=== PATIENT | male | born 1950 | race Caucasian/White ===

== ENCOUNTER 2019-11-27 06:33 | Outpatient (CLI) | payer MEDICARE, BC, SELFPAY ==
--- NOTE | ~2019-11-27 | CT_ITS ---
EXAMINATION: CT chest wo con DATE: 11/27/2019 06:56 INDICATION: Solitary pulmonary nodule TECHNIQUE: Computed tomography (CT) of the chest was performed without intravenous contrast. The dose -length product (DLP) was 230.86 mGy-cm. Automated exposure control and iterative reconstruction tech [employer] were employed. COMPARISON: 11/15/2018, 11/10/2017, 08/22/2015 FINDINGS: There is a stable 1.3 x 1.0 cm right upper lobe nodule with eccentric calcification. Also s een are multiple stable small groundglass nodules in the lungs. The lungs are free of acute opacities . There is no pleural effusion or pneumothorax. No pathologically enlarged thoracic lymph nodes are i dentified. The heart size is normal. The gallbladder is surgically absent. IMPRESSION: 1. Stable solid and groundglass nodules of the lungs, considered benign. Reviewed, dictated and finalized at location A.
== END 2019-11-27 06:34 | disposition home or self-care (01) ==
PROVIDERS: PCP Family Medicine; Visit Provider Internal Medicine Critical Care Medicine
DX: R91.1 Solitary pulmonary nodule (principal)
CPT/HCPCS: 71250

== ENCOUNTER 2020-12-05 11:23 | Outpatient (CLI) | payer MEDICARE, BC, SELFPAY ==
--- NOTE | ~2020-12-05 | CT_ITS ---
EXAMINATION: CT lung screening DATE: 12/05/2020 11:42 INDICATION: Personal history of nicotine dependence, prior smoker with 40 pack year history TECHNIQUE: Computed tomography (CT) of the chest was performed without intravenous contrast. The dose -length product (DLP) was 183.91 mGy-cm. Automated exposure control and iterative reconstruction tech [place] were employed. COMPARISON: 11/27/2019, 11/15/2018 FINDINGS: There is mild emphysema. There are multiple stable solid nodules of the lungs, the largest of which is a 12 mm right upper lobe nodule with eccentric calcification. There are also multiple sta ble groundglass nodules of the lungs without solid nodular component, the largest of which measures 2 .3 cm in the right upper lobe. There is atelectasis in the lingula. No pleural effusion or pneumothor ax is identified. The lungs are free of focal airspace opacities. No pathologically enlarged thoracic lymph nodes are identified. The heart size is normal. The gallbladder is surgically absent. IMPRESSION: 1. Lung-RADS category 2: Benign appearance or behavior. Continue annual screening with noncontrast lo w-dose chest CT in 12 months. Reviewed, dictated and finalized at location B. IMPRESSION: 1. Lung-RADS category 2: Benign appearance or behavior. Continue annual screeni ng with noncontrast low-dose chest CT in 12 months.
== END 2020-12-05 11:24 | disposition home or self-care (01) ==
PROVIDERS: PCP Family Medicine; Visit Provider Nurse Practitioner Family
DX: Z12.2 Encounter for screening for malignant neoplasm of respiratory organs (principal); Z87.891 Personal history of nicotine dependence
CPT/HCPCS: 71271

== ENCOUNTER 2021-12-25 09:31 | Outpatient (CLI) | payer MEDICARE, BC, SELFPAY ==
--- NOTE | ~2021-12-25 | CT_ITS ---
EXAMINATION:CT lung screening DATE: 12/25/2021 09:55 INDICATION: Personal history of tobacco dependence. Current smoker with 50 pack year history. TECHNIQUE: Computed tomography (CT) of the chest was performed without intravenous contrast. Automate d exposure control and iterative reconstruction technique were employed. The dose-length product (DLP ) was 165.56 mGy-cm. COMPARISON: Chest CT 12/05/2020 FINDINGS: There is moderate emphysema. There are a few scattered groundglass opacities in the upper l obes and right lower lobe. There is a 13 mm nodule in right upper lobe with peripheral calcification without change. There is a 7 mm nodule in right upper lobe that previously measured 5 mm. No pleural effusion. The heart size is normal. There are coronary artery calcifications. No pericardial effusion . There is mild thoracic spondylosis. IMPRESSION: 1. Lung-RADS category 4A: Suspicious. Noncontrast low-dose chest CT is recommended in 3 months. Reviewed, dictated and finalized at location A. IMPRESSION: 1. Lung-RADS category 4A: Suspicious. Noncontrast low-dose chest CT is recommen ded in 3 months.
== END 2021-12-25 09:32 | disposition home or self-care (01) ==
PROVIDERS: PCP Family Medicine; Visit Provider Nurse Practitioner Family
DX: Z12.2 Encounter for screening for malignant neoplasm of respiratory organs (principal); Z87.891 Personal history of nicotine dependence
CPT/HCPCS: 71271

== ENCOUNTER 2022-03-04 13:29 | Outpatient (CLI) | payer MEDICARE, BC, SELFPAY ==
--- NOTE | ~2022-03-04 | CT_ITS ---
EXAMINATION: CT diagnostic chest wo con DATE: 03/04/2022 14:01 INDICATION: Lung nodule TECHNIQUE: Computed tomography (CT) of the chest was performed without intravenous contrast. The dose -length product (DLP) was 226.10 mGy-cm. Automated exposure control and iterative reconstruction tech [employer] were employed. COMPARISON: 12/25/2021 FINDINGS: A 10 mm nodule in the right upper lobe previously measured 7 mm. There is a stable 13 mm no dule with calcification in the right upper lobe. There is moderate emphysema. There are stable ground glass nodules of the upper lobes and right lower lobe. There is mild atelectasis of the lingula. No p leural effusion or pneumothorax. No pathologically enlarged thoracic lymph nodes are identified. The heart size is normal. Calcified coronary artery atherosclerosis is noted. The gallbladder is surgical ly absent. There is mild thoracic spondylosis. IMPRESSION: 1. Right upper lobe nodule with interval enlargement. CT-guided biopsy is recommended. Reviewed, dictated and finalized at location B. TER MACHINE IMPRESSION: 1. Right upper lobe nodule with interval enlargement. CT-guided biopsy is recom mended.
== END 2022-03-04 13:30 | disposition home or self-care (01) ==
PROVIDERS: PCP Family Medicine; Visit Provider Nurse Practitioner Family
DX: R91.8 Other nonspecific abnormal finding of lung field (principal)
CPT/HCPCS: 71250

== ENCOUNTER 2022-03-17 01:39 | Outpatient (CLI) | payer MEDICARE, BC, SELFPAY ==
[2022-03-13 11:46] VITALS: BMI 30.9
--- NOTE | 2022-03-13 11:47 | PC.NURSE ---
Pre Radiology instructions Report to the Outpatient Waiting Room, entrance under the green pavilion located off [facility], at time _0900_ on date _03/17/22_. Procedure Time: _1100_. YOU MAY BE MONITORED AT HOSPITAL FOR UP TO 4 HOURS AFTER YOUR PROCEDURE. One visitor will be allowed to accompany the patient into the hospital. The visitor will be instructed to remain with patient at all times or leave the building due to restrictions. We will allow the visitor to come back to the postoperative area when patient is ready. NO children visitors allowed at this time. You and your visitor will be asked to self-screen and do not enter if you have any COVID symptoms. A mask is required within the hospital. Patients are to have no food or drink 6 hours prior to procedure time (0500 AM) Driving will be restricted after the procedure, you must have a person to drive you home. Labs will be drawn in preop area and once reviewed, you will be taken to radiology area for procedure. When the procedure is completed, you will be taken to outpatient where you will be monitored for several hours. You may have one visitor in this area. Other than holding anti-coagulants, patient may take other medication(s) as scheduled. Prior to your appointment date patients are instructed to hold anti-coagulants after discussing with ordering provider to stop. If unable to discontinue anti-coagulants please notify radiologist. No aspirin or warfarin (Coumadin) for 7 days prior to the procedure. No clopidogrel (Plavix), ticagrelor (Brilinta), prasugrel (Effient) or dabigatran (Pradaxa) for 5 days prior to the procedure. No rivaroxaban (Xarelto), apixaban (Eliquis), dipyridamole (Aggrenox or Persantine) or cilostazol (Pletal) for 2 days prior to the procedure. Medications to discontinue per physician: N/A Date to take last dose: Please leave all valuables, including medications, at home the day of procedure. The hospital will not accept responsibility for valuables. Wear comfortable, loose fitting clothing. Follow any additional instructions given to you from ordering provider. Telephone instructions given to ____PT and asked if any additional questions and then verbalized understanding. Patient advised to call scheduling provider office or registration scheduling [phone] if any additional questions.
--- NOTE | ~2022-03-17 | XR_ITS ---
EXAMINATION: XR chest 1V DATE: 03/17/2022 12:37 INDICATION: Right lung nodule status post percutaneous biopsy. TECHNIQUE: A single frontal view of the chest was obtained on 2 radiograph 6. COMPARISON: Chest 2 views 08/19/2015, chest CT 03/17/2022 FINDINGS: There are airspace opacities in right upper lobe. There is a moderate-sized right pneumotho rax. No pleural effusion. The heart size is normal. IMPRESSION: 1. Airspace opacities in right lung upper lobe, consistent with postbiopsy hemorrhage. 2. Moderate-sized right pneumothorax. The patient was unable to lay flat for a chest tube with CT [place] dance. The patient was transferred to the emergency department. Reviewed, dictated and finalized at location A. BAG MACHINE TENDER IMPRESSION: 1. Airspace opacities in right lung upper lobe, consistent with postbiopsy hemo rrhage. 2. Moderate-sized right pneumothorax. The patient was unable to lay flat for a chest tube with CT guidance. The patient was transferred to the emergency depar tment.
--- NOTE | ~2022-03-17 | CT_ITS ---
EXAMINATION: CT biopsy lung w/imaging DATE: 03/17/2022 12:58 INDICATION: Right lung upper lobe nodule. TECHNIQUE: The procedure including the risks, benefits, and alternatives and possibility of chest tub e placement were discussed with the patient. Risks discussed included infection, hemorrhage, approxim ately 1/3 risk of pneumothorax, approximately 1/10 risk of pneumothorax severe enough to warrant ches t tube placement, and rarely . The patient understood the risks and agreed to proceed. The patie nt was placed prone. The skin overlying the right lung was prepped and draped in sterile fashion. A nesthetic was administered with 1% lidocaine subcutaneously. A 19 gauge outer needle was advanced un irina CT guidance to the lesion of interest. A 20 gauge core biopsy needle was then used to obtain one core biopsy specimen. Hemorrhage obscured the area of the biopsy, and the procedure was terminated. T he needle was removed and the entry site was cleaned and dressed. The mA was adjusted according to pa tient size. Iterative reconstruction technique was employed. The dose-length product was 435.61 mGy-c m. FINDINGS: CT images demonstrate the outer needle tip adjacent to a 10 mm nodule in right lung upper l obe. IMPRESSION: 1. CT-guided core needle biopsy of a 10 mm nodule in right lung upper lobe. 2. Postbiopsy hemorrhage in right lung upper lobe. The patient was placed in the right lateral decubi tus position. Reviewed, dictated and finalized at location A. L MAKER SCALE IMPRESSION: 1. CT-guided core needle biopsy of a 10 mm nodule in right lung upper lobe. 2. Postbiopsy hemorrhage in right lung upper lobe. The patient was placed in th e right lateral decubitus position.
[2022-03-17 08:56] VITALS: BP 135/91; PULSE 116; RESP 22; TEMP 36.1; O2SAT 98
[2022-03-17] MEDS: SODIUM CHLORIDE 0.9% IV 1,000 ML 30 ML IV CONT (09:20)
[2022-03-17 09:52] LABS: Mean Platelet Volume 11.6 fl (7.4-10.4); Platelet Count Result 193 k/mm3 (150-375)
[2022-03-17 09:56] LABS: INR 0.9; Prothrombin Time 12.2 Seconds (11.1-14.7)
--- NOTE | 2022-03-17 12:54 | ECG_ITS ---
Measurements Intervals [place] Rate: 141 P: IA: 0 QRS: 86 QRSD: 89 T: 53 QT: 298 QTc: 457 Interpretive Statements ATRIAL FLUTTER/TACHYCARDIA WITH RAPID VENTRICULAR RESPONSE BORDERLINE ST-T WAVE ABNORMALITY- DIFFUSE LEADS BASELINE WANDER- V1-V3 ABNORMAL ECG NO PREVIOUS ECG AVAILABLE FOR COMPARISON Electronically Signed On 03-20-2022 15:55:28 TECHNICAL HEALTHCARE CONSULTANT by Vaughn Westfall D.O.
[2022-03-17 13:00] VITALS: BP 135/91; PULSE 116; RESP 22; O2SAT 98
== END 2022-03-17 01:40 | disposition home or self-care (01) ==
PROVIDERS: Radiology Diagnostic Radiology; PCP Family Medicine; Referring Provider Internal Medicine Critical Care Medicine; Visit Provider Radiology Diagnostic Radiology
DX: C34.91 Malignant neoplasm of unspecified part of right bronchus or lung (principal); J93.9 Pneumothorax, unspecified; R06.02 Shortness of breath; I48.92 Unspecified atrial flutter
CPT/HCPCS: 32408; 36415; 71045; 85049; 85610; 88305; 88342; 93005; J7030

== ENCOUNTER 2022-03-17 12:53 | Inpatient (IN) | payer MEDICARE, BC, SELFPAY ==
[2022-03-17] VITALS (13 sets, daily range): BP systolic 130–167; BP diastolic 70–121; PULSE 63–137; RESP 15–30; TEMP 35.9–36.8; O2SAT 94–100; BMI 31.6
--- NOTE | ~2022-03-17 | XR_ITS ---
XR chest 1V portable DATE: 03/19/2022 14:08 INDICATION: Pneumothorax; follow-up after chest tube removal TECHNIQUE: Portable AP views on 03/15/2022 at 1414 101 hours COMPARISON: 03/15/2022 PA and lateral chest on 03/15/2022 at 2125 hours FINDINGS: Interval removal of right thoracostomy tube. No pneumothorax is noted. Mild residual subcutaneous emphysema of the right lower lateral chest wall and to a lesser extent rig ht supraclavicular and cervical area. Right upper lobe lung nodule again noted. Normal heart size. No pulmonary consolidation is noted. IMPRESSION: Removal of right chest tube; no evidence of recurrent pneumothorax Reviewed, dictated and finalized at location A. O GAME TECHNICIAN
--- NOTE | ~2022-03-17 | XR_ITS ---
XR chest-chest tube insert/pos 03/17/2022 13:49 Indication: Chest tube placement for pneumothorax Procedure: AP portable chest Comparison: 03/17/2022 Findings: Heart size normal. Interval placement of right apical chest tube. There is subcutaneous gas in the right lateral chest wall. No residual pneumothorax identified. There is upper lobe consolidat ion which may represent atelectasis and/or post biopsy hemorrhage. Impression: 1: Interval resolution of right pneumothorax post chest tube placement. 2: Airspace consolidation right upper lung may represent atelectasis and/or hemorrhage. Reviewed, dictated and finalized at location B. TITATIVE ANALYST Impression: 1: Interval resolution of right pneumothorax post chest tube placement. 2: Airspace consolidation right upper lung may represent atelectasis and/or hem orrhage.
--- NOTE | ~2022-03-17 | XR_ITS ---
XR chest 2V DATE: 03/19/2022 09:29 INDICATION: Right pneumothorax TECHNIQUE: PA and lateral upright views COMPARISON: 03/18/2022 portable AP chest FINDINGS: Right thoracostomy tube is again noted, with mild subcutaneous emphysema of the right chest wall, supraclavicular and cervical region. No pneumothorax is evident. Minimal right upper lobe infiltrate may be present; otherwise no pulmonar y consolidation or pleural effusion is evident. Normal heart size. No hilar or mediastinal enlargement. Osteopenia. IMPRESSION: Right thoracostomy tube; no right pneumothorax Minimal subcutaneous emphysema of the right chest wall, right supraclavicular and cervical area Reviewed, dictated and finalized at location A. Y PUSHER IMPRESSION: Right thoracostomy tube; no right pneumothorax Minimal subcutaneous emphysema of the right chest wall, right supraclavicular a nd cervical area
--- NOTE | ~2022-03-17 | XR_ITS ---
EXAMINATION: XR chest 1V portable DATE: 03/18/2022 06:15 INDICATION: Pneumothorax. TECHNIQUE: A single frontal view of the chest was obtained. COMPARISON: Chest single view 03/17/2022 FINDINGS: There are airspace opacities in right upper lobe. No pleural effusion or pneumothorax. The heart size is normal. A right-sided chest tube is noted. Again seen is soft tissue gas in right later al chest wall. IMPRESSION: 1. Improved airspace opacities in right upper lobe, consistent with hemorrhage. 2. No pneumothorax. Right-sided chest tube noted. Reviewed, dictated and finalized at location A. H BRUSHING AND SUEDING SUPERVISOR
--- NOTE | ~2022-03-17 | XR_ITS ---
EXAMINATION: XR chest 1V portable DATE: 03/18/2022 13:05 INDICATION: Right pneumothorax. TECHNIQUE: A single frontal view of the chest was obtained. COMPARISON: Chest single view at 5:50 AM FINDINGS: There are airspace opacities in right upper lobe with interval improvement. No pleural effu kenyatta. There is a tiny right apical pneumothorax. The heart size is normal. A right-sided chest tube i s noted. There is gas in right lateral chest wall. IMPRESSION: 1. Tiny right apical pneumothorax. Right-sided chest tube noted. 2. Improved airspace opacities in right upper lobe, consistent with hemorrhage. Reviewed, dictated and finalized at location A. R SWEEPER
[2022-03-17] MEDS: fentaNYL CITRATE INJ (*CRX) 100 MCG/2 ML VIAL 50 MCG IV PUSH ×4 (13:30→14:30)
--- NOTE | 2022-03-17 13:40 | ED.GENADULT ---
HPI - General Adult General Chief complaint: Shortness of Breath/Dyspnea Stated complaint: Unspecified Time Seen by Provider: 03/17/22 12:53 History of Present Illness HPI narrative: 72-year-old male presents to our department with tachycardia and shortness of breath after sustaining a right-sided pneumothorax while having a lung biopsy in the radiology suite just prior to arrival. Patient is stable with 4 L of nasal cannula and only mildly tachypneic on arrival. We have obtained signed consent and have viewed chest x-ray from the radiology suite which demonstrates a moderate to large right-sided pneumothorax. Related Data Home Medications Medication Instructions Recorded Confirmed atorvastatin 40 mg tablet 40 mg PO DAILY 11/29/19 03/13/22 glimepiride 1 mg tablet 1 mg PO QAM 11/29/19 03/13/22 lisinopril 20 mg tablet 20 mg PO DAILY 11/29/19 03/13/22 metformin 850 mg tablet 850 mg PO BID 11/29/19 03/13/22 tamsulosin 0.4 mg capsule 0.4 mg PO DAILY 11/29/19 03/13/22 Allergies Allergy/AdvReac Type Severity Reaction Status Date / Time No Known Allergies Allergy Unverified 03/13/22 11:45 Review of Systems Review of Systems: CONSTITUTIONAL: Denies fever, chills, or sweats. EYES: Denies visual changes, redness, or discharge. ENT: Denies rhinorrhea, congestion, sore throat, or otalgia. CARDIOVASCULAR: Denies chest pain, palpitations, or edema. RESPIRATORY: Denies cough or dyspnea. GASTROINTESTINAL: Denies abdominal pain, nausea, vomiting, or diarrhea. GENITOURINARY: Denies dysuria or hematuria. SKIN: Denies rash or itching. MUSCULOSKELETAL: Denies back pain, joint pain, or myalgia. NEUROLOGIC: Denies headache, numbness, or weakness. PSYCHIATRIC: Denies anxiety or depression. [facility] Past Medical History Medical History (Updated 03/17/22 @ 14:36 by Kalpana Basurto PA-C) Benign prostatic hyperplasia Diverticulosis Hyperlipidemia Hypertension Kidney stones Type 2 diabetes mellitus Surgical History Surgical History (Updated 03/17/22 @ 14:36 by Kalpana Basurto PA-C) History of bilateral knee replacement (2008) History of cholecystectomy History of colonoscopy with polypectomy History of hemorrhoidectomy (1996) History of inguinal hernia repair History of tonsillectomy (1953) History of vasectomy Family History Family History (Updated 03/17/22 @ 14:37 by Kalpana Basurto PA-C) Father Acute myocardial infarction Sibling Lung cancer Social History Social History (Updated 03/17/22 @ 14:38 by Kalpana Basurto PA-C) Social History: Surrogate medical decision maker: Code status: Full code. Smoking packs per day: 1 Smoking cigarettes per day: 20.0 Years smoked: 40 Smoking pack-years: 40.00 Smoking status: Current every day smoker Tobacco type: cigarettes Exam Narrative: GENERAL: Well-appearing, well-nourished, and in no acute distress. HEAD: Normocephalic, atraumatic. EYES: PERRLA and EOMI. ENT: Nares clear, no rhinorrhea or epistaxis. Mucous membranes moist. NECK: Supple. CHEST: Absent breath sounds on the right side HEART: Regular rate and rhythm. No murmur heard. Normal peripheral pulses. ABDOMEN: Soft, nontender, nondistended, normal active bowel sounds. EXTREMITIES: Normal range of motion. No edema. SKIN: Warm, dry, no rash. NEURO: No focal deficits. Alert and oriented x3. PSYCH: Normal mood and affect. Course Vital Signs Vital signs: Vital Signs Temperature 98.2 F 03/17/22 12:49 Pulse Rate 137 H 03/17/22 12:49 Respiratory Rate 30 H 03/17/22 12:49 Blood Pressure 157/121 H 03/17/22 12:49 Pulse Oximetry 95 03/17/22 12:49 Oxygen Delivery Nasal Cannula 03/17/22 12:49 Oxygen Flow Rate 6 03/17/22 12:49 Temperature 98.2 F 03/17/22 12:49 Pulse Rate 90 03/17/22 15:21 Respiratory Rate 15 03/17/22 15:21 Blood Pressure 139/87 03/17/22 14:30 Pulse Oximetry 96 03/17/22 15:21 Oxygen Delivery Room Air 03/17/22 14:00 Oxygen Flow Rate
--- NOTE | 2022-03-17 14:15 | PM.IMHP ---
H&P: HPI History of Present Illness Date/Time: 03/17/22 14:15 Chief Complaint: Shortness of breath. Narrative: This is a very pleasant 72-year-old male smoker with hypertension, hyperlipidemia, and type 2 diabetes mellitus who presented to the ED from radiology for evaluation of shortness of breath following CT guided lung biopsy. One core needle biopsy of a 10 millimeter nodule in the right upper lobe was obtained and post biopsy he started to feel extremely apprehensive, anxious, and short of breath. Post biopsy x-ray revealed a moderate size right pneumothorax and he was sent to the emergency department where he underwent chest tube placement; he is being admitted in this setting. At the time my evaluation he is complaining of a constant sharp and stabbing pain in the right chest at the side of the biopsy and chest tube insertion. Fentanyl has not provided much relief and he is feeling a bit better after receiving 0.5 milligrams of dilaudid. He has not feeling short of breath at this time and he also denies lightheadedness, dizziness, nausea, and vomiting. Review of Systems Review of Systems: Twelve systems were reviewed and are negative except for as per HPI. [facility] Past Medical History Medical History (Updated 03/17/22 @ 20:52 by Kalpana Basurto PA-C) Benign prostatic hyperplasia Chronic kidney disease, stage 3 Diverticulosis Hyperlipidemia Hypertension Kidney stones Type 2 diabetes mellitus Surgical History Surgical History History of bilateral knee replacement (2008) History of cholecystectomy History of colonoscopy with polypectomy History of hemorrhoidectomy (1996) History of inguinal hernia repair History of tonsillectomy (1953) History of vasectomy Family History Family History (Updated 03/17/22 @ 14:37 by Kalpana Basurto PA-C) Father Acute myocardial infarction Sibling Lung cancer Social History Social History (Updated 03/17/22 @ 20:47 by Kalpana Basurto PA-C) Social History: Surrogate medical decision maker: Trupti Acosta, yenny. Code status: Full code. Smoking packs per day: 1 Smoking cigarettes per day: 20.0 Years smoked: 40 Smoking pack-years: 40.00 Smoking status: Current every day smoker Tobacco type: cigarettes Alcohol intake: former Substance use: never Lack of Transportation: No Lack of Food: Never True Current Housing: I Have Housing Concerned About Future Housing: No Difficulty Paying Gas/Electric Bills: No Difficulty Paying for Meds: No Currently Unemployed: No Education: Trade/Vocational Certificate Difficulty w/ Childcare or Family Care: No Spiritual care concerns: No Meds Home Medications and Allergies Home Medications Medication Instructions Recorded Confirmed Type atorvastatin 40 mg tablet 40 mg PO DAILY 11/29/19 03/17/22 History glimepiride 1 mg tablet 1 mg PO QAM 11/29/19 03/17/22 History lisinopril 20 mg tablet 20 mg PO DAILY 11/29/19 03/17/22 History metformin 850 mg tablet 850 mg PO DAILY 11/29/19 03/13/22 History tamsulosin 0.4 mg capsule 0.4 mg PO DAILY 11/29/19 03/17/22 History Allergies Allergy/AdvReac Type Severity Reaction Status Date / Time No Known Allergies Allergy Unverified 03/13/22 11:45 Vital Signs Vital Signs - 24 hr 03/17/22 12:49 03/17/22 13:36 Temperature 98.2 F Pulse Rate 137 H 120 H Respiratory Rate 30 H 17 Blood Pressure 157/121 H 156/98 H Pulse Oximetry 95 96 Oxygen Delivery Nasal Cannula Room Air Oxygen Flow Rate 6 Exam Const: Other: Well-developed, nontoxic-appearing male in the semi-Portillo position in bed. Weight: 90.5 kilograms. BMI: 31.6. HENMT: Other: Normocephalic, atraumatic. Nares patent bilaterally. Oral mucosa moist. Eyes: Other: Pupils are reactive. Extraocular motions intact. Sclerae and after. Neck: Other: Supple. No JVD. Chest: Other: Small bore chest to noted on the r
[2022-03-17 14:45] LABS: Basophils Percent Auto 0.3 % (0.2-1.2); Eosinophils Absolute Auto 0.3 K/mm3 (0-0.3); Hematocrit 44.4 % (42.0-52.0); Hemoglobin 15.1 g/dL (14.0-18.0); Immature Granulocyte Absolute 0.03 K/mm3 (0.00-0.031); Immature Granulocyte Percent A 0.3 % (0-0.5); Lymphocytes Absolute Auto 3.58 K/mm3 (0.9-3.2); Mean Corpuscular Hemoglobin 32.6 pg (26-34); Mean Corpuscular Volume 95.9 fl (80-100); Mean Platelet Volume 11.5 fl (7.4-10.4); Monocytes Absolute Auto 0.6 K/mm3 (0.1-0.6); Monocytes Percent Auto 6.6 % (2.6-8.5); Neutrophils Absolute Auto 4.9 K/mm3 (1.3-6.7); Neutrophils Percent Auto 51.8 % (45.5-73.1); Platelet Count Result 214 k/mm3 (150-375); Red Blood Count 4.63 M/mm3 (4.6-6.20); Red Cell Distribution Width 13.2 % (11.5-14.5); White Blood Count 9.4 K/mm3 (4.5-10.0)
[2022-03-17 14:54] LABS: Alanine Aminotransferase 27 U/L (6-50); Albumin Level 4.3 g/dL (3.5-5.1); Alkaline Phosphatase 114 U/L (38-126); Anion Gap 7 mmol/L (8-16); Aspartate Amino Transferase 26 U/L (17-59); Bilirubin,Total 0.8 mg/dL (0.2-1.3); Blood Urea Nitrogen 29 mg/dL (9-20); Calcium 8.6 mg/dL (8.4-10.2); Carbon Dioxide 26 mmol/L (22-30); Chloride 104 mmol/L (98-107); Estimated CRCL calculation 38 ml/min; Estimated Glomerular Filt Rate 37; Glucose 229 mg/dL (65-110); Potassium 3.6 mmol/L (3.4-5.0); Sodium 137 mmol/L (137-145)
[2022-03-17] MEDS: HYDROmorphone HCL INJ (*CRX) 1 MG/ML SYR 0.5 MG IV PUSH ×2 (15:03→17:40)
--- NOTE | 2022-03-17 15:46 | PC.NURSE ---
This patient, Dennis Acosta, was admitted to Medical Room 244-. Patient/family oriented to hospital policies and general routines including ID bracelet, bed and alarms, visiting hours, pain management, procedures, bathroom and other care routines, personal items, smoking policy, room service/diet, and visiting hours. Information on how to activate the Rapid Response Team has been discussed. Patient/Family are encouraged to report perceived risks to care and to ask questions if they do not understand what they are told or what they should do.
[2022-03-17 17:41] LABS: Glucose Point of Care 205 mg/dl (65-105)
--- NOTE | 2022-03-17 18:49 | PC.NURSE ---
Pt. arrived to unit around 1545. During verbal report from the ER, the RN stated that the Right chest tube is to be to water seal. No orders were placed when patient arrived to floor for chest tube maintenance orders. salt plant operator, called admitting provider to place an order for a surgical consult as one was not placed in the ED. Dr. Lorenzana was consulted and responded at [address] chest tube to -20cm suction instead of water seal. Chest tube was placed to -20cm suction. Chest tube site WNL and without crepitus.
[2022-03-17] MEDS: HYDROcodone/acetaminophen (*CRX) 5-325 MG TABLET 1 TAB PO (20:22)
[2022-03-17 20:57] LABS: Glucose Point of Care 200 mg/dl (65-105)
[2022-03-18] VITALS (9 sets, daily range): BP systolic 161–167; BP diastolic 77–84; PULSE 61–101; RESP 18–20; TEMP 36.4–36.6; O2SAT 93–95
[2022-03-18 06:07] LABS: Anion Gap 8 mmol/L (8-16); Blood Urea Nitrogen 28 mg/dL (9-20); Calcium 8.9 mg/dL (8.4-10.2); Carbon Dioxide 28 mmol/L (22-30); Chloride 107 mmol/L (98-107); Estimated CRCL calculation 41 ml/min; Estimated Glomerular Filt Rate 40; Glucose 158 mg/dL (65-110); Magnesium 2.2 mg/dL (1.6-2.3); Potassium 4.4 mmol/L (3.4-5.0); Sodium 143 mmol/L (137-145)
[2022-03-18] MEDS: HYDROmorphone HCL INJ (*CRX) 1 MG/ML SYR 0.5 MG IV PUSH (06:12)
[2022-03-18 08:02] LABS: Glucose Point of Care 168 mg/dl (65-105)
[2022-03-18] MEDS: ONDANSETRON INJ 4 MG/2 ML VIAL IV PUSH (09:16)
--- NOTE | 2022-03-18 09:33 | PM.CNGS ---
Assessment and Plan Assessment and plan (1) Pneumothorax, post biopsy, right: Code(s): J95.811 - Postprocedural pneumothorax Status: Acute Assessment and Plan: Right pneumothorax s/p CT-guided right upper lobe lung biopsy on 03/17/22. Right chest tube placed in the ER with resolution of the pneumothorax. Chest x-ray this morning showed no pneumothorax with right chest tube in place. No air leak on exam. (2) Lung nodule, solitary: Code(s): R91.1 - Solitary pulmonary nodule Status: Acute Assessment and Plan: S/p CT-guided lung biopsy yesterday. Follows with Pulmonology. (3) Tobacco abuse: Code(s): Z72.0 - Tobacco use Status: Acute Assessment and Plan: Encouraged cessation. (4) Type 2 diabetes mellitus: Code(s): E11.9 - Type 2 diabetes mellitus without complications Status: Acute (5) Benign prostatic hyperplasia: Code(s): N40.0 - Benign prostatic hyperplasia without lower urinary tract symptoms Status: Acute (6) Chronic kidney disease, stage 3: Code(s): N18.30 - Chronic kidney disease, stage 3 unspecified Status: Acute Plan I have discussed the patient's case and plan of care with Dr. Lorenzana. Thank you for allowing us to see the patient in consultation and we will continue to follow along with you. History of Present Illness Consult details Consult date: 03/18/22 Reason for consult: chest tube (Post lung biopsy pneumothorax) Requesting physician: Kalpana Basurto PA-C Narrative: This is a 72-year-old man with type 2 diabetes mellitus, BPH, chronic kidney disease, hypertension, hyperlipidemia, and tobacco abuse. He has been following with pulmonology as an outpatient and was found to have an enlarging right upper lobe lung nodule. He underwent a CT-guided lung biopsy yesterday as an outpatient. He was found to have a moderate-sized right pneumothorax following the biopsy. He was unable to tolerate lying flat to have a CT-guided chest tube placed. He was then transferred to the ER. A right-sided chest tube was placed in the ER with repeat chest x-ray showing interval resolution of the right pneumothorax and chest tube in place. He was admitted to the hospitalist service. Our service was consulted for management of the chest tube. He is seen this morning. He reports pain at the site of the chest tube, but this has been controlled with pain medication. He is no longer on oxygen. He denies any shortness of breath. He does report having some nausea overnight last night that he thought was related to his IV Dilaudid. he reports feeling nauseous during our conversation and ended up vomiting after having a few bites of breakfast. Denies any abdominal pain or other complaints. Review of Systems Review of Systems: All systems reviewed & are unremarkable except as noted in HPI and below [facility] Past Medical History Medical History (Updated 03/18/22 @ 09:41 by QING Larsen) Benign prostatic hyperplasia Chronic kidney disease, stage 3 Diverticulosis Hyperlipidemia Hypertension Kidney stones Type 2 diabetes mellitus Surgical History Surgical History History of bilateral knee replacement (2008) History of cholecystectomy History of colonoscopy with polypectomy History of hemorrhoidectomy (1996) History of inguinal hernia repair History of tonsillectomy (1953) History of vasectomy Family History Family History Father Acute myocardial infarction Sibling Lung cancer Social History Social History Social History: Surrogate medical decision maker: Trupti Dengon, yenny. Code status: Full code. Smoking packs per day: 1 Smoking cigarettes per day: 20.0 Years smoked: 40 Smoking pack-years: 40.00 Smoking status: Current every day smoker Tob
[2022-03-18 09:56] LABS: Hemoglobin A1C 7.7 % (<5.7)
[2022-03-18 11:50] LABS: Glucose Point of Care 191 mg/dl (65-105)
--- NOTE | 2022-03-18 14:25 | PM.IMPN ---
Progress Note: A&P Assessment and Plan (1) Pneumothorax, post biopsy, right: Code(s): J95.811 - Postprocedural pneumothorax Status: Acute Assessment and Plan: Patient has chest tube placement. Surgery has been consulted. Plan is to place a chest tube on water seal and remove later today. (2) Hypoxia: Code(s): R09.02 - Hypoxemia Status: Acute Assessment and Plan: From pneumothorax. Continue oxygen per protocol (3) Chronic kidney disease, stage 3: Code(s): N18.30 - Chronic kidney disease, stage 3 unspecified Status: Acute Assessment and Plan: Monitor (4) Type 2 diabetes mellitus: Code(s): E11.9 - Type 2 diabetes mellitus without complications Status: Acute Assessment and Plan: Continue insulin with Accu-Cheks AC and HS Subjective Date/time seen: 03/18/22 14:25 Patient reports chest pain upon movement at the site of chest tube placement Review of Systems Review of Systems: All systems reviewed & are unremarkable except as noted in HPI and below Exam Const: General: comfortable, no acute distress and awake Nutritional Appearance: overweight Orientation/consciousness: patient oriented x3 HENMT: Head: normocephalic and atraumatic Ears: hearing grossly normal bilaterally Mouth: Yes moist mucous membranes Eyes: General: appearance normal, both eyes and all related structures Pupils: Equal, round and reactive pupils present EOM: EOMs intact bilaterally Neck: Neck: normal visual inspection and full ROM Chest: Chest palpation & inspection: no crepitus Other: Right lateral chest tube with dressing dry and intact, no air leak Resp: Effort & Inspection: no respiratory distress Auscultation: clear to auscultation bilaterally Cardio: Rate: regular rate Rhythm: regular rhythm Heart sounds: S1 normal heart sound present and S2 normal heart sound present Peripheral pulses: Peripheral pulses 2+ throughout GI: Inspection: non-distended and no visible herniation GI Palp: Yes Soft to palpation, No Tenderness to palpation present (GI), No Guarding due to palpation present (GI), Yes No hepatosplenomegaly present and No Rebound tenderness present Percussion: Yes normal to percussion Auscultation: normal bowel sounds Rectal Exam: deferred Skin: General skin exam: normal color Rashes: no rashes Neuro: General: moves all extremities and no focal motor deficits Cranial nerves: Yes CN's II-XII intact bilaterally Speech: normal speech Motor exam (neuro): 5/5 motor strength present throughout Extrem: General: normal to inspection and no edema Psych: Mental Status: mental status grossly normal Affect: normal affect Attitude: cooperative Insight: Good insight present (Psych) Judgement: Good judgement present (Psych) Objective Data Vital Signs Vital Signs: Vital Signs - 24 hr 03/17/22 14:30 03/17/22 15:21 03/17/22 16:00 Temperature 96.6 F L Pulse Rate 104 H 90 63 Respiratory Rate 19 15 16 Blood Pressure 139/87 130/70 Pulse Oximetry 95 96 100 Oxygen Delivery 03/17/22 16:15 03/17/22 19:47 03/17/22 20:00 Temperature 97.1 F L Pulse Rate 88 82 82 Respiratory Rate 18 18 Blood Pressure 133/88 Pulse Oximetry 98 98 Oxygen Delivery Room Air 03/17/22 20:00 03/18/22 00:00 03/18/22 04:27 Temperature 97.8 F Pulse Rate 74 61 81 Respiratory Rate 20 Blood Pressure 162/77 H Pulse Oximetry 95 Oxygen Delivery 03/18/22 04:00 03/18/22 08:00 03/18/22 08:00 Temperature Pulse Rate 77 77 Respiratory Rate Blood Pressure Pulse Oximetry Oxygen Delivery Room Air Intake/Output Intake/Output: Intake & Output 03/15/22 03/16/22 03/17/22 03/18/22 23:59 23:59 23:59 23:59 Intake Total 700 / 700 320 / 320 Output Total 200 / 200 725 / 725 Balance 500 / 500 -405 / -405 Meds/Results Medications: Active Medications Generic Name Dose Route Start Last Admin Trade Name Freq PRN Reason S
[2022-03-18] MEDS: HYDROcodone/acetaminophen (*CRX) 10-325 MG TABLET 1 TAB PO (15:01)
[2022-03-18 17:00] LABS: Glucose Point of Care 223 mg/dl (65-105)
[2022-03-18 20:38] LABS: Glucose Point of Care 227 mg/dl (65-105)
[2022-03-19] VITALS: PULSE 76
[2022-03-19 04:00] VITALS: PULSE 80
[2022-03-19 05:33] VITALS: BP 188/81; PULSE 79; RESP 20; TEMP 36.7; O2SAT 91
[2022-03-19 08:00] VITALS: PULSE 86
[2022-03-19 09:04] VITALS: BP 168/62; PULSE 96; RESP 17; O2SAT 95
[2022-03-19 09:08] LABS: Glucose Point of Care 179 mg/dl (65-105)
[2022-03-19] MEDS: lisinopriL 20 MG TABLET PO (09:08)
[2022-03-19] MEDS: ACETAMINOPHEN 325 MG TABLET 650 MG PO (09:09)
--- NOTE | 2022-03-19 09:35 | PM.IMPN ---
Progress Note: A&P Assessment and Plan (1) Pneumothorax, post biopsy, right: Code(s): J95.811 - Postprocedural pneumothorax Status: Acute Assessment and Plan: Patient has chest tube placement. Surgery has been consulted. Chest x-ray yesterday afternoon showed minimal pneumothorax. Repeat chest x-ray this morning. Further plans per surgery (2) Hypoxia: Code(s): R09.02 - Hypoxemia Status: Acute Assessment and Plan: From pneumothorax. Continue oxygen per protocol (3) Chronic kidney disease, stage 3: Code(s): N18.30 - Chronic kidney disease, stage 3 unspecified Status: Acute Assessment and Plan: Monitor (4) Type 2 diabetes mellitus: Code(s): E11.9 - Type 2 diabetes mellitus without complications Status: Acute Assessment and Plan: Continue insulin with Accu-Cheks AC and HS Subjective Date/time seen: 03/19/22 09:35 No shortness of breaths. Chest pain at the site of chest tube insertion Review of Systems Review of Systems: All systems reviewed & are unremarkable except as noted in HPI and below Exam Const: General: comfortable, no acute distress and awake Nutritional Appearance: overweight Orientation/consciousness: patient oriented x3 HENMT: Head: normocephalic and atraumatic Ears: hearing grossly normal bilaterally Mouth: Yes moist mucous membranes Eyes: General: appearance normal, both eyes and all related structures Pupils: Equal, round and reactive pupils present EOM: EOMs intact bilaterally Neck: Neck: normal visual inspection and full ROM Chest: Chest palpation & inspection: no crepitus Other: Right lateral chest tube with dressing dry and intact, no air leak Resp: Effort & Inspection: no respiratory distress Auscultation: clear to auscultation bilaterally Cardio: Rate: regular rate Rhythm: regular rhythm Heart sounds: S1 normal heart sound present and S2 normal heart sound present Peripheral pulses: Peripheral pulses 2+ throughout GI: Inspection: non-distended and no visible herniation GI Palp: Yes Soft to palpation, No Tenderness to palpation present (GI), No Guarding due to palpation present (GI), Yes No hepatosplenomegaly present and No Rebound tenderness present Percussion: Yes normal to percussion Auscultation: normal bowel sounds Rectal Exam: deferred Skin: General skin exam: normal color Rashes: no rashes Neuro: General: moves all extremities and no focal motor deficits Cranial nerves: Yes CN's II-XII intact bilaterally Speech: normal speech Motor exam (neuro): 5/5 motor strength present throughout Extrem: General: normal to inspection and no edema Psych: Mental Status: mental status grossly normal Affect: normal affect Attitude: cooperative Insight: Good insight present (Psych) Judgement: Good judgement present (Psych) Objective Data Vital Signs Vital Signs: Vital Signs - 24 hr 03/18/22 14:00 03/18/22 12:00 03/18/22 16:00 Temperature 97.5 F L Pulse Rate 80 85 101 H Respiratory Rate 18 Blood Pressure 161/84 H Pulse Oximetry 94 Oxygen Delivery 03/18/22 17:24 03/18/22 20:00 03/18/22 20:00 Temperature 97.8 F Pulse Rate 83 83 Respiratory Rate 20 20 Blood Pressure 167/80 H Pulse Oximetry 94 93 93 Oxygen Delivery Room Air Room Air 03/18/22 20:00 03/19/22 00:00 03/19/22 05:33 Temperature 98.1 F Pulse Rate 79 76 79 Respiratory Rate 20 Blood Pressure 188/81 H Pulse Oximetry 91 Oxygen Delivery 03/19/22 04:00 03/19/22 08:00 03/19/22 09:04 Temperature Pulse Rate 80 86 96 Respiratory Rate 17 Blood Pressure 168/62 H Pulse Oximetry 95 Oxygen Delivery 03/19/22 09:15 Temperature Pulse Rate Respiratory Rate Blood Pressure Pulse Oximetry Oxygen Delivery Room Air Intake/Output Intake/Output: Intake & Output 03/16/22 03/17/22 03/18/22 03/19/22 23:59 23:59 23:59 23:59 Intake Total 700 / 700 1280 / 1280 300 / 300 Output To
--- NOTE | 2022-03-19 11:40 | PM.PNGS ---
Progress Note: A&P Assessment and Plan (1) Pneumothorax, post biopsy, right: Code(s): J95.811 - Postprocedural pneumothorax Status: Acute Assessment and Plan: CT removed at bedside, encourage IS/deep breathing, recheck CXR in a few hours and if no issues ok to dc from surgical standpoint Subjective Subjective Date/Time Seen: 03/19/22 11:40 feels ok, denies SOB, CP Review of Systems Review of Systems: All systems reviewed & are unremarkable except as noted in HPI and below Exam Const: General: cooperative, comfortable and no acute distress Chest: Other: R CT - C/D/I, no air leak, on seal Resp: Auscultation: clear to auscultation bilaterally Cardio: Rate: regular rate Rhythm: regular rhythm GI: Inspection: normal to inspection Objective Data Vital Signs Vital Signs: Vital Signs - 24 hr 03/18/22 14:00 03/18/22 12:00 03/18/22 16:00 Temperature 36.4 C L Pulse Rate 80 85 101 H Respiratory Rate 18 Blood Pressure 161/84 H Pulse Oximetry 94 Oxygen Delivery 03/18/22 17:24 03/18/22 20:00 03/18/22 20:00 Temperature 36.6 C Pulse Rate 83 83 Respiratory Rate 20 20 Blood Pressure 167/80 H Pulse Oximetry 94 93 93 Oxygen Delivery Room Air Room Air 03/18/22 20:00 03/19/22 00:00 03/19/22 05:33 Temperature 36.7 C Pulse Rate 79 76 79 Respiratory Rate 20 Blood Pressure 188/81 H Pulse Oximetry 91 Oxygen Delivery 03/19/22 04:00 03/19/22 08:00 03/19/22 09:04 Temperature Pulse Rate 80 86 96 Respiratory Rate 17 Blood Pressure 168/62 H Pulse Oximetry 95 Oxygen Delivery 03/19/22 09:15 Temperature Pulse Rate Respiratory Rate Blood Pressure Pulse Oximetry Oxygen Delivery Room Air Intake/Output Intake/Output: Intake & Output 03/16/22 03/17/22 03/18/22 03/19/22 23:59 23:59 23:59 23:59 Intake Total 700 1280 654 Output Total 200 925 875 Balance 500 355 -221 Meds/Results Medications: Active Medications Generic Name Dose Route Start Last Admin Trade Name Freq PRN Reason Stop Dose Admin Acetaminophen 650 mg 03/17/22 16:28 03/19/22 09:09 Acetaminophen 325 Mg Tablet PO 650 mg Q6H PRN Administration Mild Pain (1-3) or Fever Hydrocodone Bitart/Acetaminophen 1 tab 03/17/22 16:28 03/17/22 20:22 Hydrocodone/Acetaminophen (*Crx) 5-325 Mg Tablet PO 1 tab Q6H PRN Administration Pain Rated 4-6 Hydrocodone Bitart/Acetaminophen 1 tab 03/18/22 09:50 03/18/22 15:01 Hydrocodone/Acetaminophen (*Crx) 10-325 Mg Tablet PO 1 tab Q6H PRN Administration Pain Rated 7-10 Dextrose 12.5 gm 03/17/22 16:30 Dextrose 50% 25 Gm/50 Ml Syringe IV PUSH PRN PRN Hypoglycemia Protocol Glucagon 1 mg 03/17/22 16:30 Glucagon For Inj 1 Mg Vial IM PRN PRN Hypoglycemia Protocol Glucose 15 gm 03/17/22 16:30 Glucose Oral Gel 15 Gm Of Glucse In 37.5 Gm Tube PO PRN PRN Hypoglycemia Protocol Hydromorphone HCl 0.5 mg 03/17/22 16:28 03/18/22 06:12 Hydromorphone Hcl Inj (*Crx) 1 Mg/Ml Syr IV PUSH 0.5 mg Q3H PRN Administration Pain Rated 7-10 Dextrose 1,000 mls @ 100 mls/hr 03/17/22 16:30 Dextrose 5% 1,000 Ml IVPB PRN PRN Hypoglycemia Protocol Insulin Aspart 2 - 5 units 03/17/22 17:00 03/19/22 09:02 Insulin Aspart (*Bkc) 100 Units/Ml SUB-Q Not Given [facility] Protocol Lisinopril 20 mg 03/19/22 09:00 03/19/22 09:08 Lisinopril 20 Mg Tablet PO 20 mg QAM PRAVIN Administration Ondansetron HCl 4 mg 03/18/22 09:09 03/18/22 09:16 Ondansetron Inj 4 Mg/2 Ml Vial IV PUSH 4 mg Q4H PRN Administration Nausea And Vomiting Labs Labs: Laboratory Results - last 24 hr 03/18/22 03/18/22 03/18/22 11:44 16:50 20:22 POC Capillary Glucose 191 H 223 H 227 H 03/19/22 08:48 POC Capillary Glucose 179 H Imaging My impression: CXR - no PTX
[2022-03-19 12:00] VITALS: PULSE 101
[2022-03-19 12:32] LABS: Glucose Point of Care 277 mg/dl (65-105)
[2022-03-19] MEDS: HYDROcodone/acetaminophen (*CRX) 10-325 MG TABLET 1 TAB PO (12:44)
[2022-03-19] MEDS: INSULIN ASPART (*BKC) 100 UNITS/ML SUB-Q (12:45)
--- NOTE | 2022-03-19 15:22 | PM.DS ---
DS: Admitting Diagnosis Discharge Date 03/19/22 Admitting Diagnosis pneumothorax DS: Summary Hospital Course Hospital Course: ?This is a 72-year-old man who presented to the emergency department yesterday after undergoing a CT-guided lung biopsy in Interventional Radiology.? Postprocedure chest x-ray showed evidence of a moderate pneumothorax.? Patient was unable to lie flat for a CT-guided chest tube placement, therefore he was sent directly over to the emergency department.? Chest tube was placed by the emergency department physician and follow-up chest x-ray showed resolution of the pneumothorax.? Surgery was consulted. His symptoms resolved after chest tube placement and he only has pain and discomfort from the chest tube now.? His breath sounds are equal bilaterally and there is no sign of air leak on the chest tube.? We will plan to place patient water seal and a repeat chest x-ray in a few hours.? pneumothorax remains resolved. chest tube removed today. post removal of chest tube CXR shows no pneumothorax. patient is being dscharged home. Time Spent with Patient Time attestation: Total time spent providing and/or coordinating discharge services: Exam Const: General: cooperative, comfortable and no acute distress Chest: Other: R CT - C/D/I, no air leak, on seal Resp: Auscultation: clear to auscultation bilaterally Cardio: Rate: regular rate Rhythm: regular rhythm GI: Inspection: normal to inspection DS: Data Data Completed and Pending Labs on day of discharge: Labs from last 24 hours 03/19/22 03/19/22 03/18/22 12:19 08:48 20:22 POC Capillary Glucose 277 H 179 H 227 H 03/18/22 16:50 POC Capillary Glucose 223 H Discharge Plan Discharge Consulting providers: Munir Lorenzana Discharging Clinician: Bart Cadena Anticipated Discharge Date/Time: 03/19/22 15:21 Patient Disposition: Home, Self-Care Activity: may shower Diet: heart healthy Patient Instructions: Antibiotic Form Stand Alone Forms: General Discharge Information Follow-up/Referrals: Leonardo Gomez MD [Primary Care Provider] - Discharge Medications: Continued atorvastatin 40 mg tablet 40 mg PO DAILY glimepiride 1 mg tablet 1 mg PO QAM Rx Instructions: administer with breakfast lisinopril 20 mg tablet 20 mg PO DAILY metformin 850 mg tablet 850 mg PO DAILY tamsulosin 0.4 mg capsule 0.4 mg PO DAILY Date of admission: 03/17/22 15:28 Primary Care Provider: Leonardo Gomez Admitting Provider: Sam Mast Attending physician on admission: Bart Cadena Condition: Stable
== END 2022-03-19 16:25 | disposition home or self-care (01) | DRG 201 ==
LOC: ANHED 13:51 → ANH2MED 15:47
PROVIDERS: Physician Assistant; Admitting Provider Internal Medicine; Emergency Provider Emergency Medicine; PCP Family Medicine; Visit Provider Hospitalist
DX: J95.811 Postprocedural pneumothorax (principal); R91.1 Solitary pulmonary nodule; R09.02 Hypoxemia; N40.0 Benign prostatic hyperplasia without lower urinary tract symptoms; N18.30 Chronic kidney disease, stage 3 unspecified; F17.210 Nicotine dependence, cigarettes, uncomplicated; E11.22 Type 2 diabetes mellitus with diabetic chronic kidney disease; I12.9 Hypertensive chronic kidney disease with stage 1 through stage 4 chronic kidney disease, or unspecified chronic kidney disease; E78.5 Hyperlipidemia, unspecified; Z79.84 Long term (current) use of oral hypoglycemic drugs; Z79.899 Other long term (current) drug therapy; Z87.442 Personal history of urinary calculi
CPT/HCPCS: 32408; 36415; 71045; 71046; 80048; 80053; 82948; 83036; 83735; 85025; 85049; 85610; 88305; 88342; 93005; 96374; 96375; 96376; 99285; A9270; C1729; G0378; J1170; J1815; J2270; J2405; J3010; J7030

== ENCOUNTER 2022-04-08 09:50 | Outpatient (CLI) | payer MEDICARE, BC, SELFPAY ==
--- NOTE | 2022-04-08 12:17 | P.PCNPFT_ITS ---
PFT Procedure Performed PFT Procedure Performed Spirometry with Pre/Post Bronchodilator Plethysmography (Lung Vol) Diffusing Cap (DLCO) Flow Vol Loop PFT Interpretation This is a pulmonary function test with pre and post-bronchodilator spirometry, plethysmography and diffusing capacity. The test was performed and results interpreted in accordance with the 2019 and 2005 ATS/ERS Task Force guidelines respectively using the Global Lung Function Initiative-2012 reference equations. Patient demonstrated good effort and cooperation. Reproducibility criteria were met. The quality of the pre bronchodilator spirometry maneuver was Grade A and post bronchodilator spirometry maneuver was Grade A. Findings: Spirometry: There is decreased maximal expiratory airflow at all lung volumes with concave expiratory flow tracing. The contour the inspiratory flow tracing is normal. The pre bronchodilator FVC is 3.11 L, 79% predicted. The pre bronchodilator FEV1 is 1.89 L, 64% predicted. The pre bronchodilator FEV1: FVC ratio 61%. The post bronchodilator FVC is 3.86 L, representing a 24% increase. The post bronchodilator FEV1 is 2.02 L, representing a 7% increase. The post bronchodilator FEV1: FVC ratio is 52%. Plethysmography: The total lung capacity is 7.39 L, 108% predicted. The functional residual capacity is 4.79 L, 132% predicted. The residual volume is 4.28 L, 173% predicted. Diffusing capacity: The diffusing capacity unadjusted for hemoglobin and carboxyhemoglobin is 14.9, 60% predicted. The diffusing capacity adjusted for alveolar volume is 3.26, 84% predicted. In comparison to previous pulmonary function testing on 10/04/2015 the post bronchodilator FVC has decreased from 4.57 L to 3.86 L. The post bronchodilator FEV1 has decreased from 2.52 L to 2.02 L. The total lung capacity is unchanged from 7.23 L to 7.39 L. The functional residual capacity has increased from 4.02 L to 4.79 L. The residual volume is increased from 3.04 L to 4.28 L. The diffusing capacity unadjusted for hemoglobin and carboxyhemoglobin has decreased from 19.2 to 14.9. The diffusing capacity adjusted for alveolar volume is unchanged from 3.22 to 3.26. Impression: There is a moderate obstructive abnormality with significant improvement after inhaling a single dose of albuterol. The increase in residual volume is consistent with air trapping from an obstructive abnormality. The diffusing capacity unadjusted for hemoglobin and carboxyhemoglobin is moderately decreased and normalizes when adjusted for alveolar volume. When compared to prior pulmonary function testing on 10/04/2015 there has been a greater than anticipated time dependent decrease in FVC, FEV1 and diffusi ng capacity unadjusted for hemoglobin and carboxyhemoglobin. There has been a greater than anticipated time dependent increase in the functional residual capacity and residual volume with no change in the diffusing capacity adjusted for alveolar volume. Clinical correlation recommended.
== END 2022-04-08 09:51 | disposition home or self-care (01) ==
LOC: ANHPFT 09:52
PROVIDERS: PCP Family Medicine; Visit Provider Internal Medicine Critical Care Medicine
DX: R06.02 Shortness of breath (principal); R94.2 Abnormal results of pulmonary function studies
CPT/HCPCS: 94060; 94726; 94729

== ENCOUNTER 2022-04-09 08:29 | Outpatient (CLI) | payer MEDICARE, BC, SELFPAY ==
--- NOTE | ~2022-04-09 | PE_ITS ---
EXAMINATION: PET skull to mid thigh DATE: 04/09/2022 10:15 INDICATION: Adenocarcinoma of the right upper lobe TECHNIQUE: Blood glucose level was 182 mg/dL. 7.055 mCi of 18-fluorodeoxyglucose (18-FDG) was adminis tered i.v. Low dose computed tomography (CT) images were acquired from the base of the brain to the p roximal thighs for attenuation correction and anatomic localization. Positron emission tomography (PE T) images were acquired in the same distribution beginning 50 minutes after injection. The dose-lengt h product (DLP) was 795.81 mGy-cm. COMPARISON: CT, 03/04/2022 FINDINGS: Head/neck: No abnormal FDG uptake is identified. There is physiologic uptake in the oral cavity and e xtraocular muscles. Chest: There is a stable 10 mm nodule of the right upper lobe with minimal FDG uptake with SUV max of 1.6, biopsy-proven adenocarcinoma. No additional abnormal FDG uptake is identified in the thorax. Th ere are stable groundglass nodules without solid component in the upper lobes and right lower lobe me asuring up to 2.4 cm. A stable 13 mm nodule with calcification in the right upper lobe does not demon strate associated FDG uptake. There is moderate emphysema. There is mild atelectasis of the lingula. No pleural effusion or pneumothorax. No pathologically enlarged thoracic lymph nodes are identified. The heart size is normal. Calcified coronary artery atherosclerosis is noted. Abdomen/pelvis/proximal thighs: No abnormal FDG uptake is identified. Physiologic FDG activity is pre sent in the bowel and urinary tract. The gallbladder is surgically absent. The liver, spleen, pancrea s, and adrenal glands are normal. No pathologically enlarged abdominal or pelvic lymph nodes are iden tified. There is no free intraperitoneal gas or evidence of bowel obstruction. There is a 3.7 cm fusi form infrarenal abdominal aortic aneurysm. Colonic diverticulosis is present without evidence of dive rticulitis. There is questionable eccentric wall thickening of the urinary bladder on the right. Ther e appear to be changes of right inguinal hernia repair. Musculoskeletal: No abnormal FDG uptake is identified. There is moderate lumbar spondylosis. IMPRESSION: 1. 10 mm nodule of the right upper lobe with minimal FDG uptake, consistent with biopsy-proven adenoc arcinoma. No evidence of metastatic disease. 2. Groundglass nodules of the upper lobes and right lower lobe. Annual CT follow-up is recommended. 3. Questionable eccentric thickening of the bladder wall. Recommend correlation with urinalysis and f urther imaging evaluation such as ultrasound or CT urogram. 4. 3.7 cm fusiform infrarenal abdominal aortic aneurysm. Reviewed, dictated and finalized at location A. [facility] IMPRESSION: 1. 10 mm nodule of the right upper lobe with minimal FDG uptake, consistent wit h biopsy-proven adenocarcinoma. No evidence of metastatic disease. 2. Groundglass nodules of the upper lobes and right lower lobe. Annual CT follo w-up is recommended. 3. Questionable eccentric thickening of the bladder wall. Recommend correlation with urinalysis and further imaging evaluation such as ultrasound or CT urogra m. 4. 3.7 cm fusiform infrarenal abdominal aortic aneurysm.
[2022-04-09 08:54] LABS: Glucose Point of Care 182 mg/dl (65-105)
== END 2022-04-09 08:30 | disposition home or self-care (01) ==
PROVIDERS: PCP Family Medicine; Visit Provider Internal Medicine Hematology & Oncology
DX: C34.11 Malignant neoplasm of upper lobe, right bronchus or lung (principal); R91.8 Other nonspecific abnormal finding of lung field; I71.43 Infrarenal abdominal aortic aneurysm, without rupture
CPT/HCPCS: 78815; A9552

== ENCOUNTER 2022-06-14 20:46 | Emergency (ER) | payer MEDICARE, BC, SELFPAY ==
--- NOTE | ~2022-06-14 | CT_ITS ---
Non-contrast Head CT History: Dizziness COMPARISON: 12/31/2009 Technique: Axial non-contrast imaging of the brain was performed. Dose reduction technique was used on this scan by utilizing automated exposure control and iterative reconstruction technique. The dose -length product (DLP) was 605.33 mGy-cm. Findings: There is no evidence of intracranial hemorrhage, mass lesion, or acute infarct. Brain par enchyma appears normal. The ventricles and subarachnoid spaces are mildly dilated. The calvarium ap pears normal. The visualized paranasal sinuses and mastoid air cells are clear. Impression: No acute abnormality seen. Mild generalized atrophy. Reviewed, dictated and finalized at location . LAYER Impression: No acute abnormality seen. Mild generalized atrophy.
--- NOTE | ~2022-06-14 | CT_ITS ---
Clinical Indication: Shortness of breath CT Scan of the Chest with Contrast: Technique: Contiguous sections were acquired throughout the chest after intravenous administration of 100 cc of Omnipaque 350. Dose reduction technique was used on this scan by utilizing automated expos ure control and iterative reconstruction technique. The dose-length product (DLP) was 758.81 mGy-cm. COMPARISON: 03/04/2022 Findings: There is no evidence of any significant mediastinal, hilar or axillary lymphadenopathy. There is no f illing defect in the pulmonary arterial tree to suggest pulmonary embolus. There is no evidence of ao rtic dissection or aneurysm. There is extensive atherosclerotic change of the aortic arch and descend ing thoracic aorta. No pericardial effusion. Minimal right pleural effusion present. No left pleural effusion. Patient is status post right upper lobectomy. There is minimal scarring in the right lung. There is p robable subsegmental atelectatic change in the lingula. There is minimal groundglass opacity in the l eft upper lobe. Images through the upper abdomen reveal cholecystectomy clips. Impression: No evidence of pulmonary embolus, aortic dissection, or aortic aneurysm. Minimal groundglass opacity or groundglass pulmonary nodule in the left upper lobe. Other groundglass opacities seen on prior exam are resolved. Consider follow-up exam in 1 year to reassess. Chronic atelectasis in the lingula, unchanged. Status post right upper lobectomy. Minimal right pleural effusion. Reviewed, dictated and finalized at [facility]. [employer] Impression: No evidence of pulmonary embolus, aortic dissection, or aortic aneurysm. Minimal groundglass opacity or groundglass pulmonary nodule in the left upper l obe. Other groundglass opacities seen on prior exam are resolved. Consider foll ow-up exam in 1 year to reassess. Chronic atelectasis in the lingula, unchanged. Status post right upper lobectomy. Minimal right pleural effusion.
--- NOTE | ~2022-06-14 | XR_ITS ---
Clinical Indication: Shortness of breath AP and lateral views of the chest: Comparison: 03/19/2022 Findings: The lungs are clear, without evidence of focal consolidation or pleural effusion. Probable COPD pattern. Cardiomediastinal silhouette is within normal limits. Bones and soft tissues are unrema rkable. Impression: COPD. Clear lungs. Reviewed, dictated and finalized at location . [employer] Impression: COPD. Clear lungs.
[2022-06-14 20:46] VITALS: BP 116/71; PULSE 88; RESP 24; TEMP 36.6; O2SAT 100
--- NOTE | 2022-06-14 20:58 | ECG_ITS ---
Measurements Intervals Minter Rate: 86 P: 29 MI: 164 QRS: 38 QRSD: 91 T: 36 QT: 377 QTc: 452 Interpretive Statements SINUS RHYTHM WITHIN NORMAL LIMITS COMPARED TO ECG 03/17/2022 12:54:04 SINUS RHYTHM REPLACES ATRIAL FIBRILLATION Electronically Signed On 06-15-2022 12:38:57 PICKER TENDER by Orestes Olea M.D.
[2022-06-14 21:00] VITALS: O2SAT 100
[2022-06-14 22:03] LABS: Basophils Percent Auto 0.5 % (0.2-1.2); Eosinophils Absolute Auto 0.2 K/mm3 (0-0.3); Eosinophils Percent Auto 1.9 % (0-4.4); Hematocrit 44.6 % (42.0-52.0); Hemoglobin 14.9 g/dL (14.0-18.0); Immature Granulocyte Absolute 0.07 K/mm3 (0.00-0.031); Immature Granulocyte Percent A 0.8 % (0-0.5); Lymphocytes Absolute Auto 1.58 K/mm3 (0.9-3.2); Mean Corpuscular HGB Conc 33.4 g/dl (32-36); Mean Corpuscular Hemoglobin 32.5 pg (26-34); Mean Corpuscular Volume 97.4 fl (80-100); Mean Platelet Volume 12.2 fl (7.4-10.4); Monocytes Absolute Auto 0.9 K/mm3 (0.1-0.6); Monocytes Percent Auto 11.3 % (2.6-8.5); Neutrophils Absolute Auto 5.5 K/mm3 (1.3-6.7); Neutrophils Percent Auto 66.5 % (45.5-73.1); Platelet Count Result 189 k/mm3 (150-375); Red Blood Count 4.58 M/mm3 (4.6-6.20); Red Cell Distribution Width 12.7 % (11.5-14.5); White Blood Count 8.3 K/mm3 (4.5-10.0)
[2022-06-14 22:14] LABS: Alanine Aminotransferase 31 U/L (6-50); Albumin Level 3.8 g/dL (3.5-5.1); Alkaline Phosphatase 151 U/L (38-126); Anion Gap 6 mmol/L (8-16); Aspartate Amino Transferase 22 U/L (17-59); Bilirubin,Total 0.7 mg/dL (0.2-1.3); Blood Urea Nitrogen 38 mg/dL (9-20); Calcium 8.6 mg/dL (8.4-10.2); Carbon Dioxide 24 mmol/L (22-30); Chloride 106 mmol/L (98-107); Estimated CRCL calculation 35 ml/min; Estimated Glomerular Filt Rate 33; Glucose 271 mg/dL (65-110); Potassium 4.3 mmol/L (3.4-5.0); Sodium 136 mmol/L (137-145)
[2022-06-14 22:18] VITALS: BP 111/72; PULSE 77; RESP 17; O2SAT 99
[2022-06-14 23:10] VITALS: BP 109/68; PULSE 87; RESP 18; O2SAT 100
[2022-06-14 23:25] LABS: INR 1.1; Prothrombin Time 13.4 Seconds (11.1-14.7)
[2022-06-14 23:26] LABS: Partial Thromboplastin Time 32.5 SECONDS (22.3-36.8)
[2022-06-14 23:56] LABS: NT Pro B Type Natriuretic Pept 772 pg/mL (19.9-100); Troponin I 0.024 ng/mL (0.000-0.034)
[2022-06-15 00:01] LABS: Procalcitonin 0.1 ng/mL
[2022-06-15 00:10] VITALS: BP 122/79; PULSE 74; RESP 22; O2SAT 98
--- NOTE | 2022-06-15 01:11 | ED.GENADULT ---
HPI - General Adult General Chief complaint: Shortness of Breath/Dyspnea Stated complaint: sob Time Seen by Provider: 06/14/22 22:07 History of Present Illness HPI narrative: Patient 72-year-old gentleman who presents the emergency department with chief complaint of shortness of breath. Patient reports that he had a lobectomy on his right lung performed at [facility] for a lung tumor the patient states that he has been doing rehab at a local nursing facility reports that has been having chronic dizziness which he describes as a lightheaded sensation and reports that he has had episodes of shortness of breath. Patient reports that the shortness of breath is doing much better right now and is concerned that it may be anxiety. Patient reports no fever reports no productive cough patient reports no trauma reports that his incisions are healing. Related Data Home Medications Medication Instructions Recorded Confirmed atorvastatin 40 mg tablet 40 mg PO DAILY 11/29/19 03/17/22 glimepiride 1 mg tablet 1 mg PO QAM 11/29/19 03/17/22 lisinopril 20 mg tablet 20 mg PO DAILY 11/29/19 03/17/22 metformin 850 mg tablet 850 mg PO DAILY 11/29/19 03/13/22 tamsulosin 0.4 mg capsule 0.4 mg PO DAILY 11/29/19 03/17/22 Allergies Allergy/AdvReac Type Severity Reaction Status Date / Time No Known Allergies Allergy Unverified 03/13/22 11:45 Review of Systems Review of Systems: A 10 system review of systems was completed on the patient and is negative except for what is stated in the HPI. Nursing and ancillary documentation was reviewed. [facility] Past Medical History Medical History Benign prostatic hyperplasia Chronic kidney disease, stage 3 Diverticulosis Hyperlipidemia Hypertension Kidney stones Type 2 diabetes mellitus Surgical History Surgical History History of bilateral knee replacement (2008) History of cholecystectomy History of colonoscopy with polypectomy History of hemorrhoidectomy (1996) History of inguinal hernia repair History of tonsillectomy (1953) History of vasectomy Family History Family History Father Acute myocardial infarction Sibling Lung cancer Social History Social History Social History: Surrogate medical decision maker: Trupti Acosta, sibling. Code status: Full code. Smoking packs per day: 1 Smoking cigarettes per day: 20.0 Years smoked: 40 Smoking pack-years: 40.00 Smoking status: Current every day smoker Tobacco type: cigarettes Alcohol intake: former Substance use: never Lack of Transportation: No Lack of Food: Never True Current Housing: I Have Housing Concerned About Future Housing: No Difficulty Paying Gas/Electric Bills: No Difficulty Paying for Meds: No Currently Unemployed: No Education: Trade/Vocational Certificate Difficulty w/ Childcare or Family Care: No Spiritual care concerns: No Exam Narrative: GENERAL: Well-appearing, well-nourished, and in no acute distress. HEAD: Normocephalic, atraumatic. EYES: PERRLA and EOMI. ENT: Nares clear, no rhinorrhea or epistaxis. Mucous membranes moist. NECK: Supple. CHEST: Clear to auscultation. No respiratory distress. Incision sites are well approximated no purulent drainage HEART: Regular rate and rhythm. No murmur heard. Normal peripheral pulses. ABDOMEN: Soft, nontender, nondistended, normal active bowel sounds. EXTREMITIES: Normal range of motion. No edema. SKIN: Warm, dry, no rash. NEURO: No focal deficits. Alert and oriented x3. PSYCH: Normal mood and affect. Course Vital Signs Vital signs: Vital Signs Temperature 36.6 C 06/14/22 20:46 Pulse Rate 88 06/14/22 20:46 Respiratory Rate 24 H 06/14/22 20:46 Blood Pressure 116/71 06/14/22 20:46
[2022-06-15 02:17] VITALS: BP 117/59; PULSE 78; RESP 24; O2SAT 100
[2022-06-15 03:07] LABS: Troponin I 0.027 ng/mL (0.000-0.034)
[2022-06-15 03:27] VITALS: BP 119/53; PULSE 79; RESP 18; O2SAT 100
[2022-06-15 04:59] VITALS: BP 148/76; PULSE 71; RESP 17; O2SAT 100
== END 2022-06-15 05:40 ==
PROVIDERS: Emergency Provider Emergency Medicine; PCP Family Medicine
DX: R06.00 Dyspnea, unspecified (principal); I12.9 Hypertensive chronic kidney disease with stage 1 through stage 4 chronic kidney disease, or unspecified chronic kidney disease; E11.22 Type 2 diabetes mellitus with diabetic chronic kidney disease; N18.30 Chronic kidney disease, stage 3 unspecified; E78.5 Hyperlipidemia, unspecified; N40.0 Benign prostatic hyperplasia without lower urinary tract symptoms; Z90.2 Acquired absence of lung [part of]; Z96.653 Presence of artificial knee joint, bilateral; F17.210 Nicotine dependence, cigarettes, uncomplicated; R91.1 Solitary pulmonary nodule; J44.9 Chronic obstructive pulmonary disease, unspecified; Z79.84 Long term (current) use of oral hypoglycemic drugs
CPT/HCPCS: 36415; 70450; 71046; 71275; 80053; 83880; 84145; 84484; 85025; 85610; 85730; 93005; 99284; Q9967

== ENCOUNTER 2022-12-15 15:22 | Outpatient (CLI) | payer MEDICARE, BC, SELFPAY ==
[2022-12-15 15:46] LABS: Basophils Percent Auto 0.4 % (0.2-1.2); Eosinophils Absolute Auto 0.3 K/mm3 (0-0.3); Eosinophils Percent Auto 4.8 % (0-4.4); Hematocrit 44.3 % (42.0-52.0); Immature Granulocyte Absolute 0.05 K/mm3 (0.00-0.031); Immature Granulocyte Percent A 0.7 % (0-0.5); Lymphocytes Absolute Auto 1.78 K/mm3 (0.9-3.2); Mean Corpuscular HGB Conc 33.9 g/dl (32-36); Mean Corpuscular Hemoglobin 32.1 pg (26-34); Mean Corpuscular Volume 94.9 fl (80-100); Mean Platelet Volume 11.4 fl (7.4-10.4); Monocytes Absolute Auto 0.6 K/mm3 (0.1-0.6); Monocytes Percent Auto 8.7 % (2.6-8.5); Neutrophils Absolute Auto 4.3 K/mm3 (1.3-6.7); Neutrophils Percent Auto 60.4 % (45.5-73.1); Platelet Count Result 229 k/mm3 (150-375); Red Blood Count 4.67 M/mm3 (4.6-6.20); Red Cell Distribution Width 12.5 % (11.5-14.5); White Blood Count 7.1 K/mm3 (4.5-10.0)
[2022-12-15 16:45] LABS: Alanine Aminotransferase 27 U/L (6-50); Alkaline Phosphatase 130 U/L (38-126); Anion Gap 4 mmol/L (8-16); Aspartate Amino Transferase 21 U/L (17-59); Bilirubin,Total 0.7 mg/dL (0.2-1.3); Blood Urea Nitrogen 29 mg/dL (9-20); Calcium 9.1 mg/dL (8.4-10.2); Carbon Dioxide 31 mmol/L (22-30); Chloride 102 mmol/L (98-107); Estimated Glomerular Filt Rate 31; Glucose 291 mg/dL (65-110); Potassium 3.7 mmol/L (3.4-5.0); Sodium 137 mmol/L (137-145)
== END 2022-12-15 15:23 | disposition home or self-care (01) ==
LOC: ANHLAB 15:24
PROVIDERS: PCP Family Medicine; Visit Provider Internal Medicine Hematology & Oncology
DX: C34.11 Malignant neoplasm of upper lobe, right bronchus or lung (principal)
CPT/HCPCS: 36415; 80053; 85025

== ENCOUNTER 2022-12-29 15:17 | Outpatient (CLI) | payer MEDICARE, BC, SELFPAY ==
--- NOTE | ~2022-12-29 | CT_ITS ---
EXAMINATION:CT diagnostic chest w con DATE: 12/29/2022 16:12 INDICATION: Malignant neoplasm of upper lobe of right lung. TECHNIQUE: Computed tomography (CT) of the chest was performed with 75 mL Omnipaque 350 intravenous c ontrast. Automated exposure control and iterative reconstruction technique were employed. The dose-le ngth product (DLP) was 373.41 mGy-cm. COMPARISON: Chest CT 06/14/2022 FINDINGS: There is a loculated moderate-sized right pleural effusion. There are airspace opacities in right lower lobe adjacent to the pleura, consistent with rounded atelectasis. There are changes of r ight upper lobectomy. There is a stable 5 mm nodule in right middle lobe. There is mild emphysema. Th ere are patchy groundglass opacities in left upper lobe. There is a chronic 3 mm nodule in left lower lobe, likely benign. The heart size is normal. There are coronary artery calcifications. No pericard ial effusion. There is no pulmonary embolus. Aortic atherosclerosis is noted. There are changes of ch olecystectomy. There is severe cervical spondylosis and mild thoracic spondylosis. IMPRESSION: 1. Moderate-sized loculated right pleural effusion. 2. Right upper lobectomy. 3. Mild emphysema. 4. Mild groundglass opacities in left lung upper lobe, consistent with infection/inflammation versus mild pulmonary edema. Reviewed, dictated and finalized at location A. IMPRESSION: 1. Moderate-sized loculated right pleural effusion. 2. Right upper lobectomy. 3. Mild emphysema. 4. Mild groundglass opacities in left lung upper lobe, consistent with infectio n/inflammation versus mild pulmonary edema.
== END 2022-12-29 15:18 | disposition home or self-care (01) ==
PROVIDERS: PCP Family Medicine; Visit Provider Internal Medicine Hematology & Oncology
DX: C34.11 Malignant neoplasm of upper lobe, right bronchus or lung (principal); J43.9 Emphysema, unspecified; J90 Pleural effusion, not elsewhere classified; R91.8 Other nonspecific abnormal finding of lung field
CPT/HCPCS: 71260; Q9967

== ENCOUNTER 2023-01-29 05:24 | Outpatient (CLI) | payer MEDICARE, BC, SELFPAY ==
--- NOTE | 2023-01-20 16:01 | PC.NURSE ---
Pre Radiology instructions Report to the outpatient philip reyes on date _01/29/23____ at time __11:00AM for procedure Time: __1:00PM__ YOU MAY BE MONITORED AT HOSPITAL FOR UP TO 4 HOURS AFTER YOUR PROCEDURE. A visitor will be allowed to accompany the patient into the hospital. You and your visitor will be asked to self-screen and do not enter if you have any COVID symptoms. A mask is OPTIONAL within the hospital. Patients are to have no food or drink 6 hours prior to procedure time Driving will be restricted after the procedure, you must have a person to drive you home. Labs will be drawn in preop area and once reviewed, you will be taken to radiology area for procedure. When the procedure is completed, you will be taken to outpatient where you will be monitored for several hours. You may have one visitor in this area. Other than holding anti-coagulants, patient may take other medication(s) as scheduled. Prior to your appointment date patients are instructed to hold anti-coagulants after discussing with ordering provider to stop. If unable to discontinue anti-coagulants please notify radiologist. ? No aspirin or warfarin (Coumadin) for 7 days prior to the procedure. ? No clopidogrel (Plavix), ticagrelor (Brilinta), prasugrel (Effient) or dabigatran (Pradaxa) for 5 days prior to the procedure. ? No rivaroxaban (Xarelto), apixaban (Eliquis), dipyridamole (Aggrenox or Persantine) or cilostazol (Pletal) for 2 days prior to the procedure. Medications to discontinue per physician: ___NONE Date to take last dose: Please leave all valuables, including medications, at home the day of procedure. The hospital will not accept responsibility for valuables. Wear comfortable, loose fitting clothing.? Follow any additional instructions given to you from ordering provider. Telephone instructions given to __PATIENT and asked if any additional questions and then verbalized understanding. Patient advised to call scheduling provider office or registration scheduling [phone] if any additional questions.
[2023-01-20 16:03] VITALS: BMI 28.8
[2023-01-29] VITALS (9 sets, daily range): BP systolic 138–168; BP diastolic 78–96; PULSE 62–90; RESP 14–18; TEMP 36.8; O2SAT 97–98
--- NOTE | ~2023-01-29 | US_ITS ---
EXAMINATION: US thoracentesis DATE: 01/29/2023 14:25 INDICATION: Right pleural effusion TECHNIQUE: The procedure and its risks and benefits were discussed with the patient. Potential risks discussed included bleeding, infection, and pneumothorax. The patient understood the risks and agreed to proceed. The skin was prepped and draped in sterile fashion. 1% lidocaine was used for local anes thesia. Under ultrasound guidance, a 5 Fr catheter with trochar was advanced into the right pleural e ffusion. Fluid was aspirated. The catheter was removed, and a dressing was applied. There were no imm ediate complications. FINDINGS: Ultrasound images demonstrate a small right pleural effusion and the catheter within the fluid. IMPRESSION: 1. Successful ultrasound-guided thoracentesis yielding 900 mL of dark jack-colored fluid. Reviewed, dictated and finalized at location A. IMPRESSION: 1. Successful ultrasound-guided thoracentesis yielding 900 mL of dark jack-co lored fluid.
--- NOTE | ~2023-01-29 | XR_ITS ---
EXAMINATION: [id number] DATE: 01/29/2023 14:05 INDICATION: Right pleural effusion postthoracentesis TECHNIQUE: frontal view of the chest was obtained. COMPARISON: CT dated 12/29/2022 FINDINGS: Peripheral opacities with smooth pleural margins at the right apex and right lower lung zone consiste nt with residual small right pleural effusion and associated atelectasis. There is volume loss in the right hemithorax and architectural distortion with elevation of the right hilum consistent with prio r right upper lobectomy. Left lung is clear. No pneumothorax or left-sided pleural effusion. Heart si ze is normal. IMPRESSION: 1. Residual small right pleural effusion and associated atelectasis with no pneumothorax post right t horacentesis. 2. Volume loss and architectural distortion in the right lung consistent with prior right upper lobec shante. Reviewed, dictated and finalized at location A. IMPRESSION: 1. Residual small right pleural effusion and associated atelectasis with no pne umothorax post right thoracentesis. 2. Volume loss and architectural distortion in the right lung consistent with p rior right upper lobectomy.
[2023-01-29 12:16] LABS: Mean Platelet Volume 11.4 fl (7.4-10.4); Platelet Count Result 243 k/mm3 (150-375)
[2023-01-29 12:23] LABS: INR 0.9
--- NOTE | 2023-01-29 14:37 | SUR.PHASEII ---
1437 - MD Olivas contacted regarding chest xray, recovery, and discharge orders. Pt. can D/C home after two hours if no pneumo shown on chest xray. Pt. must be NPO for two hours. Radiology called regarding chest xray. En route to bedside.
--- NOTE | 2023-01-29 14:40 | SUR.PHASEII ---
Addendum entered by Nimisha Peterson RN 01/29/23 15:24: 1524 - see chest xray report per MD Olivas. Chest xray has been read. Original Note: RN Received call from radiology that pt. has already had chest xray done. MD Olivas aware.
[2023-01-29 15:18] LABS: Glucose Point of Care 230 mg/dl (65-105)
== END 2023-01-29 16:09 | disposition home or self-care (01) ==
PROVIDERS: PCP Family Medicine; Referring Provider Internal Medicine Hematology & Oncology; Visit Provider Radiology Diagnostic Radiology
DX: J90 Pleural effusion, not elsewhere classified (principal); E11.22 Type 2 diabetes mellitus with diabetic chronic kidney disease; N18.32 Chronic kidney disease, stage 3b; I12.9 Hypertensive chronic kidney disease with stage 1 through stage 4 chronic kidney disease, or unspecified chronic kidney disease
CPT/HCPCS: 32555; 36415; 82948; 85049; 85610; 88108; 88305

== ENCOUNTER 2023-05-05 09:20 | Outpatient (CLI) | payer MEDICARE, BC, SELFPAY ==
--- NOTE | ~2023-05-05 | CT_ITS ---
Clinical Indication: Lung cancer CT Scan of the Chest with Contrast: Technique: Contiguous sections were acquired throughout the chest after intravenous administration of 75 cc of Omnipaque 350. Dose reduction technique was used on this scan by utilizing automated exposu re control and iterative reconstruction technique. The dose-length product (DLP) was 374.70 mGy-cm. COMPARISON: 12/29/2022 Findings: There is no evidence of any significant mediastinal, hilar or axillary lymphadenopathy. There is no f illing defect in the pulmonary arterial tree to suggest pulmonary embolus. There is no evidence of ao rtic dissection or aneurysm. No pericardial effusion. Patient is status post right upper lobectomy. There is small to moderate right pleural effusion, kayla lar to mildly decreased from prior exam. Chronic presumed rounded atelectasis in the right lower lobe is unchanged. Stable subcentimeter groundglass nodule in the left upper lobe. Images through the upper abdomen reveal no abnormalities. Impression: No significant change from prior exam. Small to moderate right pleural effusion with chronic rounded atelectasis in the right lower lobe. Status post right upper lobectomy. Stable subcentimeter groundglass nodule/opacities in the left upper lobe. Reviewed, dictated and finalized at location M. 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 Small to moderate right pleural effusion with chronic rounded atelectasis in th e right lower lobe. Status post right upper lobectomy. Stable subcentimeter groundglass nodule/opacities in the left upper lobe.
[2023-05-05 09:54] LABS: Estimated Glomerular Filt Rate 31
== END 2023-05-05 09:21 | disposition home or self-care (01) ==
PROVIDERS: PCP Family Medicine; Visit Provider Internal Medicine Hematology & Oncology
DX: C34.11 Malignant neoplasm of upper lobe, right bronchus or lung (principal); J90 Pleural effusion, not elsewhere classified; Z90.2 Acquired absence of lung [part of]
CPT/HCPCS: 71260; Q9967

== ENCOUNTER 2023-05-12 14:22 | Outpatient (CLI) | payer MEDICARE, BC, SELFPAY ==
[2023-05-12 14:44] LABS: Basophils Percent Auto 0.4 % (0.2-1.2); Eosinophils Absolute Auto 0.3 K/mm3 (0-0.3); Eosinophils Percent Auto 4.8 % (0-4.4); Hematocrit 44.6 % (42.0-52.0); Hemoglobin 14.7 g/dL (14.0-18.0); Immature Granulocyte Absolute 0.02 K/mm3 (0.00-0.031); Immature Granulocyte Percent A 0.3 % (0-0.5); Lymphocytes Absolute Auto 2.04 K/mm3 (0.9-3.2); Lymphocytes Percent Auto 30.5 % (18.3-44.2); Mean Corpuscular Hemoglobin 31.6 pg (26-34); Mean Corpuscular Volume 95.9 fl (80-100); Mean Platelet Volume 10.9 fl (7.4-10.4); Monocytes Absolute Auto 0.6 K/mm3 (0.1-0.6); Monocytes Percent Auto 9.6 % (2.6-8.5); Neutrophils Absolute Auto 3.6 K/mm3 (1.3-6.7); Neutrophils Percent Auto 54.4 % (45.5-73.1); Platelet Count Result 253 k/mm3 (150-375); Red Blood Count 4.65 M/mm3 (4.6-6.20); Red Cell Distribution Width 13.3 % (11.5-14.5); White Blood Count 6.7 K/mm3 (4.5-10.0)
[2023-05-12 14:50] LABS: Blood Urea Nitrogen 30 mg/dL (8-26); Carbon Dioxide 32 mmol/L (22-30); Chloride 101 mmol/L (98-109); Estimated Glomerular Filt Rate 31; Glucose 199 mg/dL (70-105); Ionized Calcium (POC) 1.18 mmol/L (1.11-1.31); Sodium 142 mmol/L (138-146)
[2023-05-12 16:48] LABS: Alanine Aminotransferase 35 U/L (6-50); Albumin Level 3.9 g/dL (3.5-5.1); Alkaline Phosphatase 114 U/L (38-126); Anion Gap 6 mmol/L (8-16); Aspartate Amino Transferase 32 U/L (17-59); Bilirubin,Total 0.6 mg/dL (0.2-1.3); Blood Urea Nitrogen 32 mg/dL (9-20); Calcium 9.4 mg/dL (8.4-10.2); Carbon Dioxide 31 mmol/L (22-30); Chloride 104 mmol/L (98-107); Estimated Glomerular Filt Rate 35; Glucose 199 mg/dL (65-110); Sodium 141 mmol/L (137-145)
== END 2023-05-12 14:23 | disposition home or self-care (01) ==
LOC: ANHLAB 14:25
PROVIDERS: PCP Family Medicine; Visit Provider Internal Medicine Hematology & Oncology
DX: C34.11 Malignant neoplasm of upper lobe, right bronchus or lung (principal)
CPT/HCPCS: 36415; 80047; 80053; 85025

== ENCOUNTER 2023-09-01 10:07 | Outpatient (CLI) | payer MEDICARE, BC, SELFPAY ==
--- NOTE | ~2023-09-01 | CT_ITS ---
CT Scan of the Chest without Contrast: Clinical Indication: Lung cancer Technique: Contiguous sections were acquired throughout the chest without intravenous contrast. Dose reduction technique was used on this scan by utilizing automated exposure control and iterative recon struction technique. The dose-length product (DLP) was 276.03 mGy-cm. COMPARISON: 05/05/2023 Findings: There is no evidence of any significant mediastinal, hilar or axillary lymphadenopathy. The mediastin al soft tissues appear normal. No pericardial effusion. Stable small to small moderate right pleural effusion with rounded right basilar atelectasis. Status post right upper lobectomy. There are stable minimal patchy ground glass opacities in the left upper lobe. Images through the upper abdomen reveal no abnormalities. Impression: No significant interval change. Status post right upper lobectomy. Small to small moderate right pleural effusion with chronic rounded right basilar atelectasis. Stable mild patchy groundglass opacities in the left upper lobe. Reviewed, dictated and finalized at [facility]. Impression: No significant interval change. Status post right upper lobectomy. Small to small moderate right pleural effusion with chronic rounded right basil ar atelectasis. Stable mild patchy groundglass opacities in the left upper lobe.
== END 2023-09-01 10:08 | disposition home or self-care (01) ==
PROVIDERS: PCP Family Medicine; Visit Provider Internal Medicine Hematology & Oncology
DX: C34.11 Malignant neoplasm of upper lobe, right bronchus or lung (principal); Z90.2 Acquired absence of lung [part of]; J90 Pleural effusion, not elsewhere classified; R91.8 Other nonspecific abnormal finding of lung field
CPT/HCPCS: 71250

== ENCOUNTER 2023-09-08 15:20 | Outpatient (CLI) | payer MEDICARE, BC, SELFPAY ==
[2023-09-08 15:41] LABS: Basophils Percent Auto 0.4 % (0.2-1.2); Eosinophils Absolute Auto 0.2 K/mm3 (0-0.3); Eosinophils Percent Auto 3.3 % (0-4.4); Hematocrit 48.1 % (42.0-52.0); Hemoglobin 15.9 g/dL (14.0-18.0); Immature Granulocyte Absolute 0.03 K/mm3 (0.00-0.031); Immature Granulocyte Percent A 0.4 % (0-0.5); Lymphocytes Absolute Auto 1.54 K/mm3 (0.9-3.2); Mean Corpuscular HGB Conc 33.1 g/dl (32-36); Mean Corpuscular Hemoglobin 31.7 pg (26-34); Mean Corpuscular Volume 95.8 fl (80-100); Mean Platelet Volume 11.3 fl (7.4-10.4); Monocytes Absolute Auto 0.7 K/mm3 (0.1-0.6); Monocytes Percent Auto 9.3 % (2.6-8.5); Neutrophils Absolute Auto 4.5 K/mm3 (1.3-6.7); Neutrophils Percent Auto 64.6 % (45.5-73.1); Platelet Count Result 210 k/mm3 (150-375); Red Blood Count 5.02 M/mm3 (4.6-6.20); Red Cell Distribution Width 13.4 % (11.5-14.5)
[2023-09-08 15:46] LABS: Blood Urea Nitrogen 37 mg/dL (8-26); Carbon Dioxide 26 mmol/L (22-30); Chloride 102 mmol/L (98-109); Estimated Glomerular Filt Rate 31; Glucose 214 mg/dL (70-105); Ionized Calcium (POC) 1.22 mmol/L (1.11-1.31); Potassium 3.7 mmol/L (3.5-4.9); Sodium 140 mmol/L (138-146)
[2023-09-08 18:32] LABS: Alanine Aminotransferase 26 U/L (6-50); Alkaline Phosphatase 111 U/L (38-126); Anion Gap 7 mmol/L (4-12); Aspartate Amino Transferase 22 U/L (17-59); Bilirubin,Total 0.5 mg/dL (0.2-1.3); Blood Urea Nitrogen 39 mg/dL (9-20); Carbon Dioxide 28 mmol/L (22-30); Chloride 104 mmol/L (98-107); Estimated Glomerular Filt Rate 35; Glucose 219 mg/dL (65-110); Potassium 3.8 mmol/L (3.4-5.0); Sodium 139 mmol/L (137-145)
== END 2023-09-08 15:21 | disposition home or self-care (01) ==
LOC: ANHLAB 15:23
PROVIDERS: PCP Family Medicine; Visit Provider Internal Medicine Hematology & Oncology
DX: C34.11 Malignant neoplasm of upper lobe, right bronchus or lung (principal)
CPT/HCPCS: 36415; 80047; 80053; 85025

== ENCOUNTER 2023-12-28 09:27 | Outpatient (CLI) | payer MEDICARE, BC, SELFPAY ==
--- NOTE | ~2023-12-28 | CT_ITS ---
CT Scan of the Chest without Contrast: Clinical Indication: Lung cancer Technique: Contiguous sections were acquired throughout the chest without intravenous contrast. Dose reduction technique was used on this scan by utilizing automated exposure control and iterative recon struction technique. The dose-length product (DLP) was 402.50 mGy-cm. COMPARISON: 09/01/2023 Findings: There is no evidence of any significant mediastinal, hilar or axillary lymphadenopathy. There are ext ensive vascular calcifications of the aorta. No pericardial effusion. Status post right upper lobectomy. Small right pleural effusion present with probable chronic rounded atelectasis the right lung base, unchanged. Stable small patchy ground glass opacities in the left u pper lobe. No left pleural effusion. Images through the upper abdomen reveal no abnormalities. Impression: No change from prior exam. Status post right upper lobectomy. Small right pleural effusion with probable rounded atelectasis at the right lower lobe. Stable small patchy ground glass opacities in the left upper lobe, nonspecific. Reviewed, dictated and finalized at location . Impression: No change from prior exam. Status post right upper lobectomy. Small right pleural effusion with probable rounded atelectasis at the right low er lobe. Stable small patchy ground glass opacities in the left upper lobe, nonspecific.
== END 2023-12-28 09:28 | disposition home or self-care (01) ==
PROVIDERS: PCP Family Medicine; Visit Provider Internal Medicine Hematology & Oncology
DX: C34.11 Malignant neoplasm of upper lobe, right bronchus or lung (principal); J90 Pleural effusion, not elsewhere classified; Z90.2 Acquired absence of lung [part of]
CPT/HCPCS: 71250

== ENCOUNTER 2024-01-11 14:29 | Outpatient (CLI) | payer MEDICARE, BC, SELFPAY ==
[2024-01-11 14:47] LABS: Basophils Percent Auto 0.4 % (0.2-1.2); Eosinophils Absolute Auto 0.3 K/mm3 (0-0.3); Eosinophils Percent Auto 4.4 % (0-4.4); Hematocrit 51.6 % (42.0-52.0); Hemoglobin 16.7 g/dL (14.0-18.0); Immature Granulocyte Absolute 0.04 K/mm3 (0.00-0.031); Immature Granulocyte Percent A 0.5 % (0-0.5); Lymphocytes Absolute Auto 2.03 K/mm3 (0.9-3.2); Lymphocytes Percent Auto 26.9 % (18.3-44.2); Mean Corpuscular HGB Conc 32.4 g/dl (32-36); Mean Corpuscular Hemoglobin 31.9 pg (26-34); Mean Corpuscular Volume 98.5 fl (80-100); Monocytes Absolute Auto 0.5 K/mm3 (0.1-0.6); Monocytes Percent Auto 6.4 % (2.6-8.5); Neutrophils Absolute Auto 4.6 K/mm3 (1.3-6.7); Neutrophils Percent Auto 61.4 % (45.5-73.1); Platelet Count Result 237 k/mm3 (150-375); Red Blood Count 5.24 M/mm3 (4.6-6.20); Red Cell Distribution Width 13.4 % (11.5-14.5); White Blood Count 7.5 K/mm3 (4.5-10.0)
[2024-01-11 14:51] LABS: Blood Urea Nitrogen 29 mg/dL (8-26); Carbon Dioxide 26 mmol/L (22-30); Chloride 104 mmol/L (98-109); Estimated Glomerular Filt Rate 33; Glucose 158 mg/dL (70-105); Ionized Calcium (POC) 1.13 mmol/L (1.11-1.31); Potassium 4.4 mmol/L (3.5-4.9); Sodium 140 mmol/L (138-146)
[2024-01-11 16:34] LABS: Alanine Aminotransferase 39 U/L (6-50); Albumin Level 4.4 g/dL (3.5-5.1); Alkaline Phosphatase 160 U/L (38-126); Anion Gap 12 mmol/L (4-12); Aspartate Amino Transferase 31 U/L (17-59); Bilirubin,Total 0.6 mg/dL (0.2-1.3); Blood Urea Nitrogen 29 mg/dL (9-20); Calcium 9.5 mg/dL (8.4-10.2); Carbon Dioxide 26 mmol/L (22-30); Chloride 101 mmol/L (98-107); Estimated Glomerular Filt Rate 33; Glucose 163 mg/dL (65-110); Potassium 4.4 mmol/L (3.4-5.0); Sodium 139 mmol/L (137-145)
== END 2024-01-11 14:30 | disposition home or self-care (01) ==
LOC: ANHLAB 14:32
PROVIDERS: PCP Family Medicine; Visit Provider Internal Medicine Hematology & Oncology
DX: C34.11 Malignant neoplasm of upper lobe, right bronchus or lung (principal)
CPT/HCPCS: 36415; 80047; 80053; 85025

== ENCOUNTER 2024-02-07 14:40 | Emergency (ER) | payer MEDICARE, BC, SELFPAY ==
[2024-02-07 14:59] VITALS: BP 132/57; PULSE 79; RESP 15; TEMP 36.4; O2SAT 100
--- NOTE | 2024-02-07 15:27 | ED.GENADULT ---
HPI - General Adult General Chief complaint: Skin/Abscess/Foreign Body Stated complaint: bump /bleeding,hurts near penis Time Seen by Provider: 02/07/24 15:27 Source: patient, RN notes reviewed and old records reviewed Mode of arrival: ambulatory Limitations: no limitations History of Present Illness HPI narrative: 73-year-old male presents to the [facility] with a with started out as a small bump or pimple to the suprapubic area 3 weeks ago. Patient states that he has been picking at it, wears a depends. Over the last several days it has gotten bigger, purulent and bloody drainage is noted. Patient denies fevers. Denies abdominal pain Onset (ago): week(s) (3) Treatments prior to arrival: none Related Data Allergies Allergy/AdvReac Type Severity Reaction Status Date / Time No Known Allergies Allergy Verified 01/06/24 10:41 Review of Systems Review of Systems: All systems reviewed & are unremarkable except as noted in HPI and below Constitutional: Constitutional: Reports no additional constitutional complaints Eyes: Eyes: Reports no additional eye complaints ENT: Reports system reviewed and no additional complaints, except as documented Cardiovascular: Cardiovascular: Reports no additional cardiovascular complaints, Denies chest pain and Denies dyspnea Respiratory: Respiratory: Reports no additional respiratory complaints, Denies chest congestion, Denies cough and Denies dyspnea Gastrointestinal: Gastrointestinal: Reports no additional gastrointestinal complaints, Denies abdominal pain, Denies nausea and Denies vomiting Musculoskeletal: Musculoskeletal: Reports no additional musculoskeletal complaints Integumentary/Breasts: Skin/Breast: Reports as per HPI Neurologic: Reports system reviewed and no additional complaints, except as documented Psychiatric: Psychiatric: Reports no additional psychiatric complaints Allergic/Immunologic: Allergic/Immunologic: Reports no additional allergic/immunologic complaints [facility] Past Medical History Medical History Benign prostatic hyperplasia Cigarette nicotine dependence in remission Cigarette nicotine dependence with nicotine-induced disorder Diverticulosis Hyperlipidemia Hypertensive chronic kidney disease Kidney stones Major depressive disorder Microalbuminuria Personal history of malignant neoplasm of lung Simple chronic bronchitis Stage 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 Code status: Full code. Smoking packs per day: 1 Smoking cigarettes per day: 20.0 Years smoked: 40 Smoking pack-years: 40.00 Smoking status: Current every day smoker Tobacco type: cigarettes Second hand tobacco smoke exposure: No Additional smoking assessment comments: Had quit at the time of his lung cancer diagnosis, but now back to smoking Alcohol intake: former Substance use: never Substance use type: does not use Do You Feel Safe in your Home?: Yes Lack of Transportation: No Lack of Food: Never True Current Housing: I Have Housing Concerned About Future Housing: No Difficulty Paying Gas/Electric Bills: No Difficulty Paying for Meds: No Currently Unemployed: No Education: Trade/Vocation
== END 2024-02-07 15:40 | disposition short-term general hospital (02) ==
PROVIDERS: Emergency Provider Nurse Practitioner; PCP Family Medicine
DX: L02.211 Cutaneous abscess of abdominal wall (principal); F17.210 Nicotine dependence, cigarettes, uncomplicated; N40.0 Benign prostatic hyperplasia without lower urinary tract symptoms; E78.5 Hyperlipidemia, unspecified; I12.9 Hypertensive chronic kidney disease with stage 1 through stage 4 chronic kidney disease, or unspecified chronic kidney disease; E11.22 Type 2 diabetes mellitus with diabetic chronic kidney disease; N18.32 Chronic kidney disease, stage 3b; Z85.118 Personal history of other malignant neoplasm of bronchus and lung; Z90.2 Acquired absence of lung [part of]; Z98.52 Vasectomy status; Z96.653 Presence of artificial knee joint, bilateral
CPT/HCPCS: 99212; G0463

== ENCOUNTER 2024-02-07 16:05 | Emergency (ER) | payer MEDICARE, BC, SELFPAY ==
[2024-02-07 16:26] VITALS: BP 133/78; PULSE 92; RESP 18; TEMP 36.6; O2SAT 100
--- NOTE | 2024-02-07 16:42 | ED.GENADULT ---
HPI - General Adult General Chief complaint: Skin/Abscess/Foreign Body Stated complaint: supra pubic abscess Time Seen by Provider: 02/07/24 16:32 History of Present Illness HPI narrative: 73-year-old male presents emergency department for evaluation for concern for abscess to his penis. Patient states last week he did have a suspected pimple the shaft of the penis that he squeezed and states that it has worsened since that time. Patient is still having drainage from the abscess. Patient denies any fevers or change. Related Data Allergies Allergy/AdvReac Type Severity Reaction Status Date / Time No Known Allergies Allergy Verified 01/06/24 10:41 Review of Systems Review of Systems: All systems reviewed & are unremarkable except as noted in HPI and below PMFSH Past Medical History Medical History Benign prostatic hyperplasia Cigarette nicotine dependence in remission Cigarette nicotine dependence with nicotine-induced disorder Diverticulosis Hyperlipidemia Hypertensive chronic kidney disease Kidney stones Major depressive disorder Microalbuminuria Personal history of malignant neoplasm of lung Simple chronic bronchitis Stage 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 Code status: Full code. Smoking packs per day: 1 Smoking cigarettes per day: 20.0 Years smoked: 40 Smoking pack-years: 40.00 Smoking status: Current every day smoker Tobacco type: cigarettes Second hand tobacco smoke exposure: No Additional smoking assessment comments: Had quit at the time of his lung cancer diagnosis, but now back to smoking Alcohol intake: former Substance use: never Substance use type: does not use Do You Feel Safe in your Home?: Yes Lack of Transportation: No Lack of Food: Never True Current Housing: I Have Housing Concerned About Future Housing: No Difficulty Paying Gas/Electric Bills: No Difficulty Paying for Meds: No Currently Unemployed: No Education: Trade/Vocational Certificate Difficulty w/ Childcare or Family Care: No Living arrangements: alone Occupation/Education: retired Gender identity (if verbalized by the patient): Male Sexual Orientation (if Verbalized by the Patient): Straight or Heterosexual Spiritual care concerns: No Exam Narrative: APPEARANCE: Well appearing, no pain, no distress, well-nourished. HEAD: normocephalic, atraumatic. EYES: PERRLA/EOMI, conjunctivae clear. NOSE: Normal no drainage EARS:TMS clear with good light reflex. THROAT: Pharynx clear, no exudate. NECK: Supple. No adenopathy, no masses. RESPIRATORY: Airway patent, respirations nonlabored. Clear to auscultation bilaterally, no rales, rhonchi, wheezing. CARDIOVASCULAR: Regular rate and rhythm without murmurs rubs or gallops. ABDOMINAL: Soft, nontender, nondistended, normal bowel sounds MUSCULOSKELETAL: Moves all extremities. Strength/ROM intact, No edema, No calf tenderness. NEURO: Alert. Cranial nerves II through XII intact. Good gait. Good coordination SKIN: Warm, dry. Normal Color. Small draining abscess to base of the shaft of the penis. No fluctuance palpated. No abscess amenable to drainage Course Course Emergen
[2024-02-07] MEDS: SULFAMETHOXAZOLE/TRIMETHOPRIM 800/160 MG DS TABLET 1 TAB PO (16:54)
== END 2024-02-07 17:03 | disposition home or self-care (01) ==
PROVIDERS: Emergency Provider Emergency Medicine; PCP Family Medicine
DX: N48.21 Abscess of corpus cavernosum and penis (principal); I12.9 Hypertensive chronic kidney disease with stage 1 through stage 4 chronic kidney disease, or unspecified chronic kidney disease; E11.22 Type 2 diabetes mellitus with diabetic chronic kidney disease; N18.32 Chronic kidney disease, stage 3b; J41.0 Simple chronic bronchitis; E78.5 Hyperlipidemia, unspecified; N40.0 Benign prostatic hyperplasia without lower urinary tract symptoms; F17.210 Nicotine dependence, cigarettes, uncomplicated; Z87.442 Personal history of urinary calculi; Z85.118 Personal history of other malignant neoplasm of bronchus and lung; Z96.653 Presence of artificial knee joint, bilateral; Z90.49 Acquired absence of other specified parts of digestive tract; Z90.2 Acquired absence of lung [part of]
CPT/HCPCS: 87070; 87075; 87181; 87205; 99283; A9270

== ENCOUNTER 2024-05-09 08:29 | Outpatient (CLI) | payer MEDICARE, BC, SELFPAY ==
--- NOTE | ~2024-05-09 | CT_ITS ---
EXAMINATION: CT diagnostic chest w con DATE: 05/09/2024 09:09 INDICATION: MALIGNANT NEOPLASM OF UPPER LOBE OF RT LUNG TECHNIQUE: Computed tomography (CT) of the chest was performed with 100 mL Omnipaque-350 intravenous contrast. Additional 3D reconstructions utilizing coronal maximum intensity projection (MIP) were per formed. Automated exposure control and iterative reconstruction technique were employed. The dose-jayden gth product was 303.55 mGy-cm. COMPARISON: 12/28/2023 FINDINGS: Mild emphysema. Again seen is volume loss in right hemithorax with change of prior right upper lobect melissa. No significant change in a small loculated right pleural effusion with peripheral diffuse mild p leural thickening. No interval change in a peripheral masslike airspace opacity in the posterior righ t lower lobe abutting the pleura and with surrounding architectural distortion demonstrate associated volume loss consistent with round atelectasis. There is additional band of peripheral round atelecta sis extending along the lateral right middle lobe. There is a small calcified pleural plaque at the p eriphery of the left upper lobe. No interval change in a few scattered patchy groundglass opacities i n the left upper lobe and lingula a single small focus in the right middle lobe. Heart size is normal . Atherosclerotic coronary artery calcification. No pericardial effusion. There is prominent scattere d atherosclerotic plaque without hemodynamically significant stenosis along the normal caliber thorac ic aorta. Cholecystectomy clips at the gallbladder fossa. Mild thoracic spondylosis. IMPRESSION: 1. Mild emphysema and change of prior right upper lobectomy. 2. Unchanged small loculated right pleural effusion and regions of round atelectasis at the periphery of the right upper and middle lobes. 3. No interval change in a nonspecific scattered small patchy groundglass opacities in both lungs pre dominantly in the left upper lobe and lingula. Reviewed, dictated and finalized at location B. [facility] [employer] IMPRESSION: 1. Mild emphysema and change of prior right upper lobectomy. 2. Unchanged small loculated right pleural effusion and regions of round atelec tasis at the periphery of the right upper and middle lobes. 3. No interval change in a nonspecific scattered small patchy groundglass opaci ties in both lungs predominantly in the left upper lobe and lingula.
[2024-05-09 09:03] LABS: Estimated Glomerular Filt Rate 33
== END 2024-05-09 08:30 | disposition home or self-care (01) ==
LOC: ANHIMG 08:37
PROVIDERS: PCP Family Medicine; Visit Provider Internal Medicine Hematology & Oncology
DX: C34.11 Malignant neoplasm of upper lobe, right bronchus or lung (principal); J43.9 Emphysema, unspecified; J90 Pleural effusion, not elsewhere classified
CPT/HCPCS: 71260; Q9967

== ENCOUNTER 2024-05-16 14:43 | Outpatient (CLI) | payer MEDICARE, BC, SELFPAY ==
[2024-05-16 14:58] LABS: Basophils Percent Auto 0.3 % (0.2-1.2); Eosinophils Absolute Auto 0.4 K/mm3 (0-0.3); Eosinophils Percent Auto 4.9 % (0-4.4); Hematocrit 47.3 % (42.0-52.0); Hemoglobin 15.5 g/dL (14.0-18.0); Immature Granulocyte Absolute 0.04 K/mm3 (0.00-0.031); Immature Granulocyte Percent A 0.6 % (0-0.5); Lymphocytes Absolute Auto 1.79 K/mm3 (0.9-3.2); Lymphocytes Percent Auto 24.9 % (18.3-44.2); Mean Corpuscular HGB Conc 32.8 g/dl (32-36); Mean Corpuscular Volume 97.7 fl (80-100); Mean Platelet Volume 11.5 fl (7.4-10.4); Monocytes Absolute Auto 0.7 K/mm3 (0.1-0.6); Monocytes Percent Auto 9.1 % (2.6-8.5); Neutrophils Absolute Auto 4.3 K/mm3 (1.3-6.7); Neutrophils Percent Auto 60.2 % (45.5-73.1); Platelet Count Result 202 k/mm3 (150-375); Red Blood Count 4.84 M/mm3 (4.6-6.20); Red Cell Distribution Width 13.2 % (11.5-14.5); White Blood Count 7.2 K/mm3 (4.5-10.0)
[2024-05-16 15:02] LABS: Blood Urea Nitrogen 37 mg/dL (8-26); Carbon Dioxide 28 mmol/L (22-30); Chloride 99 mmol/L (98-109); Estimated Glomerular Filt Rate 28; Glucose 305 mg/dL (70-105); Ionized Calcium (POC) 1.17 mmol/L (1.11-1.31); Sodium 141 mmol/L (138-146)
[2024-05-16 17:06] LABS: Alanine Aminotransferase 25 U/L (6-50); Albumin Level 3.7 g/dL (3.5-5.1); Alkaline Phosphatase 133 U/L (38-126); Anion Gap 9 mmol/L (4-12); Aspartate Amino Transferase 20 U/L (17-59); Bilirubin,Total 0.7 mg/dL (0.2-1.3); Blood Urea Nitrogen 39 mg/dL (9-20); Calcium 8.9 mg/dL (8.4-10.2); Carbon Dioxide 27 mmol/L (22-30); Chloride 102 mmol/L (98-107); Estimated Glomerular Filt Rate 31; Glucose 311 mg/dL (65-110); Potassium 4.2 mmol/L (3.4-5.0); Sodium 138 mmol/L (137-145)
--- OUTSIDE RECORDS SUMMARY | 2024-05-18 19:15 | XMS_ITS | Clinical Summary ---
Author Organization 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 Gender Identity Not on file Sexual Orientation Not on file Plan of Treatment Health Maintenance Due Date Last Done Comments Depression Screening 1950 Fall Risk Assessment 1950 Hepatitis C Screening 1950 DTaP/Tdap/Td Vaccine (1 - Tdap) 02/17/1959 Hepatitis B Screening 02/17/1966 Zoster Vaccine (1 of 2) 02/17/1998 Well Visit 65+ 02/17/2013 Pneumococcal vaccine 65+ (2 of 2 - PPSV23 or PCV20) 08/15/2016 08/16/2015 Covid-19 Vaccine (2023-2 5 season) 2023 01/19/2022, 08/09/2021, 01/31/2021, Additional history exists Influenza Vaccine (#1) 2023 01/19/2022 Insurance MEDICARE [facility] Care Teams Analog Ic Design Engineer Relationship Specialty Start Date End Date Leonardo Gomez MD [address] [place] [id number] PCP - General Family Medicine 04/17/22 Avery Monetjo MD [address] [facility] [address] [place] [address] Surgeon Cardiothoracic Surgery 04/29/22
--- OUTSIDE RECORDS SUMMARY | 2024-05-18 19:15 | XMS_ITS | Continuity of Care Document ---
Author Organization [facility] Address [address] [place] [address] [address] [place] [address] Phone Care Team Providers Care Motor Operator Name Role Phone Rosario Ramos Unavailable Unavailable Procedures Procedure Date Special Reports Or Forms Advance Directives Directive Yes / No Effective Date File Name No Information Encounters Encounter Description Practice Location Reason(s) For Visit Diagnoses Date Provider Providers Copied on Encounter [facility], [address], [place], [place], [id number], [place] tel:[phone] [facility] No Information 0 Rachel Ponce. [address] , [address], [place], [address], [place]. tel:[phone] Family History Family Member Type Diagnosis Age At Onset No Information Payers Payer name Insurance type Covered democrat ID Authoriza tion(s) No Information Social History Type Description Quantity Date Captured Comments Sex Male Smoking Status No Information Chief Complaint And Reason For Visit No Information Reason For Referral Reason For Referral No Information History Of Present Illness Encounter Date Complaint History Of Prese nt Illness No Information Functional Status Date Functional Assessmen t No Information Instructions Date Instruction Additional Infor mation No Information Assessments Type Assessment Date No Information Patient Care Teams Name Effective Dates (start - stop) Status Members No Information
--- OUTSIDE RECORDS SUMMARY | 2024-05-18 19:15 | XMS_ITS | Encounter Summary ---
Author Organization [facility] Address [address] [place] [address] Care Team Providers Care Equipment Service Lead Name Role Phone Leonardo Gomez MD Primary Care Provider [phone] Reason for Referral * CT Scan (Routine) - Pending Review Specialty Diagnoses / Procedures Referred By Ziggy gamez Referred To Contact Diagnoses Malignant neoplasm of upper lobe of right lung (CMS/HCC) Procedures CT CHEST WO CONTRAST Anibal Ha MD [address] [place] [address] Phone: tel: fax: [place] [address] Referral ID Status Reason Start Date Expiration Date Visits Requested Visits Authorized [id number] Pending Review [facility] CTS 05/16/2024 06/16/2025 1 1 UFLAGE SPECIALIST Reason for Visit * Reason Comments Cancer Follow Up Encounter Details Date Type Department Care Team (Late st Contact Info) Description 05/16/2024 2:45 PM CAMOUFLAGE SPECIALIST Office Visit [facility] Oncology and Hematology [address] [address] Anibal Ha MD [address] [place] [address] Malignant neoplasm of upper lobe of right lung (CMS/HCC) (Primary Dx) Social History Tobacco Use Types Packs/Day Years Used Date Smoking Tobacco: Every Day Cigarettes 1 65.9 Started: 05/28/1957; Last attempted to quit: 05/28/2022 Smokeless Tobacco: Never Tobacco Cessation:Ready to Q uit: Not Asked; Counseling Given: Not Answered Alcohol Use Standard Drinks/Week Comments Not Currently 0 (1 standard drink = 0.6 oz pur e alcohol) Sex and Gender Information Value Date Recorded Sex Assigned at Not on file Legal Sex Male 1:55 PM CAMOUFLAGE SPECIALIST Gender Identity Not on file Sexual Orientation Not on file documented as of this encounter Last Filed Vital Signs Vital Sign Reading Time Taken Comments Blood Pressure 117/64 05/16/2024 3:08 PM CAMOUFLAGE SPECIALIST Pulse 63 05/16/2024 3:08 PM CAMOUFLAGE SPECIALIST Temperature 35.8 ??C (96.4 ??F) 05/16/2024 3:08 PM CS T Respiratory Rate 22 05/16/2024 3:08 PM CAMOUFLAGE SPECIALIST Oxygen Saturation 94% 05/16/2024 3:08 PM CAMOUFLAGE SPECIALIST Inhaled Oxygen Concentration - - Weight 89.8 kg (198 lb) 05/16/2024 3:08 PM CAMOUFLAGE SPECIALIST Height - - Body Mass Index 29.24 05/28/2022 9:47 AM CAMOUFLAGE SPECIALIST documented in this encounter Progress Notes * Anibal Ha MD - 05/16/2024 4:30 PM CST HEMATOLOGY / ONCOLOGY PROGRESS NOTE Patient Identification: Name: Dennis Acosta Age: 74 y.o. Sex: male : 1950 DIAGNOSIS T1 a N0 M0 stage IA non-small cell lung cancer with adenocarcinoma histology status post right upper lobe lobectomy done on May 28, 2022. Pathology showed 1.4 cm tumor moderately differentiated, all margins negative and all 8 lymph node negative for malignancy. CURRENT TREATMENT Surveillance TREATMENT HISTORY Diagnostic and therapeutic thoracentesis done in January 29, 2023 that showed no evidence of malignancy. SUBJECTIVE Patient came to the office for follow-up visit. He denies any chest pain and shortness of breath. No bleeding and bruising weight and appetite stable. No other new complaints. Review of system Constitutional: Patient did not mention fevers, sweats, denies any tiredness and fatigue, weight and appetite stable HEENT: Patient did not mention sinus congestion, hearing or vision problems Respiratory: Complain of cough with some clear sputum Cardiovascular: Patient did not mention chest pain, exertional chest pressure/discomfort, nausea, syncope, shortness of breath GI: Patient did not mention constipation, diarrhea, dsyphagia, reflux symptoms, vomiting, melena : Patient did not mention dysuria, frequency, incontinence, urgency Integumentary system: no lymphadenopathy, sweats, flushing Musculoskeletal: Patient not mention: myalgia, arthralgia Neurological: Patient did not mention blurry or disturbed vision, numbness/weakness, dizziness Skin: No lumps, bumps or rashes. 12 point review of system was reviewed Objective: Vital signs in last 24 hours: As per nursing note Exam: General appearance: alert, cooperative, no distress, appears stated age Head: normocephalic, without obvious abnormality, atraumatic Eyes: conjunctivae/corneas clear, EOM's intact Ears: normal external ear canals AU Nose: Nares normal. Septum midline. Mucosa normal. No drainage or sinus tenderness Throat: Lips, mucosa, and tongue normal. Teeth and gums normal Neck: supple, symmetrical, trachea midline. Lungs: clear to auscultation bilaterally Heart: regular rate and rhythm, S1, S2 normal, no murmur, click, rub or gallop Abdomen: soft, non-tender. Bowel sounds normal. No masses, No organomegaly Extremities: extremities normal, atraumatic, no cyanosis or edema Skin: Skin color, texture, turgor normal. No rashes or lesions Lymph nodes: No lymphadenopathy Neuro: No obvious focal deficit Exam as above PATH LABS Labs from May 12 showed creatinine 2.1 GFR 31 WBC 6.7 hemoglobin 14.7 platelet 253,000 Labs from September 07 showed WBC 7.0 hemoglobin 15.9 platelet 210,000 creatinine 2.1 GFR 31 Labs from January 10 showed WBC 7.5 hemoglobin 16.7 platelet 237,000 creatinine 2.0 GFR 33 Labs from May 16 showed WBC 7.2 hemoglobin 15.5 platelet 202,000 creatinine 2.3 GFR 28 Assessment: Plan: Patient Active Problem List Diagnosis Date Noted Malignant neoplasm of upper lobe, right bronchus or lung 04/06/2022 Cough with hemoptysis 04/06/2022 T1 a N0 M0 stage IA non-small cell lung cancer with adenocarcinoma histology status post right upper lobe lobectomy done on May 28, 2022. Pathology showed 1.4 cm tumor moderately differentiated, all margins negative and all 8 lymph node negative for malignancy. CT scan chest done on May 09, 2024 showed no evidence of relapse of disease. He is asymptomatic. I will repeat CT scan chest in 4 months without contrast. Chronic kidney stage III disease. He will follow-up with the primary care physician. 05/16/2024 Anibal Ha MD UFLAGE SPECIALIST documented in this encounter Plan of Treatment Upcoming Encounters Date Type Department Care Team (Late st Contact Info) Description 09/20/2024 2:30 PM CDT Office Visit [facility] Oncology and Hematology - [place] [address] [facility] [address] [place] [id number] Anibal Ha MD [address] [facility] [address] [place] [address] Scheduled Orders Name Type Priority Associated Diagnoses Orde r Schedule CBC WITH DIFFERENTIAL Lab Stat Malignant neoplasm of upper lobe of right lung (CMS/HCC) Expected: 09/05/2024, Expires: 05/16/2025 COMPREHENSIVE METABOLIC PANEL Lab Stat Malignant neoplasm of upper lobe of right lung (CMS/HCC) Expected: 09/05/2024, Expires: 05/16/2025 CT CHEST WO CONTRAST Imaging Routine Malignant neoplasm of upper lobe of right lung (CMS/HCC) Expected: 09/13/2024, Expires: 05/16/2025 documented as of this encounter Visit Diagnoses Diagnosis Malignant neoplasm of upper lobe of right lung (CMS/HCC)- Primary Malignant neoplasm of upper lobe, bronchus or lung documented in this encounter Care Teams Equipment Service Lead Relationship Specialty Start Date End Date Leonardo Gomez MD [address] [place] [phone] PCP - General Family Practice 04/15/22 documented as of this encounter
--- OUTSIDE RECORDS SUMMARY | 2024-05-18 19:15 | XMS_ITS | Clinical Summary ---
Author Organization [facility] Address [address] [place] [address] Phone Care Team Providers Care Crane Hooker Name Role Phone Unavailable Primary Care Provider Unavailabl e Allergies No known active allergies Medications Medication Sig Dispensed Refills Start Date End Date Status montelukast (SINGULAIR) 10 MG tablet 1 daily 0 11/01/2016 Active tadalafil (CIALIS) 20 MG tablet 1 as needed 0 11/17/2017 Active losartan (COZAAR) 100 MG tablet 1 daily 0 11/01/2016 Active amLODIPine (NORVASC) 5 MG tablet 1 daily 12 07/14/2017 Active albuterol HFA (PROAIR HFA) 108 (90 Base) MCG/ACT inhaler 2 puffs q4-6 as needed 0 11/01/2016 Active atorvastatin (LIPITOR) 40 MG tablet 1 daily 0 11/01/2016 Active tamsulosin (FLOMAX) 0.4 MG 24 hr capsule 1 nightly 0 11/01/2016 Acti ve glimepiride (AMARYL) 1 MG tablet 1 daily 0 11/01/2016 Active Active Problems Problem Noted Date Diagnosed Date Type 2 diabetes mellitus without complication Chronic kidney disease, stage 3 (moderate) 01/11 Essential (primary) hypertension 01/11/2017 Hyperlipidemia 01/11/2017 Family History Medical History Relation Comments Kidney disease Neg Hx Social History Tobacco Use Types Packs/Day Years Used Date Smoking Tobacco: Heavy Smoker Cigarettes Smokeless Tobacco: Never Alcohol Use Standard Drinks/Week Comments No 0 (1 standard drink = 0.6 oz pur e alcohol) AUDIT-C Answer Date Recorded Frequency of Alcohol Consumption Never 06/25/2019 Average Number of Drinks Not on file 020 Frequency of Binge Drinking Not on file 04/2019 Sex and Gender Information Value Date Recorded Sex Assigned at Not on file Gender Identity Not on file Sexual Orientation Not on file Last Filed Vital Signs Vital Sign Reading Time Taken Comments Blood Pressure 134/70 05/18/2018 12:01 AM HORTICULTURAL THERAPIST Pulse 72 05/18/2018 12:01 AM HORTICULTURAL THERAPIST Temperature 35.7 ??C (96.3 ??F) 05/18/2018 12:[address] Respiratory Rate - - Oxygen Saturation - - Inhaled Oxygen Concentration - - Weight 96.6 kg (213 lb) 05/18/2018 12:01 AM HORTICULTURAL THERAPIST Height 177.8 cm (5' 10 ) 05/18/2018 12:01 AM HORTICULTURAL THERAPIST Body Mass Index 30.56 05/18/2018 12:01 AM HORTICULTURAL THERAPIST Plan of Treatment Health Maintenance Due Date Last Done Comments Pneumococcal PPSV23/PCV13 65 + Years / Low and Medium Risk (1 of 4 - PCV) 02/17/2013 Influenza Vaccine (#1) 2023
--- OUTSIDE RECORDS SUMMARY | 2024-05-18 19:15 | XMS_ITS | Referral Summary ---
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
--- OUTSIDE RECORDS SUMMARY | 2024-05-18 19:15 | XMS_ITS | Clinical Summary ---
Author Organization [facility] Yamilet corrales Joseppk Address [address] [address] Care Team Providers Care Ent Nurse Name Role Phone Leonardo Gomez MD Primary Care Provider [phone]- [phone] Allergies No known active allergies Medications losartan (COZAAR) 100 mg tablet Take 100 mg by mouth daily. 2 Active atorvastatin (LIPITOR) 40 mg tablet Take 40 mg by mouth daily. 2 Active glimepiride (AMARYL) 1 mg tablet TAKE 1 TABLET BY MOUTH WITH BREAKFAST OR THE FIRST MAIN MEAL OF THE DAY 2 Active pioglitazone (ACTOS) 30 mg tablet Take 30 mg by mouth daily. 2 Active tamsulosin (FLOMAX) 0.4 mg capsule TAKE 1 CAPSULE 30 MINUTES AFTER THE SAME MEAL EACH DAY 2 Active acetaminophen (TYLENOL) 325 mg tablet Take 2 Tablets (650 mg) by mouth every 4 hours as needed for Pain, Mild. 3 Active amLODIPine (NORVASC) 10 mg tablet Take 1 Tablet (10 mg) by mouth daily. 3 Active benzonatate (TESSALON) 100 mg capsule Take 1 Capsule (100 mg) by mouth 3 times daily as needed for Cough. 3 Active docusate sodium (COLACE) 100 mg capsule Take 1 Capsule (100 mg) by mouth 2 times daily as needed for Constipation. 3 Active HYDROcodone-maria dolores taminophen (NORCO) 5-325 mg tabletIndicatio ns:Post-op pain Take 1 Tablet by mouth every 4 hours as needed for Pain. Max Daily Amount: 6 Tablets 30 Tablet 3 Active metoprolol tartrate (LOPRESSOR) 50 mg tablet Take 1 Tablet (50 mg) by mouth 2 times daily. 3 Active Farxiga 5 mg Tablet Take 1 Tablet by mouth daily. 3 Active Active Problems Problem Noted Date Diagnosed Date Malignant neoplasm of upper lobe, right bronchus or lung 04/06/2022 Cough with hemoptysis 04/06/2022 Encounters Date Type Department Care Team Description 05/18/2024 Orders Only [facility] Oncology and Hematology - [place] [address] [place] [address] Anibal Ha MD 05/17/2024 External Device Data STL ABSTRACTION Provider, Abstract 05/17/2024 Orders Only [facility] Oncology [facility] H[facility]ology [facility] [address] [place] [address] Anibal Ha MD 05/16/2024 2:45 PM CUT OFF SAWYER Office Visit [facility] [address] [place] [address] Anibal Ha MD Malignant neoplasm of upper lobe of right lung (CMS/HCC) (Primary Dx) 05/10/2024 External Device Data STL ABSTRACTION Provider, Abstract 05/09/2024 Orders Only [facility] On[facility] [address] [place] [address] Anibal Ha MD from Last 3 Months Family History Medical History Relation Name Comments Lung Cancer Brother No Known Problems Daughter 1 No Known Problems Daughter 2 No Known Problems Father Heart Disease Mother No Known Problems Son Relation Name Status Comments Brother Daughter 1 Alive Daughter 2 Alive Father Mother Sister Alive Son Alive Social History Tobacco Use Types Packs/Day Years [...] on file Legal Sex Male 1:55 PM CUT OFF SAWYER Gender Identity Not on file Sexual Orientation Not on file Last Filed Vital Signs Vital Sign Reading Time Taken Comments Blood Pressure 117/64 05/16/2024 3:08 PM CUT OFF SAWYER Pulse 63 05/16/2024 3:08 PM CUT OFF SAWYER Temperature 35.8 ??C (96.4 ??F) 05/16/2024 3:08 PM CS T Respiratory Rate 22 05/16/2024 3:08 PM CUT OFF SAWYER Oxygen Saturation 94% 05/16/2024 3:08 PM CUT OFF SAWYER Inhaled Oxygen Concentration - - Weight 89.8 kg (198 lb) 05/16/2024 3:08 PM CUT OFF SAWYER Height 175.3 cm (5' 9 ) 05/28/2022 9:47 AM CUT OFF SAWYER Body Mass Index 29.24 05/28/2022 9:47 AM CUT OFF SAWYER Plan of Treatment Upcoming Encounters Date Type Department Care Team (Late st Contact Info) Description 09/20/2024 2:30 PM CDT Office Visit [facility] Oncology and H[facility]ology - [place] [address] [facility] [address] [place] [address] Anibal Ha MD [address] [facility] [address] [place] [address] Health Maintenance Due Date Last Done Comments DIABETES ANNUAL FOOT EXAM 02/17/1966 DIABETES ANNUAL RETINAL EXAM 02/17/1966 DIABETES MICROALBUMIN ANNUAL SCREEN 02/17/1966 LDL CHOLESTEROL ANNUAL 02/17/1966 DTAP/TDAP/TD VACCINES (1 - Tdap) 02/17/1967 PNEUMOCOCCAL VACCINE 65+ YEA RS (1 of 2 - PCV) 02/17/1967 Traditional Medicare (ACO) A nnual Wellness Visit 02/17/1967 ZOSTER VACCINE (1 of 2) 02/17/1998 RSV VACCINE (60+ or ) (1 - 1-dose 75+ series) 02/17/2023 INFLUENZA VACCINE (#1) 2023 DIABETES HBA1C Q 6 MONTHS 02/08/20242023, 03/25/2023, 07/31/2022, Additional history exists Medical Devices Implanted Type Area Picked Edge Sewing Machine Operator Device Identifier Shelf Expiration Date Model / Serial / Lot Sealant Progel Pleural 4ml [id number] - [id number] Implanted:Qty: 1 on 05/28/2022 by Avery Montejo MD at [facility] Tissue Right: Lung BARD CHAMORRO [id number] 07/20/2023 [id number] / / [id number] Procedures Procedure Name Priority Date/Time Associated Diagnosis Comments BASIC METABOLIC PANEL Routine 05/16/2024 3:47 PM CUT OFF SAWYER CBC WITH DIFFERENTIAL Routine 05/16/2024 3:42 PM CUT OFF SAWYER COMPREHENSIVE METABOLIC PANEL Routine 05/16/2024 11:16 AM CUT OFF SAWYER CREATININE Routine 05/09/2024 2:[address] CHEST W CONTRAST Routine 05/09/2024 1 2:22 PM CUT OFF SAWYER HEMOGLOBIN A1C Routine 04/15/2022 1:45 PM CUT OFF SAWYER Malignant neoplasm of upper lobe, right bronchus or lung (CMS/HCC) from Last 3 Months or Most Recently Relevant to Health Maintenance Results * BASIC METABOLIC PANEL (05/16/2024 3:47 PM CUT OFF SAWYER) Blood Anibal Ha MD CHEMISTRY ORDERABLES Final Resu lt * CBC WITH DIFFERENTIAL (05/16/2024 3:42 PM CUT OFF SAWYER) Blood Anibal Ha MD HEMATOLOGY ORDERABLES Final Res ult * COMPREHENSIVE METABOLIC PANEL (05/16/2024 11:16 AM CUT OFF SAWYER) Blood Anibal Ha MD CHEMISTRY ORDERABLES Final Resu lt * CREATININE (05/09/2024 2:43 PM CUT OFF SAWYER) Blood Anibal Ha MD CHEMISTRY ORDERABLES Final Resu lt * CT CHEST W CONTRAST (05/09/2024 12:22 PM CUT OFF SAWYER) Anatomical Region Laterality Modality Chest Other Anibal Ha MD CT ORDERABLES Final Result * (ABNORMAL) HEMOGLOBIN A1C (04/15/2022 1:45 PM CUT OFF SAWYER) HEMOGLOBIN A1C 7.9(H) <5.7 % 04/15/2022 2:59 PM CUT OFF SAWYER [facility] EST. AVG GLUCOSE, A1C 180 mg/dL 04/15/2022 2:59 PM CUT OFF SAWYER [facility] [employer] [facility] Blood Venipuncture / Unknown 04/15/2022 1:45 PM CUT OFF SAWYER 04/15/2022 2:24 PM CUT OFF SAWYER Narrative [facility] - 04/15/2022 2:59 PM CUT OFF SAWYER HGB A1C INTERPRETATION NORMAL: ? <5.7% PRE-DIABETES: 5.7 - 6.4% DIABETES: ? 6.5% OR GREATER Liang NAYLOR CHEMISTRY ORDERABLES Final Resul t [facility] [id number] [address] [place], [place] [id number] from Last 3 Months or Most Recently Relevant to Health Maintenance Insurance MEDICARE PART A AND B [facility] [employer] CHOICE [facility] BLUE ACCESS CHOICE MEDICARE PART A AND B Advance Directives For more information, please contact: [phone] Documents on File Type Date Recorded Patient Revenue Liaison Expl anation Advance Directive POA 05/28/2022 9:45 PM Ad hui Directive POA * Full Code (Latest Code Status on File) Date Activated Date Inactivated Comments 05/28/2022 10:21 PM 06/06/2022 6:26 PM * Full Code Date Activated Date Inactivated Comments 05/28/2022 10:14 AM 05/28/2022 10:21 PM Care Teams Ent Nurse Relationship Specialty Start Date End Date Leonardo Gomez MD [address] [place] [phone] PCP - General Family Practice 04/15/22
--- OUTSIDE RECORDS SUMMARY | 2024-05-18 19:15 | XMS_ITS | Encounter Summary ---
Author Organization [facility] Address [address] [place] [address] Care Team Providers Care Hydraulic Plumber Name Role Phone Leonardo Gomez MD Primary Care Provider [phone]- [phone] Encounter Details Date Type Department Care Team (Late st Contact Info) Description 05/28/2022 Lab Requisition [facility] General Laboratory Services [address] [facility] [address] [place] [address] [place] [address] [place] [address] [facility] [address] [place] [address] Social History Tobacco Use Types Packs/Day Years Used Date Smoking Tobacco: Every Day Cigarettes Smokeless Tobacco: Never Alcohol Use Standard Drinks/Week Comments Not Currently 0 (1 standard drink = 0.6 oz pur e alcohol) Sex and Gender Information Value Date Recorded Sex Assigned at Not on file Legal Sex Male 1:55 PM GERIATRICIAN Gender Identity Not on file Sexual Orientation Not on file COVID-19 Exposure Response Date Recorded In the last 10 days, have yo u been in contact with someone who was confirmed or suspected to have Coronavirus/COVID-19? No / Unsure 05/28/2022 10:36 AM GERIATRICIAN documented as of this encounter Plan of Treatment Upcoming Encounters Date Type Department Care Team (Late st Contact Info) Description 09/20/2024 2:30 PM CDT Office Visit [facility] - [place] [address] [place] [address] Anibal Ha MD [address] [facility] [address] [place] [address] documented as of this encounter Procedures Procedure Name Priority Date/Time Associated Diagnosis Comments SOURCE NEEDLESTICK PANEL Stat 05/28/2022 7:40 PM GERIATRICIAN EXPOSURE PANEL COMPLETION Stat 05/28/2022 7:40 PM GERIATRICIAN HIV DETECTION W/REFLX CONFIRMATION Stat 05/28/2022 7:40 PM GERIATRICIAN HEPATITIS C RNA PCR, QUANTITATIVE Stat 05/28/2022 7:40 PM GERIATRICIAN HEPATITIS B SURFACE ANTIGEN Stat 05/28/2022 7:40 PM GERIATRICIAN documented in this encounter Results * EXPOSURE PANEL COMPLETION (05/28/2022 7:40 PM GERIATRICIAN) Pathologist [facility] EXPOSURE PANEL RECEIVED Yes 05/28/2022 10:00 PM GERIATRICIAN [facility] Blood Collection / Unknown 05/28/2022 7:40 PM GERIATRICIAN 05/28/2022 8:07 PM GERIATRICIAN Ricardo Grier MD CHEMISTRY ORDERABLES Final R esult [facility] [employer] [facility] [employer] [employer] CLIA# [id number] [address] [facility] [place] [address] * HEPATITIS B SURFACE ANTIGEN (05/28/2022 7:40 PM GERIATRICIAN) Pathologist [facility] HEPATITIS B SURFACE AG NON-REACT SHAHBAZ Non-react shahbaz 05/29/2022 12:35 AM GERIATRICIAN [facility] [employer] [facility] [employer] Comment:A non-reactive test result does not exclude the possibility of exposure to or infection with hepatitis B. Blood Collection / Unknown 05/28/2022 7:40 PM GERIATRICIAN 05/28/2022 8:07 PM GERIATRICIAN Ricardo Grier MD CHEMISTRY ORDERABLES Final R esult [facility] [employer] [facility] [employer]# [id number] [address] [place] [address] * HEPATITIS C RNA PCR, QUANTITATIVE (05/28/2022 7:40 PM GERIATRICIAN) HCV RNA, QUANT REAL TIME PCR <15 NOT DETECTED NOT DETECTED IU/mL 06/01/2022 9:16 PM GERIATRICIAN [facility] HCV RNA QUANT PCR COPIES IU/ML <1.18 NOT DETECTED NOT DETECTED Log IU/mL 06/01/2022 9:16 PM GERIATRICIAN [facility] Comment: This test was performed using Real-Time Polymerase Chain Reaction. Reportable Range: 15 IU/mL to 100,000,000 IU/mL (1.18 Log IU/mL to 8.00 Log IU/mL). ?? The analytical performance characteristics of this assay have been determined by [employer]. The modifications have not been cleared or approved by the FDA. This assay has been validated pursuant to the CLIA regulations and is used for clinical purposes. ?? For more information on this test, go to: http://education.Berst/faq/FCN70p0 (This link is being provided for informational/ educational purposes only.) Blood Collection / Unknown 05/28/2022 7:40 PM GERIATRICIAN 05/28/2022 8:07 PM GERIATRICIAN Narrative [facility] - 06/01/2022 9:16 PM GERIATRICIAN Performing Organization Information: ?Site ID: [id number] ?Name: [facility] ?Address: [address] [address] [place] [address] ?Director: Daphnie Westbrook MD Ricardo Grier MD CHEMISTRY ORDERABLES Final R esult [facility] [phone] * HIV DETECTION W/REFLX CONFIRMATION (05/28/2022 7:40 PM GERIATRICIAN) Pathologist [facility] HIV-1 AND 2 ABS AND HIV-1 AG Non-reacti ve Non-reacti ve 05/28/2022 9:08 PM GERIATRICIAN [facility] Blood Collection / Unknown 05/28/2022 7:40 PM GERIATRICIAN 05/28/2022 8:07 PM GERIATRICIAN Narrative [facility] - 05/28/2022 9:08 PM GERIATRICIAN Initial HIV testing was performed by [employer] on the Wayne Guy e602 module. Values obtained with different assay methods cannot be used interchangeably. Non- Reactive results does not rule out HIV infection. If acute HIV-1 infection is suspected, submit plasma specimen for HIV-1 RNA quantification test (HIVQU). Ricardo Grier MD CHEMISTRY ORDERABLES Final R esult [id number] [address] [place] [address] documented in this encounter Visit Diagnoses Not on filedocumented in this encounter Care Teams Hydraulic Plumber Relationship Specialty Start Date End Date Leonardo Gomez MD [address] [place] [address] PCP - General Family Practice 04/15/22 documented as of this encounter
== END 2024-05-16 14:44 | disposition home or self-care (01) ==
LOC: ANHLAB 14:48
PROVIDERS: PCP Family Medicine; Visit Provider Internal Medicine Hematology & Oncology
DX: C34.11 Malignant neoplasm of upper lobe, right bronchus or lung (principal)
CPT/HCPCS: 36415; 80047; 80053; 85025

== ENCOUNTER 2024-08-31 17:22 | Inpatient (IN) | payer MEDICARE, BC, SELFPAY ==
[2024-08-31] VITALS (19 sets, daily range): BP systolic 110–169; BP diastolic 60–121; PULSE 95–136; RESP 16–29; TEMP 36.9; O2SAT 93–97
--- NOTE | ~2024-08-31 | US_ITS ---
EXAMINATION: US renal BI DATE: 09/02/2024 10:19 INDICATION: Acute renal insufficiency. Diabetes. TECHNIQUE: Multiple ultrasound grayscale images of the kidneys were obtained. COMPARISON: Ultrasound dated 01/13/[address] dated 09/02/2024 FINDINGS: The right kidney measures 10.8 x 5.6 x 6.0 cm. The left kidney measures 10.6 x 5.0 x 4.3 cm. There is bilateral likely age-related mild renal cortical atrophy with normal echogenicity. There are bilater al anechoic renal cysts measuring up to 1.1 cm on the right and 2.0 cm on the left. There is no hydro nephrosis in either kidney. No stones identified. Indeterminate intraluminal hypoechoic region along the base of the bladder IMPRESSION 1. Mild likely age-related bilateral renal atrophy with bilateral renal cysts. No hydronephrosis. 2. Intraluminal hypoechoic region along the floor of the bladder, unclear whether related to focal wa ll thickening such as in the setting of neoplasm or due to clot or debris. Correlate with urinalysis and could consider cystoscopy for further evaluation as clinically indicated. Reviewed, dictated and finalized at location A. IMPRESSION 1. Mild likely age-related bilateral renal atrophy with bilateral renal cysts. No hydronephrosis. 2. Intraluminal hypoechoic region along the floor of the bladder, unclear wheth er related to focal wall thickening such as in the setting of neoplasm or due t o clot or debris. Correlate with urinalysis and could consider cystoscopy for f urther evaluation as clinically indicated.
--- NOTE | ~2024-08-31 | XR_ITS ---
EXAMINATION: XR retrograde pyelogram BI DATE: 09/04/2024 12:00 CDT INDICATION: Clot evacuation. TECHNIQUE: 2 fluoroscopic images and 4 cine clips of the abdomen and pelvis were obtained during bila teral retrograde pyelography , performed by Dr. Farmer. I was not present during the procedure. Fluor oscopy exposure time was 31.2 seconds. Air Kerma 13.45 mGy. DAP [id number] mGym2. COMPARISON: CT abdomen and pelvis and renal ultrasound 09/02/2024 FINDINGS/IMPRESSION: Fluoroscopic documentation of bilateral retrograde pyelography. Please refer to the operative note fo r complete procedural details . Reviewed, dictated and finalized at location K.
--- NOTE | ~2024-08-31 | CT_ITS ---
EXAMINATION: CTA chest PE protocol DATE: 08/31/2024 22:24 CDT INDICATION: Shortness of breath and tachycardia TECHNIQUE: Computed tomographic angiography (CTA) of the chest was performed with 100 mL Omnipaque-35 0 intravenous contrast. The dose-length product was 710.83 mGy-cm. Maximum intensity projection 3D-re constructions of the aorta and other arteries were constructed by the technologist on a separate work station. COMPARISON: Reference is made to a CT examination of the chest dated 05/08/2024 FINDINGS/OBSERVATIONS: PULMONARY ARTERIES: No filling defect is identified within the main or proximal pulmonary artery. The main pulmonary artery is not enlarged. THORACIC AORTA: No aneurysmal dilatation or dissection is present. The great vessels are intact LUNGS: Redemonstration of volume loss within the right hemithorax, consistent with patient's history. Round atelectasis within the right lung base. Increased right-sided pleural effusion, when compared with previous study. Cylindrical bronchiectasis is also now noted. The left hemithorax is clear. MEDIASTINUM: No morphologically suspicious or pathologically enlarged lymph nodes are identified with in the mediastinum or bilateral axilla. BONES OF THE CHEST: No acute fracture. No significant degenerative disease. No lytic or blastic lesions. HEART: The heart is enlarged, without pericardial effusion. IMPRESSION: No pulmonary embolus. No thoracic aortic dissection. Findings consistent with patient's known history of lung cancer within the right hemithorax post part ial lobectomy with persistent round atelectasis. Interval increase in the right-sided pleural effusion, when compared with May 09, 2024 examinatio n. Reviewed, dictated and finalized at location A. IMPRESSION: No pulmonary embolus. No thoracic aortic dissection. Findings consistent with patient's known history of lung cancer within the righ t hemithorax post partial lobectomy with persistent round atelectasis. Interval increase in the right-sided pleural effusion, when compared with 2024 examination.
--- NOTE | ~2024-08-31 | US_ITS ---
ABDOMINAL AORTIC ULTRASOUND (Grayscale and Doppler ultrasound interrogation techniques used as needed for this exam.) Ordering provider: Michael Mills MD History: . suspect AAA . Comparison: None. Findings: ABDOMINAL AORTA: Proximal aorta measures 2.4 x 2.5 cm. Mid aorta measures 3 x 2.9 cm. Distal aorta: Measures 4.1x 3.9 cm in caliber. Proximal iliac arteries: Normal in caliber. The right Measures 0.8 cm. The left measures 1.1 cm. Normal triphasic and color Doppler flow is seen within the abdominal aorta and iliac arteries. IMPRESSION: 1. ULTRASOUND OF THE distal ABDOMINAL AORTA measuring 4.1 x 3.9 cm... Reviewed, dictated and finalized at location A.
--- NOTE | ~2024-08-31 | XR_ITS ---
CHEST RADIOGRAPH CLINICAL HISTORY: cough AND SOB X 1 MONTH . COMPARISON: Reference is made with a CT examination of the chest dated 05/09/2024 TECHNIQUE: Single portable view of the chest. FINDINGS Volume loss within the right hemithorax consistent with patient's history. Small right-sided pleural effusion persists, as one would expect post partial lobectomy. The left hemithorax is clear. IMPRESSION: As above. Reviewed, dictated and finalized at location A. IMPRESSION: As above.
--- NOTE | ~2024-08-31 | CT_ITS ---
CT abdomen pelvis wo con Ordering provider: Michael Mills MD History: 74 years Male with . decrease in hemoglobin, hematuria . Comparison: August 28, 2015 Technique: CT abdomen and pelvis without IV and without oral contrast. Automated exposure control and iterative reconstruction technique were employed. The dose-length product was 851.73 mGy-cm. Findings: VISUALIZED LOWER CHEST: Shift of the heart to the right side with highly suggestive fibrotic changes. A right lower lobe pneumonia versus rounded atelectasis is seen. Underlying mass cannot be excluded. Follow-up advised to resolution. Right pleural effusion is also seen which may be loculated effusion. UPPER ABDOMINAL ORGANS: Liver: Normal. Gallbladder: Status post cholecystectomy. Spleen: Normal. Stomach/duodenum: Normal. Pancreas: Normal. Adrenals: Normal. Kidneys: 1.6 cm left renal cyst is noted in the mid pole. Slightly hyperdense areas seen in the left kidney lower pole which measures 1.9 x 1.9x 2.1 cm which may be a mass. Hyperdense lesion seen in the right kidney midpole measuring 1.1 x 1.2 cm which may be a mass or hemorrhagic cyst. Tiny cyst in th e right kidney lower pole.. Thickened right hemidiaphragm is noted compared to the left. PELVIC ORGANS: Contrast is seen in the bladder. Soft tissue density is seen in the urinary bladder wh ich measures 2.7 x 3.4 cm which may be a clot or mass. Grossly enlarged prostate is seen BOWEL AND MESENTERY: Colon: No evidence of diverticulitis. Appendix is not demonstrated. Small Bowel: Normal. No obstruction. Peritoneum/mesentery: No free air or free fluid. No mesenteric lymphadenopathy. RETROPERITONEUM: Aneurysmal dilatation of the distal aorta is seen measuring 4.2 x 4.2 cm. Mild ather omatous disease of the abdominal aorta. No retroperitoneal lymphadenopathy. MUSCULOSKELETAL: Superficial soft tissues: The superficial soft tissues are normal. Bones: Age appropriate degenerative changes of the spine. Dextroscoliosis. IMPRESSION: 1. Abdominal aortic aneurysm measuring 4.2 x 4.3 cm. 2. Right basilar atelectasis versus pneumonia. Follow-up to resolution advised. Rounded atelectasis is not excluded. 3. Right pleural effusion which may be loculated. 4. Highly suggestive lower pole left kidney mass. Hyperdense lesion in the right kidney midpole most likely hemorrhagic cyst or a mass. 5. Mass or hematoma in the urinary bladder seen to the right and posteriorly. Enlarged prostate sherrell uring 5.5 x 5.3 cm. The result of the patient was notified to Dr. Michael Mills at 5:50 PM on September 02, 2024. Reviewed, dictated and finalized at location A. IMPRESSION: 1. Abdominal aortic aneurysm measuring 4.2 x 4.3 cm. 2. Right basilar atelectasis versus pneumonia. Follow-up to resolution advised . Rounded atelectasis is not excluded. 3. Right pleural effusion which may be loculated. 4. Highly suggestive lower pole left kidney mass. Hyperdense lesion in the rig ht kidney midpole most likely hemorrhagic cyst or a mass. 5. Mass or hematoma in the urinary bladder seen to the right and posteriorly. Enlarged prostate measuring 5.5 x 5.3 cm. The result of the patient was notified to Dr. Michael Mills at 5:50 PM on September 02, 2024.
[2024-08-31 17:56] LABS: Basophils Percent Auto 0.3 % (0.2-1.2); Eosinophils Absolute Auto 0.1 K/mm3 (0-0.3); Eosinophils Percent Auto 1.8 % (0-4.4); Hematocrit 47.3 % (42.0-52.0); Hemoglobin 15.6 g/dL (14.0-18.0); Immature Granulocyte Absolute 0.02 K/mm3 (0.00-0.031); Immature Granulocyte Percent A 0.3 % (0-0.5); Lymphocytes Absolute Auto 2.46 K/mm3 (0.9-3.2); Lymphocytes Percent Auto 31.7 % (18.3-44.2); Mean Corpuscular Hemoglobin 31.6 pg (26-34); Mean Corpuscular Volume 95.9 fl (80-100); Mean Platelet Volume 11.4 fl (7.4-10.4); Monocytes Percent Auto 12.5 % (2.6-8.5); Neutrophils Absolute Auto 4.2 K/mm3 (1.3-6.7); Neutrophils Percent Auto 53.4 % (45.5-73.1); Platelet Count Result 178 k/mm3 (150-375); Red Blood Count 4.93 M/mm3 (4.6-6.20); Red Cell Distribution Width 13.3 % (11.5-14.5); White Blood Count 7.8 K/mm3 (4.5-10.0)
--- OUTSIDE RECORDS SUMMARY | 2024-08-31 17:59 | XMS_ITS | Clinical Summary ---
Author Organization [facility] Debra fuentes Address [address] [place] [address] Phone Care Team Providers Care Desktop Support Manager Name Role Phone Unavailable Primary Care Provider Unavailabl e Allergies No known active allergies Medications montelukast (SINGULAIR) 10 MG tablet 1 daily [...] 24 hr capsule 1 nightly 0 11/01/2016 Activ e glimepiride (AMARYL) 1 MG tablet 1 daily [...] at Not on file Legal Sex Male 9:15 AM MST Gender Identity Not on file Sexual Orientation Not on file Last Filed Vital Signs Vital Sign Reading Time Taken Comments Blood Pressure 134/70 05/18/2018 12:01 AM JUNIOR ACCOUNTANT Pulse 72 05/18/2018 12:01 AM JUNIOR ACCOUNTANT Temperature 35.7 C (96.3 F) 05/18/2018 12:01 AM JUNIOR ACCOUNTANT Respiratory Rate - - Oxygen Saturation - - Inhaled Oxygen Concentration - - Weight 96.6 kg (213 lb) 05/18/2018 12:01 AM JUNIOR ACCOUNTANT Height 177.8 cm (5' 10 ) 05/18/2018 12:01 AM JUNIOR ACCOUNTANT Body Mass Index 30.56 05/18/2018 12:01 AM JUNIOR ACCOUNTANT Plan of Treatment Health Maintenance Due Date Last Done Comments Diabetic Foot Exam 02/17/1958 Ophthalmology Exam 02/17/1958 Pneumococcal PPSV23/PCV13 65 + Years / High and Highest Risk (1 of 5 - PCV) 02/17/1967 Influenza Vaccine (Season Ended) 2024
--- OUTSIDE RECORDS SUMMARY | 2024-08-31 17:59 | XMS_ITS | Clinical Summary ---
Author Organization [facility] Yamilet corrales Joseppk Address [address] [place] [address] Care Team Providers Care College Sports Assistant Name Role Phone Leonardo Gomez MD Primary Care Provider +1- [phone] Allergies No known active allergies Medications losartan [...] Encounters Date Type Department Care Team Description 07/12/2024 External Device Data STL ABSTRACTION Provider, Abstract 07/03/2024 External Device Data STL ABSTRACTION Provider, Abstract 07/01/2024 External Device Data STL ABSTRACTION Provider, Abstract 06/30/2024 External Device Data STL ABSTRACTION Provider, Abstract 06/13/2024 External Device Data STL ABSTRACTION Provider, Abstract from Last 3 Months Family History Medical [...] Date Smoking Tobacco: Every Day Cigarettes 1 66.2 Started: 05/28/1959; Last attempted to quit: 05/28/2022 Smokeless Tobacco: Never Tobacco Cessation:Ready to Q uit: Not Asked; Counseling Given: Not Answered Alcohol Use Standard Drinks/Week Comments Not Currently 0 (1 standard drink = 0.6 oz pur e alcohol) Sex and Gender Information Value Date Recorded Sex Assigned at Not on file Legal Sex Male 1:55 PM PRODUCTION ENGINE REPAIRER Gender Identity Not on file Sexual Orientation Not on file Last Filed Vital Signs Vital Sign Reading Time Taken Comments Blood Pressure 117/64 05/16/2024 3:08 PM PRODUCTION ENGINE REPAIRER Pulse 63 05/16/2024 3:08 PM PRODUCTION ENGINE REPAIRER Temperature 35.8 C (96.4 F) 05/16/2024 3:08 PM PRODUCTION ENGINE REPAIRER Respiratory Rate 22 05/16/2024 3:08 PM PRODUCTION ENGINE REPAIRER Oxygen Saturation 94% 05/16/2024 3:08 PM PRODUCTION ENGINE REPAIRER Inhaled Oxygen Concentration - - Weight 89.8 kg (198 lb) 05/16/2024 3:08 PM PRODUCTION ENGINE REPAIRER Height 175.3 cm (5' 9 ) 05/28/2022 9:47 AM PRODUCTION ENGINE REPAIRER Body Mass Index 29.24 05/28/2022 9:47 AM PRODUCTION ENGINE REPAIRER Plan of Treatment Upcoming Encounters Date Type Department Care Team (Late st Contact Info) Description 09/20/2024 2:30 PM CDT Office Visit [facility] Oncology and Hematology - [place] [address] [place] [address] Anibal Ha MD [address] [facility] [address] [place] [address] Health Maintenance Due Date Last Done Comments DIABETES ANNUAL FOOT EXAM 02/17/1966 DIABETES ANNUAL RETINAL EXAM 02/17/1966 DIABETES MICROALBUMIN ANNUAL SCREEN 02/17/1966 LDL CHOLESTEROL ANNUAL 02/17/1966 DTAP/TDAP/TD VACCINES (1 - Tdap) 02/17/1967 PNEUMOCOCCAL VACCINE 50+ YEA RS (1 of 2 - PCV) 02/17/1967 ZOSTER VACCINE (1 of 2) 02/17/1998 RSV VACCINE (60+ or ) (1 - 1-dose 75+ series) 02/17/2023 INFLUENZA VACCINE (#1) 2023 DIABETES HBA1C Q 6 MONTHS 02/08/20242023, 03/25/2023, 07/31/2022, Additional history exists Medical Devices Implanted Type Area Supervisor Assembly Room Device Identifier Shelf Expiration Date Model / Serial / Lot Sealant Progel Pleural 4ml [id number] - [id number] Implanted:Qty: 1 on 05/28/2022 by Avery Montejo MD at [facility] Tissue Right: Lung BARD DAVOL [id number] 07/20/2023 [id number] / / [id number] Procedures Procedure Name Priority Date/Time Associated Diagnosis Comments HEMOGLOBIN A1C Routine 04/15/2022 1:45 PM PRODUCTION ENGINE REPAIRER Malignant neoplasm of upper lobe, right bronchus or lung (CMS/HCC) from Last 3 Months or Most Recently Relevant to Health Maintenance Results * (ABNORMAL) HEMOGLOBIN A1C (04/15/2022 1:45 PM PRODUCTION ENGINE REPAIRER) HEMOGLOBIN A1C 7.9(H) <5.7 % 04/15/2022 2:59 PM PRODUCTION ENGINE REPAIRER [facility] EST. AVG GLUCOSE, A1C 180 mg/dL 04/15/2022 2:59 PM PRODUCTION ENGINE REPAIRER [facility] Blood Venipuncture / Unknown 04/15/2022 1:45 PM PRODUCTION ENGINE REPAIRER 04/15/2022 2:24 PM PRODUCTION ENGINE REPAIRER Narrative [facility] - 04/15/2022 2:59 PM PRODUCTION ENGINE REPAIRER HGB A1C INTERPRETATION NORMAL: <5.7% PRE-DIABETES: 5.7 - 6.4% DIABETES: 6.5% OR GREATER Liang NAYLOR CHEMISTRY ORDERABLES Final Resul t [facility] [employer]D Display for Smart[employer] [facility] [id number] [address] [place] [address] from Last 3 Months or Most Recently Relevant to Health Maintenance Insurance [facility] [employer] CHOICE [facility] [employer] CHOICE MEDICARE PART A AND B Advance Directives For more information, please contact: [phone] Documents on File Type Date Recorded Patient Sheet Sorter Expl anation Advance Directive POA 05/28/2022 9:45 PM Ad hui Directive POA * Full Code (Latest Code Status on File) Date Activated Date Inactivated Comments 05/28/2022 10:21 PM 06/06/2022 6:26 PM * Full Code Date Activated Date Inactivated Comments 05/28/2022 10:14 AM 05/28/2022 10:21 PM Care Teams College Sports Assistant Relationship Specialty Start Date End Date Leonardo Gomez MD [address] [place] [phone] PCP - General Family Practice 04/15/22
--- OUTSIDE RECORDS SUMMARY | 2024-08-31 17:59 | XMS_ITS ---
Author Name Auto Generated, Auto Generated Organization [facility] Address [address] [place] [address] Phone [phone] Care Team Providers Care Agent Producer Name Role Phone Oscar Birmingham Unavailable Shay Peres Unavailable [phone] Orestes Solomon Unavailable [phone] Functional Status No Results Mental Status No Results Allergies and Intolerances Name Onset Date Reaction Severity No Known Allergies (Allergy) WedJun 06 15:47:00 2022 Medications Medication Directions Start Date End Date HYDROcodone 5 mg-acetaminophen 325 mg tablet 1 tablet TABLET Oral 1 Time Daily Indication: Pain WedJun 23 04:00:00 2022Jun 27 01:00:00 EST 2022 escitalopram 10 mg tablet 1 TAB TABLET O ral 1 Time Daily Indication: MAJOR DEPRESSIVE DISORDER WedJun 22 16:53:00 2022Jun 27 01:00:00 EST 2022 HYDROcodone 5 mg-acetaminophen 325 mg tablet 1 TAB TABLET Oral 1 Time Daily Indication: PAIN WedJun 22 17:00:00 2022Jun 23 04:23:00 2022 HYDROcodone 5 mg-acetaminophen 325 mg tablet 1 TAB TABLET Oral PRN Every 8 Hours Indication: PAIN FOR MODERATE TO SEVERE PAIN WedJun 22 17:00:00 EST 2022Jun 27 01:00:00 EST 2022 amLODIPine 5 mg tablet 1 tab TABLET Oral 1 Time Daily Indication: HTN HTN WedJun 13 07:00:00 2022 Sat Jun 27 01:00:00 EST 2022 pioglitazone 45 mg tablet 1 TABLET Oral 1 Time Daily Indication: NIDDM WedJun 11 13:30:00 EST 2022Jun 27 01:00:00 EST 2022 ergocalciferol (vitamin D2) 1,250 mcg (50,000 unit) capsule 1 cap CAPSULE Oral 2 Times Weekly Indication: Vit D deficiency Wed 15 17:08:00 EST 2022Jun 27 01:00:00 EST 2022 albuterol sulfate 2.5 mg/3 mL (0.083 %) solution for nebulization 1 VIAL, NEBULIZER (ML) Inhalation PRN Every 6 Hours Indication: SOB WedJun 08 09:00:00 EST 2022Jun 27 01:00:00 EST 2022 fluticasone propionate 50 mcg/actuation nasal spray,suspension 1 application SPRAY, SUSPENSION (ML) Intranasal 2 Times Daily Indication: Nasal Decongestion [place] to BIlateral Nostrils Twice Daily WedJun 08 14:00:00 EST 2022Jun 27 01:00:00 EST 2022 TUBErsoL 5 tub. unit/0.1 mL intradermal injection solution Read Results VIAL (ML) Other 1 Time Weekly for 2 Weeks Indication: TB Read results between 48-72 hours after 1st and 2nd (1 week apart). If positive do chest x-ray. WedJun 09 07:00:00 2022Jun 23 06:59:00 EST 2022 acetaminophen 325 mg tablet 2 TABLETS TABLET Oral PRN Every 4 Hours Indication: MILD PAIN (2 TABLETS= 650MG)*DO NOT EXCEED 3GM APAP/DAY FROM ALL SOURCES* WedJun 06 16:00:00 EST 2022Jun 27 01:00:00 EST 2022 amLODIPine 10 mg tablet 1 TABLET TABLET Oral 1 Time Daily Indication: HYPERTENSION Wed 11 16:00:00 2022 Fri May 17 15:50:00 EST 2022 benzonatate 100 mg capsule 1 CAPSULE CAP KALI Oral PRN 3 Times Daily Indication: COUGH WedJun 06 16:00:00 2022Jun 27 01:00:00 EST 2022 docusate sodium 100 mg capsule 1 CAPSULE CAPSULE Oral PRN 2 Times Daily Indication: CONSTIPATION WedJun 06 16:00:00 EST 2022Jun 27 01:00:00 EST 2022 HYDROcodone 5 mg-acetaminophen 325 mg tablet 1 TABLET TABLET Oral PRN Every 4 Hours Indication: PAIN *DO NOT EXCEED 3GM APAP/DAY FROM ALL SOURCES* Wed 11 16:00:00 EST 2022 Mon Jun 22 16:54:00 EST 2022 metoprolol tartrate 50 mg tablet 1 TABLET TABLET Oral 2 Times Daily Indication: HYPERTENSION Wedb 11 16:00:00 EST 2022 Fri Feb 17 15:49:00 EST 2022 atorvastatin 40 mg tablet 1 TABLET TABLE T Oral 1 Time Daily Indication: HYPERLIPIDEMIA Sat Feb 11 16:00:00 EST 2022 Sat Jun 27 01:00:00 EST 2022 glimepiride 1 mg tablet 1 TABLET TABLET Oral 1 Time Daily Indication: DIABETES WITH BREAKFAST Sat Feb 16:00:00 EST 2022 Sat Mar 01:00:00 EST 2022 losartan 100 mg tablet 1 TABLET TABLET O ral 1 Time Daily Indication: HYPERTENSION Sat Feb 11 16:00:00 EST 2022 Sat Mar 01:00:00 EST 2022 pioglitazone 30 mg tablet 1 TABLET TABLE T Oral 1 Time Daily Indication: DIABETES Sat b 11 16:00:00 EST 2022 Stephanie Feb 16 13:28:00 EST 2022 tamsulosin 0.4 mg capsule 1 CAPSULE CAPS ULE Oral 1 Time Daily Indication: BPH 30 MINUTES AFTER THE SAME MEAL EACH DAY Sat Feb 16:00:00 EST 2022 Sat Jun 27 01:00:00 EST 2022 TUBErsoL 5 tub. unit/0.1 mL intradermal injection solution 0.1 ml VIAL (ML) Intradermal 1 Time Weekly for 2 Weeks Indication: TB 1st injection on admission, then one week after. Read between 48 and 72 hours Sat b 16:00:00 EST 2022 Sat Feb 15:59:00 EST 2022 acetaminophen 325 mg tablet 325 mg TABLET Oral PRN Every 6 Hours Indication: pain As needed for pain/elevated temperature. Sat b 16:00:00 EST 2022 Sat Feb 22:30:00 EST 2022 TUBErsoL 5 tub. unit/0.1 mL intradermal injection solution Read Results VIAL (ML) Other 1 Time Weekly for 2 Weeks Indication: TB Read results between 48-72 hours after 1st and 2nd (1 week apart). If positive do chest x-ray. Sun Jun 07 07:00:00 EST 2022 Sun Jun 07 13:23:00 EST 2022 Problems Active Concerns * Malignant neoplasm of upper lobe, right bronchus or lung* Code: * Start Date: WedJun 06 00:00:00 EST 2022 * End Date: * Text: * Aftercare following surgery for neoplasm* Code: * Start Date: WedJun 06 00:00:00 EST 2023 * End Date: * Text: * Acquired absence of lung [part of]* Code: * Start Date: WedJun 06 00:00:00 2022 * End Date: * Text: * Postprocedural pneumothorax* Code: * Start Date: WedJun 06 00:00:00 2022 * End Date: * Text: * Hypertensive chronic kidney disease with stage 1 through stage 4 chronic kidney disease, or unspecified chronic kidney disease* Code: * Start Date: WedJun 06 00:00:00 2022 * End Date: * Text: * Chronic kidney disease, stage 3 unspecified* Code: * Start Date: WedJun 06 00:00:00 2022 * End Date: * Text: * Type 2 diabetes mellitus with diabetic chronic kidney disease* Code: * Start Date: WedJun 06 00:00:00 2022 * End Date: * Text: * Mixed hyperlipidemia* Code: * Start Date: WedJun 06 00:00:00 2022 * End Date: * Text: * Benign prostatic hyperplasia without lower urinary tract symptoms* Code: * Start Date: WedJun 06 00:00:00 2022 * End Date: * Text: * Slow transit constipation* Code: * Start Date: WedJun 06 00:00:00 2022 * End Date: * Text: * Allergic rhinitis, unspecified* Code: * Start Date: WedJun 06 00:00:00 2022 * End Date: * Text: * snf (current) use of oral hypoglycemic drugs* Code: * Start Date: WedJun 06 00:00:00 2022 * End Date: * Text: * Dizziness and giddiness* Code: * Start Date: WedJun 23 00:00:00 2022 * End Date: * Text: * Muscle weakness (generalized)* Code: * Start Date: WedJun 23 00:00:00 2022 * End Date: * Text: * Other abnormalities of gait and mobility* Code: * Start Date: WedJun 06 00:00:00 2022 * End Date: * Text: * Major depressive disorder, single episode, unspecified* Code: * Start Date: WedJun 06 00:00:00 2022 * End Date: * Text: * Vitamin D deficiency, unspecified* Code: * Start Date: WedJun 09 00:00:00 2022 * End Date: * Text: * Solitary pulmonary nodule* Code: * Start Date: WedJun 06 00:00:00 2022 * End Date: * Text: Reason for Referral Past Medical History
--- OUTSIDE RECORDS SUMMARY | 2024-08-31 17:59 | XMS_ITS | Clinical Summary ---
Author Organization [facility] [address] Address [address] [place] [address] Care Team Providers Care Medical Reception Name Role Phone Leonardo Gomez MD Primary Care Provider [phone] Avery Montejo MD Unavailable [phone] Allergies No known active allergies Social History Tobacco Use Types Packs/Day Years Used Date Smoking Tobacco: Never Assessed Personal Safety Answer Date Recorded Getting School Help Needed Not on file 05/02 Sex and Gender Information Value Date Recorded Sex Assigned at Not on file Legal Sex Male 2:54 PM CAR SANDER Gender Identity Not on file Sexual Orientation Not on file Plan of Treatment Health Maintenance Due Date Last Done Comments Depression Screening 1950 Fall Risk Assessment 1950 Hepatitis C Screening 1950 DTaP/Tdap/Td Vaccine (1 - Tdap) 02/17/1959 Hepatitis B Screening 02/17/1966 Zoster Vaccine (1 of 2) 02/17/1998 Well Visit 65+ 02/17/2013 Pneumococcal vaccine 65+ (2 of 2 - PPSV23) 08/15/2016 08/16/2015 Covid-19 Vaccine (2023-2 5 season) 2023 01/19/2022, 08/09/2021, 01/31/2021, Additional history exists Influenza Vaccine (Season Ended) 2024 01/20/20 Insurance MEDICARE [employer] Care Teams Medical Reception Relationship Specialty Start Date End Date Leonardo Gomez MD [address] [place] [id number] PCP - General Family Medicine 04/17/22 Avery Montejo MD [address] [facility] [address] [place] [address] Surgeon Cardiothoracic Surgery 04/29/22
--- OUTSIDE RECORDS SUMMARY | 2024-08-31 17:59 | XMS_ITS | Continuity of Care Document ---
Author Organization [facility] Address [address] [place] [address] [address] [place] [address] Phone Care Team Providers Care Case Fitter Name Role Phone Rosario Ramos Unavailable Unavailable Procedures Procedure Date Special Reports Or Forms Advance Directives Directive Yes / No Effective Date File Name No Information Encounters Encounter Description Practice Location Reason(s) For Visit Diagnoses Date Provider Providers Copied on Encounter [facility], [address], [place], [place], [id number], [place] tel:[phone] [facility] No Information 0 Rachel Ponce. [address] , [address], [place], [address], [place]. tel:[phone] Family History Family Member Type Diagnosis Age At Onset No Information Payers Payer name Insurance type Covered republican ID Authoriza tion(s) No Information Social History [...]
--- OUTSIDE RECORDS SUMMARY | 2024-08-31 17:59 | XMS_ITS | Encounter Summary ---
Author Organization [facility] Address [address] [place] [address] Care Team Providers Care Jet Mechanic Name Role Phone Leonardo Gomez MD Primary Care Provider [phone] Encounter Details Date Type Department Care Team (Late st Contact Info) Description 05/28/2022 Lab Requisition [facility] General Laboratory Services [address] [facility] [address] [place] [id number] [place] [address] [facility] [address] [place] [address] Social History Tobacco Use Types Packs/Day Years Used Date Smoking Tobacco: Every Day Cigarettes Smokeless Tobacco: Never Alcohol Use Standard Drinks/Week Comments Not Currently 0 (1 standard drink = 0.6 oz pur e alcohol) Sex and Gender Information Value Date Recorded Sex Assigned at Not on file Legal Sex Male 1:55 PM CHILD CARE CENTER ASSISTANT DIRECTOR Gender Identity Not on file Sexual Orientation Not on file COVID-19 Exposure Response Date Recorded In the last 10 days, have yo u been in contact with someone who was confirmed or suspected to have Coronavirus/COVID-19? No / Unsure 05/28/2022 10:36 AM CHILD CARE CENTER ASSISTANT DIRECTOR documented as of this encounter Plan of Treatment Upcoming Encounters Date Type Department Care Team (Late st Contact Info) Description 09/20/2024 2:30 PM CDT Office Visit [facility] Oncology and Hematology - [place] [address] [place] [address] Anibal Ha MD [address] [facility] [address] [place] [address] documented as of this encounter Procedures Procedure Name Priority Date/Time Associated Diagnosis Comments SOURCE NEEDLESTICK PANEL Stat 05/28/2022 7:40 PM CHILD CARE CENTER ASSISTANT DIRECTOR EXPOSURE PANEL COMPLETION Stat 05/28/2022 7:40 PM CHILD CARE CENTER ASSISTANT DIRECTOR HIV DETECTION W/REFLX CONFIRMATION Stat 05/28/2022 7:40 PM CHILD CARE CENTER ASSISTANT DIRECTOR HEPATITIS C RNA PCR, QUANTITATIVE Stat 05/28/2022 7:40 PM CHILD CARE CENTER ASSISTANT DIRECTOR HEPATITIS B SURFACE ANTIGEN Stat 05/28/2022 7:40 PM CHILD CARE CENTER ASSISTANT DIRECTOR documented in this encounter Results * EXPOSURE PANEL COMPLETION (05/28/2022 7:40 PM CHILD CARE CENTER ASSISTANT DIRECTOR) Pathologist [facility] EXPOSURE PANEL RECEIVED Yes 05/28/2022 10:00 PM CHILD CARE CENTER ASSISTANT DIRECTOR [facility] Blood Collection / Unknown 05/28/2022 7:40 PM CHILD CARE CENTER ASSISTANT DIRECTOR 05/28/2022 8:07 PM CHILD CARE CENTER ASSISTANT DIRECTOR Ricardo Grier MD CHEMISTRY ORDERABLES Final R esult [facility] [employer] CLIA# [id number] [address] [facility] [place] [place] [address] * HEPATITIS B SURFACE ANTIGEN (05/28/2022 7:40 PM CHILD CARE CENTER ASSISTANT DIRECTOR) Pathologist [facility] HEPATITIS B SURFACE AG NON-REACT SHAHBAZ Non-react shahbaz 05/29/2022 12:35 AM CHILD CARE CENTER ASSISTANT DIRECTOR [facility] [employer] Comment:A non-reactive test result does not exclude the possibility of exposure to or infection with hepatitis B. Blood Collection / Unknown 05/28/2022 7:40 PM CHILD CARE CENTER ASSISTANT DIRECTOR 05/28/2022 8:07 PM CHILD CARE CENTER ASSISTANT DIRECTOR Ricardo Grier MD CHEMISTRY ORDERABLES Final R esult [facility] [employer]# [id number] [address] [place] [address] * HEPATITIS C RNA PCR, QUANTITATIVE (05/28/2022 7:40 PM CHILD CARE CENTER ASSISTANT DIRECTOR) Pathologist [facility] HCV RNA, QUANT REAL TIME PCR <15 NOT DETECTED NOT DETECTED IU/mL 06/01/2022 9:16 PM CHILD CARE CENTER ASSISTANT DIRECTOR [facility] HCV RNA QUANT PCR COPIES IU/ML <1.18 NOT DETECTED NOT DETECTED Log IU/mL 06/01/2022 9:16 PM CHILD CARE CENTER ASSISTANT DIRECTOR [facility] Comment: This test was performed using Real-Time Polymerase Chain Reaction. Reportable Range: 15 IU/mL to 100,000,000 IU/mL (1.18 Log IU/mL to 8.00 Log IU/mL). The analytical performance characteristics of this assay have been determined by [employer]. The modifications have not been cleared or approved by the FDA. This assay has been validated pursuant to the CLIA regulations and is used for clinical purposes. For more information on this test, go to: http://education.51edj/faq/QSF62f4 (This link is being provided for informational/ educational purposes only.) Blood Collection / Unknown 05/28/2022 7:40 PM CHILD CARE CENTER ASSISTANT DIRECTOR 05/28/2022 8:07 PM CHILD CARE CENTER ASSISTANT DIRECTOR Narrative [facility] - 06/01/2022 9:16 PM CHILD CARE CENTER ASSISTANT DIRECTOR Performing Organization Information: Site ID: [id number] Name: [facility] Address: [address] [facility] [place] [address] Director: Daphnie Westbrook MD Ricardo Grier MD CHEMISTRY ORDERABLES Final R esult [facility] [phone] * HIV DETECTION W/REFLX CONFIRMATION (05/28/2022 7:40 PM CHILD CARE CENTER ASSISTANT DIRECTOR) Pathologist [facility] HIV-1 AND 2 ABS AND HIV-1 AG Non-reacti ve Non-reacti ve 05/28/2022 9:08 PM CHILD CARE CENTER ASSISTANT DIRECTOR [facility] Blood Collection / Unknown 05/28/2022 7:40 PM CHILD CARE CENTER ASSISTANT DIRECTOR 05/28/2022 8:07 PM CHILD CARE CENTER ASSISTANT DIRECTOR Narrative [facility] - 05/28/2022 9:08 PM CHILD CARE CENTER ASSISTANT DIRECTOR Initial HIV testing was performed by [employer] on the Wayne Guy e602 module. Values obtained with different assay methods cannot be used interchangeably. Non- Reactive results does not rule out HIV infection. If acute HIV-1 infection is suspected, submit plasma specimen for HIV-1 RNA quantification test (HIVQU). Ricardo Grier MD CHEMISTRY ORDERABLES Final R esult [facility] CLIA# [id number] [address] [place] [address] documented in this encounter Visit Diagnoses Not on filedocumented in this encounter Care Teams Jet Mechanic Relationship Specialty Start Date End Date Leonardo Gomez MD [address] [place] [phone] PCP - General Family Practice 04/15/22 documented as of this encounter
--- OUTSIDE RECORDS SUMMARY | 2024-08-31 17:59 | XMS_ITS | Referral Summary ---
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
--- OUTSIDE RECORDS SUMMARY | 2024-08-31 17:59 | XMS_ITS ---
Author Name Auto Generated, Auto Generated Organization [facility] Address [address] [place] [address] Phone [phone] Care Team Providers Care Wood Machinist Apprentice Name Role Phone Oscar Birmingham Unavailable Shay Peres Unavailable Orestes Solomon Unavailable Functional Status No Results Mental Status No [...] 2 Times Daily Indication: Nasal Decongestion One [place] to BIlateral Nostrils Twice Daily WedJun 08 [...] 2022 * End Date: * Text: * skilled nursing (current) use of oral hypoglycemic drugs* Code: [...]
[2024-08-31 18:09] LABS: Alanine Aminotransferase 23 U/L (6-50); Albumin Level 4.1 g/dL (3.5-5.1); Alkaline Phosphatase 141 U/L (38-126); Anion Gap 6 mmol/L (4-12); Aspartate Amino Transferase 22 U/L (17-59); Bilirubin,Total 0.8 mg/dL (0.2-1.3); Blood Urea Nitrogen 30 mg/dL (9-20); Carbon Dioxide 32 mmol/L (22-30); Chloride 102 mmol/L (98-107); Estimated CRCL calculation 31 ml/min; Estimated Glomerular Filt Rate 36; Glucose 227 mg/dL (65-110); Potassium 3.6 mmol/L (3.4-5.0); Sodium 140 mmol/L (137-145)
--- NOTE | 2024-08-31 18:14 | ECG_ITS ---
Test Date: 2024-08-31 19:25:25 Measurements Intervals [place] Rate: 126 P: 0 CA: 0 QRS: 55 QRSD: 83 T: 61 QT: 367 QTc: 533 Interpretive Statements ATRIAL FIBRILLATION WITH RAPID VENTRICULAR RESPONSE NONSPECIFIC ST & T-WAVE ABNORMALITY ABNORMAL RHYTHM ECG No previous ECG available for comparison Electronically Signed On 09-01-2024 12:08:36 CDT by Sunny Novoa M.D.
--- NOTE | 2024-08-31 18:15 | ED_ITS ---
HPI - SOB/Dyspnea General Chief Complaint: Shortness of Breath/Dyspnea <Hellen Winslow APRN - Last Filed: 09/01/24 00:54> Stated Complaint: SOB <Hellen Winslow APRN - Last Filed: 09/01/24 00:54> Time Seen by Provider: 08/31/24 17:23 <Hellen Winslow APRN - Last Filed: 09/01/24 00:54> History of Present Illness HPI Narrative: Patient is a 74-year-old male who presents to the ER with cough and shortness of breath. He reports his symptoms have gradually been getting worse lately. Patient has a history of lung cancer that was diagnosed in 2022. He reports he currently sees Oncology and has a primary care provider. Patient endorses a history of high blood pressure, diabetes, and continues to smoke cigarettes. He denies any recent fevers, chest pain, abdominal pain, or back pain. <Hellen Winslow APRN - Last Filed: 09/01/24 00:54> Related Data Home Medications: Home Medications Medication Instructions Recorded Confirmed Last Taken Type tamsulosin 0.4 mg capsule 0.4 mg PO DAILY 08/31/24 08/31/24 Unknown History <Hellen Winslow APRN - Last Filed: 09/01/24 00:54> Allergies/Adverse Reactions: Allergies Allergy/AdvReac Type Severity Reaction Status Date / Time No Known Allergies Allergy Verified 08/31/24 17:35 <Hellen Winslow APRN - Last Filed: 09/01/24 00:54> Review of Systems 2 Review of Systems: All systems reviewed & are unremarkable except as noted in HPI and below <Hellen Winslow APRN - Last Filed: 09/01/24 00:54> PMFSH Past Medical History Medical History: Medical History Stage 3b chronic kidney disease Stage 4 chronic kidney disease Simple chronic bronchitis Cigarette nicotine dependence with nicotine-induced disorder Major depressive disorder Cigarette nicotine dependence in remission Microalbuminuria Personal history of malignant neoplasm of lung Type 2 diabetes mellitus with diabetic chronic kidney disease Hypertensive chronic kidney disease Diverticulosis Kidney stones Hyperlipidemia Benign prostatic hyperplasia <Hellen Winslow APRN - Last Filed: 09/01/24 00:54> Surgical History Surgical History: Surgical History History of lobectomy of lung 05/2022 History of bilateral knee replacement (2008) History of cholecystectomy History of inguinal hernia repair History of vasectomy History of hemorrhoidectomy (1996) History of colonoscopy with polypectomy History of tonsillectomy (1953) <Hellen Winslow APRN - Last Filed: 09/01/24 00:54> Family History Family History: Family History Father Acute myocardial infarction Sibling Lung cancer <Hellen Winslow APRN - Last Filed: 09/01/24 00:54> Social History Social History: Social History Social History: Surrogate medical decision maker: Trupti Acosta, sibling. Code status: Full code. Smoking packs per day: 1 Smoking cigarettes per day: 20.0 Years smoked: 40 Smoking pack-years: 40.00 Smoking status: Current every day smoker Tobacco type: cigarettes Second hand tobacco smoke exposure: No Additional smoking assessment comments: Had quit at the time of his lung cancer diagnosis, but now back to smoking Alcohol intake: former Substance use: never Substance use type: does not use Do You Feel Safe in your Home?: Yes Lack of Transportation: No Lack of Food: Never True Current Housing: I Have Housing Concerned About Future Housing: No Difficulty Paying Gas/Electric Bills: No Difficulty Paying for Meds: No Currently Unemployed: No Education: Trade/Vocational Certificate Difficulty w/ Childcare or Family Care: No Living arrangements: alone Occupation/Education: retired Gender identity (if verbalized by the patient): Male Sexual Orientation (if Verbalized by the Patient): Straight or Heterosexual Spiritual care concerns: No <Hellen Winslow APRN - Last Filed: 09/01/24 00:54> Exam 2 Narrative: GENERAL: Well appearing, well-nourished, non-toxic, in mild respiratory distress. HEAD: Normocephalic, atraumatic. NECK: Supple. No adenopathy, no masses. RESPIRATORY: Airway patent, respirations labored. Wheezing to auscultation bilaterally, + rales and rhonchi, + productive cough CARDIOVASCULAR: Regular rate and rhythm without murmurs, rubs, or gallops. Peripheral pulses 2+ and equal bilaterally. ABDOMINAL: Soft, nontender, nondistended, no hepatosplenomegaly. Normoactive BS. MUSCULOSKELETAL: Moves all extremities. Strength/ROM intact without gross deformities. SKIN: Warm, dry, normal color. No rashes. NEURO: A&O X3. Speech clear. Cranial nerves II-XII intact. No ataxic movements. PSYCHIATRIC: Appropriate mood and affect. Normal interaction. <Hellen Winslow APRN - Last Filed: 09/01/24 00:54> Course SALES DEVELOPMENT COORDINATOR/PA Physician Supervision I agree with midlevel documentation; I performed the medical decision making component of this evaluation. I had independent [id number] time with the patient and performed my own independent evaluation and assessment. Patient is found to be in atrial fibrillation with rapid ventricular response, no history of AFib irregular heartbeat. He has been rate control with diltiazem and diltiazem infusion. Given Lasix for fluid overload, Lovenox for his high chads Vasc score. CT angiography was independently reviewed and shows no pulmonary embolism or dissection. He has plaque disease in his abdominal aorta and we spoke to the radiologist about this without any acute concern based on our conversation. Patient is currently rate controlled with good blood pressure, on reassessments breathing comfortably on room air without any other concerns at this time. Patient will be admitted to the hospital for further evaluation treatment on inpatient basis. <Reinier Tao MD - Last Filed: 08/31/24 23:55> Vital Signs Vital signs: Vital Signs Temperature 36.9 C 08/31/24 17:26 Pulse Rate 95 08/31/24 17:26 Respiratory Rate 16 08/31/24 17:26 Blood Pressure 119/90 08/31/24 17:26 Pulse Oximetry 97 08/31/24 17:26 Oxygen Delivery Room Air 08/31/24 17:26 Temperature 36.9 C 08/31/24 17:26 Pulse Rate 102 H 08/31/24 23:46 Respiratory Rate 17 08/31/24 23:46 Blood Pressure 110/78 08/31/24 23:46 Pulse Oximetry 96 08/31/24 23:46 Oxygen Delivery Room Air 08/31/24 20:43 <Hellen Winslow APRN - Last Filed: 09/01/24 00:54> Vital Signs Temperature 36.9 C 08/31/24 17:26 Pulse Rate 95 08/31/24 17:26 Respiratory Rate 16 08/31/24 17:26 Blood Pressure 119/90 08/31/24 17:26 Pulse Oximetry 97 08/31/24 17:26 Oxygen Delivery Room Air 08/31/24 17:26 Temperature 36.9 C 08/31/24 17:26 Pulse Rate 102 H 08/31/24 23:46 Respiratory Rate 17 08/31/24 23:46 Blood Pressure 110/78 08/31/24 23:46 Pulse Oximetry 96 08/31/24 23:46 Oxygen Delivery Room Air 08/31/24 20:43 <Reinier Tao MD - Last Filed: 08/31/24 23:55> MDM - SOB/Dyspnea MDM Narrative Medical decision making narrative: Patient is a 74-year-old male who presents to the ER with cough and shortness of breath. He reports his symptoms have gradually been getting worse lately. Patient has a history of lung cancer that was diagnosed in 2022. He reports he currently sees Oncology and has a primary care provider. Patient endorses a history of high blood pressure, diabetes, and continues to smoke cigarettes. He denies any recent fevers, chest pain, abdominal pain, or back pain. Pt denies a history of atrial fibrillation Labs Ordered: CBC, CMP, lactic acid, troponin, PTT, INR, proBNP, ABG, magnesium, UA Imaging Ordered: Chest x-ray, CTA PE Medications Ordered: DuoNeb, Solu-Medrol, 1 L normal saline IV bolus, Diltiazem bolus and drip Results: Patient's chest x-ray indicates Volume loss within the right hemithorax consistent with patient's history. Small right-sided pleural effusion persists, as one would expect post partial lobectomy. The left hemithorax is clear. Pt's CT scan indicates No pulmonary embolus. No thoracic aortic dissection. Findings consistent with patient's known history of lung cancer within the right hemithorax post partial lobectomy with persistent round atelectasis. Interval increase in the right-sided pleural effusion, when compared with May 09, 2024 examination. Diagnosis: a. fib with RVR, CHF, pleural effusion Consults: 2329- Spoke with Dr. Nuñez for further clarification of CT scan findings. Oncology ([facility]) Patient Education/Shared MDM: Results of lab work and imaging shared with patient. Called pt's daughter, Catina, and explained findings to her. He was advised patient be admitted to the hospital to treat his atrial fibrillation and CHF. Patient verbalized understanding and is in agreement with plan for admission. 2444-spoke with hospitalist, Dr. Ruby, who agreed to admit patient to the hospital. He will be admitted to the IMU and receive scheduled Lasix. <Hellen Winslow APRN - Last Filed: 09/01/24 00:54> Differential Diagnosis Differential diagnosis: Likely acute exacerbation of chronic obstructive airways disease, congestive heart failure, community acquired pneumonia, asthma with exacerbation and pulmonary embolism <Hellen Winslow APRN - Last Filed: 09/01/24 00:54> Lab Data Result diagrams: 08/31/24 17:50 08/31/24 17:50 <Hellen Winslow APRN - Last Filed: 09/01/24 00:54> Labs: Lab Results 08/31/24 08/31/24 08/31/24 Range/Units 17:50 18:50 20:16 WBC 7.8 (4.5-10.0) K/mm3 RBC 4.93 (4.6-6.20) M/mm3 Hgb 15.6 (14.0-18.0) g/dL Hct 47.3 (42.0-52.0) % MCV 95.9 (80-100) fl MCH 31.6 (26-34) pg MCHC 33.0 (32-36) g/dl RDW 13.3 (11.5-14.5) % Plt Count 178 (150-375) k/mm3 MPV 11.4 H (7.4-10.4) fl Immature Gran % (Auto) 0.3 (0-0.5) % Neut % (Auto) 53.4 (45.5-73.1) % Lymph % (Auto) 31.7 (18.3-44.2) % [place] % (Auto) 12.5 H (2.6-8.5) % Eos % (Auto) 1.8 (0-4.4) % Baso % (Auto) 0.3 (0.2-1.2) % Lymph # (Auto) 2.46 (0.9-3.2) K/mm3 [place] # (Auto) 1.0 H (0.1-0.6) K/mm3 Eos # (Auto) 0.1 (0-0.3) K/mm3 Baso # (Auto) 0.0 (0.0-0.1) K/mm3 Abs Immat Gran (auto) 0.02 (0.00-0.031) K/mm3 Absolute Neuts (auto) 4.2 (1.3-6.7) K/mm3 Absolute Nucleated RBC 0.000 (0.0-0.012) K/mm3 Nucleated RBC % 0.0 (0.0-0.2) % PT 12.8 (11.1-14.7) Seconds INR 0.9 APTT 33.4 (22.3-36.8) Seconds Sodium 140 (137-145) mmol/L Potassium 3.6 (3.4-5.0) mmol/L Chloride 102 (98-107) mmol/L Carbon Dioxide 32 H (22-30) mmol/L Anion Gap 6 (4-12) mmol/L BUN 30 H (9-20) mg/dL Creatinine 1.82 H (0.7-1.3) mg/dL Estim Creat Clear Calc 31 ml/min Estimated GFR 36 L (59 - ) Glucose 227 H (65-110) mg/dL Lactic Acid 1.8 (0.7-2.0) mmol/L Calcium 9.0 (8.4-10.2) mg/dL Magnesium 2.3 (1.6-2.3) mg/dL Total Bilirubin 0.8 (0.2-1.3) mg/dL AST 22 (17-59) U/L ALT 23 (6-50) U/L Alkaline Phosphatase 141 H (38-126) U/L Troponin I 0.033 (0.000-0.034) ng/mL NT-Pro-B Natriuret Pep 4250 H (19.9-100) pg/mL Total Protein 8.0 (6.3-8.2) g/dL Albumin 4.1 (3.5-5.1) g/dL Urine Color Yellow (Yellow) Urine Appearance Clear (Clear) Urine pH 5.5 (5.0-9.0) Ur Specific [place] 1.021 (1.001-1.035) Urine Protein 2+ H (Negative) mg/dL Urine Glucose (UA) 3+ H (Negative) mg/dL Urine Ketones Trace H (Negative) mg/dL Ur Blood (Man) 3+ H (Negative) Urine Nitrate Negative (Negative) Urine Bilirubin Negative (Negative) Urine Urobilinogen 0.2 (<2.0) mg/dL Add Ur Microanalysis Reviewed Leukocyte Esterase Rfl Negative (Negative) RUFINO/UL Urine RBC >100 H (0-2) /hpf Urine WBC 11-20 H (0-3) /hpf Ur Squamous Epith Cells Few (Few) /hpf Urine Bacteria None seen /hpf Urine Casts 6-10 Hyaline Casts Present (None) /lpf Urine Yeast (Budding) Present H (None) /hpf <Hellen Winslow, BIOCHEMICAL DEVELOPMENT ENGINEER - Last Filed: 09/01/24 00:54> Lab Results 08/31/24 08/31/24 08/31/24 Range/Units 17:50 18:50 20:16 WBC 7.8 (4.5-10.0) K/mm3 RBC 4.93 (4.6-6.20) M/mm3 Hgb 15.6 (14.0-18.0) g/dL Hct 47.3 (42.0-52.0) % MCV 95.9 (80-100) fl MCH 31.6 (26-34) pg MCHC 33.0 (32-36) g/dl RDW 13.3 (11.5-14.5) % Plt Count 178 (150-375) k/mm3 MPV 11.4 H (7.4-10.4) fl Immature Gran % (Auto) 0.3 (0-0.5) % Neut % (Auto) 53.4 (45.5-73.1) % Lymph % (Auto) 31.7 (18.3-44.2) % [place] % (Auto) 12.5 H (2.6-8.5) % Eos % (Auto) 1.8 (0-4.4) % Baso % (Auto) 0.3 (0.2-1.2) % Lymph # (Auto) 2.46 (0.9-3.2) K/mm3 [place] # (Auto) 1.0 H (0.1-0.6) K/mm3 Eos # (Auto) 0.1 (0-0.3) K/mm3 Baso # (Auto) 0.0 (0.0-0.1) K/mm3 Abs Immat Gran (auto) 0.02 (0.00-0.031) K/mm3 Absolute Neuts (auto) 4.2 (1.3-6.7) K/mm3 Absolute Nucleated RBC 0.000 (0.0-0.012) K/mm3 Nucleated RBC % 0.0 (0.0-0.2) % PT 12.8 (11.1-14.7) Seconds INR 0.9 APTT 33.4 (22.3-36.8) Seconds Sodium 140 (137-145) mmol/L Potassium 3.6 (3.4-5.0) mmol/L Chloride 102 (98-107) mmol/L Carbon Dioxide 32 H (22-30) mmol/L Anion Gap 6 (4-12) mmol/L BUN 30 H (9-20) mg/dL Creatinine 1.82 H (0.7-1.3) mg/dL Estim Creat Clear Calc 31 ml/min Estimated GFR 36 L (59 - ) Glucose 227 H (65-110) mg/dL Lactic Acid 1.8 (0.7-2.0) mmol/L Calcium 9.0 (8.4-10.2) mg/dL Magnesium 2.3 (1.6-2.3) mg/dL Total Bilirubin 0.8 (0.2-1.3) mg/dL AST 22 (17-59) U/L ALT 23 (6-50) U/L Alkaline Phosphatase 141 H (38-126) U/L Troponin I 0.033 (0.000-0.034) ng/mL NT-Pro-B Natriuret Pep 4250 H (19.9-100) pg/mL Total Protein 8.0 (6.3-8.2) g/dL Albumin 4.1 (3.5-5.1) g/dL Urine Color Yellow (Yellow) Urine Appearance Clear (Clear) Urine pH 5.5 (5.0-9.0) Ur Specific [place] 1.021 (1.001-1.035) Urine Protein 2+ H (Negative) mg/dL Urine Glucose (UA) 3+ H (Negative) mg/dL Urine Ketones Trace H (Negative) mg/dL Ur Blood (Man) 3+ H (Negative) Urine Nitrate Negative (Negative) Urine Bilirubin Negative (Negative) Urine Urobilinogen 0.2 (<2.0) mg/dL Add Ur Microanalysis Reviewed Leukocyte Esterase Rfl Negative (Negative) RUFINO/UL Urine RBC >100 H (0-2) /hpf Urine WBC 11-20 H (0-3) /hpf Ur Squamous Epith Cells Few (Few) /hpf Urine Bacteria None seen /hpf Urine Casts 6-10 Hyaline Casts Present (None) /lpf Urine Yeast (Budding) Present H (None) /hpf <Reinier Tao MD - Last Filed: 08/31/24 23:55> ABG Data ABG results: 08/31/24 18:38 Puncture Site Right radial ABG pH 7.421 ABG pCO2 41.9 ABG pO2 64.2 L ABG PO2/FiO2 Ratio 3.06 ABG HCO3 26.6 H ABG O2 Saturation 92.9 L ABG O2 Content 19.3 ABG Base Excess 1.9 A-a Gradient 35.4 Oxyhemoglobin 91.7 Total Hemoglobin 15.0 O2 Delivery Device Room air O2 Liters/Min Not Reportable FiO2 21 <Hellen Winslow, KUNAL - Last Filed: 09/01/24 00:54> 08/31/24 18:38 Puncture Site Right radial ABG pH 7.421 ABG pCO2 41.9 ABG pO2 64.2 L ABG PO2/FiO2 Ratio 3.06 ABG HCO3 26.6 H ABG O2 Saturation 92.9 L ABG O2 Content 19.3 ABG Base Excess 1.9 A-a Gradient 35.4 Oxyhemoglobin 91.7 Total Hemoglobin 15.0 O2 Delivery Device Room air O2 Liters/Min Not Reportable FiO2 21 <Reinier Tao MD - Last Filed: 08/31/24 23:55> Critical Care Time Critical Care Time Critical Care Time: Yes <Reinier Tao MD - Last Filed: 08/31/24 23:55> Total Critical Care Time: 60 <Reinier Tao MD - Last Filed: 08/31/24 23:55> Discharge Plan Discharge Clinical Impression: Atrial fibrillation with rapid ventricular response, History of lung cancer <Hellen Winslow APRN - Last Filed: 09/01/24 00:54> Patient Disposition: Still a Patient <Hellen Winslow APRN - Last Filed: 09/01/24 00:54> Condition: Stable <Hellen Winslow APRN - Last Filed: 09/01/24 00:54> Patient Language: Armenian <Hellen Winslow APRN - Last Filed: 09/01/24 00:54> Prescriptions: No Action tamsulosin 0.4 mg capsule 0.4 mg PO DAILY fluticasone propion-salmeterol [Advair HFA] 230-21 mcg/actuation HFA aerosol inhaler 2 puff inhalation BID Qty: 12 0RF atorvastatin 40 mg tablet See Rx Instructions .ROUTE .COMPLEX Qty: 90 1RF Dose Instruction: TAKE 1 TABLET BY MOUTH DAILY Rx Instructions: TAKE 1 TABLET BY MOUTH DAILY dapagliflozin propanediol [Farxiga] 10 mg tablet 10 mg PO DAILY Qty: 90 1RF albuterol sulfate 90 mcg/actuation HFA aerosol inhaler 1 inh inhalation Q4H PRN (Reason: shortness of breath or wheezing) Qty: 8.5 0RF pioglitazone 30 mg tablet See Rx Instructions .ROUTE .COMPLEX Qty: 90 1RF Dose Instruction: TAKE 1 TABLET BY MOUTH EVERY DAY Rx Instructions: TAKE 1 TABLET BY MOUTH EVERY DAY escitalopram oxalate 10 mg tablet See Rx Instructions .ROUTE .COMPLEX Qty: 90 1RF Dose Instruction: TAKE 1 TABLET BY MOUTH DAILY Rx Instructions: TAKE 1 TABLET BY MOUTH DAILY glimepiride 1 mg tablet See Rx Instructions .ROUTE .COMPLEX Qty: 90 1RF Dose Instruction: TAKE 1 TABLET BY MOUTH EVERY MORNING ADMINISTER WITH BREAKFAST Rx Instructions: TAKE 1 TABLET BY MOUTH EVERY MORNING ADMINISTER WITH BREAKFAST losartan 25 mg tablet 25 mg PO DAILY Qty: 90 1RF <Hellen Winslow APRN - Last Filed: 09/01/24 00:54> Follow-up/Referrals: Leonardo Gomez MD [Primary Care Provider] - <Hellen Winslow APRN - Last Filed: 09/01/24 00:54>
[2024-08-31] MEDS: IPRATROPIUM 0.5 MG/ALBUTEROL SULFATE 2.5 MG AMPUL.NEB 3 ML INHALATION (18:40)
[2024-08-31 18:49] LABS: Alveolar/Arterial O2 Gradient 35.4 mmHg; Base Excess ABG 1.9 mEq/l (+/-2.0); Fractional Inspired Oxygen 21 %; HCO3 ABG 26.6 mEq/l (22.0-26.0); Oxygen Content ABG 19.3 %vol (16.0-22.0); Oxygen Saturation ABG 92.9 % (95.0-100.0); Oxyhemoglobin 91.7 % THb (90.0-100.0); PCO2 ABG 41.9 mmHg (35.0-45.0); PO2 ABG 64.2 mmHg (80.0-100.0); PO2 FiO2 Ratio Arterial Blood 3.06 %; pH ABG 7.421 (7.350-7.450)
[2024-08-31] MEDS: methylPREDNISolone SOD SUCC 125 MG VIAL IV PUSH (18:52)
[2024-08-31] MEDS: SODIUM CHLORIDE 0.9% IV 1,000 ML 999 ML IV CONT (18:53)
[2024-08-31 19:08] LABS: Site Drawn RIGHT RADIAL
[2024-08-31 19:09] LABS: Device ROOM AIR
[2024-08-31 19:13] LABS: Lactic Acid Reflex 1.8 mmol/L (0.7-2.0)
[2024-08-31 19:14] LABS: Magnesium 2.3 mg/dL (1.6-2.3)
[2024-08-31 19:18] LABS: INR 0.9; Prothrombin Time 12.8 Seconds (11.1-14.7)
[2024-08-31 19:26] LABS: Troponin I 0.033 ng/mL (0.000-0.034)
[2024-08-31 19:44] LABS: NT Pro B Type Natriuretic Pept 4250 pg/mL (19.9-100)
--- NOTE | 2024-08-31 19:45 | PC.NURSE ---
Pt HR RVR up to 150s. Discussed plan with JORDON Macedo. Orders entered. Discussed plan with pt and family. Pt soiled, cleaned up and changed into gown, straight cathed by Cleo and male alejo placed.
[2024-08-31] MEDS: dilTIAZem HCl INJ 25 MG/5 ML VIAL 10 MG IV PUSH (19:52)
[2024-08-31] MEDS: dilTIAZem 100 MG/100 ML 100 MG/100 ML BAG IV CONT (19:56)
[2024-08-31] MEDS: FUROSEMIDE INJ 40 MG/4 ML VIAL IV PUSH (20:22)
[2024-08-31 20:28] LABS: Partial Thromboplastin Time 33.4 Seconds (22.3-36.8)
[2024-08-31 20:34] LABS: Add Urine Microscopic? YES; Appearance Urine Clear (Clear); Bacteria Urine None Seen /hpf; Bilirubin Urine Negative (Negative); Blood Urine 3+ (Negative); Budding Yeast Urine Present /hpf; Color Urine Yellow (Yellow); Glucose Urine UA 3+ mg/dL (Negative); Hyaline Casts Urine Present /lpf; Ketones Urine Trace mg/dL (Negative); Leukocyte Esterase Ur Negative LEU/UL (Negative); Need Manual Microscopic Reviewed; Nitrate Urine Negative (Negative); Protein Urine 2+ mg/dL (Negative); RBC Urine >100 /hpf (0-2); Specific Grav Ur 1.021 (1.001-1.035); Squamous Epithelial Cell Urine Few /hpf (Few); Urobilinogen Urine 0.2 mg/dL (<2.0); pH Urine 5.5 (5.0-9.0)
[2024-08-31] MEDS: dilTIAZem 100 MG/100 ML 100 MG/100 ML BAG 7.5 MG IV CONT (20:55)
--- NOTE | 2024-08-31 23:43 | PC.NURSE ---
Assumed care of patient after receiving bedside report from ILDA Murrell. @ [phone]
[2024-09-01] VITALS (27 sets, daily range): BP systolic 106–150; BP diastolic 60–76; PULSE 78–102; RESP 18–22; TEMP 36.4–36.8; O2SAT 91–100; BMI 27.8
--- NOTE | 2024-09-01 | ECHO_ITS ---
Patient Info Name: Dennis Acosta Age: 74 years : 1950 Gender: Male Ht: 69 in Wt: 201 lbs BSA: 2.13 m2 HR: 89 bpm BP: 134 / 70 mmHg Heart Rhythm: Sinus Rhythm Technical Quality: Fair Exam Date: 09/01/2024 10:21 AM Exam Location: Echo Lab Patient Status: Inpatient Admit Date: 09/01/2024 Staff Ordering Physician: Olivia Ruby DO Laboratory Equipment Cleaner: Joan Rivera RDCS Attending Provider: Olivia Ruby DO Referring Physician: Tung ASHBY; Exam Type: CA echo doppler color flow Study Info Indications - New Afib Summary 1. Very technically difficult study with limited views. 2. Left ventricular chamber dimension is normal. 3. Left ventricular systolic function is normal, estimated at 65-70%. 4. There is mildly increased left ventricular wall thickness. 5. Right ventricular systolic function is normal. 6. There is small pericardial effusion. Left Ventricle Left ventricular chamber dimension is normal. Left ventricular systolic function is normal, estimated at 65-70%. There is mildly increased left ventricular wall thickness. Right Ventricle Right ventricular chamber dimension is normal. Right ventricular systolic function is normal. Left Atria Left atrial chamber dimension is normal. Right Atria Right atrial chamber dimension is normal. Aortic Valve The aortic valve is not well visualized. Pulmonic Valve The pulmonic valve is not well visualized. Mitral Valve The mitral valve has not well visualized. There is trace mitral valve regurgitation. Tricuspid Valve The tricuspid valve leaflets are not well visualized. There is trace tricuspid valve regurgitation. Pericardium/Pleural There is small pericardial effusion. Inferior Vena Cava Normal inferior vena cava with <50% collapse upon inspiration consistent with normal right atrial pressure, 8 mmHg. Aorta The aortic root size at the sinus of Valsalva is not well visualized. Mitral Valve Name Value Normal MV Doppler MV Decel Grundy 512 cm/s2 MV PHT 42 ms MV Area (PHT) 5.3 cm2 4.0-5.0 MV Diastolic Function MV E Peak Velocity 74 cm/s MV A Peak Velocity 80 cm/s MV E/A 0.9 MV Decel Time 144 ms Tricuspid Valve Name Value Normal TV Regurgitation Doppler TR Peak Velocity 164 cm/s TR Peak Gradient 11 mmHg Estimated PAP/RSVP RA Pressure 8 mmHg <=5 PA Systolic Pressure 19 mmHg <36 RV Systolic Pressure 19 mmHg <36 Report Signatures
[2024-09-01] MEDS: ENOXAPARIN 100 MG/ML SYRINGE 90 MG SUB-Q ×2 (00:05→09:53)
--- NOTE | 2024-09-01 00:18 | PC.NURSE ---
per EDP CYNDY Macedo, patient received a longer breathing treatment earlier in the night vs receiving multiple. EDP advised to sergey medications as completed.
[2024-09-01] MEDS: IPRATROPIUM BR 0.02% INH SOLN 0.5 MG/2.5 ML VIAL INHALATION ×4 (01:24→19:40)
[2024-09-01] MEDS: LEVALBUTEROL NEB 1.25 MG/3 ML INHALATION ×4 (01:24→19:40)
--- NOTE | 2024-09-01 01:24 | PC.NURSE ---
Report called to ILDA Butt. Patient to be taken to floor after receiving breathing treatment.
--- NOTE | 2024-09-01 01:45 | ADMGEN ---
This patient, Dennis Acosta, was admitted to IMU Room 211-01. Patient/family oriented to hospital policies and general routines including ID bracelet, bed and alarms, visiting hours, pain management, procedures, bathroom and other care routines, personal items, smoking policy, room service/diet, and visiting hours. Information on how to activate the Rapid Response Team has been discussed. Patient/Family are encouraged to report perceived risks to care and to ask questions if they do not understand what they are told or what they should do.
[2024-09-01] MEDS: IPRATROPIUM 0.5 MG/ALBUTEROL SULFATE 2.5 MG AMPUL.NEB 3 ML INHALATION (04:20)
[2024-09-01] MEDS: dilTIAZem 100 MG/100 ML 100 MG/100 ML BAG 7.5 MG IV CONT (06:27)
[2024-09-01] MEDS: PIOGLITAZONE HCL 30 MG TABLET BY MOUTH (09:51)
[2024-09-01] MEDS: EMPAGLIFLOZIN 25 MG TABLET BY MOUTH (09:52)
[2024-09-01] MEDS: ESCITALOPRAM OXALATE 10 MG TABLET BY MOUTH (09:52)
[2024-09-01] MEDS: TAMSULOSIN HCL 0.4 MG CAPSULE PO (09:52)
[2024-09-01] MEDS: LOSARTAN POTASSIUM 25 MG TABLET PO (09:52)
[2024-09-01] MEDS: ATORVASTATIN 40 MG TABLET BY MOUTH (09:52)
[2024-09-01] MEDS: GLIMEPIRIDE 1 MG TABLET BY MOUTH (09:52)
[2024-09-01] MEDS: FUROSEMIDE INJ 40 MG/4 ML VIAL IV PUSH (09:53)
[2024-09-01] MEDS: dilTIAZem HCL 30 MG TABLET PO ×3 (09:53→21:24)
[2024-09-01 10:09] LABS: Hematocrit 38.6 % (42.0-52.0); Hemoglobin 12.5 g/dL (14.0-18.0); Mean Corpuscular HGB Conc 32.4 g/dl (32-36); Mean Corpuscular Hemoglobin 31.7 pg (26-34); Mean Platelet Volume 11.8 fl (7.4-10.4); Platelet Count Result 169 k/mm3 (150-375); Red Blood Count 3.94 M/mm3 (4.6-6.20); Red Cell Distribution Width 13.7 % (11.5-14.5); White Blood Count 7.6 K/mm3 (4.5-10.0)
[2024-09-01 10:48] LABS: Alanine Aminotransferase 32 U/L (6-50); Albumin Level 3.6 g/dL (3.5-5.1); Alkaline Phosphatase 116 U/L (38-126); Anion Gap 13 mmol/L (4-12); Aspartate Amino Transferase 29 U/L (17-59); Bilirubin,Total 0.5 mg/dL (0.2-1.3); Blood Urea Nitrogen 39 mg/dL (9-20); Calcium 8.6 mg/dL (8.4-10.2); Carbon Dioxide 23 mmol/L (22-30); Chloride 99 mmol/L (98-107); Estimated CRCL calculation 30 ml/min; Estimated Glomerular Filt Rate 33; Glucose 556 mg/dL (65-110); Potassium 3.7 mmol/L (3.4-5.0); Sodium 135 mmol/L (137-145)
[2024-09-01 11:04] LABS: Glucose Point of Care 455 mg/dl (65-105)
[2024-09-01] MEDS: INSULIN GLARGINE (*BKC) 100 UNITS/ML 10 UNITS SUB-Q ×2 (11:07→11:54)
[2024-09-01 11:14] LABS: Hemoglobin A1C 7.3 % (<5.7)
[2024-09-01] MEDS: INSULIN ASPART (*BKC) 100 UNITS/ML SUB-Q ×2 (11:54→16:37)
--- NOTE | 2024-09-01 14:05 | PCRCNOTE ---
Window of time for administration has passed. See next scheduled administration.
[2024-09-01 14:18] LABS: Glucose Point of Care 495 mg/dl (65-105)
[2024-09-01 14:18] LABS: Glucose Point of Care 320 mg/dl (65-105)
[2024-09-01 15:51] LABS: Hematocrit 40.5 % (42.0-52.0); Hemoglobin 13.6 g/dL (14.0-18.0); Mean Corpuscular HGB Conc 33.6 g/dl (32-36); Mean Corpuscular Hemoglobin 31.9 pg (26-34); Mean Corpuscular Volume 94.8 fl (80-100); Mean Platelet Volume 11.4 fl (7.4-10.4); Platelet Count Result 204 k/mm3 (150-375); Red Blood Count 4.27 M/mm3 (4.6-6.20); Red Cell Distribution Width 13.6 % (11.5-14.5); White Blood Count 11.8 K/mm3 (4.5-10.0)
[2024-09-01 16:00] LABS: Anion Gap 14 mmol/L (4-12); Blood Urea Nitrogen 42 mg/dL (9-20); Calcium 9.2 mg/dL (8.4-10.2); Carbon Dioxide 25 mmol/L (22-30); Chloride 100 mmol/L (98-107); Estimated CRCL calculation 26 ml/min; Estimated Glomerular Filt Rate 28; Glucose 211 mg/dL (65-110); Magnesium 2.3 mg/dL (1.6-2.3); Potassium 3.3 mmol/L (3.4-5.0); Sodium 139 mmol/L (137-145)
--- NOTE | 2024-09-01 16:27 | WPDONCCN ---
Assessment and Plan Assessment and plan (1) History of lung cancer: Code(s): Z85.118 - Personal history of other malignant neoplasm of bronchus and lung Status: Acute Plan Patient has a history of T1 N0 M0 stage I A non-small cell lung cancer adenocarcinoma histology status post right-sided upper lobe lobectomy in May 28, 2022. Patient did not receive any adjuvant treatment due to early stage disease. He was last seen in the office on May 16, [address] scan chest was done that showed no evidence of relapse of disease. CTA chest was reviewed that showed no evidence of relapse of disease at this and pleural effusion. Patient will follow-up with us as an outpatient. HPI Data of Consult Date/Time: 09/01/24 16:27 Requesting Physician: Olivia Ruby DO Primary Care Provider: Leonardo Gomez MD Consult Narrative Narrative: Dennis Acosta is a 74 year old male with history of stage I non-small cell lung cancer status post right upper lobe lobectomy on May 28, 2022. Patient was last seen in the office on May 16, [address] scan chest was done that showed no evidence of relapse of disease. He now came into the hospital with cough and shortness of breath. He denies any fevers and chills. He continues to smoke. CTA chest was done on August 31 that showed no evidence of pulmonary embolism. There was a finding consistent with patient known history of lung cancer within the right hemithorax status post lobectomy with atelectasis. There was increase in the right-sided pleural effusion. He was found to be in atrial fibrillation. Patient denies any previous history of atrial fibrillation. Review of Systems Review of Systems: Review of system as per HPI otherwise negative [facility] Past Medical History Medical History Stage 3b chronic kidney disease Stage 4 chronic kidney disease Simple chronic bronchitis Cigarette nicotine dependence with nicotine-induced disorder Major depressive disorder Cigarette nicotine dependence in remission Microalbuminuria Personal history of malignant neoplasm of lung Type 2 diabetes mellitus with diabetic chronic kidney disease Hypertensive chronic kidney disease Diverticulosis Kidney stones Hyperlipidemia Benign prostatic hyperplasia Surgical History Surgical History History of lobectomy of lung 05/2022 History of bilateral knee replacement (2008) History of cholecystectomy History of inguinal hernia repair History of vasectomy History of hemorrhoidectomy (1996) History of colonoscopy with polypectomy History of tonsillectomy (1953) Family History Family History Father Acute myocardial infarction Sibling Lung cancer Social History Social History Social History: Surrogate medical decision maker: Trupti Acosta, sibling. Code status: Full code. Smoking packs per day: 1 Smoking cigarettes per day: 20.0 Years smoked: 40 Smoking pack-years: 40.00 Smoking status: Current every day smoker Tobacco type: cigarettes Second hand tobacco smoke exposure: No Additional smoking assessment comments: Had quit at the time of his lung cancer diagnosis, but now back to smoking Alcohol intake: former Substance use: former Substance use type: does not use Do You Feel Safe in your Home?: Yes Lack of Transportation: No Lack of Food: Never True Current Housing: I Have Housing Concerned About Future Housing: No Difficulty Paying Gas/Electric Bills: No Difficulty Paying for Meds: No Currently Unemployed: No Education: Trade/Vocational Certificate Difficulty w/ Childcare or Family Care: No Living arrangements: alone Occupation/Education: retired Gender identity (if verbalized by the patient): Male Sexual Orientation (if Verbalized by the Patient): Straight or Heterosexual Spiritual care concerns: No Meds Home Medications and Allergies Home Medications Medication Instructions Recorded Confirmed Type Advair HFA 230 mcg-21 2 puff inhalation BID #12 grams 02/02/24 08/31/24 Rx mcg/actuation aerosol inhaler (fluticasone propion-salmeterol) atorvastatin 40 mg tablet See Rx Instructions .Route 02/24/24 08/31/24 Rx .COMPLEX #90 tabs Farxiga 10 mg tablet 10 mg PO DAILY #90 tabs 03/22/24 08/31/24 Rx (dapagliflozin propanediol) albuterol sulfate 90 mcg/actuation 1 inh inhalation Q4H PRN shortness 05/01/24 08/31/24 Rx aerosol inhaler of breath or wheezing #8.5 grams pioglitazone 30 mg tablet See Rx Instructions .Route 05/07/24 08/31/24 Rx .COMPLEX #90 tabs escitalopram oxalate 10 mg tablet See Rx Instructions .Route 07/16/24 08/31/24 Rx .COMPLEX #90 tabs glimepiride 1 mg tablet See Rx Instructions .Route 07/16/24 08/31/24 Rx .COMPLEX #90 tabs losartan 25 mg tablet 25 mg PO DAILY #90 tabs 08/01/24 08/31/24 Rx tamsulosin 0.4 mg capsule 0.4 mg PO DAILY 08/31/24 08/31/24 History Allergies Allergy/AdvReac Type Severity Reaction Status Date / Time No Known Allergies Allergy Verified 08/31/24 17:35 Vital Signs Vital Signs - 24 hr 08/31/24 17:26 08/31/24 17:42 08/31/24 18:40 Temperature 36.9 C Pulse Rate 95 105 H Respiratory Rate 16 24 H Blood Pressure 119/90 Pulse Oximetry 97 97 Oxygen Delivery Room Air Room Air 08/31/24 19:01 08/31/24 19:10 08/31/24 19:31 Temperature Pulse Rate 127 H 120 H 120 H Respiratory Rate 19 24 H 28 H Blood Pressure 135/104 H 169/80 H Pulse Oximetry 95 Oxygen Delivery 08/31/24 19:46 08/31/24 19:56 08/31/24 20:25 Temperature Pulse Rate 123 H 131 H 136 H Respiratory Rate 25 H Blood Pressure 150/84 H 152/72 H 148/72 H Pulse Oximetry 94 Oxygen Delivery 08/31/24 20:28 08/31/24 20:41 08/31/24 20:43 Temperature Pulse Rate 115 H 108 H Respiratory Rate 26 H 25 H Blood Pressure 125/60 147/76 H Pulse Oximetry 95 94 95 Oxygen Delivery Room Air 08/31/24 20:46 08/31/24 20:55 08/31/24 21:05 Temperature Pulse Rate 118 H 118 H 109 H Respiratory Rate 25 H 21 H Blood Pressure 131/70 144/121 H 151/71 H Pulse Oximetry 95 93 Oxygen Delivery 08/31/24 21:38 08/31/24 22:26 08/31/24 22:31 Temperature Pulse Rate 130 H 119 H 104 H Respiratory Rate 25 H 29 H 25 H Blood Pressure 110/77 127/82 114/77 Pulse Oximetry 96 Oxygen Delivery 08/31/24 23:46 09/01/24 01:09 09/01/24 01:16 Temperature Pulse Rate 102 H 96 96 Respiratory Rate 17 22 H Blood Pressure 110/78 107/67 Pulse Oximetry 96 96 Oxygen Delivery 09/01/24 01:45 09/01/24 02:00 09/01/24 02:00 Temperature 36.4 C Pulse Rate 102 H 90 102 H Respiratory Rate 20 Blood Pressure 150/76 H Pulse Oximetry 98 Oxygen Delivery 09/01/24 02:43 09/01/24 03:53 09/01/24 04:00 Temperature 36.6 C Pulse Rate 80 Respiratory Rate 18 Blood Pressure 134/70 Pulse Oximetry 100 Oxygen Delivery Room Air Room Air 09/01/24 04:00 09/01/24 04:00 09/01/24 04:13 Temperature Pulse Rate 80 84 78 Respiratory Rate 20 Blood Pressure Pulse Oximetry Oxygen Delivery 09/01/24 06:00 09/01/24 06:27 09/01/24 06:27 Temperature Pulse Rate 83 92 89 Respiratory Rate Blood Pressure Pulse Oximetry Oxygen Delivery 09/01/24 08:00 09/01/24 08:00 09/01/24 08:00 Temperature 36.8 C Pulse Rate 82 82 81 Respiratory Rate 18 Blood Pressure 126/65 126/65 Pulse Oximetry 99 Oxygen Delivery 09/01/24 08:43 09/01/24 08:48 09/01/24 08:55 Temperature Pulse Rate 81 80 Respiratory Rate 20 20 Blood Pressure Pulse Oximetry 95 Oxygen Delivery Room Air 09/01/24 09:52 09/01/24 10:00 09/01/24 12:00 Temperature 36.4 C Pulse Rate 81 82 80 Respiratory Rate 22 H Blood Pressure 131/69 Pulse Oximetry 95 Oxygen Delivery 09/01/24 12:00 09/01/24 13:59 09/01/24 14:05 Temperature Pulse Rate 82 86 89 Respiratory Rate 20 Blood Pressure Pulse Oximetry Oxygen Delivery 09/01/24 14:16 Temperature Pulse Rate 90 Respiratory Rate 20 Blood Pressure Pulse Oximetry Oxygen Delivery Exam Narrative: Lungs are congested. Cardiovascular regular rate rhythm no murmur Abdomen soft nontender nondistended Extremities no edema Results Labs 09/01/24 15:28 09/01/24 15:28 Labs: Short CBC 08/31/24 09/01/24 09/01/24 Range/Units 17:50 10:02 15:28 WBC 7.8 7.6 11.8 H (4.5-10.0) K/mm3 Hgb 15.6 12.5 L D 13.6 L (14.0-18.0) g/dL Hct 47.3 38.6 L 40.5 L (42.0-52.0) % Plt Count 178 169 204 (150-375) k/mm3 BMP 08/31/24 09/01/24 09/01/24 17:50 10:02 15:28 Sodium 140 135 L 139 Potassium 3.6 3.7 3.3 L Chloride 102 99 100 Carbon Dioxide 32 H 23 25 BUN 30 H 39 H 42 H Creatinine 1.82 H 1.96 H 2.25 H Glucose 227 H 556 H* 211 H Calcium 9.0 8.6 9.2 Cardiac Enzymes 08/31/24 Range/Units 18:50 Troponin I 0.033 (0.000-0.034) ng/mL Liver Function 08/31/24 09/01/24 Range/Units 17:50 10:02 Total Bilirubin 0.8 0.5 (0.2-1.3) mg/dL AST 22 29 (17-59) U/L ALT 23 32 (6-50) U/L Alkaline Phosphatase 141 H 116 (38-126) U/L Albumin 4.1 3.6 (3.5-5.1) g/dL Urine 08/31/24 Range/Units 20:16 Urine Color Yellow (Yellow) Urine Appearance Clear (Clear) Urine pH 5.5 (5.0-9.0) Ur Specific [place] 1.021 (1.001-1.035) Urine Protein 2+ H (Negative) mg/dL Urine Glucose (UA) 3+ H (Negative) mg/dL
--- NOTE | 2024-09-01 16:30 | PM.IMHP ---
H&P: HPI History of Present Illness Date/Time: 09/01/24 16:30 Chief Complaint: Shortness of Breath/Dyspnea Narrative: ER-HPI Narrative: Patient is a 74-year-old male who presents to the ER with cough and shortness of breath. He reports his symptoms have gradually been getting worse lately. Patient has a history of lung cancer that was diagnosed in 2022. He reports he currently sees Oncology and has a primary care provider. Patient endorses a history of high blood pressure, diabetes, and continues to smoke cigarettes. He denies any recent fevers, chest pain, abdominal pain, or back pain. Upon arrival with complaints of shortness of breath patient was in new onset Atrial fibrillation started patient on diltiazem drip from ER, his rate is trending down and stopped the drip and started patient on diltiazem 30mg PO q6, cardiac ECHO showed normal LV function. patient stats he has lung cancer and had been treated and he is in remission, his CT scan showed No pulmonary embolus. No thoracic aortic dissection. Findings consistent with patient's known history of lung cancer within the right hemithorax post partial lobectomy with persistent round atelectasis. Interval increase in the right-sided pleural effusion, when compared with May 09, 2024 examination.currently patient is on RA and does not appear in any distress. patient with shortness of breath most likely patient has pneumonia and being treated with ceftriaxone and Zithromax. 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 [facility] Past Medical History Medical History Stage 3b chronic kidney disease Stage 4 chronic kidney disease Simple chronic bronchitis Cigarette nicotine dependence with nicotine-induced disorder Major depressive disorder Cigarette nicotine dependence in remission Microalbuminuria Personal history of malignant neoplasm of lung Type 2 diabetes mellitus with diabetic chronic kidney disease Hypertensive chronic kidney disease Diverticulosis Kidney stones Hyperlipidemia Benign prostatic hyperplasia Surgical History Surgical History History of lobectomy of lung 05/2022 History of bilateral knee replacement (2008) History of cholecystectomy History of inguinal hernia repair History of vasectomy History of hemorrhoidectomy (1996) History of colonoscopy with polypectomy History of tonsillectomy (1953) Family History Family History Father Acute myocardial infarction Sibling Lung cancer Social History Social History Social History: Surrogate medical decision maker: Trupti Acosta, sibling. Code status: Full code. Smoking packs per day: 1 Smoking cigarettes per day: 20.0 Years smoked: 40 Smoking pack-years: 40.00 Smoking status: Current every day smoker Tobacco type: cigarettes Second hand tobacco smoke exposure: No Additional smoking assessment comments: Had quit at the time of his lung cancer diagnosis, but now back to smoking Alcohol intake: former Substance use: former Substance use type: does not use Do You Feel Safe in your Home?: Yes Lack of Transportation: No Lack of Food: Never True Current Housing: I Have Housing Concerned About Future Housing: No Difficulty Paying Gas/Electric Bills: No Difficulty Paying for Meds: No Currently Unemployed: No Education: Trade/Vocational Certificate Difficulty w/ Childcare or Family Care: No Living arrangements: alone Occupation/Education: retired Gender identity (if verbalized by the patient): Male Sexual Orientation (if Verbalized by the Patient): Straight or Heterosexual Spiritual care concerns: No Meds Home Medications and Allergies Home Medications Medication Instructions Recorded Confirmed Type Advair HFA 230 mcg-21 2 puff inhalation BID #12 grams 02/02/24 08/31/24 Rx mcg/actuation aerosol inhaler (fluticasone propion-salmeterol) atorvastatin 40 mg tablet See Rx Instructions .Route 02/24/24 08/31/24 Rx .COMPLEX #90 tabs Farxiga 10 mg tablet 10 mg PO DAILY #90 tabs 03/22/24 08/31/24 Rx (dapagliflozin propanediol) albuterol sulfate 90 mcg/actuation 1 inh inhalation Q4H PRN shortness 05/01/24 08/31/24 Rx aerosol inhaler of breath or wheezing #8.5 grams pioglitazone 30 mg tablet See Rx Instructions .Route 05/07/24 08/31/24 Rx .COMPLEX #90 tabs escitalopram oxalate 10 mg tablet See Rx Instructions .Route 07/16/24 08/31/24 Rx .COMPLEX #90 tabs glimepiride 1 mg tablet See Rx Instructions .Route 07/16/24 08/31/24 Rx .COMPLEX #90 tabs losartan 25 mg tablet 25 mg PO DAILY #90 tabs 08/01/24 08/31/24 Rx tamsulosin 0.4 mg capsule 0.4 mg PO DAILY 08/31/24 08/31/24 History Allergies Allergy/AdvReac Type Severity Reaction Status Date / Time No Known Allergies Allergy Verified 08/31/24 17:35 Vital Signs Vital Signs - 24 hr 08/31/24 17:26 08/31/24 17:42 08/31/24 18:40 Temperature 36.9 C Pulse Rate 95 105 H Respiratory Rate 16 24 H Blood Pressure 119/90 Pulse Oximetry 97 97 Oxygen Delivery Room Air Room Air 08/31/24 19:01 08/31/24 19:10 08/31/24 19:31 Temperature Pulse Rate 127 H 120 H 120 H Respiratory Rate 19 24 H 28 H Blood Pressure 135/104 H 169/80 H Pulse Oximetry 95 Oxygen Delivery 08/31/24 19:46 08/31/24 19:56 08/31/24 20:25 Temperature Pulse Rate 123 H 131 H 136 H Respiratory Rate 25 H Blood Pressure 150/84 H 152/72 H 148/72 H Pulse Oximetry 94 Oxygen Delivery 08/31/24 20:28 08/31/24 20:41 08/31/24 20:43 Temperature Pulse Rate 115 H 108 H Respiratory Rate 26 H 25 H Blood Pressure 125/60 147/76 H Pulse Oximetry 95 94 95 Oxygen Delivery Room Air 08/31/24 20:46 08/31/24 20:55 08/31/24 21:05 Temperature Pulse Rate 118 H 118 H 109 H Respiratory Rate 25 H 21 H Blood Pressure 131/70 144/121 H 151/71 H Pulse Oximetry 95 93 Oxygen Delivery 08/31/24 21:38 08/31/24 22:26 08/31/24 22:31 Temperature Pulse Rate 130 H 119 H 104 H Respiratory Rate 25 H 29 H 25 H Blood Pressure 110/77 127/82 114/77 Pulse Oximetry 96 Oxygen Delivery 08/31/24 23:46 09/01/24 01:09 09/01/24 01:16 Temperature Pulse Rate 102 H 96 96 Respiratory Rate 17 22 H Blood Pressure 110/78 107/67 Pulse Oximetry 96 96 Oxygen Delivery 09/01/24 01:45 09/01/24 02:00 09/01/24 02:00 Temperature 36.4 C Pulse Rate 102 H 90 102 H Respiratory Rate 20 Blood Pressure 150/76 H Pulse Oximetry 98 Oxygen Delivery 09/01/24 02:43 09/01/24 03:53 09/01/24 04:00 Temperature 36.6 C Pulse Rate 80 Respiratory Rate 18 Blood Pressure 134/70 Pulse Oximetry 100 Oxygen Delivery Room Air Room Air 09/01/24 04:00 09/01/24 04:00 09/01/24 04:13 Temperature Pulse Rate 80 84 78 Respiratory Rate 20 Blood Pressure Pulse Oximetry Oxygen Delivery 09/01/24 06:00 09/01/24 06:27 09/01/24 06:27 Temperature Pulse Rate 83 92 89 Respiratory Rate Blood Pressure Pulse Oximetry Oxygen Delivery 09/01/24 08:00 09/01/24 08:00 09/01/24 08:00 Temperature 36.8 C Pulse Rate 82 82 81 Respiratory Rate 18 Blood Pressure 126/65 126/65 Pulse Oximetry 99 Oxygen Delivery 09/01/24 08:43 09/01/24 08:48 09/01/24 08:55 Temperature Pulse Rate 81 80 Respiratory Rate 20 20 Blood Pressure Pulse Oximetry 95 Oxygen Delivery Room Air 09/01/24 09:52 09/01/24 10:00 09/01/24 12:00 Temperature 36.4 C Pulse Rate 81 82 80 Respiratory Rate 22 H Blood Pressure 131/69 Pulse Oximetry 95 Oxygen Delivery 09/01/24 12:00 09/01/24 13:59 09/01/24 14:05 Temperature Pulse Rate 82 86 89 Respiratory Rate 20 Blood Pressure Pulse Oximetry Oxygen Delivery 09/01/24 14:16 Temperature Pulse Rate 90 Respiratory Rate 20 Blood Pressure Pulse Oximetry Oxygen Delivery Exam Narrative: Patient is comfortable, NAD HEENT: eyes are clear and none icteric LUNGS: Bilateral fair entry with rhonchi HEART: RR S1S2 ABD: BS+, Soft and nontender Lower extremities: no edema SKIN: nonjaundiced Neuro: grossly intact. H&P: Results Labs Labs: Short CBC 08/31/24 09/01/24 09/01/24 Range/Units 17:50 10:02 15:28 WBC 7.8 7.6 11.8 H (4.5-10.0) K/mm3 Hgb 15.6 12.5 L D 13.6 L (14.0-18.0) g/dL Hct 47.3 38.6 L 40.5 L (42.0-52.0) % Plt Count 178 169 204 (150-375) k/mm3 BMP 08/31/24 09/01/24 09/01/24 17:50 10:02 15:28 Sodium 140 135 L 139 Potassium 3.6 3.7 3.3 L Chloride 102 99 100 Carbon Dioxide 32 H 23 25 BUN 30 H 39 H 42 H Creatinine 1.82 H 1.96 H 2.25 H Glucose 227 H 556 H* 211 H Calcium 9.0 8.6 9.2 Cardiac Enzymes 08/31/24 Range/Units 18:50 Troponin I 0.033 (0.000-0.034) ng/mL Liver Function 08/31/24 09/01/24 Range/Units 17:50 10:02 Total Bilirubin 0.8 0.5 (0.2-1.3) mg/dL AST 22 29 (17-59) U/L ALT 23 32 (6-50) U/L Alkaline Phosphatase 141 H 116 (38-126) U/L Albumin 4.1 3.6 (3.5-5.1) g/dL Urine 08/31/24 Range/Units 20:16 Urine Color Yellow (Yellow) Urine Appearance Clear (Clear) Urine pH 5.5 (5.0-9.0) Ur Specific [place] 1.021 (1.001-1.035) Urine Protein 2+ H (Negative) mg/dL Urine Glucose (UA) 3+ H (Negative) mg/dL Assessment and Plan Assessment and plan (1) Atrial fibrillation with rapid ventricular response: Code(s): I48.91 - Unspecified atrial fibrillation Status: Acute (2) SOB (shortness of breath) on exertion: Code(s): R06.02 - Shortness of breath Status: Acute (3) Type 2 diabetes mellitus with diabetic chronic kidney disease: Qualifiers: Diabetes mellitus termination clerk insulin use: without termination clerk use Chronic kidney disease stage: stage 3 (moderate) Chronic kidney disease stage 3 subtype: stage 3b (GFR 30-44) Qualified Code(s): E11.22 - Type 2 diabetes mellitus with diabetic chronic kidney disease; N18.32 - Chronic kidney disease, stage 3b Code(s): E11.22 - Type 2 diabetes mellitus with diabetic chronic kidney disease Status: Acute (4) Personal history of malignant neoplasm of lung: Code(s): Z85.118 - Personal history of other malignant neoplasm of bronchus and lung Status: Acute (5) Stage 4 chronic kidney disease: Code(s): N18.4 - Chronic kidney disease, stage 4 (severe) Status: Acute Plan ER-[facility] Narrative: Patient is a 74-year-old male who presents to the ER with cough and shortness of breath. He reports his symptoms have gradually been getting worse lately. Patient has a history of lung cancer that was diagnosed in 2022. He reports he currently sees Oncology and has a primary care provider. Patient endorses a history of high blood pressure, diabetes, and continues to smoke cigarettes. He denies any recent fevers, chest pain, abdominal pain, or back pain. Upon arrival with complaints of shortness of breath patient was in new onset Atrial fibrillation started patient on diltiazem drip from ER, his rate is trending down and stopped the drip and started patient on diltiazem 30mg PO q6, patient is anticoagulated with Lovenox, cardiac ECHO showed normal LV function. will consult special investigator patient may need cardioversion. patient stats he has lung cancer and had been treated and he is in remission, his CT scan showed No pulmonary embolus. No thoracic aortic dissection. Findings consistent with patient's known history of lung cancer within the right hemithorax post partial lobectomy with persistent round atelectasis. Interval increase in the right-sided pleural effusion, when compared with May 09, 2024 examination.currently patient is on RA and does not appear in any distress. patient with shortness of breath most likely patient has pneumonia and being treated with ceftriaxone and Zithromax. 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 Quality VTE Prophylaxis VTE prophylaxis: pharmacologic ordered Hospitalist [facility] Advance Care Plan I have confirmed that the patient's Advanced Care Plan is present, code status is documented, or surrogate decision maker is listed in patient medical record.: Yes Medication Reconciliation I have utilized all available resources to obtain, update and review the patients current medications (includes all prescriptions, OTC, herbals, cannabis, and nutritional supplements).: Yes
[2024-09-01] MEDS: POTASSIUM CHLORIDE 20 MEQ PACKET (FOR LIQUID) 40 MEQ PO (16:36)
[2024-09-01 16:38] LABS: Glucose Point of Care 217 mg/dl (65-105)
[2024-09-01] MEDS: FLUTICASONE/SALMETEROL 230-21 MCG INHALER 1 PUFF 2 PUFF INHALATION (19:40)
[2024-09-01 20:23] LABS: Glucose Point of Care 173 mg/dl (65-105)
[2024-09-02] VITALS (23 sets, daily range): BP systolic 106–147; BP diastolic 61–82; PULSE 83–97; RESP 18–22; TEMP 36.4–37.2; O2SAT 91–96
[2024-09-02] MEDS: IPRATROPIUM BR 0.02% INH SOLN 0.5 MG/2.5 ML VIAL INHALATION ×3 (01:45→14:14)
[2024-09-02] MEDS: LEVALBUTEROL NEB 1.25 MG/3 ML INHALATION ×3 (01:45→14:14)
[2024-09-02 03:44] LABS: Complement C3 155 mg/dL (88-165)
[2024-09-02] MEDS: dilTIAZem HCL 30 MG TABLET PO ×4 (04:05→22:28)
[2024-09-02 04:40] LABS: Hematocrit 38.8 % (42.0-52.0); Hemoglobin 12.5 g/dL (14.0-18.0); Mean Corpuscular HGB Conc 32.2 g/dl (32-36); Mean Corpuscular Hemoglobin 31.2 pg (26-34); Mean Corpuscular Volume 96.8 fl (80-100); Mean Platelet Volume 11.6 fl (7.4-10.4); Platelet Count Result 193 k/mm3 (150-375); Red Blood Count 4.01 M/mm3 (4.6-6.20); Red Cell Distribution Width 13.8 % (11.5-14.5); White Blood Count 12.5 K/mm3 (4.5-10.0)
[2024-09-02 04:50] LABS: Anion Gap 7 mmol/L (4-12); Blood Urea Nitrogen 45 mg/dL (9-20); Calcium 8.9 mg/dL (8.4-10.2); Carbon Dioxide 27 mmol/L (22-30); Chloride 105 mmol/L (98-107); Creatine Kinase 210 U/L (55-170); Estimated CRCL calculation 26 ml/min; Estimated Glomerular Filt Rate 28; Glucose 179 mg/dL (65-110); Magnesium 2.3 mg/dL (1.6-2.3); Potassium 3.9 mmol/L (3.4-5.0); Sodium 139 mmol/L (137-145)
[2024-09-02 04:59] LABS: Creatinine Urine 36.4 mg/dL
[2024-09-02 05:00] LABS: Creatinine Urine 37.4 mg/dL
[2024-09-02 05:04] LABS: Urea Random Urine 342 MG/DL
[2024-09-02 05:06] LABS: Sodium Urine Random 37 meq/L
[2024-09-02 05:11] LABS: Eosinophil Urine None Seen % (None Seen); Urine Eos QC 2nd Tech Confirmed
[2024-09-02 05:23] LABS: Total Protein Urine Random > 600 mg/dL
[2024-09-02 05:24] LABS: Ur Ttl Prot Creatinine Ratio > 16.48 mg/mg (0-0.20)
--- NOTE | 2024-09-02 06:03 | P.CONCA_ITS ---
Assessment and Plan Assessment and plan (1) Atrial fibrillation with rapid ventricular response: Code(s): I48.91 - Unspecified atrial fibrillation Status: Acute Plan Problem list: New onset nonvalvular AFib with RVR-rates currently in the 90s-most likely secondary to recent pneumonia/underlying lung cancer (in remission) ---normal LVEF, no significant valvular pathology on echo ---chads Vasc score 3 (age 74= 2 points, hypertension= 1 point) Hypertension Hyperlipidemia Lung cancer in remission Plan: Patient noted to be in sinus rhythm this morning with heart rate in the 80s and lots of PVCs Heart rates are controlled with Cardizem 30 mg q.6 hours. Continue same dose He is on therapeutic Lovenox. Stop Lovenox and start Eliquis 5 mg b.i.d. for anticoagulation Continue statin Continue losartan Continue empagliflozin Check and replace electrolytes to keep potassium greater than 4 and magnesium greater than 2 History of Present Illness History of Present Illness Consult date/time: 09/02/24 06:03 Reason For Visit: a.fib with RVR, CHF, shortness of breath Narrative: 74-year-old male with history of hyperlipidemia, hypertension, history of lung cancer diagnosed in 2022 currently in remission (he currently follows with Oncology), CKD, tobacco use, major depressive disorder, type 2 diabetes, benign prostatic hyperplasia presented to the ER with cough and shortness of breath which have been getting worse lately. He is being treated with ceftriaxone and Zithromax for pneumonia. He was noted to be in AFib with RVR and Cardiology is consulted for further recommendations. Patient denies any chest pain, lightheadedness, dizziness, palpitations, leg swelling, recent weight gain, presyncope, syncope, orthopnea, PND. No blood in stools or urine. Workup: Creatinine: 2.29 (baseline around 2) Troponin: Negative x3 BNP: 4250 EKG: AFib with RVR, rate 126 ECHO: LVEF 65-70%, no significant valvular pathology, small pericardial effusion Chest x-ray: Volume loss in the right hemithorax consistent with patient's history, small right pleural effusion as expected post partial lobectomy. CTA chest: No PE, aortic dissection. Findings consistent with patient's known history of lung cancer within the right hemithorax post partial lobectomy with persistent round atelectasis. Increase in right pleural effusion when compared with April, study. Review of Systems 2 Review of Systems: A complete review of systems was performed and pertinent positives are reported in the [facility] Past Medical History Medical History Stage 3b chronic kidney disease Stage 4 chronic kidney disease Simple chronic bronchitis Cigarette nicotine dependence with nicotine-induced disorder Major depressive disorder Cigarette nicotine dependence in remission Microalbuminuria Personal history of malignant neoplasm of lung Type 2 diabetes mellitus with diabetic chronic kidney disease Hypertensive chronic kidney disease Diverticulosis Kidney stones Hyperlipidemia Benign prostatic hyperplasia Surgical History Surgical History History of lobectomy of lung 05/2022 History of bilateral knee replacement (2008) History of cholecystectomy History of inguinal hernia repair History of vasectomy History of hemorrhoidectomy (1996) History of colonoscopy with polypectomy History of tonsillectomy (1953) Family History Family History Father Acute myocardial infarction Sibling Lung cancer Social History Social History Social History: Surrogate medical decision maker: Trupti Acosta, sibling. Code status: Full code. Smoking packs per day: 1 Smoking cigarettes per day: 20.0 Years smoked: 40 Smoking pack-years: 40.00 Smoking status: Current every day smoker Tobacco type: cigarettes Second hand tobacco smoke exposure: No Additional smoking assessment comments: Had quit at the time of his lung cancer diagnosis, but now back to smoking Alcohol intake: former Substance use: former Substance use type: does not use Do You Feel Safe in your Home?: Yes Lack of Transportation: No Lack of Food: Never True Current Housing: I Have Housing Concerned About Future Housing: No Difficulty Paying Gas/Electric Bills: No Difficulty Paying for Meds: No Currently Unemployed: No Education: Trade/Vocational Certificate Difficulty w/ Childcare or Family Care: No Living arrangements: alone Occupation/Education: retired Gender identity (if verbalized by the patient): Male Sexual Orientation (if Verbalized by the Patient): Straight or Heterosexual Spiritual care concerns: No Meds Home Medications and Allergies Home Medications Medication Instructions Recorded Confirmed Type Advair HFA 230 mcg-21 2 puff inhalation BID #12 grams 02/02/24 08/31/24 Rx mcg/actuation aerosol inhaler (fluticasone propion-salmeterol) atorvastatin 40 mg tablet See Rx Instructions .Route 02/24/24 08/31/24 Rx .COMPLEX #90 tabs Farxiga 10 mg tablet 10 mg PO DAILY #90 tabs 03/22/24 08/31/24 Rx (dapagliflozin propanediol) albuterol sulfate 90 mcg/actuation 1 inh inhalation Q4H PRN shortness 05/01/24 08/31/24 Rx aerosol inhaler of breath or wheezing #8.5 grams pioglitazone 30 mg tablet See Rx Instructions .Route 05/07/24 08/31/24 Rx .COMPLEX #90 tabs escitalopram oxalate 10 mg tablet See Rx Instructions .Route 07/16/24 08/31/24 Rx .COMPLEX #90 tabs glimepiride 1 mg tablet See Rx Instructions .Route 07/16/24 08/31/24 Rx .COMPLEX #90 tabs losartan 25 mg tablet 25 mg PO DAILY #90 tabs 08/01/24 08/31/24 Rx tamsulosin 0.4 mg capsule 0.4 mg PO DAILY 08/31/24 08/31/24 History Allergies Allergy/AdvReac Type Severity Reaction Status Date / Time No Known Allergies Allergy Verified 08/31/24 17:35 Vital Signs Vital Signs - 24 hr 09/01/24 06:27 09/01/24 06:27 09/01/24 08:00 Temperature 36.8 C Pulse Rate 92 89 82 Respiratory Rate 18 Blood Pressure 126/65 Pulse Oximetry 99 Oxygen Delivery 09/01/24 08:00 09/01/24 08:00 09/01/24 08:43 Temperature Pulse Rate 82 81 81 Respiratory Rate 20 Blood Pressure 126/65 Pulse Oximetry Oxygen Delivery 09/01/24 08:48 09/01/24 08:55 09/01/24 09:52 Temperature Pulse Rate 80 81 Respiratory Rate 20 Blood Pressure Pulse Oximetry 95 Oxygen Delivery Room Air 09/01/24 10:00 09/01/24 12:00 09/01/24 12:00 Temperature 36.4 C Pulse Rate 82 80 82 Respiratory Rate 22 H Blood Pressure 131/69 Pulse Oximetry 95 Oxygen Delivery 09/01/24 13:59 09/01/24 14:05 09/01/24 14:16 Temperature Pulse Rate 86 89 90 Respiratory Rate 20 20 Blood Pressure Pulse Oximetry Oxygen Delivery 09/01/24 16:00 09/01/24 16:00 09/01/24 18:00 Temperature 36.6 C Pulse Rate 90 89 84 Respiratory Rate 22 H Blood Pressure 106/60 Pulse Oximetry 94 Oxygen Delivery 09/01/24 19:43 09/01/24 19:44 09/01/24 19:58 Temperature Pulse Rate 86 82 Respiratory Rate 20 20 Blood Pressure Pulse Oximetry 91 Oxygen Delivery Room Air 09/01/24 20:00 09/01/24 20:00 09/01/24 20:44 Temperature 36.4 C Pulse Rate 85 88 85 Respiratory Rate 20 20 Blood Pressure 111/64 Pulse Oximetry 95 95 Oxygen Delivery Room Air 09/01/24 22:00 09/01/24 23:58 09/02/24 00:00 Temperature 36.6 C Pulse Rate 89 89 88 Respiratory Rate 20 Blood Pressure 147/67 H Pulse Oximetry 96 Oxygen Delivery 09/02/24 00:14 09/02/24 01:46 09/02/24 01:55 Temperature Pulse Rate 89 86 85 Respiratory Rate 20 20 20 Blood Pressure Pulse Oximetry 96 Oxygen Delivery Room Air 09/02/24 02:00 09/02/24 03:58 09/02/24 04:00 Temperature 36.4 C Pulse Rate 86 90 89 Respiratory Rate 18 Blood Pressure 147/68 H Pulse Oximetry 92 Oxygen Delivery 09/02/24 04:00 09/02/24 05:27 Temperature Pulse Rate 90 89 Respiratory Rate 18 Blood Pressure Pulse Oximetry 92 Oxygen Delivery Room Air Exam 2 Narrative: General: Alert oriented x3, no acute distress Neck: Supple, no JVD Chest: Bilaterally clear to auscultation, no rales or rhonchi Cardiac: S1, S2 +, regular rate and regular rhythm, no murmurs or rubs Extremities: Bilateral lower extremity edema 1+, no skin rash Neurologic: Alert and oriented x3, no focal neurological deficits Results Labs and Meds 09/02/24 04:02 09/02/24 04:02 Lab results: Cardiac Enzymes 09/01/24 Range/Units 10:02 AST 29 (17-59) U/L CBC 09/01/24 09/01/24 09/02/24 Range/Units 10:02 15:28 04:02 WBC 7.6 11.8 H 12.5 H (4.5-10.0) K/mm3 RBC 3.94 L 4.27 L 4.01 L (4.6-6.20) M/mm3 Hgb 12.5 L D 13.6 L 12.5 L (14.0-18.0) g/dL Hct 38.6 L 40.5 L 38.8 L (42.0-52.0) % Plt Count 169 204 193 (150-375) k/mm3 Comprehensive Metabolic Panel 09/01/24 09/01/24 09/02/24 Range/Units 10: 15: 04:02 Sodium 135 L 139 139 (137-145) mmol/L Potassium 3.7 3.3 L 3.9 (3.4-5.0) mmol/L Chloride 99 100 105 (98-107) mmol/L Carbon Dioxide 23 25 27 (22-30) mmol/L BUN 39 H 42 H 45 H (9-20) mg/dL Creatinine 1.96 H 2.25 H 2.29 H (0.7-1.3) mg/dL Glucose 556 H* 211 H 179 H (65-110) mg/dL Calcium 8.6 9.2 8.9 (8.4-10.2) mg/dL AST 29 (17-59) U/L ALT 32 (6-50) U/L Alkaline Phosphatase 116 (38-126) U/L Total Protein 7.0 (6.3-8.2) g/dL Albumin 3.6 (3.5-5.1) g/dL Intake and Output 09/01/24 09/01/24 09/02/24 15:59 23:59 07:59 Intake Total 485.6 1100 150 Output Total 550 480 Balance 485.6 550 -330 Intake: IV 25.6 50 dilTIAZem 100 MG/100 ML 100 mg 25.6 In 100 ml @ 5 MG/HR 5 mls/hr IV CONT .Q20H PRAVIN Rx#:[id number] cefTRIAXone 1 GM/NS 50 ML 1 gm 50 In 50 ml @ 100 mls/hr IVPB Q24H PRAVIN Rx#:[id number] Oral 460 1050 150 Output: Urine 550 480 Other: # Unmeasured Voids 4 # Incontinent Voids 1 Number of Bowel Movements Today 1 0 Patient Weight 09/02/24 23:59 Weight 88.8 kg
--- NOTE | 2024-09-02 06:58 | PC.NURSE ---
09/01/24 at 2100-Pt's daughter, Catina Acosta called to the hospital to obtain updates on this patient. Per documentation, Pt's medical POA is documented as his other daughter, Tran Lane. Pt asked if staff has permission to release medical updates/information to this daughter. Per Pt, we are not allowed to release information to his daughter, Catina Acosta. Pt states, If Catina wants any information on me, she can speak to me personally or speak to my other daughter, Tran. commanding officer traffic division. and other staff updated with this information. Pt's daughter, Catina updated with this information. This patient personally spoke to his daughter, Catina on the phone and voiced his wishes to her as well.
[2024-09-02] MEDS: FLUTICASONE/SALMETEROL 230-21 MCG INHALER 1 PUFF 2 PUFF INHALATION (08:16)
[2024-09-02 08:37] LABS: Glucose Point of Care 162 mg/dl (65-105)
--- NOTE | 2024-09-02 10:15 | P.CONNP_ITS ---
Assessment and Plan Assessment and plan (1) Stage 4 chronic kidney disease: Code(s): N18.4 - Chronic kidney disease, stage 4 (severe) Status: Chronic Assessment and Plan: * due to progression of chronic kidney disease * creatinine was running ~ 1.7 - 2.2mg/dl since 2018 (CKD stage 3b) * since April 2024 creatinine now around 2.3 - 2.4mg/dl (CKD stage 4) * due to diabetes, hypertension, vascular disease, and age-related change along with contributions from kidney stones/BPH * had been seening Dr. Ruelas several years ago (but lost to follow-up) * PCP referre dt osmyra Ruelas again (appointment in September 2024) * however, noted gross hematuria today (due to lovenox/anticoagulation?) * admission UA with protein and blood as well... * follow-up on imaging done earlier this AM * check serologies, urine studies, and CPK * at risk for worsening renal function due to contrast exposure (CTA of chest on 08/31) and IV diuretics (last done on 09/01) * follow trend of repeat labs and UOP (2) Shortness of breath: Code(s): R06.02 - Shortness of breath Status: Acute Assessment and Plan: * clinically better * suspect multifactorial: * afib with RVR * bronchitis * ongoing smoking * right pleural effusion * questionable pneumonia * CXR and CT of chest imaging noted * hypoxic or requiring supplemental oxygen * on empiric antibiotics * follow culture data * continue supportive therapy (3) Atrial fibrillation with rapid ventricular response: Code(s): I48.91 - Unspecified atrial fibrillation Status: Acute Assessment and Plan: * now in normal sinus rhythm currently * on oral cardizem for rate control * on anticoagulation * Echo results noted: * left ventricular systolic function is normal, estimated at 65-70% * right ventricular systolic function is normal * small pericardial effusion * trace mitral valve regurgitation * trace tricuspid valve regurgitation * Cardiology recommendations noted (4) Benign hypertension with chronic kidney disease: Code(s): I12.9 - Hypertensive chronic kidney disease with stage 1 through stage 4 chronic kidney disease, or unspecified chronic kidney disease Status: Chronic Assessment and Plan: * reasonable control * follow trend of hemodynamics (5) History of lung cancer: Code(s): Z85.118 - Personal history of other malignant neoplasm of bronchus and lung Status: Chronic Assessment and Plan: * in remission * Hem/Onc recommendations noted (6) Diabetes mellitus with chronic kidney disease: Code(s): E11.22 - Type 2 diabetes mellitus with diabetic chronic kidney disease Status: Chronic Assessment and Plan: * follow accu-cheks * glycemic control per hospitalist I will continue to follow the patient with you while he remains hospitalized and make further recommendations as deemed necessary. Thank you for allowing me to participate in the care of this patient. L History of Present Illness Reason for Consult Consult date: 09/02/24 Reason for consult: chronic renal failure Chief Complaint Chief complaint: a.fib with RVR, CHF, shortness of breath History of Present Illness Narrative: The patient is a 74-year-old male with a past medical history as outlined below who presented to [facility] with complaints of a cough and shortness of breath. The patient states that his shortness of breath and cough started several days ago and has progressively worsened. The cough has been nonproductive but has been fairly persistent. He gave no history with regard to fevers, chills, nausea, vomiting, hematochezia, melena, dysuria, lightheadedness, or dizziness. However, given the persistence of the symptoms in conjunction with his known history of lung cancer, he came to the ER for further assessment. Workup and evaluation emergency room demonstrated the patient be hemodynamically stable and without evidence of hypoxia. EKG demonstrated evidence of atrial fibrillation with RVR which apparently is a new finding. He was initiated on a diltiazem drip in the emergency room but then he became slightly bradycardic so the drip was discontinued in favor of oral diltiazem for rate control. He was subsequently given a dose of Lovenox for anticoagulation. Routine blood tests were done which demonstrated a mildly elevated white blood cell count but otherwise unremarkable CBC and a chemistry that was consistent with his known history of chronic kidney disease without any critical electrolyte abnormalities. A CT scan of his chest was done given his history of lung cancer which demonstrated no evidence of pulmonary embolus or thoracic aortic dissection but with findings consistent with his known history of lung cancer with a right hemithorax status post partial lobectomy with persistent rounded atelectasis and interval increase in a right-sided pleural effusion in comparison to imaging done in April 2024. Cardiology was consulted with regard to his new onset atrial fibrillation and he was subsequently admitted to the hospital for further evaluation and therapy. Since his admission, he has converted to normal sinus rhythm and has been maintained on oral diltiazem therapy. He has been seen by Cardiology with recommendations to continue diltiazem as is and transition of Lovenox to Eliquis for systemic anticoagulation. The patient seems more concerned with the fact that he has gross hematuria at the time my visit. Renal consultation was requested due to his chronic kidney disease. From review his records, the patient has had some degree of chronic kidney disease since at least 2018 if not longer. He does report that he had previously seen Dr. Ruelas for management of his chronic kidney disease but he has not seen him in several years and was lost to follow-up in general. However, he had recent labs done about a month ago on his office visit with his primary care physician which demonstrated evidence of chronic kidney disease progression nd was referred back to Dr. Ruelas with an upcoming appointment in September of 2024. His baseline creatinine seems to run around 1.7-2.2 mg/dL since 2018 but recent labs since April 2024 shows creatinine to be running a bit higher at 2.3 - 2.4 mg/dL. His creatinine on admission was 1.86 mg/dL (better than baseline) but has trended up to 2.29 mg/dL by labs done this morning. There are no associated critical electrolyte abnormalities, evidence of metabolic acidosis, or symptoms of volume overload or uremia. Currently, at the time my evaluation, he appears to be in no acute distress And just get back to his room following imaging studies done earlier this morning. Review of Systems 2 Review of Systems: As per HPI. 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 Hypertensive chronic kidney disease Diverticulosis Kidney stones Hyperlipidemia Benign prostatic hyperplasia Surgical History Surgical History History of lobectomy of lung 05/2022 History of bilateral knee replacement (2008) History of cholecystectomy History of inguinal hernia repair History of vasectomy History of hemorrhoidectomy (1996) History of colonoscopy with polypectomy History of tonsillectomy (1953) Family History Family History Father Acute myocardial infarction Sibling Lung cancer Social History Social History Social History: Surrogate medical decision maker: Trupti Acosta, sibling. Code status: Full code. Smoking packs per day: 1 Smoking cigarettes per day: 20.0 Years smoked: 40 Smoking pack-years: 40.00 Smoking status: Current every day smoker Tobacco type: cigarettes Second hand tobacco smoke exposure: No Additional smoking assessment comments: Had quit at the time of his lung cancer diagnosis, but now back to smoking Alcohol intake: former Substance use: former Substance use type: does not use Do You Feel Safe in your Home?: Yes Lack of Transportation: No Lack of Food: Never True Current Housing: I Have Housing Concerned About Future Housing: No Difficulty Paying Gas/Electric Bills: No Difficulty Paying for Meds: No Currently Unemployed: No Education: Trade/Vocational Certificate Difficulty w/ Childcare or Family Care: No Living arrangements: alone Occupation/Education: retired Gender identity (if verbalized by the patient): Male Sexual Orientation (if Verbalized by the Patient): Straight or Heterosexual Spiritual care concerns: No Meds Home Medications and Allergies Home Medications Medication Instructions Recorded Confirmed Type Advair HFA 230 mcg-21 2 puff inhalation BID #12 grams 02/02/24 08/31/24 Rx mcg/actuation aerosol inhaler (fluticasone propion-salmeterol) atorvastatin 40 mg tablet See Rx Instructions .Route 02/24/24 08/31/24 Rx .COMPLEX #90 tabs Farxiga 10 mg tablet 10 mg PO DAILY #90 tabs 03/22/24 08/31/24 Rx (dapagliflozin propanediol) albuterol sulfate 90 mcg/actuation 1 inh inhalation Q4H PRN shortness 05/01/24 08/31/24 Rx aerosol inhaler of breath or wheezing #8.5 grams pioglitazone 30 mg tablet See Rx Instructions .Route 05/07/24 08/31/24 Rx .COMPLEX #90 tabs escitalopram oxalate 10 mg tablet See Rx Instructions .Route 07/16/24 08/31/24 Rx .COMPLEX #90 tabs glimepiride 1 mg tablet See Rx Instructions .Route 07/16/24 08/31/24 Rx .COMPLEX #90 tabs losartan 25 mg tablet 25 mg PO DAILY #90 tabs 08/01/24 08/31/24 Rx tamsulosin 0.4 mg capsule 0.4 mg PO DAILY 08/31/24 08/31/24 History Allergies Allergy/AdvReac Type Severity Reaction Status Date / Time No Known Allergies Allergy Verified 08/31/24 17:35 Vital Signs Vital Signs Temp Pulse Resp BP Pulse Ox O2 Del Method 09/02/24 10:00 94 09/02/24 08:30 83 20 09/02/24 08:17 85 20 09/02/24 08:17 91 Room Air 09/02/24 08:00 89 09/02/24 08:00 Room Air 09/02/24 08:00 97.5 F L 91 20 139/81 93 09/02/24 05:27 89 09/02/24 04:00 90 18 92 Room Air 09/02/24 04:00 89 09/02/24 03:58 97.6 F 90 18 147/68 H 92 09/02/24 02:00 86 09/02/24 01:55 85 20 09/02/24 01:46 86 20 09/02/24 00:14 89 20 96 Room Air 09/02/24 00:00 88 09/01/24 23:58 97.8 F 89 20 147/67 H 96 09/01/24 22:00 89 09/01/24 20:44 85 20 95 Room Air 09/01/24 20:00 88 09/01/24 20:00 97.6 F 85 20 111/64 95 09/01/24 19:58 82 20 09/01/24 19:44 91 Room Air 09/01/24 19:43 86 20 09/01/24 18:00 84 09/01/24 16:00 98 F 89 22 H 106/60 94 09/01/24 16:00 90 Exam 2 Narrative: GENERAL APPEARANCE: elderly but well developed well nourished male in no acute distress HEENT: normocephalic, atraumatic, normal conjunctiva and sclera, nares patient NECK: no lymphadenopathy, thyromegaly, or JVD MOUTH: normal lips, teeth, and gums CARDIOVASCULAR: RRR, normal S1 and S2, no rub RESPIRATORY: clear anteriorly; coarse at bases ABDOMEN: soft, nontender, nondistended, positive bowel sounds present EXTREMITIES: no evidence of cyanosis, clubbing, trace edema NEUROLOGICAL: alert and oriented x 3; CN II - XII intact bilaterally; no focal deficits noted Results Lab Results 09/03/24 03:50 09/03/24 03:50 Lab results: Most recent lab results ABG pH 7.421 (7.350-7.450) 08/31/24 18:38 ABG pCO2 41.9 mmHg (35.0-45.0) 08/31/24 18:38 ABG pO2 64.2 mmHg (80.0-100.0) L 08/31/24 18:38 ABG HCO3 26.6 mEq/l (22.0-26.0) H 08/31/24 18:38 ABG O2 Saturation 92.9 % (95.0-100.0) L 08/31/24 18:38 Calcium 8.9 mg/dL (8.4-10.2) 09/02/24 04:02 Magnesium 2.3 mg/dL (1.6-2.3) 09/02/24 04:02 Urine Creatinine 36.4 mg/dL 09/02/24 04:19 Urine Creatinine 37.4 mg/dL 09/02/24 04:19
[2024-09-02] MEDS: PIOGLITAZONE HCL 30 MG TABLET BY MOUTH (10:19)
[2024-09-02] MEDS: TAMSULOSIN HCL 0.4 MG CAPSULE PO (10:19)
[2024-09-02] MEDS: LOSARTAN POTASSIUM 25 MG TABLET PO (10:19)
[2024-09-02] MEDS: ESCITALOPRAM OXALATE 10 MG TABLET BY MOUTH (10:19)
[2024-09-02] MEDS: GLIMEPIRIDE 1 MG TABLET BY MOUTH (10:19)
[2024-09-02] MEDS: ATORVASTATIN 40 MG TABLET BY MOUTH (10:19)
[2024-09-02] MEDS: EMPAGLIFLOZIN 25 MG TABLET BY MOUTH (10:19)
[2024-09-02 11:35] LABS: Glucose Point of Care 197 mg/dl (65-105)
--- NOTE | 2024-09-02 17:38 | P.PNIM_ITS ---
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: without half-way use Chronic kidney disease stage: stage 3 (moderate) Chronic kidney disease stage 3 subtype: stage 3b (GFR 30-44) Qualified Code(s): E11.22 - Type 2 diabetes mellitus with diabetic chronic kidney disease; N18.32 - Chronic kidney disease, stage 3b Code(s): E11.22 - Type 2 diabetes mellitus with diabetic chronic kidney disease Status: Acute (4) Personal history of malignant neoplasm of lung: Code(s): Z85.118 - Personal history of other malignant neoplasm of bronchus and lung Status: Acute (5) Stage 4 chronic kidney disease: Code(s): N18.4 - Chronic kidney disease, stage 4 (severe) Status: Chronic Plan ER-HPI Narrative: Patient is a 74-year-old male who presents to the ER with cough and shortness of breath. He reports his symptoms have gradually been getting worse lately. Patient has a history of lung cancer that was diagnosed in 2022. He reports he currently sees Oncology and has a primary care provider. Patient endorses a history of high blood pressure, diabetes, and continues to smoke cigarettes. He denies any recent fevers, chest pain, abdominal pain, or back pain. Upon arrival with complaints of shortness of breath patient was in new onset Atrial fibrillation started patient on diltiazem drip from ER, his rate is trending down and stopped the drip and started patient on diltiazem 30mg PO q6, patient is anticoagulated with Lovenox, cardiac ECHO showed normal LV function. will consult tissue inserter patient may need cardioversion. patient stats he has lung cancer and had been treated and he is in remission, his CT scan showed No pulmonary embolus. No thoracic aortic dissection. Interval increase in the right-sided pleural effusion, when compared with 2024 examination.currently patient is on RA and does not appear in any distress. Patient was seen by his oncologist does not suspect patient has recurrence of his lung cancer patient with shortness of breath most likely patient has pneumonia and being treated with ceftriaxone and Zithromax. 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 Subjective Date/time seen: 09/02/24 17:38 Interval history: patient stats he has lung cancer and had been treated and he is in remission, his CT scan showed No pulmonary embolus. No thoracic aortic dissection. Findings consistent with patient's known history of lung cancer within the right hemithorax post partial lobectomy with persistent round atelectasis. Interval increase in the right-sided pleural effusion, when compared with May 09, 2024 examination.currently patient is on RA and does not appear in any distress. Patient was seen by his oncologist does not suspect patient has recurrence of his lung cancer patient with shortness of breath most likely patient has pneumonia and being treated with ceftriaxone and Zithromax. 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 Exam Narrative: Patient is comfortable, NAD HEENT: eyes are clear and none icteric LUNGS: Bilateral fair entry with rhonchi HEART: RR S1S2 ABD: BS+, Soft and nontender Lower extremities: no edema SKIN: nonjaundiced Neuro: grossly intact. Objective Data Vital Signs Vital Signs: Vital Signs - 24 hr 09/01/24 18:00 09/01/24 19:43 09/01/24 19:44 Temperature Pulse Rate 84 86 Respiratory Rate 20 Blood Pressure Pulse Oximetry 91 Oxygen Delivery Room Air 09/01/24 19:58 09/01/24 20:00 09/01/24 20:00 Temperature 36.4 C Pulse Rate 82 85 88 Respiratory Rate 20 20 Blood Pressure 111/64 Pulse Oximetry 95 Oxygen Delivery 09/01/24 20:44 09/01/24 22:00 09/01/24 23:58 Temperature 36.6 C Pulse Rate 85 89 89 Respiratory Rate 20 20 Blood Pressure 147/67 H Pulse Oximetry 95 96 Oxygen Delivery Room Air 09/02/24 00:00 09/02/24 00:14 09/02/24 01:46 Temperature Pulse Rate 88 89 86 Respiratory Rate 20 20 Blood Pressure Pulse Oximetry 96 Oxygen Delivery Room Air 09/02/24 01:55 09/02/24 02:00 09/02/24 03:58 Temperature 36.4 C Pulse Rate 85 86 90 Respiratory Rate 20 18 Blood Pressure 147/68 H Pulse Oximetry 92 Oxygen Delivery 09/02/24 04:00 09/02/24 04:00 09/02/24 05:27 Temperature Pulse Rate 89 90 89 Respiratory Rate 18 Blood Pressure Pulse Oximetry 92 Oxygen Delivery Room Air 09/02/24 08:00 09/02/24 08:00 09/02/24 08:00 Temperature 36.4 C L Pulse Rate 91 89 Respiratory Rate 20 Blood Pressure 139/81 Pulse Oximetry 93 Oxygen Delivery Room Air 09/02/24 08:17 09/02/24 08:17 09/02/24 08:30 Temperature Pulse Rate 85 83 Respiratory Rate 20 20 Blood Pressure Pulse Oximetry 91 Oxygen Delivery Room Air 09/02/24 10:00 09/02/24 12:00 09/02/24 12:00 Temperature Pulse Rate 94 85 Respiratory Rate Blood Pressure Pulse Oximetry Oxygen Delivery Room Air 09/02/24 12:00 09/02/24 14:00 09/02/24 14:15 Temperature 36.4 C L Pulse Rate 92 87 85 Respiratory Rate 20 20 Blood Pressure 131/74 Pulse Oximetry 95 Oxygen Delivery 09/02/24 14:35 09/02/24 16:00 09/02/24 16:00 Temperature Pulse Rate 90 90 Respiratory Rate 20 Blood Pressure Pulse Oximetry Oxygen Delivery Room Air 09/02/24 16:00 Temperature 36.8 C Pulse Rate 89 Respiratory Rate 22 H Blood Pressure 106/61 Pulse Oximetry 93 Oxygen Delivery Intake/Output Intake/Output: Intake & Output 08/30/24 08/31/24 09/01/24 09/02/24 23:59 23:59 23:59 23:59 Intake Total 1002.4 2382.1 390 Output Total 550 780 Balance 1002.4 1832.1 -390 Meds/Results Medications: Active Medications Generic Name Dose Route Start Last Admin Trade Name Freq PRN Reason Stop Dose Admin Atorvastatin Calcium 0 mg 09/01/24 09:25 09/02/24 10:19 Atorvastatin 40 Mg Tablet BY MOUTH 40 mg QAM PRAVIN Administration Dextrose 12.5 gm 09/01/24 10:44 Dextrose 50% 25 Gm/50 Ml Syringe IV PUSH PRN PRN Hypoglycemia Protocol Diltiazem HCl 30 mg 09/01/24 10:00 09/02/24 16:20 Diltiazem Hcl 30 Mg Tablet PO 30 mg Q6H PRAVIN Administration Empagliflozin 25 mg 09/01/24 09:25 09/02/24 10:19 Empagliflozin 25 Mg Tablet BY MOUTH 25 mg DAILY PRAVIN Administration Enoxaparin Sodium 90 mg 08/31/24 22:30 09/01/24 22:33 Enoxaparin 100 Mg/Ml Syringe SUB-Q Not Given Q12HR [facility] Escitalopram Oxalate 10 mg 09/01/24 09:25 09/02/24 10:19 Escitalopram Oxalate 10 Mg Tablet BY MOUTH 10 mg QAM PRAVIN Administration Glimepiride 1 mg 09/01/24 09:25 09/02/24 10:19 Glimepiride 1 Mg Tablet BY MOUTH 1 mg QAM [facility] Administration Glucagon 1 mg 09/01/24 10:44 Glucagon For Inj 1 Mg Vial IM PRN PRN Hypoglycemia Protocol Glucose 15 gm 09/01/24 10:44 Glucose Oral Gel 15 Gm Of Glucse In 37.5 Gm Tube PO PRN PRN Hypoglycemia Protocol Dextrose 1,000 mls @ 100 mls/hr 09/01/24 10:44 Dextrose 5% 1,000 Ml IVPB PRN PRN Hypoglycemia Protocol Ceftriaxone Sodium 1 gm in 50 mls @ 100 mls/hr 09/01/24 16:00 09/02/24 16:20 Rocephin 1 Gm/Ns 50 Ml IVPB 100 mls/hr Q24H PRAVIN Administration Insulin Aspart 2 - 5 units 09/01/24 12:00 09/02/24 16:21 Insulin Aspart (*Bkc) 100 Units/Ml SUB-Q Not Given TIDWM PRAVIN Protocol Insulin Aspart 1 - 2 units 09/01/24 21:00 09/01/24 21:00 Insulin Aspart (*Bkc) 100 Units/Ml SUB-Q Not Given HS [facility] Protocol Ipratropium Campbell 0.5 mg 09/01/24 02:00 09/02/24 14:14 Ipratropium Br 0.02% Inh Soln 0.5 Mg/2.5 Ml Vial INHALATION 0.5 mg Q6HRT PRAVIN Administration Levalbuterol HCl 1.25 mg 09/01/24 02:00 09/02/24 14:14 Levalbuterol Neb 1.25 Mg/3 Ml INHALATION 1.25 mg Q6HRT PRAVIN Administration Losartan Potassium 25 mg 09/01/24 09:25 09/02/24 10:19 Losartan Potassium 25 Mg Tablet PO 25 mg DAILY PRAVIN Administration Perflutren Lipid Microsphere 0 ml 09/01/24 00:36 Perflutren Lipid Microspheres 1.5 Ml Vial Diluted To 10 Ml Total Volume IV PUSH 09/04/24 00:36 ONCE PRN adequate visualization Protocol Pioglitazone HCl 30 mg 09/01/24 09:25 09/02/24 10:19 Pioglitazone Hcl 30 Mg Tablet BY MOUTH 30 mg QAM PRAVIN Administration Fluticasone/Salmeterol 2 puff 09/01/24 09:25 09/02/24 08:16 Fluticasone/Salmeterol 230-21 Mcg Inhaler 1 Puff INHALATION 2 puff Q12HRT PRAVIN Administration Tamsulosin HCl 0.4 mg 09/01/24 09:25 09/02/24 10:19 Tamsulosin Hcl 0.4 Mg Capsule PO 0.4 mg DAILY PRAVIN Administration Radiology Results: ITS Impressions Chest X-Ray 08/31/24 19:21 IMPRESSION: As above. Chest CTA 08/31/24 22:24 IMPRESSION: No pulmonary embolus. No thoracic aortic dissection. Findings consistent with patient's known history of lung cancer within the right hemithorax post partial lobectomy with persistent round atelectasis. Interval increase in the right-sided pleural effusion, when compared with 2024 examination. Renal Ultrasound 09/02/24 13:53 IMPRESSION 1. Mild likely age-related bilateral renal atrophy with bilateral renal cysts. No hydronephrosis. 2. Intraluminal hypoechoic region along the floor of the bladder, unclear whether related to focal wall thickening such as in the setting of neoplasm or due to clot or debris. Correlate with urinalysis and could consider cystoscopy for further evaluation as clinically indicated. Labs Labs: Laboratory Results - last 24 hr 09/01/24 09/01/24 09/02/24 15:22 20:20 04:02 WBC 12.5 H RBC 4.01 L Hgb 12.5 L Hct 38.8 L MCV 96.8 MCH 31.2 MCHC 32.2 RDW 13.8 Plt Count 193 MPV 11.6 H Sodium 139 Potassium 3.9 Chloride 105 Carbon Dioxide 27 Anion Gap 7 BUN 45 H Creatinine 2.29 H Estim Creat Clear Calc 26 Estimated GFR 28 L Glucose 179 H POC Capillary Glucose 173 H Calcium 8.9 Magnesium 2.3 Total Creatine Kinase 210 H Urine Eosinophils U Random Total Protein Ur Random Sodium Ur Random Urea Urine Creatinine Protein/Creat Ratio 2 Complement C3 155 Complement C4 41.8 09/02/24 09/02/24 09/02/24 04:19 04:19 04:19 WBC RBC Hgb Hct MCV MCH MCHC RDW Plt Count MPV Sodium Potassium Chloride Carbon Dioxide Anion Gap BUN Creatinine Estim Creat Clear Calc Estimated GFR Glucose POC Capillary Glucose Calcium Magnesium Total Creatine Kinase Urine Eosinophils None seen U Random Total Protein > 600 > 600 Ur Random Sodium 37 Ur Random Urea 342 Urine Creatinine 36.4 37.4 Protein/Creat Ratio 2 > 16.48 H Complement C3 Complement C4 09/02/24 09/02/24 08:01 11:25 WBC RBC Hgb Hct MCV MCH MCHC RDW Plt Count MPV Sodium Potassium Chloride Carbon Dioxide Anion Gap BUN Creatinine Estim Creat Clear Calc Estimated GFR Glucose POC Capillary Glucose 162 H 197 H Calcium Magnesium Total Creatine Kinase Urine Eosinophils U Random Total Protein Ur Random Sodium Ur Random Urea Urine Creatinine Protein/Creat Ratio 2 Complement C3 Complement C4 Quality VTE Prophylaxis VTE prophylaxis: pharmacologic ordered
[2024-09-02 18:01] LABS: Glucose Point of Care 175 mg/dl (65-105)
[2024-09-02 19:40] LABS: Glucose Point of Care 130 mg/dl (65-105)
[2024-09-03] VITALS (27 sets, daily range): BP systolic 125–163; BP diastolic 52–85; PULSE 70–100; RESP 16–20; TEMP 36.5–37.2; O2SAT 92–100
[2024-09-03] MEDS: IPRATROPIUM BR 0.02% INH SOLN 0.5 MG/2.5 ML VIAL INHALATION ×4 (02:32→19:54)
[2024-09-03] MEDS: LEVALBUTEROL NEB 1.25 MG/3 ML INHALATION ×4 (02:32→19:54)
[2024-09-03] MEDS: FLUTICASONE/SALMETEROL 230-21 MCG INHALER 1 PUFF 2 PUFF INHALATION ×3 (02:35→19:55)
[2024-09-03] MEDS: dilTIAZem HCL 30 MG TABLET PO ×4 (03:57→20:33)
[2024-09-03 04:17] LABS: Hematocrit 38.2 % (42.0-52.0); Hemoglobin 12.3 g/dL (14.0-18.0); Mean Corpuscular HGB Conc 32.2 g/dl (32-36); Mean Corpuscular Hemoglobin 31.5 pg (26-34); Mean Corpuscular Volume 97.9 fl (80-100); Mean Platelet Volume 11.6 fl (7.4-10.4); Platelet Count Result 181 k/mm3 (150-375); White Blood Count 7.5 K/mm3 (4.5-10.0)
[2024-09-03 04:27] LABS: Anion Gap 6 mmol/L (4-12); Blood Urea Nitrogen 48 mg/dL (9-20); Calcium 8.7 mg/dL (8.4-10.2); Carbon Dioxide 27 mmol/L (22-30); Chloride 105 mmol/L (98-107); Estimated CRCL calculation 27 ml/min; Estimated Glomerular Filt Rate 30; Glucose 177 mg/dL (65-110); Magnesium 2.2 mg/dL (1.6-2.3); Potassium 3.8 mmol/L (3.4-5.0); Sodium 138 mmol/L (137-145)
[2024-09-03 07:13] LABS: Protein, Total 6.3 g/dL (6.1-8.1)
[2024-09-03 07:37] LABS: Glucose Point of Care 150 mg/dl (65-105)
[2024-09-03 08:48] LABS: Creatinine, Random Urine 41 mg/dL (20-320); Total Prot/Creat ratio mg/mg 21.732 (0.025-0.148); Total Protein/Creatinine Ratio 21732 mg/g creat (25-148)
[2024-09-03] MEDS: LOSARTAN POTASSIUM 25 MG TABLET PO (09:25)
[2024-09-03] MEDS: ATORVASTATIN 40 MG TABLET BY MOUTH (09:25)
[2024-09-03] MEDS: TAMSULOSIN HCL 0.4 MG CAPSULE PO (09:25)
[2024-09-03] MEDS: EMPAGLIFLOZIN 25 MG TABLET BY MOUTH (09:25)
[2024-09-03] MEDS: ESCITALOPRAM OXALATE 10 MG TABLET BY MOUTH (09:25)
[2024-09-03] MEDS: PIOGLITAZONE HCL 30 MG TABLET BY MOUTH (09:25)
[2024-09-03] MEDS: GLIMEPIRIDE 1 MG TABLET BY MOUTH (09:26)
--- NOTE | 2024-09-03 11:01 | WPDURCON ---
Assessment and Plan Assessment and plan (1) Gross hematuria: Code(s): R31.0 - Gross hematuria Status: Acute (2) Bilateral kidney masses: Code(s): N28.89 - Other specified disorders of kidney and ureter Status: Acute Assessment and Plan: Gross hematuria likely secondary to BPH complicated by anticoagulation. For this I will plan cystoscopy at some point, perhaps on Wednesday if other medical issues remained stable. He CT scan shows soft tissue in the bladder which I suspect is clot. The bilateral indeterminate renal masses will be more difficult to evaluate given his stage of chronic kidney disease and anticoagulation. Thorough evaluation would require either CT scan or MRI scan with contrast. As an alternative, I have proposed serial imaging in 3-4 months to see the mass is gross/change. Urology Consult Note HPI Date Seen: 09/03/24 Requesting Physician: Olivia Ruby DO Primary Care Provider: Leonardo Gomez MD Consult Narrative Narrative: Dennis Acosta is a 74 year old male, previously unknown to our practice, admitted yesterday with shortness of breath. He was found to have new onset atrial fibrillation and was anticoagulated. This led to scant painless gross hematuria. Patient also has a history of known CKD stage 4. CT imaging without contrast revealed bilateral small (approximately 2 cm in each kidney) indeterminate lesions in each kidney - . On the right side the lesion appears to be hemorrhagic cyst. In the lower pole left kidney there is a similar size lesion that could possibly be a small neoplasm, although certainly indeterminate given lack of IV contrast Review of Systems Review of Systems: All systems reviewed & are unremarkable except as noted in HPI and below PMFSH Past Medical History Medical History (Updated 09/03/24 @ 11:06 by Casey Farmer MD) Stage 3b chronic kidney disease Stage 4 chronic kidney disease Simple chronic bronchitis Cigarette nicotine dependence with nicotine-induced disorder Major depressive disorder Cigarette nicotine dependence in remission Microalbuminuria Personal history of malignant neoplasm of lung Type 2 diabetes mellitus with diabetic chronic kidney disease Hypertensive chronic kidney disease Diverticulosis Kidney stones Hyperlipidemia Benign prostatic hyperplasia Surgical History Surgical History History of lobectomy of lung 05/2022 History of bilateral knee replacement (2008) History of cholecystectomy History of inguinal hernia repair History of vasectomy History of hemorrhoidectomy (1996) History of colonoscopy with polypectomy History of tonsillectomy (1953) Family History Family History Father Acute myocardial infarction Sibling Lung cancer Social History Social History Social History: Surrogate medical decision maker: Trupti Acosta, sibling. Code status: Full code. Smoking packs per day: 1 Smoking cigarettes per day: 20.0 Years smoked: 40 Smoking pack-years: 40.00 Smoking status: Current every day smoker Tobacco type: cigarettes Second hand tobacco smoke exposure: No Additional smoking assessment comments: Had quit at the time of his lung cancer diagnosis, but now back to smoking Alcohol intake: former Substance use: former Substance use type: does not use Do You Feel Safe in your Home?: Yes Lack of Transportation: No Lack of Food: Never True Current Housing: I Have Housing Concerned About Future Housing: No Difficulty Paying Gas/Electric Bills: No Difficulty Paying for Meds: No Currently Unemployed: No Education: Trade/Vocational Certificate Difficulty w/ Childcare or Family Care: No Living arrangements: alone Occupation/Education: retired Gender identity (if verbalized by the patient): Male Sexual Orientation (if Verbalized by the Patient): Straight or Heterosexual Spiritual care concerns: No Meds Home Medications and Allergies Home Medications Medication Instructions Recorded Confirmed Type Advair HFA 230 mcg-21 2 puff inhalation BID #12 grams 02/02/24 08/31/24 Rx mcg/actuation aerosol inhaler (fluticasone propion-salmeterol) atorvastatin 40 mg tablet See Rx Instructions .Route 02/24/24 08/31/24 Rx .COMPLEX #90 tabs Farxiga 10 mg tablet 10 mg PO DAILY #90 tabs 03/22/24 08/31/24 Rx (dapagliflozin propanediol) albuterol sulfate 90 mcg/actuation 1 inh inhalation Q4H PRN shortness 05/01/24 08/31/24 Rx aerosol inhaler of breath or wheezing #8.5 grams pioglitazone 30 mg tablet See Rx Instructions .Route 05/07/24 08/31/24 Rx .COMPLEX #90 tabs escitalopram oxalate 10 mg tablet See Rx Instructions .Route 07/16/24 08/31/24 Rx .COMPLEX #90 tabs glimepiride 1 mg tablet See Rx Instructions .Route 07/16/24 08/31/24 Rx .COMPLEX #90 tabs losartan 25 mg tablet 25 mg PO DAILY #90 tabs 08/01/24 08/31/24 Rx tamsulosin 0.4 mg capsule 0.4 mg PO DAILY 08/31/24 08/31/24 History Allergies Allergy/AdvReac Type Severity Reaction Status Date / Time No Known Allergies Allergy Verified 08/31/24 17:35 Vital Signs Vital Signs - 24 hr 09/02/24 12:00 09/02/24 12:00 09/02/24 12:00 Temperature 97.5 F L Pulse Rate 85 92 Respiratory Rate 20 Blood Pressure 131/74 Pulse Oximetry 95 Oxygen Delivery Room Air 09/02/24 14:00 09/02/24 14:15 09/02/24 14:35 Temperature Pulse Rate 87 85 90 Respiratory Rate 20 20 Blood Pressure Pulse Oximetry Oxygen Delivery 09/02/24 16:00 09/02/24 16:00 09/02/24 16:00 Temperature 98.2 F Pulse Rate 90 89 Respiratory Rate 22 H Blood Pressure 106/61 Pulse Oximetry 93 Oxygen Delivery Room Air 09/02/24 18:00 09/02/24 20:00 09/02/24 20:00 Temperature 98.2 F Pulse Rate 87 96 93 Respiratory Rate 20 Blood Pressure 125/72 Pulse Oximetry 95 Oxygen Delivery 09/02/24 22:00 09/02/24 22:15 09/02/24 23:20 Temperature 99 F Pulse Rate 95 96 97 Respiratory Rate 20 20 Blood Pressure 137/82 Pulse Oximetry 95 95 Oxygen Delivery Room Air 09/02/24 23:23 09/03/24 00:00 09/03/24 02:00 Temperature Pulse Rate 97 92 91 Respiratory Rate 20 Blood Pressure Pulse Oximetry 95 Oxygen Delivery Room Air 09/03/24 02:33 09/03/24 02:44 09/03/24 03:52 Temperature 97.7 F Pulse Rate 87 70 97 Respiratory Rate 18 18 20 Blood Pressure 147/52 H Pulse Oximetry 92 Oxygen Delivery 09/03/24 04:00 09/03/24 04:03 09/03/24 06:00 Temperature Pulse Rate 96 97 92 Respiratory Rate 20 Blood Pressure Pulse Oximetry 92 Oxygen Delivery Room Air 09/03/24 07:46 09/03/24 07:52 09/03/24 07:54 Temperature 98.6 F Pulse Rate 94 86 Respiratory Rate 16 16 Blood Pressure 143/83 H Pulse Oximetry 96 96 Oxygen Delivery Room Air Exam Const: General: no acute distress Resp: Effort & Inspection: normal respiratory effort GI: Inspection: non-distended GI Palp: No abdominal tenderness and No Guarding due to palpation present (GI) Auscultation: normal bowel sounds Results Labs 09/03/24 03:50 09/03/24 03:50 Labs: Short CBC 09/03/24 Range/Units 03:50 WBC 7.5 (4.5-10.0) K/mm3 Hgb 12.3 L (14.0-18.0) g/dL Hct 38.2 L (42.0-52.0) % Plt Count 181 (150-375) k/mm3 [facility] 09/03/24 03:50 Sodium 138 Potassium 3.8 Chloride 105 Carbon Dioxide 27 BUN 48 H Creatinine 2.16 H Glucose 177 H Calcium 8.7
--- NOTE | 2024-09-03 11:16 | PM.PNCARD ---
Progress Note: A&P Assessment and Plan (1) Atrial fibrillation with rapid ventricular response: Code(s): I48.91 - Unspecified atrial fibrillation Status: Acute (2) Hyperlipidemia: Qualifiers: Hyperlipidemia type: mixed hyperlipidemia Qualified Code(s): E78.2 - Mixed hyperlipidemia Code(s): E78.5 - Hyperlipidemia, unspecified Status: Acute Plan Problem list: New onset nonvalvular AFib with RVR-rates currently in the 90s-most likely secondary to recent pneumonia/underlying lung cancer (in remission) ---normal LVEF, no significant valvular pathology on echo ---chads Vasc score 3 (age 74= 2 points, hypertension= 1 point) Hypertension Hyperlipidemia Lung cancer in remission Plan: Remains in sinus rhythm this morning with heart rates in the 80s Switch to long-acting Cardizem 180 mg p.o. daily He is on therapeutic Lovenox. Stop Lovenox and start Eliquis 5 mg b.i.d. for anticoagulation Continue statin Continue losartan Continue empagliflozin Check and replace electrolytes to keep potassium greater than 4 and magnesium greater than 2 Thank you for allowing us to participate in the care of Mr. Acosta. Cardiology will sign off. Please call us with any questions. Subjective Date/time seen: 09/03/24 11:16 Interval history: Reason for encounter: New onset AFib with RVR Relevant history: 74-year-old male with history of hyperlipidemia, hypertension, history of lung cancer diagnosed in 2022 currently in remission (he currently follows with Oncology), CKD, tobacco use, major depressive disorder, type 2 diabetes, benign prostatic hyperplasia presented to the ER with cough and shortness of breath which have been getting worse lately. He is being treated with ceftriaxone and Zithromax for pneumonia. He was noted to be in AFib with RVR and Cardiology is consulted for further recommendations. Troponin x3 negative, BNP elevated at 4250, EKG showed AFib with RVR with rate of 126, echo showed LVEF 65-70%, no significant valvular pathology, small pericardial effusion, Chest x-ray showed Volume loss in the right hemithorax consistent with patient's history, small right pleural effusion as expected post partial lobectomy, and CTA chest was negative for PE, aortic dissection. Findings consistent with patient's known history of lung cancer within the right hemithorax post partial lobectomy with persistent round atelectasis. Increase in right pleural effusion when compared with April, study. Cardiology is consulted for management of AFib with RVR. Interval history: No chest pain, shortness of breath, dizziness, lightheadedness, palpitations. Review of Systems Review of Systems: Complete review of systems was performed and pertinent positives are noted in the HPI Objective Data Vital Signs Vital Signs: Vital Signs - 24 hr 09/02/24 12:00 09/02/24 12:00 09/02/24 12:00 Temperature 36.4 C L Pulse Rate 85 92 Respiratory Rate 20 Blood Pressure 131/74 Pulse Oximetry 95 Oxygen Delivery Room Air 09/02/24 14:00 09/02/24 14:15 09/02/24 14:35 Temperature Pulse Rate 87 85 90 Respiratory Rate 20 20 Blood Pressure Pulse Oximetry Oxygen Delivery 09/02/24 16:00 09/02/24 16:00 09/02/24 16:00 Temperature 36.8 C Pulse Rate 90 89 Respiratory Rate 22 H Blood Pressure 106/61 Pulse Oximetry 93 Oxygen Delivery Room Air 09/02/24 18:00 09/02/24 20:00 09/02/24 20:00 Temperature 36.8 C Pulse Rate 87 96 93 Respiratory Rate 20 Blood Pressure 125/72 Pulse Oximetry 95 Oxygen Delivery 09/02/24 22:00 09/02/24 22:15 09/02/24 23:20 Temperature 37.2 C Pulse Rate 95 96 97 Respiratory Rate 20 20 Blood Pressure 137/82 Pulse Oximetry 95 95 Oxygen Delivery Room Air 09/02/24 23:23 09/03/24 00:00 09/03/24 02:00 Temperature Pulse Rate 97 92 91 Respiratory Rate 20 Blood Pressure Pulse Oximetry 95 Oxygen Delivery Room Air 09/03/24 02:33 09/03/24 02:44 09/03/24 03:52 Temperature 36.5 C Pulse Rate 87 70 97 Respiratory Rate 18 18 20 Blood Pressure 147/52 H Pulse Oximetry 92 Oxygen Delivery 09/03/24 04:00 09/03/24 04:03 09/03/24 06:00 Temperature Pulse Rate 96 97 92 Respiratory Rate 20 Blood Pressure Pulse Oximetry 92 Oxygen Delivery Room Air 09/03/24 07:46 09/03/24 07:52 09/03/24 07:54 Temperature 37.0 C Pulse Rate 94 86 Respiratory Rate 16 16 Blood Pressure 143/83 H Pulse Oximetry 96 96 Oxygen Delivery Room Air Intake/Output Intake/Output: Intake & Output 08/31/24 09/01/24 09/02/24 09/03/24 23:59 23:59 23:59 23:59 Intake Total 1002.4 2382.1 1280 965 Output Total 550 2240 1070 Balance 1002.4 1832.1 -960 -105 Meds/Results Medications: Active Medications Generic Name Dose Route Start Last Admin Trade Name Freq PRN Reason Stop Dose Admin Atorvastatin Calcium 0 mg 09/01/24 09:25 09/03/24 09:25 Atorvastatin 40 Mg Tablet BY MOUTH 40 mg QAM PRAVIN Administration Dextrose 12.5 gm 09/01/24 10:44 Dextrose 50% 25 Gm/50 Ml Syringe IV PUSH PRN PRN Hypoglycemia Protocol Diltiazem HCl 30 mg 09/01/24 10:00 09/03/24 09:25 Diltiazem Hcl 30 Mg Tablet PO 30 mg Q6H PRAVIN Administration Empagliflozin 25 mg 09/01/24 09:25 09/03/24 09:25 Empagliflozin 25 Mg Tablet BY MOUTH 25 mg DAILY PRAVIN Administration Enoxaparin Sodium 90 mg 08/31/24 22:30 09/01/24 22:33 Enoxaparin 100 Mg/Ml Syringe SUB-Q Not Given Q12HR PRAVIN Escitalopram Oxalate 10 mg 09/01/24 09:25 09/03/24 09:25 Escitalopram Oxalate 10 Mg Tablet BY MOUTH 10 mg QAM PRAVIN Administration Glimepiride 1 mg 09/01/24 09:25 09/03/24 09:26 Glimepiride 1 Mg Tablet BY MOUTH 1 mg QAM PRAVIN Administration Glucagon 1 mg 09/01/24 10:44 Glucagon For Inj 1 Mg Vial IM PRN PRN Hypoglycemia Protocol Glucose 15 gm 09/01/24 10:44 Glucose Oral Gel 15 Gm Of Glucse In 37.5 Gm Tube PO PRN PRN Hypoglycemia Protocol Dextrose 1,000 mls @ 100 mls/hr 09/01/24 10:44 Dextrose 5% 1,000 Ml IVPB PRN PRN Hypoglycemia Protocol Ceftriaxone Sodium 1 gm in 50 mls @ 100 mls/hr 09/01/24 16:00 09/02/24 18:19 Rocephin 1 Gm/Ns 50 Ml IVPB Infused Q24H PRAVIN Infusion Insulin Aspart 2 - 5 units 09/01/24 12:00 09/03/24 08:57 Insulin Aspart (*Bkc) 100 Units/Ml SUB-Q Not Given TIDWM PRAVIN Protocol Insulin Aspart 1 - 2 units 09/01/24 21:00 09/02/24 19:32 Insulin Aspart (*Bkc) 100 Units/Ml SUB-Q Not Given HS PRAVIN Protocol Ipratropium [place] 0.5 mg 09/01/24 02:00 09/03/24 07:51 Ipratropium Br 0.02% Inh Soln 0.5 Mg/2.5 Ml Vial INHALATION 0.5 mg Q6HRT PRAVIN Administration Levalbuterol HCl 1.25 mg 09/01/24 02:00 09/03/24 07:51 Levalbuterol Neb 1.25 Mg/3 Ml INHALATION 1.25 mg Q6HRT PRAVIN Administration Losartan Potassium 25 mg 09/01/24 09:25 09/03/24 09:25 Losartan Potassium 25 Mg Tablet PO 25 mg DAILY PRAVIN Administration Perflutren Lipid Microsphere 0 ml 09/01/24 00:36 Perflutren Lipid Microspheres 1.5 Ml Vial Diluted To 10 Ml Total Volume IV PUSH 09/04/24 00:36 ONCE PRN adequate visualization Protocol Pioglitazone HCl 30 mg 09/01/24 09:25 09/03/24 09:25 Pioglitazone Hcl 30 Mg Tablet BY MOUTH 30 mg QAM PRAVIN Administration Fluticasone/Salmeterol 2 puff 09/01/24 09:25 09/03/24 02:35 Fluticasone/Salmeterol 230-21 Mcg Inhaler 1 Puff INHALATION 2 puff Q12HRT PRAVIN Administration Tamsulosin HCl 0.4 mg 09/01/24 09:25 09/03/24 09:25 Tamsulosin Hcl 0.4 Mg Capsule PO 0.4 mg DAILY PRAVIN Administration Radiology Results: ITS Impressions Chest X-Ray 08/31/24 19:21 IMPRESSION: As above. Chest CTA 08/31/24 22:24 IMPRESSION: No pulmonary embolus. No thoracic aortic dissection. Findings consistent with patient's known history of lung cancer within the right hemithorax post partial lobectomy with persistent round atelectasis. Interval increase in the right-sided pleural effusion, when compared with May 09, 2024 examination. Renal Ultrasound 09/02/24 13:53 IMPRESSION 1. Mild likely age-related bilateral renal atrophy with bilateral renal cysts. No hydronephrosis. 2. Intraluminal hypoechoic region along the floor of the bladder, unclear whether related to focal wall thickening such as in the setting of neoplasm or due to clot or debris. Correlate with urinalysis and could consider cystoscopy for further evaluation as clinically indicated. Abdomen/Pelvis CT 09/02/24 17:21 IMPRESSION: 1. Abdominal aortic aneurysm measuring 4.2 x 4.3 cm. 2. Right basilar atelectasis versus pneumonia. Follow-up to resolution advised. Rounded atelectasis is not excluded. 3. Right pleural effusion which may be loculated. 4. Highly suggestive lower pole left kidney mass. Hyperdense lesion in the right kidney midpole most likely hemorrhagic cyst or a mass. 5. Mass or hematoma in the urinary bladder seen to the right and posteriorly. Enlarged prostate measuring 5.5 x 5.3 cm. The result of the patient was notified to Dr. Michael Mills at 5:50 PM on September 02, 2024. Aorta Ultrasound 09/02/24 19:01 IMPRESSION: 1. ULTRASOUND OF THE distal ABDOMINAL AORTA measuring 4.1 x 3.9 cm... Labs Labs: Laboratory Results - last 24 hr 09/02/24 09/02/24 09/02/24 04:02 04:19 11:25 WBC RBC Hgb Hct MCV MCH MCHC RDW Plt Count MPV Sodium Potassium Chloride Carbon Dioxide Anion Gap BUN Creatinine Estim Creat Clear Calc Estimated GFR Glucose POC Capillary Glucose 197 H Calcium Magnesium Total Protein 6.3 Ur Random Creatinine 41 U Random Total Protein 891 H Protein/Creatinin Ratio 48336 H 09/02/24 09/02/24 09/03/24 16:18 19:32 03:50 WBC 7.5 RBC 3.90 L Hgb 12.3 L Hct 38.2 L MCV 97.9 MCH 31.5 MCHC 32.2 RDW 14.0 Plt Count 181 MPV 11.6 H Sodium 138 Potassium 3.8 Chloride 105 Carbon Dioxide 27 Anion Gap 6 BUN 48 H Creatinine 2.16 H Estim Creat Clear Calc 27 Estimated GFR 30 L Glucose 177 H POC Capillary Glucose 175 H 130 H Calcium 8.7 Magnesium 2.2 Total Protein Ur Random Creatinine U Random Total Protein Protein/Creatinin Ratio 09/03/24 07:31 WBC RBC Hgb Hct MCV MCH MCHC RDW Plt Count MPV Sodium Potassium Chloride Carbon Dioxide Anion Gap BUN Creatinine Estim Creat Clear Calc Estimated GFR Glucose POC Capillary Glucose 150 H Calcium Magnesium Total Protein Ur Random Creatinine U Random Total Protein Protein/Creatinin Ratio
--- NOTE | 2024-09-03 11:48 | P.PNNP_ITS ---
Progress Note: A&P Assessment and Plan (1) Stage 4 chronic kidney disease: Code(s): N18.4 - Chronic kidney disease, stage 4 (severe) Status: Chronic Assessment and Plan: * due to progression of chronic kidney disease * creatinine was running ~ 1.7 - 2.2mg/dl since 2018 (CKD stage 3b) * since April 2024 creatinine now around 2.0 - 2.4mg/dl (causing him to fluctuate between CKD stage 3b and stage 4) * due to diabetes, hypertension, vascular disease, and age-related change along with contributions from kidney stones/BPH * had been seeing Dr. Ruelas several years ago (but lost to follow-up) * PCP referred to see Dr. Ruelas again (appointment in September 2024) * repeat evaluation to date noted * UA with protein and blood (although blood thought to be secondary to anticoagulation) * renal u/s and CT A/P noted: findings c/w CKD along with possible left kidney mass * urine eosinophils negative * urine electrolytes non-prerenal * nephrotic range proteinuria (~ 22 grams) * CPK mildly elevated (but nowt enough to affect kidney function) * serologies pending * follow trend of repeat labs and UOP (2) Shortness of breath: Code(s): R06.02 - Shortness of breath Status: Acute Assessment and Plan: * clinically better * suspect multifactorial: * afib with RVR * bronchitis * ongoing smoking * right pleural effusion * questionable pneumonia * CXR and CT of chest imaging noted * mot hypoxic or requiring supplemental oxygen * on empiric antibiotics * follow culture data * continue supportive therapy (3) Atrial fibrillation with rapid ventricular response: Code(s): I48.91 - Unspecified atrial fibrillation Status: Acute Assessment and Plan: * now in normal sinus rhythm * on oral cardizem for rate control * on anticoagulation * Echo results noted: * left ventricular systolic function is normal, estimated at 65-70% * right ventricular systolic function is normal * small pericardial effusion * trace mitral valve regurgitation * trace tricuspid valve regurgitation * Cardiology recommendations noted (4) Gross hematuria: Code(s): R31.0 - Gross hematuria Status: Acute Assessment and Plan: * presumably secondary to BPH and recent initiaton of anticoagulation * CT imaging suggestive of bladder clot * Urology following * possible cystoscopy next week (5) Left renal mass: Code(s): N28.89 - Other specified disorders of kidney and ureter Status: Acute Assessment and Plan: * as noted by CT of A/P * Urology recommendations noted * possible MRI of abdomen with contrast versus serial imaging every 3 - 4 months to monitor size/growth... (6) Benign hypertension with chronic kidney disease: Code(s): I12.9 - Hypertensive chronic kidney disease with stage 1 through stage 4 chronic kidney disease, or unspecified chronic kidney disease Status: Chronic Assessment and Plan: * reasonable control * follow trend of hemodynamics (7) History of lung cancer: Code(s): Z85.118 - Personal history of other malignant neoplasm of bronchus and lung Status: Chronic Assessment and Plan: * in remission * Hem/Onc recommendations noted (8) Diabetes mellitus with chronic kidney disease: Code(s): E11.22 - Type 2 diabetes mellitus with diabetic chronic kidney disease Status: Chronic Assessment and Plan: * follow accu-cheks * glycemic control per hospitalist Will continue to follow. L Subjective Date/time seen: 09/03/24 11:48 Interval history: Follow-up for chronic kidney disease. No apparent distress noted at the time of my visit; remains in NSR and without any complaints of shortness of breath or chest pain; renal function/creatinine stable if not better by recent testing; seen by Urology earlier today; no other issues/events overnight or earlier this morning. Exam 2 Narrative: General: elderly but WD/WN male in NAD Heart: normal S1 and S2; no rub Lungs: clear anteriorly, decreased at bases Abdomen: soft, nontender, nondistended, positive bowel sounds Extremities: no cyanosis or clubbing; no edema Skin: warm and dry Objective Data Vital Signs Vital Signs: Vital Signs Temp Pulse Resp BP Pulse Ox O2 Del Method 09/03/24 10:00 90 09/03/24 08:02 84 16 09/03/24 08:00 93 09/03/24 07:54 96 Room Air 09/03/24 07:52 86 16 09/03/24 07:46 98.6 F 94 16 143/83 H 96 09/03/24 06:00 92 09/03/24 04:03 97 20 92 Room Air 09/03/24 04:00 96 09/03/24 03:52 97.7 F 97 20 147/52 H 92 09/03/24 02:44 70 18 09/03/24 02:33 87 18 09/03/24 02:00 91 09/03/24 00:00 92 09/02/24 23:23 97 20 95 Room Air 09/02/24 23:20 99 F 97 20 137/82 95 09/02/24 22:15 96 20 95 Room Air 09/02/24 22:00 95 09/02/24 20:00 93 09/02/24 20:00 98.2 F 96 20 125/72 95 09/02/24 18:00 87 09/02/24 16:00 98.2 F 89 22 H 106/61 93 09/02/24 16:00 90 09/02/24 16:00 Room Air Intake/Output Intake/Output: Intake & Output 08/31/24 09/01/24 09/02/24 09/03/24 23:59 23:59 23:59 23:59 Intake Total 1002.4 2382.1 1280 1205 Output Total 550 2240 1070 Balance 1002.4 1832.1 -960 135 Meds/Results Medications: Active Medications Generic Name Dose Route Start Last Admin Trade Name Freq PRN Reason Stop Dose Admin Atorvastatin Calcium 0 mg 09/01/24 09:25 09/03/24 09:25 Atorvastatin 40 Mg Tablet BY MOUTH 40 mg QAM PRAVIN Administration Dextrose 12.5 gm 09/01/24 10:44 Dextrose 50% 25 Gm/50 Ml Syringe IV PUSH PRN PRN Hypoglycemia Protocol Diltiazem HCl 30 mg 09/01/24 10:00 09/03/24 09:25 Diltiazem Hcl 30 Mg Tablet PO 30 mg Q6H PRAVIN Administration Empagliflozin 25 mg 09/01/24 09:25 09/03/24 09:25 Empagliflozin 25 Mg Tablet BY MOUTH 25 mg DAILY PRAVIN Administration Enoxaparin Sodium 90 mg 08/31/24 22:30 09/01/24 22:33 Enoxaparin 100 Mg/Ml Syringe SUB-Q Not Given Q12HR PRAVIN Escitalopram Oxalate 10 mg 09/01/24 09:25 09/03/24 09:25 Escitalopram Oxalate 10 Mg Tablet BY MOUTH 10 mg QAM PRAVIN Administration Glimepiride 1 mg 09/01/24 09:25 09/03/24 09:26 Glimepiride 1 Mg Tablet BY MOUTH 1 mg QAM PRAVIN Administration Glucagon 1 mg 09/01/24 10:44 Glucagon For Inj 1 Mg Vial IM PRN PRN Hypoglycemia Protocol Glucose 15 gm 09/01/24 10:44 Glucose Oral Gel 15 Gm Of Glucse In 37.5 Gm Tube PO PRN PRN Hypoglycemia Protocol Dextrose 1,000 mls @ 100 mls/hr 09/01/24 10:44 Dextrose 5% 1,000 Ml IVPB PRN PRN Hypoglycemia Protocol Ceftriaxone Sodium 1 gm in 50 mls @ 100 mls/hr 09/01/24 16:00 09/02/24 18:19 Rocephin 1 Gm/Ns 50 Ml IVPB Infused Q24H PRAVIN Infusion Insulin Aspart 2 - 5 units 09/01/24 12:00 09/03/24 12:07 Insulin Aspart (*Bkc) 100 Units/Ml SUB-Q Not Given TIDWM PRAVIN Protocol Insulin Aspart 1 - 2 units 09/01/24 21:00 09/02/24 19:32 Insulin Aspart (*Bkc) 100 Units/Ml SUB-Q Not Given HS PRAVIN Protocol Ipratropium [place] 0.5 mg 09/01/24 02:00 09/03/24 13:22 Ipratropium Br 0.02% Inh Soln 0.5 Mg/2.5 Ml Vial INHALATION 0.5 mg Q6HRT PRAVIN Administration Levalbuterol HCl 1.25 mg 09/01/24 02:00 09/03/24 13:22 Levalbuterol Neb 1.25 Mg/3 Ml INHALATION 1.25 mg Q6HRT PRAVIN Administration Losartan Potassium 25 mg 09/01/24 09:25 09/03/24 09:25 Losartan Potassium 25 Mg Tablet PO 25 mg DAILY PRAVIN Administration Perflutren Lipid Microsphere 0 ml 09/01/24 00:36 Perflutren Lipid Microspheres 1.5 Ml Vial Diluted To 10 Ml Total Volume IV PUSH 09/04/24 00:36 ONCE PRN adequate visualization Protocol Pioglitazone HCl 30 mg 09/01/24:09/03/24 09:25 Pioglitazone Hcl 30 Mg Tablet BY MOUTH 30 mg QAM PRAVIN Administration Fluticasone/Salmeterol 2 puff 09/01/24 09:25 09/03/24 13:23 Fluticasone/Salmeterol 230-21 Mcg Inhaler 1 Puff INHALATION 2 puff Q12HRT PRAVIN Administration Tamsulosin HCl 0.4 mg 09/01/24 09:25 09/03/24 09:25 Tamsulosin Hcl 0.4 Mg Capsule PO 0.4 mg DAILY PRAVIN Administration Radiology Results: ITS Impressions Chest X-Ray 08/31/24 19:21 IMPRESSION: As above. Chest CTA 08/31/24 22:24 IMPRESSION: No pulmonary embolus. No thoracic aortic dissection. Findings consistent with patient's known history of lung cancer within the right hemithorax post partial lobectomy with persistent round atelectasis. Interval increase in the right-sided pleural effusion, when compared with May 09, 2024 examination. Renal Ultrasound 09/02/24 13:53 IMPRESSION 1. Mild likely age-related bilateral renal atrophy with bilateral renal cysts. No hydronephrosis. 2. Intraluminal hypoechoic region along the floor of the bladder, unclear whether related to focal wall thickening such as in the setting of neoplasm or due to clot or debris. Correlate with urinalysis and could consider cystoscopy for further evaluation as clinically indicated. Abdomen/Pelvis CT 09/02/24 17:21 IMPRESSION: 1. Abdominal aortic aneurysm measuring 4.2 x 4.3 cm. 2. Right basilar atelectasis versus pneumonia. Follow-up to resolution advised. Rounded atelectasis is not excluded. 3. Right pleural effusion which may be loculated. 4. Highly suggestive lower pole left kidney mass. Hyperdense lesion in the right kidney midpole most likely hemorrhagic cyst or a mass. 5. Mass or hematoma in the urinary bladder seen to the right and posteriorly. Enlarged prostate measuring 5.5 x 5.3 cm. The result of the patient was notified to Dr. Michael Mills at 5:50 PM on September 02, 2024. Aorta Ultrasound 09/02/24 19:01 IMPRESSION: 1. ULTRASOUND OF THE distal ABDOMINAL AORTA measuring 4.1 x 3.9 cm... Labs Labs: Laboratory Tests 09/03/24 03:50 09/03/24 03:50 Calcium 8.7 Magnesium 2.2 Microbiology 09/01/24 15:28 Blood Blood Culture - Preliminary 09/01/24 15:28 Blood Blood Culture - Preliminary
--- NOTE | 2024-09-03 15:23 | PM.IMPN ---
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: without fpc use Chronic kidney disease stage: stage 3 (moderate) Chronic kidney disease stage 3 subtype: stage 3b (GFR 30-44) Qualified Code(s): E11.22 - Type 2 diabetes mellitus with diabetic chronic kidney disease; N18.32 - Chronic kidney disease, stage 3b Code(s): E11.22 - Type 2 diabetes mellitus with diabetic chronic kidney disease Status: Acute (4) Personal history of malignant neoplasm of lung: Code(s): Z85.118 - Personal history of other malignant neoplasm of bronchus and lung Status: Acute (5) Stage 4 chronic kidney disease: Code(s): N18.4 - Chronic kidney disease, stage 4 (severe) Status: Chronic Plan ER-HPI Narrative: Patient is a 74-year-old male who presents to the ER with cough and shortness of breath. He reports his symptoms have gradually been getting worse lately. Patient has a history of lung cancer that was diagnosed in 2022. He reports he currently sees Oncology and has a primary care provider. Patient endorses a history of high blood pressure, diabetes, and continues to smoke cigarettes. He denies any recent fevers, chest pain, abdominal pain, or back pain. patient stats he has lung cancer and had been treated and he is in remission, his CT scan showed No pulmonary embolus. No thoracic aortic dissection. Findings consistent with patient's known history of lung cancer within the right hemithorax post partial lobectomy with persistent round atelectasis. Interval increase in the right-sided pleural effusion, when compared with May 09, 2024 examination.currently patient is on RA and does not appear in any distress. Patient was seen by his oncologist does not suspect patient has recurrence of his lung cancer patient with shortness of breath most likely patient has pneumonia and being treated with ceftriaxone and Zithromax. 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 Ct scan and abdominal US showed patient AAA 4.1x3.9 stable, patient need vascular consult up discharge. Subjective Date/time seen: 09/03/24 15:23 Interval history: patient stats he has lung cancer and had been treated and he is in remission, his CT scan showed No pulmonary embolus. No thoracic aortic dissection. Findings consistent with patient's known history of lung cancer within the right hemithorax post partial lobectomy with persistent round atelectasis. Interval increase in the right-sided pleural effusion, when compared with May 09, 2024 examination.currently patient is on RA and does not appear in any distress. Patient was seen by his oncologist does not suspect patient has recurrence of his lung cancer patient with shortness of breath most likely patient has pneumonia and being treated with ceftriaxone and Zithromax. 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 Ct scan and abdominal US showed patient AAA 4.1x3.9 stable, patient need vascular consult up discharge. Exam Narrative: Patient is comfortable, NAD HEENT: eyes are clear and none icteric LUNGS: Bilateral fair entry with rhonchi HEART: RR S1S2 ABD: BS+, Soft and nontender Lower extremities: no edema SKIN: nonjaundiced Neuro: grossly intact. Objective Data Vital Signs Vital Signs: Vital Signs - 24 hr 09/02/24 16:00 09/02/24 16:00 09/02/24 16:00 Temperature 36.8 C Pulse Rate 90 89 Respiratory Rate 22 H Blood Pressure 106/61 Pulse Oximetry 93 Oxygen Delivery Room Air 09/02/24 18:00 09/02/24 20:00 09/02/24 20:00 Temperature 36.8 C Pulse Rate 87 96 93 Respiratory Rate 20 Blood Pressure 125/72 Pulse Oximetry 95 Oxygen Delivery 09/02/24 22:00 09/02/24 22:15 09/02/24 23:20 Temperature 37.2 C Pulse Rate 95 96 97 Respiratory Rate 20 20 Blood Pressure 137/82 Pulse Oximetry 95 95 Oxygen Delivery Room Air 09/02/24 23:23 09/03/24 00:00 09/03/24 02:00 Temperature Pulse Rate 97 92 91 Respiratory Rate 20 Blood Pressure Pulse Oximetry 95 Oxygen Delivery Room Air 09/03/24 02:33 09/03/24 02:44 09/03/24 03:52 Temperature 36.5 C Pulse Rate 87 70 97 Respiratory Rate 18 18 20 Blood Pressure 147/52 H Pulse Oximetry 92 Oxygen Delivery 09/03/24 04:00 09/03/24 04:03 09/03/24 06:00 Temperature Pulse Rate 96 97 92 Respiratory Rate 20 Blood Pressure Pulse Oximetry 92 Oxygen Delivery Room Air 09/03/24 07:46 09/03/24 07:52 09/03/24 07:54 Temperature 37.0 C Pulse Rate 94 86 Respiratory Rate 16 16 Blood Pressure 143/83 H Pulse Oximetry 96 96 Oxygen Delivery Room Air 09/03/24 08:00 09/03/24 08:02 09/03/24 10:00 Temperature Pulse Rate 93 84 90 Respiratory Rate 16 Blood Pressure Pulse Oximetry Oxygen Delivery 09/03/24 12:00 09/03/24 12:00 09/03/24 13:24 Temperature 37.1 C Pulse Rate 92 91 85 Respiratory Rate 18 16 Blood Pressure 125/85 Pulse Oximetry 97 Oxygen Delivery 09/03/24 13:33 09/03/24 14:00 09/03/24 15:03 Temperature 37.2 C Pulse Rate 81 99 100 Respiratory Rate 16 18 Blood Pressure 142/67 H Pulse Oximetry 100 Oxygen Delivery Intake/Output Intake/Output: Intake & Output 05/12/1809/01/24 09/02/24 09/03/24 23:59 23:59 23:59 23:59 Intake Total 1002.4 2382.1 1280 1205 Output Total 550 2240 1070 Balance 1002.4 1832.1 -280 135 Meds/Results Medications: Active Medications Generic Name Dose Route Start Last Admin Trade Name Freq PRN Reason Stop Dose Admin Atorvastatin Calcium 0 mg 09/01/24 09:25 09/03/24 09:25 Atorvastatin 40 Mg Tablet BY MOUTH 40 mg QAM PRAVIN Administration Dextrose 12.5 gm 09/01/24 10:44 Dextrose 50% 25 Gm/50 Ml Syringe IV PUSH PRN PRN Hypoglycemia Protocol Diltiazem HCl 30 mg 09/01/24 10:00 09/03/24 09:25 Diltiazem Hcl 30 Mg Tablet PO 30 mg Q6H PRAVIN Administration Doxycycline Hyclate 100 mg 09/03/24 21:00 Doxycycline Hyclate 100 Mg Tablet PO Q12HR PRAVIN Empagliflozin 25 mg 09/01/24 09:25 09/03/24 09:25 Empagliflozin 25 Mg Tablet BY MOUTH 25 mg DAILY PRAVIN Administration Enoxaparin Sodium 90 mg 08/31/24 22:30 09/01/24 22:33 Enoxaparin 100 Mg/Ml Syringe SUB-Q Not Given Q12HR PRAVIN Escitalopram Oxalate 10 mg 09/01/24 09:25 09/03/24 09:25 Escitalopram Oxalate 10 Mg Tablet BY MOUTH 10 mg QAM PRAVIN Administration Glimepiride 1 mg 09/01/24 09:25 09/03/24 09:26 Glimepiride 1 Mg Tablet BY MOUTH 1 mg QAM PRAVIN Administration Glucagon 1 mg 09/01/24 10:44 Glucagon For Inj 1 Mg Vial IM PRN PRN Hypoglycemia Protocol Glucose 15 gm 09/01/24 10:44 Glucose Oral Gel 15 Gm Of Glucse In 37.5 Gm Tube PO PRN PRN Hypoglycemia Protocol Dextrose 1,000 mls @ 100 mls/hr 09/01/24 10:44 Dextrose 5% 1,000 Ml IVPB PRN PRN Hypoglycemia Protocol Ceftriaxone Sodium 1 gm in 50 mls @ 100 mls/hr 09/01/24 16:00 09/02/24 18:19 Rocephin 1 Gm/Ns 50 Ml IVPB Infused Q24H PRAVIN Infusion Insulin Aspart 2 - 5 units 09/01/24 12:00 09/03/24 12:07 Insulin Aspart (*Bkc) 100 Units/Ml SUB-Q Not Given TIDWM PRAVIN Protocol Insulin Aspart 1 - 2 units 09/01/24 21:00 09/02/24 19:32 Insulin Aspart (*Bkc) 100 Units/Ml SUB-Q Not Given HS PRAVIN Protocol Ipratropium [place] 0.5 mg 09/01/24 02:00 09/03/24 13:22 Ipratropium Br 0.02% Inh Soln 0.5 Mg/2.5 Ml Vial INHALATION 0.5 mg Q6HRT PRAVIN Administration Levalbuterol HCl 1.25 mg 09/01/24 02:00 09/03/24 13:22 Levalbuterol Neb 1.25 Mg/3 Ml INHALATION 1.25 mg Q6HRT PRAVIN Administration Losartan Potassium 25 mg 09/01/24 09:25 09/03/24 09:25 Losartan Potassium 25 Mg Tablet PO 25 mg DAILY PRAVIN Administration Perflutren Lipid Microsphere 0 ml 09/01/24 00:36 Perflutren Lipid Microspheres 1.5 Ml Vial Diluted To 10 Ml Total Volume IV PUSH 09/04/24 00:36 ONCE PRN adequate visualization Protocol Pioglitazone HCl 30 mg 09/01/24 09:25 09/03/24 09:25 Pioglitazone Hcl 30 Mg Tablet BY MOUTH 30 mg QAM PRAVIN Administration Fluticasone/Salmeterol 2 puff 09/01/24 09:25 09/03/24 13:23 Fluticasone/Salmeterol 230-21 Mcg Inhaler 1 Puff INHALATION 2 puff Q12HRT PRAVIN Administration Tamsulosin HCl 0.4 mg 09/01/24 09:25 09/03/24 09:25 Tamsulosin Hcl 0.4 Mg Capsule PO 0.4 mg DAILY PRAVIN Administration Radiology Results: ITS Impressions Chest X-Ray 08/31/24 19:21 IMPRESSION: As above. Chest CTA 08/31/24 22:24 IMPRESSION: No pulmonary embolus. No thoracic aortic dissection. Findings consistent with patient's known history of lung cancer within the right hemithorax post partial lobectomy with persistent round atelectasis. Interval increase in the right-sided pleural effusion, when compared with May 09, 2024 examination. Renal Ultrasound 09/02/24 13:53 IMPRESSION 1. Mild likely age-related bilateral renal atrophy with bilateral renal cysts. No hydronephrosis. 2. Intraluminal hypoechoic region along the floor of the bladder, unclear whether related to focal wall thickening such as in the setting of neoplasm or due to clot or debris. Correlate with urinalysis and could consider cystoscopy for further evaluation as clinically indicated. Abdomen/Pelvis CT 09/02/24 17:21 IMPRESSION: 1. Abdominal aortic aneurysm measuring 4.2 x 4.3 cm. 2. Right basilar atelectasis versus pneumonia. Follow-up to resolution advised. Rounded atelectasis is not excluded. 3. Right pleural effusion which may be loculated. 4. Highly suggestive lower pole left kidney mass. Hyperdense lesion in the right kidney midpole most likely hemorrhagic cyst or a mass. 5. Mass or hematoma in the urinary bladder seen to the right and posteriorly. Enlarged prostate measuring 5.5 x 5.3 cm. The result of the patient was notified to Dr. Michael Mills at 5:50 PM on September 02, 2024. Aorta Ultrasound 09/02/24 19:01 IMPRESSION: 1. ULTRASOUND OF THE distal ABDOMINAL AORTA measuring 4.1 x 3.9 cm... Labs Labs: Laboratory Results - last 24 hr 09/02/24 09/02/24 09/02/24 04:02 04:19 16:18 WBC RBC Hgb Hct MCV MCH MCHC RDW Plt Count MPV Sodium Potassium Chloride Carbon Dioxide Anion Gap BUN Creatinine Estim Creat Clear Calc Estimated GFR Glucose POC Capillary Glucose 175 H Calcium Magnesium Total Protein 6.3 Ur Random Creatinine 41 U Random Total Protein 891 H Protein/Creatinin Ratio 95308 H 09/02/24 09/03/24 09/03/24 19:32 03:50 07:31 WBC 7.5 RBC 3.90 L Hgb 12.3 L Hct 38.2 L MCV 97.9 MCH 31.5 MCHC 32.2 RDW 14.0 Plt Count 181 MPV 11.6 H Sodium 138 Potassium 3.8 Chloride 105 Carbon Dioxide 27 Anion Gap 6 BUN 48 H Creatinine 2.16 H Estim Creat Clear Calc 27 Estimated GFR 30 L Glucose 177 H POC Capillary Glucose 130 H 150 H Calcium 8.7 Magnesium 2.2 Total Protein Ur Random Creatinine U Random Total Protein Protein/Creatinin Ratio Quality VTE Prophylaxis VTE prophylaxis: pharmacologic ordered
[2024-09-03 16:20] LABS: Glucose Point of Care 219 mg/dl (65-105)
[2024-09-03] MEDS: INSULIN ASPART (*BKC) 100 UNITS/ML SUB-Q ×2 (17:01→20:33)
[2024-09-03] MEDS: DOXYCYCLINE HYCLATE 100 MG TABLET PO (20:33)
[2024-09-03 21:40] LABS: Glucose Point of Care 217 mg/dl (65-105)
[2024-09-04] VITALS (31 sets, daily range): BP systolic 131–170; BP diastolic 72–97; PULSE 81–104; RESP 15–24; TEMP 36.4–36.9; O2SAT 93–100
[2024-09-04] MEDS: IPRATROPIUM BR 0.02% INH SOLN 0.5 MG/2.5 ML VIAL INHALATION ×4 (02:03→20:05)
[2024-09-04] MEDS: LEVALBUTEROL NEB 1.25 MG/3 ML INHALATION ×4 (02:03→20:05)
[2024-09-04] MEDS: dilTIAZem HCL 30 MG TABLET PO ×4 (04:00→20:21)
[2024-09-04 04:30] LABS: Hemoglobin 12.4 g/dL (14.0-18.0); Mean Corpuscular HGB Conc 32.6 g/dl (32-36); Mean Corpuscular Hemoglobin 31.6 pg (26-34); Mean Corpuscular Volume 96.7 fl (80-100); Mean Platelet Volume 11.2 fl (7.4-10.4); Platelet Count Result 185 k/mm3 (150-375); Red Blood Count 3.93 M/mm3 (4.6-6.20); Red Cell Distribution Width 13.9 % (11.5-14.5)
[2024-09-04 04:40] LABS: Anion Gap 5 mmol/L (4-12); Blood Urea Nitrogen 39 mg/dL (9-20); Calcium 8.6 mg/dL (8.4-10.2); Carbon Dioxide 29 mmol/L (22-30); Chloride 106 mmol/L (98-107); Estimated CRCL calculation 31 ml/min; Estimated Glomerular Filt Rate 35; Glucose 189 mg/dL (65-110); Magnesium 2.2 mg/dL (1.6-2.3); Potassium 3.5 mmol/L (3.4-5.0); Sodium 140 mmol/L (137-145)
--- NOTE | 2024-09-04 06:12 | WPDUROPN2 ---
Progress Note: A&P Assessment and Plan (1) Bilateral kidney masses: Code(s): N28.89 - Other specified disorders of kidney and ureter Status: Acute (2) Gross hematuria: Code(s): R31.0 - Gross hematuria Status: Acute Assessment and Plan: Will plan cystoscopy with bilateral retrograde pyelography and possible clot evacuation today Given fact insurance administrative assistant left him on Eliquis we will be limited and other procedures with the exception of clot evacuation Subjective Subjective Date/Time Seen: 09/04/24 06:12 Interval history: Comfortable, urine clearing - much less bloody Review of Systems Review of Systems: All systems reviewed & are unremarkable except as noted in HPI and below Exam Const: General: no acute distress Resp: Effort & Inspection: normal respiratory effort GI: Inspection: non-distended GI Palp: No abdominal tenderness and No Guarding due to palpation present (GI) Auscultation: normal bowel sounds Objective Data Vital Signs Vital Signs: Vital Signs - 24 hr 09/03/24 07:46 09/03/24 07:52 09/03/24 07:54 Temperature 98.6 F Pulse Rate 94 86 Respiratory Rate 16 16 Blood Pressure 143/83 H Pulse Oximetry 96 96 Oxygen Delivery Room Air 09/03/24 08:00 09/03/24 08:02 09/03/24 10:00 Temperature Pulse Rate 93 84 90 Respiratory Rate 16 Blood Pressure Pulse Oximetry Oxygen Delivery 09/03/24 12:00 09/03/24 12:00 09/03/24 13:24 Temperature 98.7 F Pulse Rate 92 91 85 Respiratory Rate 18 16 Blood Pressure 125/85 Pulse Oximetry 97 Oxygen Delivery 09/03/24 13:33 09/03/24 14:00 09/03/24 15:03 Temperature 98.9 F Pulse Rate 81 99 100 Respiratory Rate 16 18 Blood Pressure 142/67 H Pulse Oximetry 100 Oxygen Delivery 09/03/24 15:38 09/03/24 16:00 09/03/24 18:00 Temperature 97.9 F Pulse Rate 88 90 90 Respiratory Rate 16 Blood Pressure 145/75 H Pulse Oximetry 96 Oxygen Delivery 09/03/24 19:55 09/03/24 19:55 09/03/24 20:00 Temperature Pulse Rate 86 94 86 Respiratory Rate 16 20 Blood Pressure Pulse Oximetry 96 Oxygen Delivery Room Air 09/03/24 20:00 09/03/24 20:09 09/03/24 20:14 Temperature 97.9 F Pulse Rate 92 94 Respiratory Rate 18 20 Blood Pressure 163/68 H Pulse Oximetry 95 96 Oxygen Delivery Room Air 09/03/24 21:52 09/04/24 00:00 09/04/24 00:00 Temperature Pulse Rate 89 87 94 Respiratory Rate 18 20 Blood Pressure 150/80 H Pulse Oximetry 97 97 Oxygen Delivery Room Air 09/04/24 00:00 09/04/24 02:00 09/04/24 02:03 Temperature Pulse Rate 94 86 94 Respiratory Rate 20 Blood Pressure Pulse Oximetry Oxygen Delivery 09/04/24 02:13 09/04/24 03:18 09/04/24 03:19 Temperature Pulse Rate 94 94 92 Respiratory Rate 20 20 Blood Pressure Pulse Oximetry 97 Oxygen Delivery Room Air 09/04/24 04:00 Temperature 98.3 F Pulse Rate 92 Respiratory Rate 15 Blood Pressure 170/90 H Pulse Oximetry 97 Oxygen Delivery Intake/Output Intake/Output: Intake & Output 09/01/24 09/02/24 09/03/24 09/04/24 23:59 23:59 23:59 23:59 Intake Total 2382.1 1280 2545 300 Output Total 550 2240 1070 250 Balance 1832.1 -960 1475 50 Meds/Results Medications: Active Medications Generic Name Dose Route Start Last Admin Trade Name Freq PRN Reason Stop Dose Admin Atorvastatin Calcium 0 mg 09/01/24 09:25 09/03/24 09:25 Atorvastatin 40 Mg Tablet BY MOUTH 40 mg QAM PRAVIN Administration Dextrose 12.5 gm 09/01/24 10:44 Dextrose 50% 25 Gm/50 Ml Syringe IV PUSH PRN PRN Hypoglycemia Protocol Diltiazem HCl 30 mg 09/01/24 10:00 09/04/24 04:00 Diltiazem Hcl 30 Mg Tablet PO 30 mg Q6H PRAVIN Administration Doxycycline Hyclate 100 mg 09/03/24 21:00 09/03/24 20:33 Doxycycline Hyclate 100 Mg Tablet PO 100 mg Q12HR PRAVIN Administration Empagliflozin 25 mg 09/01/24 09:25 09/03/24 09:25 Empagliflozin 25 Mg Tablet BY MOUTH 25 mg DAILY PRAVIN Administration Enoxaparin Sodium 90 mg 08/31/24 22:30 09/01/24 22:33 Enoxaparin 100 Mg/Ml Syringe SUB-Q Not Given Q12HR PRAVIN Escitalopram Oxalate 10 mg 09/01/24 09:25 09/03/24 09:25 Escitalopram Oxalate 10 Mg Tablet BY MOUTH 10 mg QAM PRAVIN Administration Glimepiride 1 mg 09/01/24 09:25 09/03/24 09:26 Glimepiride 1 Mg Tablet BY MOUTH 1 mg QAM PRAVIN Administration Glucagon 1 mg 09/01/24 10:44 Glucagon For Inj 1 Mg Vial IM PRN PRN Hypoglycemia Protocol Glucose 15 gm 09/01/24 10:44 Glucose Oral Gel 15 Gm Of Glucse In 37.5 Gm Tube PO PRN PRN Hypoglycemia Protocol Dextrose 1,000 mls @ 100 mls/hr 09/01/24 10:44 Dextrose 5% 1,000 Ml IVPB PRN PRN Hypoglycemia Protocol Ceftriaxone Sodium 1 gm in 50 mls @ 100 mls/hr 09/01/24 16:00 09/03/24 17:01 Rocephin 1 Gm/Ns 50 Ml IVPB 100 mls/hr Q24H PRAVIN Administration Insulin Aspart 2 - 5 units 09/01/24 12:00 09/03/24 17:01 Insulin Aspart (*Bkc) 100 Units/Ml SUB-Q 2 units TIDWM PRAVIN Administration Protocol Insulin Aspart 1 - 2 units 09/01/24 21:00 09/03/24 20:33 Insulin Aspart (*Bkc) 100 Units/Ml SUB-Q 1 units HS PRAVIN Administration Protocol Ipratropium [place] 0.5 mg 09/01/24 02:00 09/04/24 02:03 Ipratropium Br 0.02% Inh Soln 0.5 Mg/2.5 Ml Vial INHALATION 0.5 mg Q6HRT PRAVIN Administration Levalbuterol HCl 1.25 mg 09/01/24 02:00 09/04/24 02:03 Levalbuterol Neb 1.25 Mg/3 Ml INHALATION 1.25 mg Q6HRT PRAVIN Administration Losartan Potassium 25 mg 09/01/24 09:25 09/03/24 09:25 Losartan Potassium 25 Mg Tablet PO 25 mg DAILY PRAVIN Administration Pioglitazone HCl 30 mg 09/01/24 09:25 09/03/24 09:25 Pioglitazone Hcl 30 Mg Tablet BY MOUTH 30 mg QAM PRAVIN Administration Fluticasone/Salmeterol 2 puff 09/01/24 09:25 09/03/24 19:55 Fluticasone/Salmeterol 230-21 Mcg Inhaler 1 Puff INHALATION 2 puff Q12HRT PRAVIN Administration Tamsulosin HCl 0.4 mg 09/01/24 09:25 09/03/24 09:25 Tamsulosin Hcl 0.4 Mg Capsule PO 0.4 mg DAILY PRAVIN Administration Radiology Results: ITS Impressions Chest X-Ray 08/31/24 19:21 IMPRESSION: As above. Chest CTA 08/31/24 22:24 IMPRESSION: No pulmonary embolus. No thoracic aortic dissection. Findings consistent with patient's known history of lung cancer within the right hemithorax post partial lobectomy with persistent round atelectasis. Interval increase in the right-sided pleural effusion, when compared with May 09, 2024 examination. Renal Ultrasound 09/02/24 13:53 IMPRESSION 1. Mild likely age-related bilateral renal atrophy with bilateral renal cysts. No hydronephrosis. 2. Intraluminal hypoechoic region along the floor of the bladder, unclear whether related to focal wall thickening such as in the setting of neoplasm or due to clot or debris. Correlate with urinalysis and could consider cystoscopy for further evaluation as clinically indicated. Abdomen/Pelvis CT 09/02/24 17:21 IMPRESSION: 1. Abdominal aortic aneurysm measuring 4.2 x 4.3 cm. 2. Right basilar atelectasis versus pneumonia. Follow-up to resolution advised. Rounded atelectasis is not excluded. 3. Right pleural effusion which may be loculated. 4. Highly suggestive lower pole left kidney mass. Hyperdense lesion in the right kidney midpole most likely hemorrhagic cyst or a mass. 5. Mass or hematoma in the urinary bladder seen to the right and posteriorly. Enlarged prostate measuring 5.5 x 5.3 cm. The result of the patient was notified to Dr. Michael Mills at 5:50 PM on September 02, 2024. Aorta Ultrasound 09/02/24 19:01 IMPRESSION: 1. ULTRASOUND OF THE distal ABDOMINAL AORTA measuring 4.1 x 3.9 cm... Labs Labs: Laboratory Results - last 24 hr 09/02/24 09/02/24 09/03/24 04:02 04:19 07:31 WBC RBC Hgb Hct MCV MCH MCHC RDW Plt Count MPV Sodium Potassium Chloride Carbon Dioxide Anion Gap BUN Creatinine Estim Creat Clear Calc Estimated GFR Glucose POC Capillary Glucose 150 H Calcium Magnesium Total Protein 6.3 Ur Random Creatinine 41 U Random Total Protein 891 H Protein/Creatinin Ratio 90652 H 09/03/24 09/03/24 09/04/24 16:17 20:32 04:03 WBC 6.0 RBC 3.93 L Hgb 12.4 L Hct 38.0 L MCV 96.7 MCH 31.6 MCHC 32.6 RDW 13.9 Plt Count 185 MPV 11.2 H Sodium 140 Potassium 3.5 Chloride 106 Carbon Dioxide 29 Anion Gap 5 BUN 39 H Creatinine 1.88 H Estim Creat Clear Calc 31 Estimated GFR 35 L Glucose 189 H POC Capillary Glucose 219 H 217 H Calcium 8.6 Magnesium 2.2 Total Protein Ur Random Creatinine U Random Total Protein Protein/Creatinin Ratio
[2024-09-04 07:18] LABS: Glucose Point of Care 134 mg/dl (65-105)
[2024-09-04] MEDS: FLUTICASONE/SALMETEROL 230-21 MCG INHALER 1 PUFF 2 PUFF INHALATION (07:57)
[2024-09-04] MEDS: GLIMEPIRIDE 1 MG TABLET BY MOUTH (10:12)
[2024-09-04] MEDS: ESCITALOPRAM OXALATE 10 MG TABLET BY MOUTH (10:12)
[2024-09-04] MEDS: EMPAGLIFLOZIN 25 MG TABLET BY MOUTH (10:12)
[2024-09-04] MEDS: LOSARTAN POTASSIUM 25 MG TABLET PO (10:12)
[2024-09-04] MEDS: PIOGLITAZONE HCL 30 MG TABLET BY MOUTH (10:12)
[2024-09-04] MEDS: DOXYCYCLINE HYCLATE 100 MG TABLET PO (10:12)
[2024-09-04] MEDS: ATORVASTATIN 40 MG TABLET BY MOUTH (10:12)
[2024-09-04] MEDS: TAMSULOSIN HCL 0.4 MG CAPSULE PO (10:19)
--- NOTE | 2024-09-04 10:26 | P.PNNP_ITS ---
Progress Note: A&P Assessment and Plan (1) Stage 4 chronic kidney disease: Code(s): N18.4 - Chronic kidney disease, stage 4 (severe) Status: Chronic Assessment and Plan: * creatinine was running ~ 1.7 - 2.2mg/dl since 2018 (CKD stage 3b) * since April 2024 creatinine now around 2.0 - 2.4mg/dl (causing him to fluctuate between CKD stage 3b and stage 4) * doing better at this time... * due to diabetes, hypertension, vascular disease, and age-related change along with contributions from kidney stones/BPH * had been seeing Dr. Ruelas several years ago (but lost to follow-up) * PCP referred him to see Dr. Ruelas again (appointment in September 2024) * repeat evaluation to date noted * UA with protein and blood (although blood thought to be secondary to anticoagulation) * renal u/s and CT A/P noted: findings c/w CKD along with possible left kidney mass * urine eosinophils negative * urine electrolytes non-prerenal * nephrotic range proteinuria (~ 22 grams) * CPK mildly elevated (but not enough to affect kidney function) * serologies pending * follow trend of repeat labs and UOP (2) Shortness of breath: Code(s): R06.02 - Shortness of breath Status: Acute Assessment and Plan: * clinically better * suspect multifactorial: * afib with RVR * bronchitis * ongoing smoking * right pleural effusion * questionable pneumonia * CXR and CT of chest imaging noted * mot hypoxic or requiring supplemental oxygen * on empiric antibiotics * follow culture data * continue supportive therapy (3) Atrial fibrillation with rapid ventricular response: Code(s): I48.91 - Unspecified atrial fibrillation Status: Acute Assessment and Plan: * now in normal sinus rhythm * on oral cardizem for rate control * on anticoagulation * Echo results noted: * left ventricular systolic function is normal, estimated at 65-70% * right ventricular systolic function is normal * small pericardial effusion * trace mitral valve regurgitation * trace tricuspid valve regurgitation * Cardiology recommendations noted (4) Gross hematuria: Code(s): R31.0 - Gross hematuria Status: Acute Assessment and Plan: * presumably secondary to BPH and recent initiaton of anticoagulation * CT imaging suggestive of bladder clot * Urology following * tentaively scheduled for cystoscopy today (5) Left renal mass: Code(s): N28.89 - Other specified disorders of kidney and ureter Status: Acute Assessment and Plan: * as noted by CT of A/P * Urology recommendations noted * possible MRI of abdomen with contrast versus serial imaging every 3 - 4 months to monitor size/growth... (6) Benign hypertension with chronic kidney disease: Code(s): I12.9 - Hypertensive chronic kidney disease with stage 1 through stage 4 chronic kidney disease, or unspecified chronic kidney disease Status: Chronic Assessment and Plan: * reasonable control * follow trend of hemodynamics (7) History of lung cancer: Code(s): Z85.118 - Personal history of other malignant neoplasm of bronchus and lung Status: Chronic Assessment and Plan: * in remission * Hem/Onc recommendations noted (8) Diabetes mellitus with chronic kidney disease: Code(s): E11.22 - Type 2 diabetes mellitus with diabetic chronic kidney disease Status: Chronic Assessment and Plan: * follow accu-cheks * glycemic control per hospitalist Will continue to follow. L Subjective Date/time seen: 09/04/24 10:26 Interval history: Follow-up for chronic kidney disease. Appears to be doing reasonably well at the time of my visit; tentatively on schedule today for cystoscopy; renal function/creatinine stable if not better in the last few days; no apparent distress noted at the time of my visit; no other events overnight or earlier this morning. Exam 2 Narrative: General: elderly but WD/WN male in NAD Heart: normal S1 and S2; no rub Lungs: clear anteriorly, decreased at bases Abdomen: soft, nontender, nondistended, positive bowel sounds Extremities: no cyanosis or clubbing; no edema Skin: warm and intact Objective Data Vital Signs Vital Signs: Vital Signs Temp Pulse Resp BP Pulse Ox O2 Del Method O2 Flow Rate 09/04/24 08:13 89 20 09/04/24 07:57 93 20 09/04/24 07:57 99 Room Air 09/04/24 07:57 97.8 F 90 22 H 144/96 H 94 09/04/24 06:14 87 09/04/24 04:00 98.3 F 92 15 170/90 H 97 09/04/24 03:19 92 09/04/24 03:18 94 20 97 Room Air 09/04/24 02:13 94 20 09/04/24 02:03 94 20 09/04/24 02:00 86 09/04/24 00:00 94 09/04/24 00:00 94 20 97 Room Air 09/04/24 00:00 87 18 150/80 H 97 09/03/24 21:52 89 09/03/24 20:14 96 Room Air 09/03/24 20:09 94 20 09/03/24 20:00 97.9 F 92 18 163/68 H 95 09/03/24 20:00 86 09/03/24 19:55 94 20 09/03/24 19:55 86 16 96 Room Air 09/03/24 18:00 90 09/03/24 16:00 90 09/03/24 15:38 97.9 F 88 16 145/75 H 96 09/03/24 15:03 98.9 F 100 18 142/67 H 100 09/03/24 14:00 99 Intake/Output Intake/Output: Intake & Output 09/01/24 09/02/24 09/03/24 09/04/24 23:59 23:59 23:59 23:59 Intake Total 2382.1 1280 2545 300 Output Total 550 2240 1070 4201 Balance 1832.1 -960 1475 3901 Meds/Results Medications: Active Medications Generic Name Dose Route Start Last Admin Trade Name Freq PRN Reason Stop Dose Admin Atorvastatin Calcium 0 mg 09/01/24 09:25 09/04/24 10:12 Atorvastatin 40 Mg Tablet BY MOUTH 40 mg QAM PRAVIN Administration Dextrose 12.5 gm 09/01/24 10:44 Dextrose 50% 25 Gm/50 Ml Syringe IV PUSH PRN PRN Hypoglycemia Protocol Diltiazem HCl 30 mg 09/01/24 10:00 09/04/24 10:19 Diltiazem Hcl 30 Mg Tablet PO 30 mg Q6H PRAVIN Administration Empagliflozin 25 mg 09/01/24 09:25 09/04/24 10:12 Empagliflozin 25 Mg Tablet BY MOUTH 25 mg DAILY PRAVIN Administration Enoxaparin Sodium 90 mg 08/31/24 22:30 09/01/24 22:33 Enoxaparin 100 Mg/Ml Syringe SUB-Q Not Given Q12HR PRAVIN Escitalopram Oxalate 10 mg 09/01/24 09:25 09/04/24 10:12 Escitalopram Oxalate 10 Mg Tablet BY MOUTH 10 mg QAM PRAVIN Administration Fentanyl Citrate 25 mcg 09/04/24 11:42 09/04/24 13:28 Fentanyl Citrate Inj (*Crx) 100 Mcg/2 Ml Vial IV PUSH 25 mcg Q2M PRN Administration Pain Glimepiride 1 mg 09/01/24 09:25 09/04/24 10:12 Glimepiride 1 Mg Tablet BY MOUTH 1 mg QAM PRAVIN Administration Glucagon 1 mg 09/01/24 10:44 Glucagon For Inj 1 Mg Vial IM PRN PRN Hypoglycemia Protocol Glucose 15 gm 09/01/24 10:44 Glucose Oral Gel 15 Gm Of Glucse In 37.5 Gm Tube PO PRN PRN Hypoglycemia Protocol Dextrose 1,000 mls @ 100 mls/hr 09/01/24 10:44 Dextrose 5% 1,000 Ml IVPB PRN PRN Hypoglycemia Protocol Ceftriaxone Sodium 1 gm in 50 mls @ 100 mls/hr 09/01/24 16:00 09/03/24 17:01 Rocephin 1 Gm/Ns 50 Ml IVPB 100 mls/hr Q24H PRAVIN Administration Lactated Ringer's 1,000 mls @ 30 mls/hr 09/04/24 11:45 09/04/24 12:35 Lr - Lactated Ringers Iv IV CONT 30 mls/hr .Q24H PRAVIN Infusion Lactated Ringer's 1,000 mls @ 30 mls/hr 09/04/24 11:45 Lr - Lactated Ringers Iv IV CONT .Q24H PRAVIN Insulin Aspart 2 - 5 units 09/01/24 12:00 09/04/24 10:13 Insulin Aspart (*Bkc) 100 Units/Ml SUB-Q Not Given TIDWM [facility] Protocol Insulin Aspart 1 - 2 units 09/01/24 21:00 09/03/24 20:33 Insulin Aspart (*Bkc) 100 Units/Ml SUB-Q 1 units HS PRAVIN Administration Protocol Ipratropium [place] 0.5 mg 09/01/24 02:00 09/04/24 07:57 Ipratropium Br 0.02% Inh Soln 0.5 Mg/2.5 Ml Vial INHALATION 0.5 mg Q6HRT PRAVIN Administration Levalbuterol HCl 1.25 mg 09/01/24 02:00 09/04/24 07:57 Levalbuterol Neb 1.25 Mg/3 Ml INHALATION 1.25 mg Q6HRT PRAVIN Administration Losartan Potassium 25 mg 09/01/24 09:25 09/04/24 10:12 Losartan Potassium 25 Mg Tablet PO 25 mg DAILY PRAVIN Administration Ondansetron HCl 4 mg 09/04/24 11:42 Ondansetron Inj 4 Mg/2 Ml Vial IV PUSH ONCE PRN Nausea Pioglitazone HCl 30 mg 09/01/24 09:25 09/04/24 10:12 Pioglitazone Hcl 30 Mg Tablet BY MOUTH 30 mg QAM PRAVIN Administration Fluticasone/Salmeterol 2 puff 09/01/24 09:09/03/24 19:55 Fluticasone/Salmeterol 230-21 Mcg Inhaler 1 Puff INHALATION 2 puff Q12HRT PRAVIN Administration Tamsulosin HCl 0.4 mg 09/01/24 09:09/04/24 10:19 Tamsulosin Hcl 0.4 Mg Capsule PO 0.4 mg DAILY PRAVIN Administration Radiology Results: ITS Impressions Chest X-Ray 08/31/24 19:21 IMPRESSION: As above. Chest CTA 08/31/24 22:24 IMPRESSION: No pulmonary embolus. No thoracic aortic dissection. Findings consistent with patient's known history of lung cancer within the right hemithorax post partial lobectomy with persistent round atelectasis. Interval increase in the right-sided pleural effusion, when compared with May 09, 2024 examination. Renal Ultrasound 09/02/24 13:53 IMPRESSION 1. Mild likely age-related bilateral renal atrophy with bilateral renal cysts. No hydronephrosis. 2. Intraluminal hypoechoic region along the floor of the bladder, unclear whether related to focal wall thickening such as in the setting of neoplasm or due to clot or debris. Correlate with urinalysis and could consider cystoscopy for further evaluation as clinically indicated. Abdomen/Pelvis CT 09/02/24 17:21 IMPRESSION: 1. Abdominal aortic aneurysm measuring 4.2 x 4.3 cm. 2. Right basilar atelectasis versus pneumonia. Follow-up to resolution advised. Rounded atelectasis is not excluded. 3. Right pleural effusion which may be loculated. 4. Highly suggestive lower pole left kidney mass. Hyperdense lesion in the right kidney midpole most likely hemorrhagic cyst or a mass. 5. Mass or hematoma in the urinary bladder seen to the right and posteriorly. Enlarged prostate measuring 5.5 x 5.3 cm. The result of the patient was notified to Dr. Michael Mills at 5:50 PM on September 02, 2024. Aorta Ultrasound 09/02/24 19:01 IMPRESSION: 1. ULTRASOUND OF THE distal ABDOMINAL AORTA measuring 4.1 x 3.9 cm... Labs Labs: Laboratory Tests 09/04/24 04:03 09/04/24 04:03 Calcium 8.6 Magnesium 2.2
[2024-09-04 11:15] LABS: Glucose Point of Care 131 mg/dl (65-105)
[2024-09-04] MEDS: LACTATED RINGERS 1,000 ML 30 ML IV CONT (11:30)
--- NOTE | 2024-09-04 11:41 | P.PNAN_ITS ---
Anes - Initial Pre Proc Eval Procedure: Operation Date: 09/04/24 12:00 Proposed Procedures p Cystoscopy, Evacuation Bladder Clots - Casey Farmer MD s Bilateral Retrograde pyelogram - Casey Farmer MD Date/Time: 09/04/24 11:41 Surgeon: Olivia Ruby DO Pre Op Diagnosis: a.fib with RVR, CHF, shortness of breath Patient Data Age: 74 Gender: M Height: 1.78 m Weight: 88.9 kg Last Vital Signs Temp 36.9 C 09/04/24 11:00 Pulse 90 09/04/24 11:00 Resp 20 09/04/24 11:00 BP 164/80 H 09/04/24 11:00 Pulse Ox 95 09/04/24 11:00 O2 Del Method Room Air 09/04/24 07:57 Allergies Allergy/AdvReac Type Severity Reaction Status Date / Time No Known Allergies Allergy Verified 08/31/24 17:35 Home Medications Medication Instructions Recorded Confirmed Type Advair HFA 230 mcg-21 2 puff inhalation BID #12 grams 02/02/24 08/31/24 Rx mcg/actuation aerosol inhaler (fluticasone propion-salmeterol) atorvastatin 40 mg tablet See Rx Instructions .Route 02/24/24 08/31/24 Rx .COMPLEX #90 tabs Farxiga 10 mg tablet 10 mg PO DAILY #90 tabs 03/22/24 08/31/24 Rx (dapagliflozin propanediol) albuterol sulfate 90 mcg/actuation 1 inh inhalation Q4H PRN shortness 05/01/24 08/31/24 Rx aerosol inhaler of breath or wheezing #8.5 grams pioglitazone 30 mg tablet See Rx Instructions .Route 05/07/24 08/31/24 Rx .COMPLEX #90 tabs escitalopram oxalate 10 mg tablet See Rx Instructions .Route 07/16/24 08/31/24 Rx .COMPLEX #90 tabs glimepiride 1 mg tablet See Rx Instructions .Route 07/16/24 08/31/24 Rx .COMPLEX #90 tabs losartan 25 mg tablet 25 mg PO DAILY #90 tabs 08/01/24 08/31/24 Rx tamsulosin 0.4 mg capsule 0.4 mg PO DAILY 08/31/24 08/31/24 History Laboratory Tests 09/03/24 09/03/24 09/04/24 16:17 20:32 04:03 WBC 6.0 K/mm3 (4.5-10.0) RBC 3.93 L M/mm3 (4.6-6.20) Hgb 12.4 L g/dL (14.0-18.0) Hct 38.0 L % (42.0-52.0) MCV 96.7 fl (80-100) MCH 31.6 pg (26-34) MCHC 32.6 g/dl (32-36) RDW 13.9 % (11.5-14.5) Plt Count 185 k/mm3 (150-375) MPV 11.2 H fl (7.4-10.4) Sodium 140 mmol/L (137-145) Potassium 3.5 mmol/L (3.4-5.0) Chloride 106 mmol/L (98-107) Carbon Dioxide 29 mmol/L (22-30) Anion Gap 5 mmol/L (4-12) BUN 39 H mg/dL (9-20) Creatinine 1.88 H mg/dL (0.7-1.3) Estim Creat Clear Calc 31 ml/min Estimated GFR 35 L (59 - ) Glucose 189 H mg/dL (65-110) POC Capillary Glucose 219 H mg/dl 217 H mg/dl (65-105) (65-105) Calcium 8.6 mg/dL (8.4-10.2) Magnesium 2.2 mg/dL (1.6-2.3) 09/04/24 09/04/24 07:07 11:05 WBC RBC Hgb Hct MCV MCH MCHC RDW Plt Count MPV Sodium Potassium Chloride Carbon Dioxide Anion Gap BUN Creatinine Estim Creat Clear Calc Estimated GFR Glucose POC Capillary Glucose 134 H mg/dl 131 H mg/dl (65-105) (65-105) Calcium Magnesium Patient hx anesthesia problems: none Family hx anesthesia problems: none Results Review: All pre-operative results and documents have been reviewed as part of the pre-operative evaluation. [facility] [place] Past Medical History Medical History Stage 3b chronic kidney disease Stage 4 chronic kidney disease Simple chronic bronchitis Cigarette nicotine dependence with nicotine-induced disorder Major depressive disorder Cigarette nicotine dependence in remission Microalbuminuria Personal history of malignant neoplasm of lung Type 2 diabetes mellitus with diabetic chronic kidney disease Hypertensive chronic kidney disease Diverticulosis Kidney stones Hyperlipidemia Benign prostatic hyperplasia Surgical History Surgical History History of lobectomy of lung 05/2022 History of bilateral knee replacement (2008) History of cholecystectomy History of inguinal hernia repair History of vasectomy History of hemorrhoidectomy (1996) History of colonoscopy with polypectomy History of tonsillectomy (1953) Family History Family History Father Acute myocardial infarction Sibling Lung cancer Social History Social History Social History: Surrogate medical decision maker: Trupti Acosta, yenny. Code status: Full code. Smoking packs per day: 1 Smoking cigarettes per day: 20.0 Years smoked: 40 Smoking pack-years: 40.00 Smoking status: Current every day smoker Tobacco type: cigarettes Second hand tobacco smoke exposure: No Additional smoking assessment comments: Had quit at the time of his lung cancer diagnosis, but now back to smoking Alcohol intake: former Substance use: former Substance use type: does not use Do You Feel Safe in your Home?: Yes Lack of Transportation: No Lack of Food: Never True Current Housing: I Have Housing Concerned About Future Housing: No Difficulty Paying Gas/Electric Bills: No Difficulty Paying for Meds: No Currently Unemployed: No Education: Trade/Vocational Certificate Difficulty w/ Childcare or Family Care: No Living arrangements: alone Occupation/Education: retired Gender identity (if verbalized by the patient): Male Sexual Orientation (if Verbalized by the Patient): Straight or Heterosexual Spiritual care concerns: No Anes - Eval Final PreProcedure Day of Procedure 09/04/24 11:41 Patient weight: overweight Heart: regular rate and rhythm Lungs: decreased breath sounds Airway: Mallampati scale class II Neurological: alert and oriented Last oral intake: >/= 8 hours ASA classification: IV Emergent: no Anesthetic plan: proceed Anesthesia type and monitoring: general LMA and standard monitoring Results Review: All pre-operative results and documents have been reviewed as part of the pre- operative evaluation. Informed Consent: The patient's anesthetic plan and its attendant risks and benefits were discussed with the patient/family/POA. Questions were solicited and answers provided to the satisfaction of the patient/family/POA.
--- NOTE | 2024-09-04 11:50 | WPDHPUPDATE1 ---
History and Physical Update Update Date/Time: 09/04/24 11:50 History and Physical has been reviewed, including an updated exam of the patient. There are NO changes in the patient's condition. Risks, benefits, and alternatives have been discussed and questions answered. Patient agrees to proceed with procedure.
[2024-09-04] MEDS: LIDOCAINE 2% GEL UROJET 10 ML PKG MUCOUS MEM (12:17)
--- NOTE | 2024-09-04 12:27 | W.PM.PROC2 ---
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 Cystoscopy was undertaken with the 21 F rigid cystoscope. He has moderate lateral lobe hyperplasia of the prostate without a significant median lobe. Prostatic urethra measures approximately 2.5-3 cm. He has no urethral strictures. Bladder shows a papillary urothelial neoplasm arising in the right posterior lateral bladder wall, lateral to the right ureteral orifice. There was a 2nd satellite lesion in the trigone midline. The remainder of the bladder mucosa is normal. There was no intravesical foreign body. He has a single orthotopic ureteral orifice. Bilateral retrograde pyelography with an 8 F bulb to catheter shows normal upper urinary tracts without apparent filling defects or points of obstruction. There was oozing of blood from the base of this papillary urothelial neoplasm which I will was not able to effectively control with the loop electrode. In light of that I opted to proceed with gentle TURBT despite the fact that he was anticoagulated. Surprisingly, during the course of this TURBT there was little additional bleeding. I was able to completely resect this lesion with an attempt made to include detrusor muscle for pathological evaluation of invasion. The base and periphery were cauterized. The small papillary lesion in the trigone was resected in a similar fashion. At the termination urinary efflux was clear. I placed a [address] catheter to continuous irrigation. He tolerated this well. Estimated Blood Loss 0 Urine Output 250 Drains Yes Packing No Pathology Yes
[2024-09-04] MEDS: fentaNYL CITRATE INJ (*CRX) 100 MCG/2 ML VIAL 25 MCG IV PUSH ×2 (13:25→13:28)
[2024-09-04] MEDS: MORPHINE SULFATE (*CRX) 2 MG/ML INJ IV PUSH (15:30)
[2024-09-04 17:31] LABS: Glucose Point of Care 175 mg/dl (65-105)
[2024-09-04 17:31] LABS: Albumin 3.3 g/dL (3.8-4.8); Alpha 1 Globulin 0.4 g/dL (0.2-0.3); Alpha 2 Globulin 0.9 g/dL (0.5-0.9); Beta 1 Globulin 0.4 g/dL (0.4-0.6)
--- NOTE | 2024-09-04 17:34 | P.PNIM_ITS ---
Progress Note: A&P Assessment and Plan (1) Atrial fibrillation with rapid ventricular response: Code(s): I48.91 - Unspecified atrial fibrillation Status: Acute (2) SOB (shortness of breath) on exertion: Code(s): R06.02 - Shortness of breath Status: Acute (3) Type 2 diabetes mellitus with diabetic chronic kidney disease: Qualifiers: Diabetes mellitus intermediate card tender insulin use: without longterm use Chronic kidney disease stage: stage 3 (moderate) Chronic kidney disease stage 3 subtype: stage 3b (GFR 30-44) Qualified Code(s): E11.22 - Type 2 diabetes mellitus with diabetic chronic kidney disease; N18.32 - Chronic kidney disease, stage 3b Code(s): E11.22 - Type 2 diabetes mellitus with diabetic chronic kidney disease Status: Acute (4) Personal history of malignant neoplasm of lung: Code(s): Z85.118 - Personal history of other malignant neoplasm of bronchus and lung Status: Acute (5) Stage 4 chronic kidney disease: Code(s): N18.4 - Chronic kidney disease, stage 4 (severe) Status: Chronic Plan ER-HPI Narrative: Patient is a 74-year-old male who presents to the ER with cough and shortness of breath. He reports his symptoms have gradually been getting worse lately. Patient has a history of lung cancer that was diagnosed in 2022. He reports he currently sees Oncology and has a primary care provider. Patient endorses a history of high blood pressure, diabetes, and continues to smoke cigarettes. He denies any recent fevers, chest pain, abdominal pain, or back pain. patient stats he has lung cancer and had been treated and he is in remission, his CT scan showed No pulmonary embolus. Findings consistent with patient's known history of lung cancer within the right hemithorax post partial lobectomy with persistent round atelectasis. Interval increase in the right-sided pleural effusion, when compared with May 09, 2024 examination.currently patient is on RA and does not appear in any distress. Patient was seen by his oncologist does not suspect patient has recurrence of his lung cancer patient with shortness of breath most likely patient has pneumonia and being treated with ceftriaxone and Zithromax. 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 patient remains clinically stable off anticoagulation for the procedure, will resume anticoagulation after checking with his urologist, Ct scan and abdominal US showed patient AAA 4.1x3.9 stable, patient need vascular consult up discharge. Subjective Date/time seen: 09/04/24 17:34 Interval history: patient stats he has lung cancer and had been treated and he is in remission, his CT scan showed No pulmonary embolus. No thoracic aortic dissection. Findings consistent with patient's known history of lung cancer within the right hemithorax post partial lobectomy with persistent round atelectasis. Interval increase in the right-sided pleural effusion, when compared with May 09, 2024 examination.currently patient is on RA and does not appear in any distress. Patient was seen by his oncologist does not suspect patient has recurrence of his lung cancer patient with shortness of breath most likely patient has pneumonia and being treated with ceftriaxone and Zithromax. 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 patient remains clinically stable off anticoagulation for the procedure, will resume anticoagulation after checking with his urologist, Ct scan and abdominal US showed patient AAA 4.1x3.9 stable, patient need vascular consult up discharge. Exam Narrative: Patient is comfortable, NAD HEENT: eyes are clear and none icteric LUNGS: Bilateral fair entry with rhonchi HEART: RR S1S2 ABD: BS+, Soft and nontender Lower extremities: no edema SKIN: nonjaundiced Neuro: grossly intact. Objective Data Vital Signs Vital Signs: Vital Signs - 24 hr 09/03/24 18:00 09/03/24 19:55 09/03/24 19:55 Temperature Pulse Rate 90 86 94 Respiratory Rate 16 20 Blood Pressure Pulse Oximetry 96 Oxygen Delivery Room Air Oxygen Flow Rate 09/03/24 20:00 09/03/24 20:00 09/03/24 20:09 Temperature 36.6 C Pulse Rate 86 92 94 Respiratory Rate 18 20 Blood Pressure 163/68 H Pulse Oximetry 95 Oxygen Delivery Oxygen Flow Rate 09/03/24 20:14 09/03/24 21:52 09/04/24 00:00 Temperature Pulse Rate 89 87 Respiratory Rate 18 Blood Pressure 150/80 H Pulse Oximetry 96 97 Oxygen Delivery Room Air Oxygen Flow Rate 09/04/24 00:00 09/04/24 00:00 09/04/24 02:00 Temperature Pulse Rate 94 94 86 Respiratory Rate 20 Blood Pressure Pulse Oximetry 97 Oxygen Delivery Room Air Oxygen Flow Rate 09/04/24 02:03 09/04/24 02:13 09/04/24 03:18 Temperature Pulse Rate 94 94 94 Respiratory Rate 20 20 20 Blood Pressure Pulse Oximetry 97 Oxygen Delivery Room Air Oxygen Flow Rate 09/04/24 03:19 09/04/24 04:00 09/04/24 06:14 Temperature 36.8 C Pulse Rate 92 92 87 Respiratory Rate 15 Blood Pressure 170/90 H Pulse Oximetry 97 Oxygen Delivery Oxygen Flow Rate 09/04/24 07:57 09/04/24 07:57 09/04/24 07:57 Temperature 36.6 C Pulse Rate 90 93 Respiratory Rate 22 H 20 Blood Pressure 144/96 H Pulse Oximetry 94 99 Oxygen Delivery Room Air Oxygen Flow Rate 09/04/24 08:13 09/04/24 11:00 09/04/24 11:00 Temperature 36.9 C 36.9 C Pulse Rate 89 90 90 Respiratory Rate 20 20 16 Blood Pressure 164/80 H 157/81 H Pulse Oximetry 95 96 Oxygen Delivery Room Air Oxygen Flow Rate 09/04/24 12:35 09/04/24 12:45 09/04/24 13:00 Temperature 36.9 C Pulse Rate 83 81 82 Respiratory Rate 16 20 20 Blood Pressure 131/75 152/77 H 140/73 Pulse Oximetry 100 100 96 Oxygen Delivery Simple Face Mask Simple Face Mask Room Air Oxygen Flow Rate 8 8 09/04/24 13:15 09/04/24 13:30 09/04/24 13:45 Temperature Pulse Rate 82 81 84 Respiratory Rate 16 18 16 Blood Pressure 154/76 H 154/76 H 143/74 H Pulse Oximetry 94 93 94 Oxygen Delivery Room Air Room Air Room Air Oxygen Flow Rate 09/04/24 14:14 09/04/24 14:14 09/04/24 14:17 Temperature 36.4 C L Pulse Rate 88 87 Respiratory Rate 20 18 Blood Pressure 135/97 H Pulse Oximetry 95 95 Oxygen Delivery Room Air Oxygen Flow Rate 09/04/24 14:25 09/04/24 16:01 Temperature 36.4 C Pulse Rate 86 91 Respiratory Rate 20 20 Blood Pressure 155/72 H Pulse Oximetry 96 Oxygen Delivery Oxygen Flow Rate Intake/Output Intake/Output: Intake & Output 09/01/24 09/02/24 09/03/24 09/04/24 23:59 23:59 23:59 23:59 Intake Total 2382.1 1280 2595 600 Output Total 550 2240 1070 5001 Balance 1832.1 -960 1525 4401 Meds/Results Medications: Active Medications Generic Name Dose Route Start Last Admin Trade Name Freq PRN Reason Stop Dose Admin Atorvastatin Calcium 0 mg 09/01/24 09:25 09/04/24 10:12 Atorvastatin 40 Mg Tablet BY MOUTH 40 mg QAM PRAVIN Administration Dextrose 12.5 gm 09/01/24 10:44 Dextrose 50% 25 Gm/50 Ml Syringe IV PUSH PRN PRN Hypoglycemia Protocol Diltiazem HCl 30 mg 09/01/24 10:00 09/04/24 17:15 Diltiazem Hcl 30 Mg Tablet PO 30 mg Q6H PRAVIN Administration Empagliflozin 25 mg 09/01/24 09:25 09/04/24 10:12 Empagliflozin 25 Mg Tablet BY MOUTH 25 mg DAILY PRAVIN Administration Enoxaparin Sodium 90 mg 08/31/24 22:30 09/01/24 22:33 Enoxaparin 100 Mg/Ml Syringe SUB-Q Not Given Q12HR PRAVIN Escitalopram Oxalate 10 mg 09/01/24 09:25 09/04/24 10:12 Escitalopram Oxalate 10 Mg Tablet BY MOUTH 10 mg QAM PRAVIN Administration Fentanyl Citrate 25 mcg 09/04/24 11:42 09/04/24 13:28 Fentanyl Citrate Inj (*Crx) 100 Mcg/2 Ml Vial IV PUSH 25 mcg Q2M PRN Administration Pain Glimepiride 1 mg 09/01/24 09:25 09/04/24 10:12 Glimepiride 1 Mg Tablet BY MOUTH 1 mg QAM PRAVIN Administration Glucagon 1 mg 09/01/24 10:44 Glucagon For Inj 1 Mg Vial IM PRN PRN Hypoglycemia Protocol Glucose 15 gm 09/01/24 10:44 Glucose Oral Gel 15 Gm Of Glucse In 37.5 Gm Tube PO PRN PRN Hypoglycemia Protocol Hyoscyamine 0.125 mg 09/04/24 15:54 Hyoscyamine Sulfate 0.125 Mg Tablet SUBLINGUAL Q6H PRN Bladder Spasm Dextrose 1,000 mls @ 100 mls/hr 09/01/24 10:44 Dextrose 5% 1,000 Ml IVPB PRN PRN Hypoglycemia Protocol Ceftriaxone Sodium 1 gm in 50 mls @ 100 mls/hr 09/01/24 16:00 09/04/24 17:14 Rocephin 1 Gm/Ns 50 Ml IVPB 100 mls/hr Q24H PRAVIN Administration Lactated Ringer's 1,000 mls @ 30 mls/hr 09/04/24 11:45 09/04/24 13:53 Lr - Lactated Ringers Iv IV CONT Infused .Q24H PRAVIN Infusion Lactated Ringer's 1,000 mls @ 30 mls/hr 09/04/24 11:45 Lr - Lactated Ringers Iv IV CONT .Q24H [facility] Insulin Aspart 2 - 5 units 09/01/24 12:00 09/04/24 14:00 Insulin Aspart (*Bkc) 100 Units/Ml SUB-Q Not Given TIDWM [facility] Protocol Insulin Aspart 1 - 2 units 09/01/24 21:00 09/03/24 20:33 Insulin Aspart (*Bkc) 100 Units/Ml SUB-Q 1 units HS PRAVIN Administration Protocol Ipratropium [place] 0.5 mg 09/01/24 02:00 09/04/24 14:14 Ipratropium Br 0.02% Inh Soln 0.5 Mg/2.5 Ml Vial INHALATION 0.5 mg Q6HRT PRAVIN Administration Levalbuterol HCl 1.25 mg 09/01/24 02:00 09/04/24 14:14 Levalbuterol Neb 1.25 Mg/3 Ml INHALATION 1.25 mg Q6HRT PRAVIN Administration Losartan Potassium 25 mg 09/01/24 09:25 09/04/24 10:12 Losartan Potassium 25 Mg Tablet PO 25 mg DAILY PRAVIN Administration Ondansetron HCl 4 mg 09/04/24 11:42 Ondansetron Inj 4 Mg/2 Ml Vial IV PUSH ONCE PRN Nausea Pioglitazone HCl 30 mg 09/01/24 09:25 09/04/24 10:12 Pioglitazone Hcl 30 Mg Tablet BY MOUTH 30 mg QAM PRAVIN Administration Fluticasone/Salmeterol 2 puff 09/01/24 09:25 09/04/24 07:57 Fluticasone/Salmeterol 230-21 Mcg Inhaler 1 Puff INHALATION 2 puff Q12HRT PRAVIN Administration Tamsulosin HCl 0.4 mg 09/01/24 09:25 09/04/24 10:19 Tamsulosin Hcl 0.4 Mg Capsule PO 0.4 mg DAILY PRAVIN Administration Radiology Results: ITS Impressions Chest X-Ray 08/31/24 19:21 IMPRESSION: As above. Chest CTA 08/31/24 22:24 IMPRESSION: No pulmonary embolus. No thoracic aortic dissection. Findings consistent with patient's known history of lung cancer within the right hemithorax post partial lobectomy with persistent round atelectasis. Interval increase in the right-sided pleural effusion, when compared with May 09, 2024 examination. Renal Ultrasound 09/02/24 13:53 IMPRESSION 1. Mild likely age-related bilateral renal atrophy with bilateral renal cysts. No hydronephrosis. 2. Intraluminal hypoechoic region along the floor of the bladder, unclear whe ther related to focal wall thickening such as in the setting of neoplasm or due to clot or debris. Correlate with urinalysis and could consider cystoscopy for further evaluation as clinically indicated. Abdomen/Pelvis CT 09/02/24 17:21 IMPRESSION: 1. Abdominal aortic aneurysm measuring 4.2 x 4.3 cm. 2. Right basilar atelectasis versus pneumonia. Follow-up to resolution advised. Rounded atelectasis is not excluded. 3. Right pleural effusion which may be loculated. 4. Highly suggestive lower pole left kidney mass. Hyperdense lesion in the right kidney midpole most likely hemorrhagic cyst or a mass. 5. Mass or hematoma in the urinary bladder seen to the right and posteriorly. Enlarged prostate measuring 5.5 x 5.3 cm. The result of the patient was notified to Dr. Michael Mills at 5:50 PM on September 02, 2024. Aorta Ultrasound 09/02/24 19:01 IMPRESSION: 1. ULTRASOUND OF THE distal ABDOMINAL AORTA measuring 4.1 x 3.9 cm... Labs Labs: Laboratory Results - last 24 hr 09/02/24 09/03/24 09/04/24 04:02 20:32 04:03 WBC 6.0 RBC 3.93 L Hgb 12.4 L Hct 38.0 L MCV 96.7 MCH 31.6 MCHC 32.6 RDW 13.9 Plt Count 185 MPV 11.2 H Sodium 140 Potassium 3.5 Chloride 106 Carbon Dioxide 29 Anion Gap 5 BUN 39 H Creatinine 1.88 H Estim Creat Clear Calc 31 Estimated GFR 35 L Glucose 189 H POC Capillary Glucose 217 H Calcium 8.6 Magnesium 2.2 Albumin 3.3 L Gsywr-7-Semjczrey 0.4 H Vwrek-0-Joxdyzuyy 0.9 Qsji-6-Liutxtbp 0.4 Yfuz-6-Olrdmycg 0.4 Gamma Globulins 1.0 PEP Interpretation See note 09/04/24 09/04/24 09/04/24 07:07 11:05 16:23 WBC RBC Hgb Hct MCV MCH MCHC RDW Plt Count MPV Sodium Potassium Chloride Carbon Dioxide Anion Gap BUN Creatinine Estim Creat Clear Calc Estimated GFR Glucose POC Capillary Glucose 134 H 131 H 175 H Calcium Magnesium Albumin Lrfgg-6-Lsfyshmia Jlxzx-3-Olsyzpden Holt-3-Mukyjikf Jwys-9-Mibowoby Gamma Globulins PEP Interpretation Quality VTE Prophylaxis VTE prophylaxis: pharmacologic ordered
[2024-09-04] MEDS: APIXABAN 5 MG TABLET PO (20:20)
[2024-09-04 21:04] LABS: Glucose Point of Care 312 mg/dl (65-105)
[2024-09-04] MEDS: INSULIN ASPART (*BKC) 100 UNITS/ML SUB-Q (21:08)
[2024-09-05] VITALS (25 sets, daily range): BP systolic 126–169; BP diastolic 70–90; PULSE 82–98; RESP 16–20; TEMP 36.5–37.2; O2SAT 92–99
[2024-09-05] MEDS: IPRATROPIUM BR 0.02% INH SOLN 0.5 MG/2.5 ML VIAL INHALATION ×4 (01:46→20:06)
[2024-09-05] MEDS: LEVALBUTEROL NEB 1.25 MG/3 ML INHALATION ×4 (01:46→20:06)
[2024-09-05 04:25] LABS: Hematocrit 40.5 % (42.0-52.0); Hemoglobin 12.7 g/dL (14.0-18.0); Mean Corpuscular HGB Conc 31.4 g/dl (32-36); Mean Corpuscular Hemoglobin 31.1 pg (26-34); Mean Corpuscular Volume 99.3 fl (80-100); Mean Platelet Volume 11.2 fl (7.4-10.4); Platelet Count Result 197 k/mm3 (150-375); Red Blood Count 4.08 M/mm3 (4.6-6.20); Red Cell Distribution Width 13.9 % (11.5-14.5); White Blood Count 6.9 K/mm3 (4.5-10.0)
[2024-09-05 04:37] LABS: Anion Gap 7 mmol/L (4-12); Blood Urea Nitrogen 32 mg/dL (9-20); Calcium 8.8 mg/dL (8.4-10.2); Carbon Dioxide 28 mmol/L (22-30); Chloride 105 mmol/L (98-107); Estimated CRCL calculation 34 ml/min; Estimated Glomerular Filt Rate 38; Glucose 169 mg/dL (65-110); Magnesium 2.2 mg/dL (1.6-2.3); Potassium 3.5 mmol/L (3.4-5.0); Sodium 140 mmol/L (137-145)
[2024-09-05] MEDS: dilTIAZem HCL 30 MG TABLET PO ×4 (05:02→20:29)
--- NOTE | 2024-09-05 06:42 | P.PNUR_ITS ---
Progress Note: A&P Assessment and Plan (1) Cancer of overlapping sites of bladder: Code(s): C67.8 - Malignant neoplasm of overlapping sites of bladder Status: Acute Assessment and Plan: * POD #1: TURBT. Patient doing well with clear urine on slow CBI. * Will stop CBI now and plan voiding trial later this. * Bladder tumor and the appearance of a low-grade papillary tumor. If that is the case he will simply need follow-up surveillance cystoscopy 3 months. At that time we can also arrange follow-up imaging to re-evaluate the indeterminate bilateral renal masses. Subjective Subjective Date/Time Seen: 09/05/24 06:42 Interval history: Comfortable, no complaints Review of Systems Cardiovascular: Cardiovascular: Denies chest pain, Denies lightheadedness, Denies palpitations and Denies dyspnea Respiratory: Respiratory: Denies dyspnea Gastrointestinal: Gastrointestinal: Denies diarrhea, Denies nausea and Denies vomiting Genitourinary: Genitourinary: Denies hematuria and Denies dysuria Endocrine: Endocrine: Denies palpitations Exam Const: General: no acute distress Resp: Effort & Inspection: normal respiratory effort GI: Inspection: non-distended GI Palp: No abdominal tenderness and No Guarding due to palpation present (GI) Auscultation: normal bowel sounds Urinary Catheter: Urinary Catheter: patent and draining and urine clear Objective Data Vital Signs Vital Signs: Vital Signs - 24 hr 09/04/24 07:57 09/04/24 07:57 09/04/24 07:57 Temperature 97.8 F Pulse Rate 90 93 Respiratory Rate 22 H 20 Blood Pressure 144/96 H Pulse Oximetry 94 99 Oxygen Delivery Room Air Oxygen Flow Rate 09/04/24 08:00 09/04/24 08:13 09/04/24 10:00 Temperature Pulse Rate 85 89 87 Respiratory Rate 20 Blood Pressure Pulse Oximetry Oxygen Delivery Oxygen Flow Rate 09/04/24 11:00 09/04/24 11:00 09/04/24 12:35 Temperature 98.5 F 98.4 F 98.5 F Pulse Rate 90 90 83 Respiratory Rate 20 16 16 Blood Pressure 164/80 H 157/81 H 131/75 Pulse Oximetry 95 96 100 Oxygen Delivery Room Air Simple Face Mask Oxygen Flow Rate 8 09/04/24 12:45 09/04/24 13:00 09/04/24 13:15 Temperature Pulse Rate 81 82 82 Respiratory Rate 20 20 16 Blood Pressure 152/77 H 140/73 154/76 H Pulse Oximetry 100 96 94 Oxygen Delivery Simple Face Mask Room Air Room Air Oxygen Flow Rate 8 09/04/24 13:30 09/04/24 13:45 09/04/24 14:14 Temperature Pulse Rate 81 84 Respiratory Rate 18 16 Blood Pressure 154/76 H 143/74 H Pulse Oximetry 93 94 95 Oxygen Delivery Room Air Room Air Room Air Oxygen Flow Rate 09/04/24 14:14 09/04/24 14:17 09/04/24 14:17 Temperature 97.5 F L Pulse Rate 88 87 85 Respiratory Rate 20 18 Blood Pressure 135/97 H Pulse Oximetry 95 Oxygen Delivery Oxygen Flow Rate 09/04/24 14:25 09/04/24 16:00 09/04/24 16:00 Temperature Pulse Rate 86 91 92 Respiratory Rate 20 20 Blood Pressure Pulse Oximetry 96 Oxygen Delivery Room Air Oxygen Flow Rate 09/04/24 16:01 09/04/24 18:00 09/04/24 20:00 Temperature 97.6 F Pulse Rate 91 95 91 Respiratory Rate 20 Blood Pressure 155/72 H Pulse Oximetry 96 96 Oxygen Delivery Room Air Oxygen Flow Rate 09/04/24 20:00 09/04/24 20:05 09/04/24 20:05 Temperature Pulse Rate 94 104 H 104 H Respiratory Rate 24 H Blood Pressure Pulse Oximetry 94 Oxygen Delivery Room Air Oxygen Flow Rate 09/04/24 20:15 09/04/24 20:44 09/04/24 23:08 Temperature 98.4 F 98.0 F Pulse Rate 98 92 84 Respiratory Rate 20 20 20 Blood Pressure 160/95 H 169/77 H Pulse Oximetry 100 97 Oxygen Delivery Oxygen Flow Rate 09/04/24 23:24 09/05/24 00:00 09/05/24 01:46 Temperature Pulse Rate 91 84 85 Respiratory Rate 18 Blood Pressure Pulse Oximetry 96 95 Oxygen Delivery Room Air Room Air Oxygen Flow Rate 09/05/24 01:46 09/05/24 02:00 09/05/24 03:38 Temperature 97.7 F Pulse Rate 85 84 88 Respiratory Rate 18 16 20 Blood Pressure 169/87 H Pulse Oximetry 98 Oxygen Delivery Oxygen Flow Rate 09/05/24 03:41 09/05/24 04:00 Temperature Pulse Rate 88 87 Respiratory Rate Blood Pressure Pulse Oximetry 96 Oxygen Delivery Room Air Oxygen Flow Rate Intake/Output Intake/Output: Intake & Output 09/02/24 09/03/24 09/04/24 09/05/24 23:59 23:59 23:59 23:59 Intake Total 1280 2595 890 350 Output Total 2240 1070 5001 200 Balance -960 1525 -4119 150 Meds/Results Medications: Active Medications Generic Name Dose Route Start Last Admin Trade Name Freq PRN Reason Stop Dose Admin Apixaban 5 mg 09/04/24 21:00 09/04/24 20:20 Apixaban 5 Mg Tablet PO 5 mg Q12HR PRAVIN Administration Atorvastatin Calcium 0 mg 09/01/24 09:25 09/04/24 10:12 Atorvastatin 40 Mg Tablet BY MOUTH 40 mg QAM PRAVIN Administration Dextrose 12.5 gm 09/01/24 10:44 Dextrose 50% 25 Gm/50 Ml Syringe IV PUSH PRN PRN Hypoglycemia Protocol Diltiazem HCl 30 mg 09/01/24 10:00 09/05/24 05:02 Diltiazem Hcl 30 Mg Tablet PO 30 mg Q6H PRAVIN Administration Empagliflozin 25 mg 09/01/24 09:25 09/04/24 10:12 Empagliflozin 25 Mg Tablet BY MOUTH 25 mg DAILY PRAVIN Administration Enoxaparin Sodium 90 mg 08/31/24 22:30 09/01/24 22:33 Enoxaparin 100 Mg/Ml Syringe SUB-Q Not Given Q12HR PRAVIN Escitalopram Oxalate 10 mg 09/01/24 09:25 09/04/24 10:12 Escitalopram Oxalate 10 Mg Tablet BY MOUTH 10 mg QAM PRAVIN Administration Fentanyl Citrate 25 mcg 09/04/24 11:42 09/04/24 13:28 Fentanyl Citrate Inj (*Crx) 100 Mcg/2 Ml Vial IV PUSH 25 mcg Q2M PRN Administration Pain Glimepiride 1 mg 09/01/24 09:25 09/04/24 10:12 Glimepiride 1 Mg Tablet BY MOUTH 1 mg QAM PRAVIN Administration Glucagon 1 mg 09/01/24 10:44 Glucagon For Inj 1 Mg Vial IM PRN PRN Hypoglycemia Protocol Glucose 15 gm 09/01/24 10:44 Glucose Oral Gel 15 Gm Of Glucse In 37.5 Gm Tube PO PRN PRN Hypoglycemia Protocol Hyoscyamine 0.125 mg 09/04/24 15:54 Hyoscyamine Sulfate 0.125 Mg Tablet SUBLINGUAL Q6H PRN Bladder Spasm Dextrose 1,000 mls @ 100 mls/hr 09/01/24 10:44 Dextrose 5% 1,000 Ml IVPB PRN PRN Hypoglycemia Protocol Ceftriaxone Sodium 1 gm in 50 mls @ 100 mls/hr 09/01/24 16:00 09/04/24 21:09 Rocephin 1 Gm/Ns 50 Ml IVPB Infused Q24H PRAVIN Infusion Lactated Ringer's 1,000 mls @ 30 mls/hr 09/04/24 11:45 09/04/24 13:53 Lr - Lactated Ringers Iv IV CONT Infused .Q24H PRAVIN Infusion Lactated Ringer's 1,000 mls @ 30 mls/hr 09/04/24 11:45 09/04/24 21:10 Lr - Lactated Ringers Iv IV CONT Not Given .Q24H PRAVIN Insulin Aspart 2 - 5 units 09/01/24 12:00 09/04/24 18:18 Insulin Aspart (*Bkc) 100 Units/Ml SUB-Q Not Given TIDWM PR[facility]IN Protocol Insulin Aspart 1 - 2 units 09/01/24 21:00 09/04/24 21:08 Insulin Aspart (*Bkc) 100 Units/Ml SUB-Q 2 units HS PRAVIN Administration Protocol Ipratropium [place] 0.5 mg 09/01/24 02:00 09/05/24 01:46 Ipratropium Br 0.02% Inh Soln 0.5 Mg/2.5 Ml Vial INHALATION 0.5 mg Q6HRT PRAVIN Administration Levalbuterol HCl 1.25 mg 09/01/24 02:00 09/05/24 01:46 Levalbuterol Neb 1.25 Mg/3 Ml INHALATION 1.25 mg Q6HRT PRAVIN Administration Losartan Potassium 25 mg 09/01/24 09:25 09/04/24 10:12 Losartan Potassium 25 Mg Tablet PO 25 mg DAILY PRAVIN Administration Ondansetron HCl 4 mg 09/04/24 11:42 Ondansetron Inj 4 Mg/2 Ml Vial IV PUSH ONCE PRN Nausea Pioglitazone HCl 30 mg 09/01/24 09:25 09/04/24 10:12 Pioglitazone Hcl 30 Mg Tablet BY MOUTH 30 mg QAM PRAVIN Administration Fluticasone/Salmeterol 2 puff 09/01/24 09:09/04/24 07:57 Fluticasone/Salmeterol 230-21 Mcg Inhaler 1 Puff INHALATION 2 puff Q12HRT PRAVIN Administration Tamsulosin HCl 0.4 mg 09/01/24 09:09/04/24 10:19 Tamsulosin Hcl 0.4 Mg Capsule PO 0.4 mg DAILY PRAVIN Administration Radiology Results: ITS Impressions Chest X-Ray 08/31/24 19:21 IMPRESSION: As above. Chest CTA 08/31/24 22:24 IMPRESSION: No pulmonary embolus. No thoracic aortic dissection. Findings consistent with patient's known history of lung cancer within the right hemithorax post partial lobectomy with persistent round atelectasis. Interval increase in the right-sided pleural effusion, when compared with May 09, 2024 examination. Renal Ultrasound 09/02/24 13:53 IMPRESSION 1. Mild likely age-related bilateral renal atrophy with bilateral renal cysts. No hydronephrosis. 2. Intraluminal hypoechoic region along the floor of the bladder, unclear w hether related to focal wall thickening such as in the setting of neoplasm or due to clot or debris. Correlate with urinalysis and could consider cystoscopy for further evaluation as clinically indicated. Abdomen/Pelvis CT 09/02/24 17:21 IMPRESSION: 1. Abdominal aortic aneurysm measuring 4.2 x 4.3 cm. 2. Right basilar atelectasis versus pneumonia. Follow-up to resolution advised. Rounded atelectasis is not excluded. 3. Right pleural effusion which may be loculated. 4. Highly suggestive lower pole left kidney mass. Hyperdense lesion in the right kidney midpole most likely hemorrhagic cyst or a mass. 5. Mass or hematoma in the urinary bladder seen to the right and posteriorly. Enlarged prostate measuring 5.5 x 5.3 cm. The result of the patient was notified to Dr. Michael Mills at 5:50 PM on September 02, 2024. Aorta Ultrasound 09/02/24 19:01 IMPRESSION: 1. ULTRASOUND OF THE distal ABDOMINAL AORTA measuring 4.1 x 3.9 cm... Labs Labs: Laboratory Results - last 24 hr 09/02/24 09/04/24 09/04/24 04:02 07:07 11:05 WBC RBC Hgb Hct MCV MCH MCHC RDW Plt Count MPV Sodium Potassium Chloride Carbon Dioxide Anion Gap BUN Creatinine Estim Creat Clear Calc Estimated GFR Glucose POC Capillary Glucose 134 H 131 H Calcium Magnesium Albumin 3.3 L Jqgxb-8-Llcwwoalc 0.4 H Xdqzv-3-Kdbpvsxcy 0.9 Mmtw-6-Deruaoqu 0.4 Adkj-9-Nllrvhci 0.4 Gamma Globulins 1.0 PEP Interpretation See note 09/04/24 09/04/24 09/05/24 16:23 21:01 03:56 WBC 6.9 RBC 4.08 L Hgb 12.7 L Hct 40.5 L MCV 99.3 MCH 31.1 MCHC 31.4 L RDW 13.9 Plt Count 197 MPV 11.2 H Sodium 140 Potassium 3.5 Chloride 105 Carbon Dioxide 28 Anion Gap 7 BUN 32 H Creatinine 1.75 H Estim Creat Clear Calc 34 Estimated GFR 38 L Glucose 169 H POC Capillary Glucose 175 H 312 H Calcium 8.8 Magnesium 2.2 Albumin Gszeu-5-Agoasjuyp Nkagk-3-Lbsdulnug Uuob-2-Ocpgbpqx Krul-4-Hzimjwnq Gamma Globulins PEP Interpretation
[2024-09-05 07:23] LABS: Glucose Point of Care 175 mg/dl (65-105)
--- NOTE | 2024-09-05 08:01 | WPDANESPN ---
Anes - Prog Note Post-Op Date/Time: 09/05/24 08:01 Cardiovascular status: normal Respiratory status: normal Airway patency: baseline Mental status: baseline Vital Signs: Last Vital Signs Temp 36.8 C 09/05/24 07:54 Pulse 88 09/05/24 07:54 Resp 18 09/05/24 07:54 BP 159/80 H 09/05/24 07:54 Pulse Ox 97 09/05/24 07:54 O2 Del Method Room Air 09/05/24 03:41 O2 Flow Rate 8 09/04/24 12:45 Pain Score (VAS): 2 I/O: Intake & Output 09/04/24 09/05/24 09/05/24 23:59 07:59 15:59 Intake Total 290 350 Output Total 200 Balance 290 150 Laboratory Tests 09/05/24 03:56 09/05/24 03:56 09/02/24 09/04/24 09/04/24 04:02 11:05 16:23 WBC RBC Hgb Hct MCV MCH MCHC RDW Plt Count MPV Sodium Potassium Chloride Carbon Dioxide Anion Gap BUN Creatinine Estim Creat Clear Calc Estimated GFR Glucose POC Capillary Glucose 131 H 175 H Calcium Magnesium Albumin 3.3 L Pkieb-9-Xqbxdudbx 0.4 H Dobcz-0-Vlhtzwuuo 0.9 Caxu-1-Tlxlgtgb 0.4 Jsfu-1-Quvyyyze 0.4 Gamma Globulins 1.0 PEP Interpretation See note 09/04/24 09/05/24 09/05/24 21:01 03:56 07:20 WBC 6.9 RBC 4.08 L Hgb 12.7 L Hct 40.5 L MCV 99.3 MCH 31.1 MCHC 31.4 L RDW 13.9 Plt Count 197 MPV 11.2 H Sodium 140 Potassium 3.5 Chloride 105 Carbon Dioxide 28 Anion Gap 7 BUN 32 H Creatinine 1.75 H Estim Creat Clear Calc 34 Estimated GFR 38 L Glucose 169 H POC Capillary Glucose 312 H 175 H Calcium 8.8 Magnesium 2.2 Albumin Vbcmy-5-Atfuglewt Ugxjr-7-Jtpxzsdkv Sicw-9-Dupjyczf Rxjw-6-Tuorfqyx Gamma Globulins PEP Interpretation Patient Feedback: Patient satisfied with anesthetic care.
[2024-09-05] MEDS: FLUTICASONE/SALMETEROL 230-21 MCG INHALER 1 PUFF 2 PUFF INHALATION ×2 (08:20→20:07)
[2024-09-05] MEDS: TAMSULOSIN HCL 0.4 MG CAPSULE PO (08:55)
[2024-09-05] MEDS: APIXABAN 5 MG TABLET PO ×2 (08:55→20:29)
[2024-09-05] MEDS: EMPAGLIFLOZIN 25 MG TABLET BY MOUTH (08:55)
[2024-09-05] MEDS: GLIMEPIRIDE 1 MG TABLET BY MOUTH (08:55)
[2024-09-05] MEDS: LOSARTAN POTASSIUM 25 MG TABLET PO (08:55)
[2024-09-05] MEDS: PIOGLITAZONE HCL 30 MG TABLET BY MOUTH (08:55)
[2024-09-05] MEDS: ESCITALOPRAM OXALATE 10 MG TABLET BY MOUTH (08:55)
[2024-09-05] MEDS: ATORVASTATIN 40 MG TABLET BY MOUTH (09:10)
[2024-09-05 11:07] LABS: Glucose Point of Care 314 mg/dl (65-105)
--- NOTE | 2024-09-05 11:30 | P.PNNP_ITS ---
Progress Note: A&P Assessment and Plan (1) Stage 4 chronic kidney disease: Code(s): N18.4 - Chronic kidney disease, stage 4 (severe) Status: Chronic Assessment and Plan: * creatinine was running ~ 1.7 - 2.2mg/dl since 2018 (CKD stage 3b) * since April 2024 creatinine now around 2.0 - 2.4mg/dl (causing him to fluctuate between CKD stage 3b and stage 4) * doing better at this time... * due to diabetes, hypertension, vascular disease, and age-related change along with contributions from kidney stones/BPH * had been seeing Dr. Ruelas several years ago (but lost to follow-up) * PCP referred him to see Dr. Ruelas again (appointment in September 2024) * repeat evaluation to date noted * UA with protein and blood (although blood thought to be secondary to anticoagulation) * renal u/s and CT A/P noted: findings c/w CKD along with possible left kidney mass * urine eosinophils negative * urine electrolytes non-prerenal * nephrotic range proteinuria (~ 22 grams) * CPK mildly elevated (but not enough to affect kidney function) * serologies noted so far (negative KEYSHAWN, ANCA, and complements, rest are pending) * follow trend of repeat labs and UOP (2) Shortness of breath: Code(s): R06.02 - Shortness of breath Status: Acute Assessment and Plan: * clinically better * suspect multifactorial: * afib with RVR * bronchitis * ongoing smoking * right pleural effusion * questionable pneumonia * CXR and CT of chest imaging noted * mot hypoxic or requiring supplemental oxygen * on empiric antibiotics * follow culture data * continue supportive therapy (3) Atrial fibrillation with rapid ventricular response: Code(s): I48.91 - Unspecified atrial fibrillation Status: Acute Assessment and Plan: * now in normal sinus rhythm * on oral cardizem for rate control * on anticoagulation * Echo results noted: * left ventricular systolic function is normal, estimated at 65-70% * right ventricular systolic function is normal * small pericardial effusion * trace mitral valve regurgitation * trace tricuspid valve regurgitation * Cardiology recommendations noted (4) Gross hematuria: Code(s): R31.0 - Gross hematuria Status: Acute Assessment and Plan: * presumably secondary to BPH and recent initiaton of anticoagulation * CT imaging suggestive of bladder clot * Urology following * s/p cystoscopy and TURBT on 5/12 * follow-up on pathology (5) Left renal mass: Code(s): N28.89 - Other specified disorders of kidney and ureter Status: Acute Assessment and Plan: * as noted by CT of A/P * Urology recommendations noted * possible MRI of abdomen with contrast versus serial imaging every 3 - 4 months to monitor size/growth... (6) Benign hypertension with chronic kidney disease: Code(s): I12.9 - Hypertensive chronic kidney disease with stage 1 through stage 4 chronic kidney disease, or unspecified chronic kidney disease Status: Chronic Assessment and Plan: * reasonable control * follow trend of hemodynamics (7) History of lung cancer: Code(s): Z85.118 - Personal history of other malignant neoplasm of bronchus and lung Status: Chronic Assessment and Plan: * in remission * Hem/Onc recommendations noted (8) Diabetes mellitus with chronic kidney disease: Code(s): E11.22 - Type 2 diabetes mellitus with diabetic chronic kidney disease Status: Chronic Assessment and Plan: * follow accu-cheks * glycemic control per hospitalist Will continue to follow. L Subjective Date/time seen: 09/05/24 11:30 Interval history: Follow-up for chronic kidney disease. No apparent distress noted at the time of my visit; no issues/events overnight or earlier this morning; tolerated cystoscopy and TURBT yesterday reasonably well; renal function/creatinine remains stable if not back to baseline by trend of labs. Exam 2 Narrative: General: elderly but WD/WN male in NAD Heart: normal S1 and S2; no rub Lungs: clear anteriorly, decreased at bases Abdomen: soft, nontender, nondistended, positive bowel sounds Extremities: no cyanosis or clubbing; no edema Skin: no rash Objective Data Vital Signs Vital Signs: Vital Signs Temp Pulse Resp BP Pulse Ox O2 Del Method 09/05/24 11:21 98.1 F 95 18 151/78 H 96 09/05/24 10:00 92 09/05/24 08:33 98 20 09/05/24 08:22 95 20 09/05/24 08:22 94 Room Air 09/05/24 08:00 94 09/05/24 08:00 98 20 94 Room Air 09/05/24 07:54 98.2 F 88 18 159/80 H 97 09/05/24 04:00 87 09/05/24 03:41 88 96 Room Air 09/05/24 03:38 97.7 F 88 20 169/87 H 98 09/05/24 02:00 84 16 09/05/24 01:46 85 18 09/05/24 01:46 85 18 95 Room Air 09/05/24 00:00 84 09/04/24 23:24 91 96 Room Air 09/04/24 23:08 98.0 F 84 20 169/77 H 97 09/04/24 20:44 98.4 F 92 20 160/95 H 100 09/04/24 20:15 98 20 09/04/24 20:05 104 H 24 H 09/04/24 20:05 104 H 94 Room Air 09/04/24 20:00 94 09/04/24 20:00 91 96 Room Air Intake/Output Intake/Output: Intake & Output 09/02/24 09/03/24 09/04/24 09/05/24 23:59 23:59 23:59 23:59 Intake Total 1280 2595 890 1820 Output Total 2240 1070 5001 925 Balance -960 1525 -4111 895 Meds/Results Medications: Active Medications Generic Name Dose Route Start Last Admin Trade Name Freq PRN Reason Stop Dose Admin Amoxicillin/Clavulanate Potassium 1 tablet 09/05/24 14:00 09/05/24 17:05 Amoxicillin/Clavulanate K 875-125 Mg Tab PO 09/07/24 21:01 1 tablet Q12HR PRAVIN Administration Apixaban 5 mg 09/04/24 21:00 09/05/24 08:55 Apixaban 5 Mg Tablet PO 5 mg Q12HR PRAVIN Administration Atorvastatin Calcium 40 mg 09/05/24 09:00 09/05/24 09:10 Atorvastatin 40 Mg Tablet BY MOUTH 40 mg QAM PRAVIN Administration Dextrose 12.5 gm 09/01/24 10:44 Dextrose 50% 25 Gm/50 Ml Syringe IV PUSH PRN PRN Hypoglycemia Protocol Diltiazem HCl 30 mg 09/01/24 10:00 09/05/24 17:06 Diltiazem Hcl 30 Mg Tablet PO 30 mg Q6H PRAVIN Administration Empagliflozin 25 mg 09/01/24 09:25 09/05/24 08:55 Empagliflozin 25 Mg Tablet BY MOUTH 25 mg DAILY PRAVIN Administration Escitalopram Oxalate 10 mg 09/01/24 09:25 09/05/24 08:55 Escitalopram Oxalate 10 Mg Tablet BY MOUTH 10 mg QAM PRAVIN Administration Fentanyl Citrate 25 mcg 09/04/24 11:42 09/04/24 13:28 Fentanyl Citrate Inj (*Crx) 100 Mcg/2 Ml Vial IV PUSH 25 mcg Q2M PRN Administration Pain Glimepiride 1 mg 09/01/24 09:25 09/05/24 08:55 Glimepiride 1 Mg Tablet BY MOUTH 1 mg QAM PRAVIN Administration Glucagon 1 mg 09/01/24 10:44 Glucagon For Inj 1 Mg Vial IM PRN PRN Hypoglycemia Protocol Glucose 15 gm 09/01/24 10:44 Glucose Oral Gel 15 Gm Of Glucse In 37.5 Gm Tube PO PRN PRN Hypoglycemia Protocol Hyoscyamine 0.125 mg 09/04/24 15:54 Hyoscyamine Sulfate 0.125 Mg Tablet SUBLINGUAL Q6H PRN Bladder Spasm Dextrose 1,000 mls @ 100 mls/hr 09/01/24 10:44 Dextrose 5% 1,000 Ml IVPB PRN PRN Hypoglycemia Protocol Lactated Ringer's 1,000 mls @ 30 mls/hr 09/04/24 11:45 09/05/24 17:07 Lr - Lactated Ringers Iv IV CONT Not Given .Q24H PRAVIN Lactated Ringer's 1,000 mls @ 30 mls/hr 09/04/24 11:45 09/05/24 17:07 Lr - Lactated Ringers Iv IV CONT Not Given .Q24H [facility] Insulin Aspart 2 - 5 units 09/01/24 12:00 09/05/24 18:15 Insulin Aspart (*Bkc) 100 Units/Ml SUB-Q Not Given TIDWM [facility] Protocol Insulin Aspart 1 - 2 units 09/01/24 21:00 09/04/24 21:08 Insulin Aspart (*Bkc) 100 Units/Ml SUB-Q 2 units HS [facility] Administration Protocol Ipratropium [place] 0.5 mg 09/01/24 02:00 09/05/24 14:33 Ipratropium Br 0.02% Inh Soln 0.5 Mg/2.5 Ml Vial INHALATION 0.5 mg Q6HRT PRAVIN Administration Levalbuterol HCl 1.25 mg 09/01/24 02:00 09/05/24 14:34 Levalbuterol Neb 1.25 Mg/3 Ml INHALATION 1.25 mg Q6HRT PRAVIN Administration Losartan Potassium 25 mg 09/01/24 09:25 09/05/24 08:55 Losartan Potassium 25 Mg Tablet PO 25 mg DAILY PRAVIN Administration Ondansetron HCl 4 mg 09/04/24 11:42 Ondansetron Inj 4 Mg/2 Ml Vial IV PUSH ONCE PRN Nausea Pioglitazone HCl 30 mg 09/01/24 09:25 09/05/24 08:55 Pioglitazone Hcl 30 Mg Tablet BY MOUTH 30 mg QAM PRAVIN Administration Fluticasone/Salmeterol 2 puff 09/01/24 09:25 09/05/24 08:20 Fluticasone/Salmeterol 230-21 Mcg Inhaler 1 Puff INHALATION 2 puff Q12HRT PRAVIN Administration Tamsulosin HCl 0.4 mg 09/01/24 09:25 09/05/24 08:55 Tamsulosin Hcl 0.4 Mg Capsule PO 0.4 mg DAILY PRAVIN Administration Radiology Results: ITS Impressions Chest X-Ray 08/31/24 19:21 IMPRESSION: As above. Chest CTA 08/31/24 22:24 IMPRESSION: No pulmonary embolus. No thoracic aortic dissection. Findings consistent with patient's known history of lung cancer within the right hemithorax post partial lobectomy with persistent round atelectasis. Interval increase in the right-sided pleural effusion, when compared with May 09, 2024 examination. Renal Ultrasound 09/02/24 13:53 IMPRESSION 1. Mild likely age-related bilateral renal atrophy with bilateral renal cysts. No hydronephrosis. 2. Intraluminal hypoechoic region along the floor of the bladder, unclear whether related to focal wall thickening such as in the setting of neoplasm or due to clot or debris. Correlate with urinalysis and could consider cystoscopy for further evaluation as clinically indicated. Abdomen/Pelvis CT 09/02/24 17:21 IMPRESSION: 1. Abdominal aortic aneurysm measuring 4.2 x 4.3 cm. 2. Right basilar atelectasis versus pneumonia. Follow-up to resolution advised. Rounded atelectasis is not excluded. 3. Right pleural effusion which may be loculated. 4. Highly suggestive lower pole left kidney mass. Hyperdense lesion in the right kidney midpole most likely hemorrhagic cyst or a mass. 5. Mass or hematoma in the urinary bladder seen to the right and posteriorly. Enlarged prostate measuring 5.5 x 5.3 cm. The result of the patient was notified to Dr. Michael Mills at 5:50 PM on September 02, 2024. Aorta Ultrasound 09/02/24 19:01 IMPRESSION: 1. ULTRASOUND OF THE distal ABDOMINAL AORTA measuring 4.1 x 3.9 cm... Labs Labs: Laboratory Tests 09/05/24 03:56 09/05/24 03:56 Calcium 8.8 Magnesium 2.2
[2024-09-05] MEDS: INSULIN ASPART (*BKC) 100 UNITS/ML SUB-Q (12:10)
--- NOTE | 2024-09-05 13:24 | PC.NURSE ---
On 09/05/24, the student, [Ruby Negrete], provided care and completed [facility] documentation on this patient. I have reviewed the student's documentation and agree with the findings.
[2024-09-05 13:45] LABS: ANCA Screen NEGATIVE (NEGATIVE)
[2024-09-05 16:08] LABS: Glucose Point of Care 90 mg/dl (65-105)
[2024-09-05 16:14] LABS: Kappa\\Lambda Light Chains 1.66 (0.26-1.65); Lambda Light Chain 27.7 mg/L (5.7-26.3)
--- NOTE | 2024-09-05 16:39 | P.PNIM_ITS ---
Progress Note: A&P Assessment and Plan (1) Atrial fibrillation with rapid ventricular response: Code(s): I48.91 - Unspecified atrial fibrillation Status: Acute (2) SOB (shortness of breath) on exertion: Code(s): R06.02 - Shortness of breath Status: Acute (3) Type 2 diabetes mellitus with diabetic chronic kidney disease: Qualifiers: Diabetes mellitus buttermaker continuous churn insulin use: without alf use Chronic kidney disease stage: stage 3 (moderate) Chronic kidney disease stage 3 subtype: stage 3b (GFR 30-44) Qualified Code(s): E11.22 - Type 2 diabetes mellitus with diabetic chronic kidney disease; N18.32 - Chronic kidney disease, stage 3b Code(s): E11.22 - Type 2 diabetes mellitus with diabetic chronic kidney disease Status: Acute (4) Personal history of malignant neoplasm of lung: Code(s): Z85.118 - Personal history of other malignant neoplasm of bronchus and lung Status: Acute (5) Stage 4 chronic kidney disease: Code(s): N18.4 - Chronic kidney disease, stage 4 (severe) Status: Chronic Plan ER-HPI Narrative: patient stats he has lung cancer and had been treated and he is in remission, his CT scan showed No pulmonary embolus. No thoracic aortic dissection. Findings consistent with patient's known history of lung cancer within the right hemithorax post partial lobectomy with persistent round atelectasis. Interval increase in the right-sided pleural effusion, when compared with May 09, 2024 examination.currently patient is on RA and does not appear in any distress. Patient was seen by his oncologist does not suspect patient has recurrence of his lung cancer patient with shortness of breath most likely patient has pneumonia and being treated with ceftriaxone and Zithromax. 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 Subjective Date/time seen: 09/05/24 16:39 Interval history: patient stats he has lung cancer and had been treated and he is in remission, his CT scan showed No pulmonary embolus. No thoracic aortic dissection. Findings consistent with patient's known history of lung cancer within the right hemithorax post partial lobectomy with persistent round atelectasis. Interval increase in the right-sided pleural effusion, when compared with May 09, 2024 examination.currently patient is on RA and does not appear in any distress. Patient was seen by his oncologist does not suspect patient has recurrence of his lung cancer patient with shortness of breath most likely patient has pneumonia and being treated with ceftriaxone and Zithromax. 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 Exam Narrative: Patient is comfortable, NAD HEENT: eyes are clear and none icteric LUNGS: Bilateral fair entry with rhonchi HEART: RR S1S2 ABD: BS+, Soft and nontender Lower extremities: no edema SKIN: nonjaundiced Neuro: grossly intact. Objective Data Vital Signs Vital Signs: Vital Signs - 24 hr 09/04/24 18:00 09/04/24 20:00 09/04/24 20:00 Temperature Pulse Rate 95 91 94 Respiratory Rate Blood Pressure Pulse Oximetry 96 Oxygen Delivery Room Air 09/04/24 20:05 09/04/24 20:05 09/04/24 20:15 Temperature Pulse Rate 104 H 104 H 98 Respiratory Rate 24 H 20 Blood Pressure Pulse Oximetry 94 Oxygen Delivery Room Air 09/04/24 20:44 09/04/24 23:08 09/04/24 23:24 Temperature 36.9 C 36.7 C Pulse Rate 92 84 91 Respiratory Rate 20 20 Blood Pressure 160/95 H 169/77 H Pulse Oximetry 100 97 96 Oxygen Delivery Room Air 09/05/24 00:00 09/05/24 01:46 09/05/24 01:46 Temperature Pulse Rate 84 85 85 Respiratory Rate 18 18 Blood Pressure Pulse Oximetry 95 Oxygen Delivery Room Air 09/05/24 02:00 09/05/24 03:38 09/05/24 03:41 Temperature 36.5 C Pulse Rate 84 88 88 Respiratory Rate 16 20 Blood Pressure 169/87 H Pulse Oximetry 98 96 Oxygen Delivery Room Air 09/05/24 04:00 09/05/24 07:54 09/05/24 08:00 Temperature 36.8 C Pulse Rate 87 88 98 Respiratory Rate 18 20 Blood Pressure 159/80 H Pulse Oximetry 97 94 Oxygen Delivery Room Air 09/05/24 08:22 09/05/24 08:22 09/05/24 08:33 Temperature Pulse Rate 95 98 Respiratory Rate 20 20 Blood Pressure Pulse Oximetry 94 Oxygen Delivery Room Air 09/05/24 11:31 09/05/24 12:00 09/05/24 14:36 Temperature 36.7 C Pulse Rate 95 95 82 Respiratory Rate 18 18 20 Blood Pressure 151/78 H Pulse Oximetry 96 96 Oxygen Delivery Room Air 09/05/24 14:50 09/05/24 15:23 Temperature 36.6 C Pulse Rate 86 88 Respiratory Rate 20 18 Blood Pressure 126/90 Pulse Oximetry 96 Oxygen Delivery Intake/Output Intake/Output: Intake & Output 09/02/24 09/03/24 09/04/24 09/05/24 23:59 23:59 23:59 23:59 Intake Total 1280 2595 890 1380 Output Total 2240 1070 5001 525 Balance -960 1525 -6634 855 Meds/Results Medications: Active Medications Generic Name Dose Route Start Last Admin Trade Name Freq PRN Reason Stop Dose Admin Amoxicillin/Clavulanate Potassium 1 tablet 09/05/24 14:00 Amoxicillin/Clavulanate K 875-125 Mg Tab PO 09/07/24 21:01 Q12HR PRAVIN Apixaban 5 mg 09/04/24 21:00 09/05/24 08:55 Apixaban 5 Mg Tablet PO 5 mg Q12HR PRAVIN Administration Atorvastatin Calcium 40 mg 09/05/24 09:00 09/05/24 09:10 Atorvastatin 40 Mg Tablet BY MOUTH 40 mg QAM PRAVIN Administration Dextrose 12.5 gm 09/01/24 10:44 Dextrose 50% 25 Gm/50 Ml Syringe IV PUSH PRN PRN Hypoglycemia Protocol Diltiazem HCl 30 mg 09/01/24 10:00 09/05/24 09:10 Diltiazem Hcl 30 Mg Tablet PO 30 mg Q6H PRAVIN Administration Empagliflozin 25 mg 09/01/24 09:25 09/05/24 08:55 Empagliflozin 25 Mg Tablet BY MOUTH 25 mg DAILY PRAVIN Administration Escitalopram Oxalate 10 mg 09/01/24 09:25 09/05/24 08:55 Escitalopram Oxalate 10 Mg Tablet BY MOUTH 10 mg QAM PRAVIN Administration Fentanyl Citrate 25 mcg 09/04/24 11:42 09/04/24 13:28 Fentanyl Citrate Inj (*Crx) 100 Mcg/2 Ml Vial IV PUSH 25 mcg Q2M PRN Administration Pain Glimepiride 1 mg 09/01/24 09:25 09/05/24 08:55 Glimepiride 1 Mg Tablet BY MOUTH 1 mg QAM PRAVIN Administration Glucagon 1 mg 09/01/24 10:44 Glucagon For Inj 1 Mg Vial IM PRN PRN Hypoglycemia Protocol Glucose 15 gm 09/01/24 10:44 Glucose Oral Gel 15 Gm Of Glucse In 37.5 Gm Tube PO PRN PRN Hypoglycemia Protocol Hyoscyamine 0.125 mg 09/04/24 15:54 Hyoscyamine Sulfate 0.125 Mg Tablet SUBLINGUAL Q6H PRN Bladder Spasm Dextrose 1,000 mls @ 100 mls/hr 09/01/24 10:44 Dextrose 5% 1,000 Ml IVPB PRN PRN Hypoglycemia Protocol Lactated Ringer's 1,000 mls @ 30 mls/hr 09/04/24 11:45 09/04/24 13:53 Lr - Lactated Ringers Iv IV CONT Infused .Q24H PRAVIN Infusion Lactated Ringer's 1,000 mls @ 30 mls/hr 09/04/24 11:45 09/04/24 21:10 Lr - Lactated Ringers Iv IV CONT Not Given .Q24H PRAVIN Insulin Aspart 2 - 5 units 09/01/24 12:00 09/05/24 12:10 Insulin Aspart (*Bkc) 100 Units/Ml SUB-Q 4 units TIDWM PRAVIN Administration Protocol Insulin Aspart 1 - 2 units 09/01/24 21:00 09/04/24 21:08 Insulin Aspart (*Bkc) 100 Units/Ml SUB-Q 2 units HS PRAVIN Administration Protocol Ipratropium [place] 0.5 mg 09/01/24 02:00 09/05/24 14:33 Ipratropium Br 0.02% Inh Soln 0.5 Mg/2.5 Ml Vial INHALATION 0.5 mg Q6HRT PRAVIN Administration Levalbuterol HCl 1.25 mg 09/01/24 02:00 09/05/24 14:34 Levalbuterol Neb 1.25 Mg/3 Ml INHALATION 1.25 mg Q6HRT PRAVIN Administration Losartan Potassium 25 mg 09/01/24 09:25 09/05/24 08:55 Losartan Potassium 25 Mg Tablet PO 25 mg DAILY PRAVIN Administration Ondansetron HCl 4 mg 09/04/24 11:42 Ondansetron Inj 4 Mg/2 Ml Vial IV PUSH ONCE PRN Nausea Pioglitazone HCl 30 mg 09/01/24 09:25 09/05/24 08:55 Pioglitazone Hcl 30 Mg Tablet BY MOUTH 30 mg QAM PRAVIN Administration Fluticasone/Salmeterol 2 puff 09/01/24 09:25 09/05/24 08:20 Fluticasone/Salmeterol 230-21 Mcg Inhaler 1 Puff INHALATION 2 puff Q12HRT PRAVIN Administration Tamsulosin HCl 0.4 mg 09/01/24 09:25 09/05/24 08:55 Tamsulosin Hcl 0.4 Mg Capsule PO 0.4 mg DAILY PRAVIN Administration Radiology Results: ITS Impressions Chest X-Ray 08/31/24 19:21 IMPRESSION: As above. Chest CTA 08/31/24 22:24 IMPRESSION: No pulmonary embolus. No thoracic aortic dissection. Findings consistent with patient's known history of lung cancer within the right hemithorax post partial lobectomy with persistent round atelectasis. Interval increase in the right-sided pleural effusion, when compared with May 09, 2024 examination. Renal Ultrasound 09/02/24 13:53 IMPRESSION 1. Mild likely age-related bilateral renal atrophy with bilateral renal cysts. No hydronephrosis. 2. Intraluminal hypoechoic region along the floor of the bladder, unclear whether related to focal wall thickening such as in the setting of neoplasm or due to clot or debris. Correlate with urinalysis and could consider cystoscopy for further evaluation as clinically indicated. Abdomen/Pelvis CT 09/02/24 17:21 IMPRESSION: 1. Abdominal aortic aneurysm measuring 4.2 x 4.3 cm. 2. Right basilar atelectasis versus pneumonia. Follow-up to resolution advised. Rounded atelectasis is not excluded. 3. Right pleural effusion which may be loculated. 4. Highly suggestive lower pole left kidney mass. Hyperdense lesion in the right kidney midpole most likely hemorrhagic cyst or a mass. 5. Mass or hematoma in the urinary bladder seen to the right and posteriorly. Enlarged prostate measuring 5.5 x 5.3 cm. The result of the patient was notified to Dr. Michael Mills at 5:50 PM on September 02, 2024. Aorta Ultrasound 09/02/24 19:01 IMPRESSION: 1. ULTRASOUND OF THE distal ABDOMINAL AORTA measuring 4.1 x 3.9 cm... Labs Labs: Laboratory Results - last 24 hr 09/02/24 09/04/24 09/04/24 04:02 16:23 21:01 WBC RBC Hgb Hct MCV MCH MCHC RDW Plt Count MPV Sodium Potassium Chloride Carbon Dioxide Anion Gap BUN Creatinine Estim Creat Clear Calc Estimated GFR Glucose POC Capillary Glucose 175 H 312 H Calcium Magnesium Albumin 3.3 L Ztjvz-0-Cntqrkpbc 0.4 H Atkbo-9-Lxcbmdhnc 0.9 Wdoe-0-Tmepdgbd 0.4 Mvtj-2-Ynakxkel 0.4 Gamma Globulins 1.0 PEP Interpretation See note KEYSHAWN Screen Negative ANCA Screen Negative [place]/Lambda Ratio 1.66 H Free [place] Light Chains 45.9 H Free Lambda Light Chain 27.7 H 09/05/24 09/05/24 09/05/24 03:56 07:20 11:03 WBC 6.9 RBC 4.08 L Hgb 12.7 L Hct 40.5 L MCV 99.3 MCH 31.1 MCHC 31.4 L RDW 13.9 Plt Count 197 MPV 11.2 H Sodium 140 Potassium 3.5 Chloride 105 Carbon Dioxide 28 Anion Gap 7 BUN 32 H Creatinine 1.75 H Estim Creat Clear Calc 34 Estimated GFR 38 L Glucose 169 H POC Capillary Glucose 175 H 314 H Calcium 8.8 Magnesium 2.2 Albumin Geeko-8-Cmdfgnrwv Zvojo-0-Okdcztqeb Yurl-6-Kptdiwwx Eqkw-3-Lpyizfvd Gamma Globulins PEP Interpretation KEYSHAWN Screen ANCA Screen [place]/Lambda Ratio Free [place] Light Chains Free Lambda Light Chain 09/05/24 16:05 WBC RBC Hgb Hct MCV MCH MCHC RDW Plt Count MPV Sodium Potassium Chloride Carbon Dioxide Anion Gap BUN Creatinine Estim Creat Clear Calc Estimated GFR Glucose POC Capillary Glucose 90 Calcium Magnesium Albumin Gczkk-9-Fpihatrtm Srosb-9-Fbzmulday Fzwc-4-Kjtfhagc Epuo-2-Cllroofb Gamma Globulins PEP Interpretation KEYSHAWN Screen ANCA Screen [place]/Lambda Ratio Free [place] Light Chains Free Lambda Light Chain Quality VTE Prophylaxis VTE prophylaxis: pharmacologic ordered
[2024-09-05] MEDS: AMOXICILLIN/CLAVULANATE K 875-125 MG TAB 1 TABLET PO (17:05)
[2024-09-05 20:34] LABS: Glucose Point of Care 192 mg/dl (65-105)
[2024-09-06] VITALS (10 sets, daily range): BP systolic 136–165; BP diastolic 67–90; PULSE 88–106; RESP 16–24; TEMP 36.9–37; O2SAT 95–96
[2024-09-06] MEDS: IPRATROPIUM BR 0.02% INH SOLN 0.5 MG/2.5 ML VIAL INHALATION ×2 (02:27→08:08)
[2024-09-06] MEDS: LEVALBUTEROL NEB 1.25 MG/3 ML INHALATION ×2 (02:27→08:08)
[2024-09-06 04:17] LABS: Hematocrit 38.4 % (42.0-52.0); Hemoglobin 12.4 g/dL (14.0-18.0); Mean Corpuscular HGB Conc 32.3 g/dl (32-36); Mean Corpuscular Hemoglobin 31.4 pg (26-34); Mean Corpuscular Volume 97.2 fl (80-100); Mean Platelet Volume 11.4 fl (7.4-10.4); Platelet Count Result 199 k/mm3 (150-375); Red Blood Count 3.95 M/mm3 (4.6-6.20); Red Cell Distribution Width 13.7 % (11.5-14.5); White Blood Count 7.2 K/mm3 (4.5-10.0)
[2024-09-06 04:27] LABS: Anion Gap 6 mmol/L (4-12); Blood Urea Nitrogen 30 mg/dL (9-20); Calcium 8.6 mg/dL (8.4-10.2); Carbon Dioxide 27 mmol/L (22-30); Chloride 105 mmol/L (98-107); Estimated CRCL calculation 32 ml/min; Estimated Glomerular Filt Rate 36; Glucose 146 mg/dL (65-110); Magnesium 2.2 mg/dL (1.6-2.3); Potassium 3.6 mmol/L (3.4-5.0); Sodium 138 mmol/L (137-145)
--- NOTE | 2024-09-06 06:43 | WPDUROPN2 ---
Progress Note: A&P Assessment and Plan (1) Bilateral kidney masses: Code(s): N28.89 - Other specified disorders of kidney and ureter Status: Acute (2) Cancer of overlapping sites of bladder: Code(s): C67.8 - Malignant neoplasm of overlapping sites of bladder Status: Acute Assessment and Plan: Voiding well after TURBT. Discharge any time from my standpoint. Follow-up 3-4 weeks Subjective Subjective Date/Time Seen: 09/06/24 06:43 Interval history: Comfortable, voiding well -urine minimally blood Review of Systems Review of Systems: All systems reviewed & are unremarkable except as noted in HPI and below Objective Data Vital Signs Vital Signs: Vital Signs - 24 hr 09/05/24 07:54 09/05/24 08:00 09/05/24 08:00 Temperature 98.2 F Pulse Rate 88 98 94 Respiratory Rate 18 20 Blood Pressure 159/80 H Pulse Oximetry 97 94 Oxygen Delivery Room Air 09/05/24 08:22 09/05/24 08:22 09/05/24 08:33 Temperature Pulse Rate 95 98 Respiratory Rate 20 20 Blood Pressure Pulse Oximetry 94 Oxygen Delivery Room Air 09/05/24 10:00 09/05/24 11:31 09/05/24 12:00 Temperature 98.1 F Pulse Rate 92 95 95 Respiratory Rate 18 18 Blood Pressure 151/78 H Pulse Oximetry 96 96 Oxygen Delivery Room Air 09/05/24 12:00 09/05/24 14:00 09/05/24 14:36 Temperature Pulse Rate 90 90 82 Respiratory Rate 20 Blood Pressure Pulse Oximetry Oxygen Delivery 09/05/24 14:50 09/05/24 15:23 09/05/24 16:00 Temperature 97.8 F Pulse Rate 86 88 88 Respiratory Rate 20 18 Blood Pressure 126/90 Pulse Oximetry 96 Oxygen Delivery 09/05/24 19:53 09/05/24 20:00 09/05/24 20:07 Temperature 99.0 F Pulse Rate 93 91 94 Respiratory Rate 20 20 Blood Pressure 140/77 Pulse Oximetry 98 Oxygen Delivery 09/05/24 20:10 09/05/24 20:20 09/05/24 20:23 Temperature Pulse Rate 91 91 Respiratory Rate 20 20 Blood Pressure Pulse Oximetry 92 92 Oxygen Delivery Room Air Room Air 09/05/24 23:04 09/06/24 00:00 09/06/24 02:27 Temperature 98.5 F Pulse Rate 96 94 89 Respiratory Rate 20 20 Blood Pressure 148/70 H Pulse Oximetry 99 Oxygen Delivery 09/06/24 02:42 09/06/24 03:51 09/06/24 04:00 Temperature 98.6 F Pulse Rate 90 92 91 Respiratory Rate 20 20 Blood Pressure 165/90 H Pulse Oximetry 95 Oxygen Delivery Intake/Output Intake/Output: Intake & Output 09/03/24 09/04/24 09/05/24 09/06/24 23:59 23:59 23:59 23:59 Intake Total 2595 890 1820 240 Output Total 1070 5001 925 500 Balance 1525 4111 895 -260 Meds/Results Medications: Active Medications Generic Name Dose Route Start Last Admin Trade Name Freq PRN Reason Stop Dose Admin Amoxicillin/Clavulanate Potassium 1 tablet 09/06/24 06:00 Amoxicillin/Clavulanate K 875-125 Mg Tab PO 09/08/24 06:01 Q12H PRAVIN Apixaban 5 mg 09/04/24 21:00 09/05/24 20:29 Apixaban 5 Mg Tablet PO 5 mg Q12HR PRAVIN Administration Atorvastatin Calcium 40 mg 09/05/24 09:00 09/05/24 09:10 Atorvastatin 40 Mg Tablet BY MOUTH 40 mg QAM PRAVIN Administration Dextrose 12.5 gm 09/01/24 10:44 Dextrose 50% 25 Gm/50 Ml Syringe IV PUSH PRN PRN Hypoglycemia Protocol Diltiazem HCl 30 mg 09/01/24 10:00 09/05/24 20:29 Diltiazem Hcl 30 Mg Tablet PO 30 mg Q6H PRAVIN Administration Empagliflozin 25 mg 09/01/24 09:25 09/05/24 08:55 Empagliflozin 25 Mg Tablet BY MOUTH 25 mg DAILY PRAVIN Administration Escitalopram Oxalate 10 mg 09/01/24 09:25 09/05/24 08:55 Escitalopram Oxalate 10 Mg Tablet BY MOUTH 10 mg QAM PRAVIN Administration Fentanyl Citrate 25 mcg 09/04/24 11:42 09/04/24 13:28 Fentanyl Citrate Inj (*Crx) 100 Mcg/2 Ml Vial IV PUSH 25 mcg Q2M PRN Administration Pain Glimepiride 1 mg 09/01/24 09:25 09/05/24 08:55 Glimepiride 1 Mg Tablet BY MOUTH 1 mg QAM PRAVIN Administration Glucagon 1 mg 09/01/24 10:44 Glucagon For Inj 1 Mg Vial IM PRN PRN Hypoglycemia Protocol Glucose 15 gm 09/01/24 10:44 Glucose Oral Gel 15 Gm Of Glucse In 37.5 Gm Tube PO PRN PRN Hypoglycemia Protocol Hyoscyamine 0.125 mg 09/04/24 15:54 Hyoscyamine Sulfate 0.125 Mg Tablet SUBLINGUAL Q6H PRN Bladder Spasm Dextrose 1,000 mls @ 100 mls/hr 09/01/24 10:44 Dextrose 5% 1,000 Ml IVPB PRN PRN Hypoglycemia Protocol Lactated Ringer's 1,000 mls @ 30 mls/hr 09/04/24 11:45 09/05/24 17:07 Lr - Lactated Ringers Iv IV CONT Not Given .Q24H PRAVIN Lactated Ringer's 1,000 mls @ 30 mls/hr 09/04/24 11:45 09/05/24 17:07 Lr - Lactated Ringers Iv IV CONT Not Given .Q24H PRAVIN Insulin Aspart 2 - 5 units 09/01/24 12:00 09/05/24 18:15 Insulin Aspart (*Bkc) 100 Units/Ml SUB-Q Not Given TIDWM PRAVIN Protocol Insulin Aspart 1 - 2 units 09/01/24 21:00 09/04/24 21:08 Insulin Aspart (*Bkc) 100 Units/Ml SUB-Q 2 units HS PRAVIN Administration Protocol Ipratropium [place] 0.5 mg 09/01/24 02:00 09/06/24 02:27 Ipratropium Br 0.02% Inh Soln 0.5 Mg/2.5 Ml Vial INHALATION 0.5 mg Q6HRT PRAVIN Administration Levalbuterol HCl 1.25 mg 09/01/24 02:00 09/06/24 02:27 Levalbuterol Neb 1.25 Mg/3 Ml INHALATION 1.25 mg Q6HRT PRAVIN Administration Losartan Potassium 25 mg 09/01/24 09:25 09/05/24 08:55 Losartan Potassium 25 Mg Tablet PO 25 mg DAILY PRAVIN Administration Ondansetron HCl 4 mg 09/04/24 11:42 Ondansetron Inj 4 Mg/2 Ml Vial IV PUSH ONCE PRN Nausea Pioglitazone HCl 30 mg 09/01/24 09:25 09/05/24 08:55 Pioglitazone Hcl 30 Mg Tablet BY MOUTH 30 mg QAM PRAVIN Administration Fluticasone/Salmeterol 2 puff 09/01/24 09:25 09/05/24 20:07 Fluticasone/Salmeterol 230-21 Mcg Inhaler 1 Puff INHALATION 2 puff Q12HRT PRAVIN Administration Tamsulosin HCl 0.4 mg 09/01/24 09:25 09/05/24 08:55 Tamsulosin Hcl 0.4 Mg Capsule PO 0.4 mg DAILY PRAVIN Administration Radiology Results: ITS Impressions Chest X-Ray 08/31/24 19:21 IMPRESSION: As above. Chest CTA 08/31/24 22:24 IMPRESSION: No pulmonary embolus. No thoracic aortic dissection. Findings consistent with patient's known history of lung cancer within the right hemithorax post partial lobectomy with persistent round atelectasis. Interval increase in the right-sided pleural effusion, when compared with May 09, 2024 examination. Renal Ultrasound 09/02/24 13:53 IMPRESSION 1. Mild likely age-related bilateral renal atrophy with bilateral renal cysts. No hydronephrosis. 2. Intraluminal hypoechoic region along the floor of the bladder, unclear whether related to focal wall thickening such as in the setting of neoplasm or due to clot or debris. Correlate with urinalysis and could consider cystoscopy for further evaluation as clinically indicated. Abdomen/Pelvis CT 09/02/24 17:21 IMPRESSION: 1. Abdominal aortic aneurysm measuring 4.2 x 4.3 cm. 2. Right basilar atelectasis versus pneumonia. Follow-up to resolution advised. Rounded atelectasis is not excluded. 3. Right pleural effusion which may be loculated. 4. Highly suggestive lower pole left kidney mass. Hyperdense lesion in the right kidney midpole most likely hemorrhagic cyst or a mass. 5. Mass or hematoma in the urinary bladder seen to the right and posteriorly. Enlarged prostate measuring 5.5 x 5.3 cm. The result of the patient was notified to Dr. Michael Mills at 5:50 PM on September 02, 2024. Aorta Ultrasound 09/02/24 19:01 IMPRESSION: 1. ULTRASOUND OF THE distal ABDOMINAL AORTA measuring 4.1 x 3.9 cm... Labs Labs: Laboratory Results - last 24 hr 09/02/24 09/05/24 09/05/24 04:02 07:20 11:03 WBC RBC Hgb Hct MCV MCH MCHC RDW Plt Count MPV Sodium Potassium Chloride Carbon Dioxide Anion Gap BUN Creatinine Estim Creat Clear Calc Estimated GFR Glucose POC Capillary Glucose 175 H 314 H Calcium Magnesium KEYSHAWN Screen Negative ANCA Screen Negative Anti-DNA Antibody 1 [place]/Lambda Ratio 1.66 H Free [place] Light Chains 45.9 H Free Lambda Light Chain 27.7 H 09/05/24 09/05/24 09/06/24 16:05 20:31 03:50 WBC 7.2 RBC 3.95 L Hgb 12.4 L Hct 38.4 L MCV 97.2 MCH 31.4 MCHC 32.3 RDW 13.7 Plt Count 199 MPV 11.4 H Sodium 138 Potassium 3.6 Chloride 105 Carbon Dioxide 27 Anion Gap 6 BUN 30 H Creatinine 1.83 H Estim Creat Clear Calc 32 Estimated GFR 36 L Glucose 146 H POC Capillary Glucose 90 192 H Calcium 8.6 Magnesium 2.2 KEYSHAWN Screen ANCA Screen Anti-DNA Antibody [place]/Lambda Ratio Free [place] Light Chains Free Lambda Light Chain
[2024-09-06 07:57] LABS: Glucose Point of Care 132 mg/dl (65-105)
[2024-09-06] MEDS: FLUTICASONE/SALMETEROL 230-21 MCG INHALER 1 PUFF 2 PUFF INHALATION (08:08)
[2024-09-06] MEDS: PIOGLITAZONE HCL 30 MG TABLET BY MOUTH (08:52)
[2024-09-06] MEDS: AMOXICILLIN/CLAVULANATE K 875-125 MG TAB 1 TABLET PO (08:52)
[2024-09-06] MEDS: GLIMEPIRIDE 1 MG TABLET BY MOUTH (08:52)
[2024-09-06] MEDS: LOSARTAN POTASSIUM 25 MG TABLET PO (08:52)
[2024-09-06] MEDS: TAMSULOSIN HCL 0.4 MG CAPSULE PO (08:52)
[2024-09-06] MEDS: APIXABAN 5 MG TABLET PO (08:52)
[2024-09-06] MEDS: ATORVASTATIN 40 MG TABLET BY MOUTH (08:53)
[2024-09-06] MEDS: EMPAGLIFLOZIN 25 MG TABLET BY MOUTH (08:53)
[2024-09-06] MEDS: ESCITALOPRAM OXALATE 10 MG TABLET BY MOUTH (08:53)
[2024-09-06] MEDS: dilTIAZem HCL 30 MG TABLET PO (09:01)
--- NOTE | 2024-09-06 11:40 | P.PNNP_ITS ---
Progress Note: A&P Assessment and Plan (1) Stage 3b chronic kidney disease: Code(s): N18.32 - Chronic kidney disease, stage 3b Status: Chronic Assessment and Plan: * creatinine was running ~ 1.7 - 2.2mg/dl since 2018 * since April 2024, creatinine now around 2.0 - 2.4mg/dl * this causes him to fluctuate between CKD stage 3b and stage 4 * doing better at this time... * due to diabetes, hypertension, vascular disease, and age-related change along with contributions from kidney stones/BPH * had been seeing Dr. Ruelas several years ago (but lost to follow-up) * PCP referred him to see Dr. Ruelas again (appointment in September 2024) * repeat evaluation to date noted * UA with protein and blood (although blood thought to be secondary to anticoagulation) * renal u/s and CT A/P noted: findings c/w CKD along with possible left kidney mass * urine eosinophils negative * urine electrolytes non-prerenal * nephrotic range proteinuria (~ 22 grams) * CPK mildly elevated (but not enough to affect kidney function) * serologies noted so far (negative KEYSHAWN, ANCA, and complements, rest are pending) * follow trend of repeat labs and UOP (2) Shortness of breath: Code(s): R06.02 - Shortness of breath Status: Acute Assessment and Plan: * clinically better * suspect multifactorial: * afib with RVR * bronchitis * ongoing smoking * right pleural effusion * questionable pneumonia * CXR and CT of chest imaging noted * mot hypoxic or requiring supplemental oxygen * on empiric antibiotics * follow culture data * continue supportive therapy (3) Atrial fibrillation with rapid ventricular response: Code(s): I48.91 - Unspecified atrial fibrillation Status: Acute Assessment and Plan: * now in normal sinus rhythm * on oral cardizem for rate control * on anticoagulation * Echo results noted: * left ventricular systolic function is normal, estimated at 65-70% * right ventricular systolic function is normal * small pericardial effusion * trace mitral valve regurgitation * trace tricuspid valve regurgitation * Cardiology recommendations noted (4) Gross hematuria: Code(s): R31.0 - Gross hematuria Status: Acute Assessment and Plan: * presumably secondary to BPH and recent initiaton of anticoagulation * CT imaging suggestive of bladder clot * Urology following * s/p cystoscopy and TURBT on 09/04 * 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 (6) Benign hypertension with chronic kidney disease: Code(s): I12.9 - Hypertensive chronic kidney disease with stage 1 through stage 4 chronic kidney disease, or unspecified chronic kidney disease Status: Chronic Assessment and Plan: * reasonable control * follow trend of hemodynamics (7) History of lung cancer: Code(s): Z85.118 - Personal history of other malignant neoplasm of bronchus and lung Status: Chronic Assessment and Plan: * in remission * Hem/Onc recommendations noted (8) Diabetes mellitus with chronic kidney disease: Code(s): E11.22 - Type 2 diabetes mellitus with diabetic chronic kidney disease Status: Chronic Assessment and Plan: * follow accu-cheks * glycemic control per hospitalist Not opposed to discharge from renal perspective -- he can follow-up with Dr. Ruelas as already scheduled in September 2024 for ongoing management of his known CKD. Will continue to follow. L Subjective Date/time seen: 09/06/24 11:40 Interval history: Follow-up for chronic kidney disease. Continues to do reasonably well at the time of my visit; no apparent distress noted; overall, status he feels reasonably well; no other issues/events overnight or earlier this morning; noted plans for discharge today. Exam 2 Narrative: General: elderly but WD/WN male in NAD Heart: normal S1 and S2; no rub Lungs: clear anteriorly, decreased at bases Abdomen: soft, nontender, nondistended, positive bowel sounds Extremities: no cyanosis or clubbing; no edema Skin: no nodules Objective Data Vital Signs Vital Signs: Vital Signs Temp Pulse Resp BP Pulse Ox O2 Del Method 09/06/24 11:37 98.4 F 88 24 H 151/67 H 95 09/06/24 08:20 106 H 16 09/06/24 08:08 102 H 16 09/06/24 08:08 96 Room Air 09/06/24 08:00 98 09/06/24 08:00 102 H 16 96 Room Air 09/06/24 07:53 98.4 F 100 20 136/82 96 09/06/24 04:00 91 09/06/24 03:51 98.6 F 92 20 165/90 H 95 09/06/24 02:42 90 20 09/06/24 02:27 89 20 09/06/24 00:00 94 09/05/24 23:04 98.5 F 96 20 148/70 H 99 09/05/24 20:23 91 20 09/05/24 20:20 91 20 92 Room Air 09/05/24 20:10 92 Room Air 09/05/24 20:07 94 20 09/05/24 20:00 91 09/05/24 19:53 99.0 F 93 20 140/77 98 09/05/24 16:00 88 09/05/24 15:23 97.8 F 88 18 126/90 96 09/05/24 14:50 86 20 09/05/24 14:36 82 20 Intake/Output Intake/Output: Intake & Output 09/03/24 09/04/24 09/05/24 09/06/24 23:59 23:59 23:59 23:59 Intake Total 2595 890 1820 600 Output Total 1070 5001 925 950 Balance 1525 -4111 895 -350 Meds/Results Medications: Active Medications Generic Name Dose Route Start Trade Name Freq PRN Reason Stop Amoxicillin/Clavulanate Potassium 1 tablet 09/05/24 14:00 Amoxicillin/Clavulanate K 875-125 Mg Tab PO 09/07/24 21:01 Q12HR [facility] Apixaban 5 mg 09/04/24 21:00 Apixaban 5 Mg Tablet PO Q12HR [facility] Atorvastatin Calcium 40 mg 09/05/24 09:00 Atorvastatin 40 Mg Tablet BY MOUTH QAM [facility] Dextrose 12.5 gm 09/01/24 10:44 Dextrose 50% 25 Gm/50 Ml Syringe IV PUSH PRN PRN Hypoglycemia Protocol Diltiazem HCl 30 mg 09/01/24 10:00 Diltiazem Hcl 30 Mg Tablet PO Q6H [facility] Empagliflozin 25 mg 09/01/24 09:25 Empagliflozin 25 Mg Tablet BY MOUTH DAILY [facility] Escitalopram Oxalate 10 mg 09/01/24 09:25 Escitalopram Oxalate 10 Mg Tablet BY MOUTH QAM [facility] Fentanyl Citrate 25 mcg 09/04/24 11:42 Fentanyl Citrate Inj (*Crx) 100 Mcg/2 Ml Vial IV PUSH Q2M PRN Pain Glimepiride 1 mg 09/01/24 09:25 Glimepiride 1 Mg Tablet BY MOUTH QAM [facility] Glucagon 1 mg 09/01/24 10:44 Glucagon For Inj 1 Mg Vial IM PRN PRN Hypoglycemia Protocol Glucose 15 gm 09/01/24 10:44 Glucose Oral Gel 15 Gm Of Glucse In 37.5 Gm Tube PO PRN PRN Hypoglycemia Protocol Hyoscyamine 0.125 mg 09/04/24 15:54 Hyoscyamine Sulfate 0.125 Mg Tablet SUBLINGUAL Q6H PRN Bladder Spasm Dextrose 1,000 mls @ 100 mls/hr 09/01/24 10:44 Dextrose 5% 1,000 Ml IVPB PRN PRN Hypoglycemia Protocol Lactated Ringer's 1,000 mls @ 30 mls/hr 09/04/24 11:45 Lr - Lactated Ringers Iv IV CONT .Q24H [facility] Lactated Ringer's 1,000 mls @ 30 mls/hr 09/04/24 11:45 Lr - Lactated Ringers Iv IV CONT .Q24H [facility] Insulin Aspart 2 - 5 units 09/01/24 12:00 Insulin Aspart (*Bkc) 100 Units/Ml SUB-Q TIDWM [facility] Protocol Insulin Aspart 1 - 2 units 09/01/24 21:00 Insulin Aspart (*Bkc) 100 Units/Ml SUB-Q HS [facility] Protocol Ipratropium [place] 0.5 mg 09/01/24 02:00 Ipratropium Br 0.02% Inh Soln 0.5 Mg/2.5 Ml Vial INHALATION Q6HRT [facility] Levalbuterol HCl 1.25 mg 09/01/24 02:00 Levalbuterol Neb 1.25 Mg/3 Ml INHALATION Q6HRT [facility] Losartan Potassium 25 mg 09/01/24 09:25 Losartan Potassium 25 Mg Tablet PO DAILY [facility] Ondansetron HCl 4 mg 09/04/24 11:42 Ondansetron Inj 4 Mg/2 Ml Vial IV PUSH ONCE PRN Nausea Pioglitazone HCl 30 mg 09/01/24 09:25 Pioglitazone Hcl 30 Mg Tablet BY MOUTH QAM [facility] Fluticasone/Salmeterol 2 puff 09/01/24 09:25 Fluticasone/Salmeterol 230-21 Mcg Inhaler 1 Puff INHALATION Q12HRT [facility] Tamsulosin HCl 0.4 mg 09/01/24 09:25 Tamsulosin Hcl 0.4 Mg Capsule PO DAILY [facility] Radiology Results: ITS Impressions Chest X-Ray 08/31/24 19:21 IMPRESSION: As above. Chest CTA 08/31/24 22:24 IMPRESSION: No pulmonary embolus. No thoracic aortic dissection. Findings consistent with patient's known history of lung cancer within the right hemithorax post partial lobectomy with persistent round atelectasis. Interval increase in the right-sided pleural effusion, when compared with May 09, 2024 examination. Renal Ultrasound 09/02/24 13:53 IMPRESSION 1. Mild likely age-related bilateral renal atrophy with bilateral renal cysts. No hydronephrosis. 2. Intraluminal hypoechoic region along the floor of the bladder, unclear whether related to focal wall thickening such as in the setting of neoplasm or due to clot or debris. Correlate with urinalysis and could consider cystoscopy for further evaluation as clinically indicated. Abdomen/Pelvis CT 09/02/24 17:21 IMPRESSION: 1. Abdominal aortic aneurysm measuring 4.2 x 4.3 cm. 2. Right basilar atelectasis versus pneumonia. Follow-up to resolution advised. Rounded atelectasis is not excluded. 3. Right pleural effusion which may be loculated. 4. Highly suggestive lower pole left kidney mass. Hyperdense lesion in the right kidney midpole most likely hemorrhagic cyst or a mass. 5. Mass or hematoma in the urinary bladder seen to the right and posteriorly. Enlarged prostate measuring 5.5 x 5.3 cm. The result of the patient was notified to Dr. Michael Mills at 5:50 PM on September 02, 2024. Aorta Ultrasound 09/02/24 19:01 IMPRESSION: 1. ULTRASOUND OF THE distal ABDOMINAL AORTA measuring 4.1 x 3.9 cm... Labs Labs: Laboratory Tests 09/06/24 03:50 09/06/24 03:50 Calcium 8.6 Magnesium 2.2
[2024-09-06] MEDS: INSULIN ASPART (*BKC) 100 UNITS/ML SUB-Q (11:45)
[2024-09-06 11:48] LABS: Glucose Point of Care 283 mg/dl (65-105)
--- NOTE | 2024-09-06 12:34 | P.DS_ITS ---
DS: Admitting Diagnosis Discharge Date 09/07/24 Admitting Diagnosis Shortness of Breath/Dyspnea DS: Discharge Diagnosis Discharge Diagnosis (1) Atrial fibrillation with rapid ventricular response: Code(s): I48.91 - Unspecified atrial fibrillation Status: Acute (2) SOB (shortness of breath) on exertion: Code(s): R06.02 - Shortness of breath Status: Acute (3) Type 2 diabetes mellitus with diabetic chronic kidney disease: Qualifiers: Diabetes mellitus termination clerk insulin use: without chcf use Chronic kidney disease stage: stage 3 (moderate) Chronic kidney disease stage 3 subtype: stage 3b (GFR 30-44) Qualified Code(s): E11.22 - Type 2 diabetes mellitus with diabetic chronic kidney disease; N18.32 - Chronic kidney disease, stage 3b Code(s): E11.22 - Type 2 diabetes mellitus with diabetic chronic kidney disease Status: Acute (4) Personal history of malignant neoplasm of lung: Code(s): Z85.118 - Personal history of other malignant neoplasm of bronchus and lung Status: Acute (5) Stage 4 chronic kidney disease: Code(s): N18.4 - Chronic kidney disease, stage 4 (severe) Status: Chronic Plan ER-HPI Narrative: patient stats he has lung cancer and had been treated and he is in remission, his CT scan showed No pulmonary embolus. No thoracic aortic dissection. Findings consistent with patient's known history of lung cancer within the right hemithorax post partial lobectomy with persistent round atelectasis. Interval increase in the right-sided pleural effusion, when compared with May 09, 2024 examination.currently patient is on RA and does not appear in a ny distress. Patient was seen by his oncologist does not suspect patient has recurrence of his lung cancer patient with shortness of breath most likely patient has pneumonia and being treated with ceftriaxone and Zithromax. 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 DS: Summary Hospital Course Hospital Course: Findings consistent with patient's known history of lung cancer within the right hemithorax post partial lobectomy with persistent round atelectasis. Interval increase in the right-sided pleural effusion, when compared with May 09, 2024 examination.currently patient is on RA and does not appear in any distress. Patient was seen by his oncologist does not suspect patient has recurrence of his lung cancer patient with shortness of breath most likely patient has pneumonia and being treated with ceftriaxone and Zithromax. 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 Today patient is clinically stable, will discharge today. Time Spent with Patient Time attestation: Total time spent providing and/or coordinating discharge services: Exam Narrative: Patient is comfortable, NAD HEENT: eyes are clear and none icteric LUNGS: Bilateral fair entry with rhonchi HEART: RR S1S2 ABD: BS+, Soft and nontender Lower extremities: no edema SKIN: nonjaundiced Neuro: grossly intact. DS: Data Data Completed and Pending Completed studies during hospitalization: Pending at discharge 09/04/24 12:36 Surgical [PTH] Routine Labs on day of discharge: Labs from last 24 hours 09/06/24 09/06/24 09/05/24 07:32 03:50 20:31 WBC 7.2 RBC 3.95 L Hgb 12.4 L Hct 38.4 L MCV 97.2 MCH 31.4 MCHC 32.3 RDW 13.7 Plt Count 199 MPV 11.4 H Sodium 138 Potassium 3.6 Chloride 105 Carbon Dioxide 27 Anion Gap 6 BUN 30 H Creatinine 1.83 H Estim Creat Clear Calc 32 Estimated GFR 36 L Glucose 146 H POC Capillary Glucose 132 H 192 H Calcium 8.6 Magnesium 2.2 KEYSHAWN Screen ANCA Screen Anti-DNA Antibody [place]/Lambda Ratio Free [place] Light Chains Free Lambda Light Chain 09/05/24 09/02/24 16:05 04:02 WBC RBC Hgb Hct MCV MCH MCHC RDW Plt Count MPV Sodium Potassium Chloride Carbon Dioxide Anion Gap BUN Creatinine Estim Creat Clear Calc Estimated GFR Glucose POC Capillary Glucose 90 Calcium Magnesium KEYSHAWN Screen Negative ANCA Screen Negative Anti-DNA Antibody 1 [place]/Lambda Ratio 1.66 H Free [place] Light Chains 45.9 H Free Lambda Light Chain 27.7 H Preliminary micro results at discharge 09/01/24 15:28 Blood Culture - Preliminary Blood 09/01/24 15:28 Blood Culture - Preliminary Blood Discharge Plan Discharge Attending physician on discharge: Olivia Ruby Consulting providers: Anibal Ha; Sravanthi Deras; Dania Terry; Casey Farmer; Sunny Novoa; Reinier Tao; Dewey Mauro; Nimisha Garcia; Katherine Nuñez; Ricardo Olivas; Easton Mcrae; Benito Banuelos Discharging Clinician: Michael Mills Patient Disposition: Home Activity: as tolerated Diet: heart healthy Discharge Instructions: patient to follow up with his urologist and oncologist as scheduled, patient to follow up with his primary care provider as soon as possible. patient is instructed if any symptoms redevelop to go to nearest ER Patient Instructions: Antibiotic Form, A-fib (Atrial Fibrillation) (DC), Cystoscopy (DC) Patient Language: Italian Stand Alone Forms: General Discharge Information Follow-up/Referrals: Anibal Ha MD [Physician] - Leonardo Gomez MD [Primary Care Provider] - Casey Farmer MD [Physician] - Sravanthi Deras MD [Physician] - Discharge Medications: New amoxicillin-pot clavulanate [Augmentin] 500-125 mg tablet 1 tablet PO Q8H Qty: 15 0RF Eliquis 5 mg Tablet 5 mg PO Q12HR Qty: 60 0RF diltiazem HCl [Cartia XT] 180 mg capsule,extended release 24hr 180 mg PO DAILY Qty: 30 0RF levalbuterol HCl 1.25 mg/3 mL solution for nebulization 1.25 mg inhalation Q6H PRN (Reason: shortness of breath or wheezing) Qty: 90 0RF Rx Instructions: ICD 10 code j44.9 Continued tamsulosin 0.4 mg capsule 0.4 mg PO DAILY fluticasone propion-salmeterol [Advair HFA] 230-21 mcg/actuation HFA aerosol inhaler 2 puff inhalation BID Qty: 12 0RF dapagliflozin propanediol [Farxiga] 10 mg tablet 10 mg PO DAILY Qty: 90 1RF albuterol sulfate 90 mcg/actuation HFA aerosol inhaler 1 inh inhalation Q4H PRN (Reason: shortness of breath or wheezing) Qty: 8.5 0RF pioglitazone 30 mg tablet See Rx Instructions .ROUTE .COMPLEX Qty: 90 1RF Dose Instruction: TAKE 1 TABLET BY MOUTH EVERY DAY Rx Instructions: TAKE 1 TABLET BY MOUTH EVERY DAY escitalopram oxalate 10 mg tablet See Rx Instructions .ROUTE .COMPLEX Qty: 90 1RF Dose Instruction: TAKE 1 TABLET BY MOUTH DAILY Rx Instructions: TAKE 1 TABLET BY MOUTH DAILY glimepiride 1 mg tablet See Rx Instructions .ROUTE .COMPLEX Qty: 90 1RF Dose Instruction: TAKE 1 TABLET BY MOUTH EVERY MORNING ADMINISTER WITH BREAKFAST Rx Instructions: TAKE 1 TABLET BY MOUTH EVERY MORNING ADMINISTER WITH BREAKFAST losartan 25 mg tablet 25 mg PO DAILY Qty: 90 1RF atorvastatin 40 mg tablet See Rx Instructions .ROUTE .COMPLEX Qty: 90 1RF Dose Instruction: TAKE 1 TABLET BY MOUTH DAILY Rx Instructions: TAKE 1 TABLET BY MOUTH DAILY Date of admission: 09/01/24 00:36 Primary Care Provider: Leonardo Gomez Admitting Provider: Olivia Ruby Attending physician on admission: Michael Mills Condition: Stable
[2024-09-07 16:18] LABS: Abnormal Protein Band 1 537 mg/dL (NONE DETECTED)
[2024-09-08 13:43] LABS: Anti Glomerular Basement Memb <1.0 AI
== END 2024-09-06 13:32 | disposition home or self-care (01) | DRG 669 ==
LOC: ANHED 23:55 → ANHIMU 09-01 16:21
PROVIDERS: Internal Medicine Nephrology; Urology; Admitting Provider Internal Medicine; Emergency Provider Registered Nurse; PCP Family Medicine; Visit Provider Family Medicine
PROC: 0TCB8ZZ Extirpation of Matter from Bladder, Via Natural or Artificial Opening Endoscopic (ICD-10-PCS; CPT 52001; principal; 2024-09-04 12:00)
PROC: 0TBB8ZX Excision of Bladder, Via Natural or Artificial Opening Endoscopic, Diagnostic (ICD-10-PCS; CPT 52352; 2024-09-04 12:00)
DX: C67.8 Malignant neoplasm of overlapping sites of bladder (principal); N18.4 Chronic kidney disease, stage 4 (severe); Z85.118 Personal history of other malignant neoplasm of bronchus and lung; E11.22 Type 2 diabetes mellitus with diabetic chronic kidney disease; E78.2 Mixed hyperlipidemia; F17.210 Nicotine dependence, cigarettes, uncomplicated; F32.9 Major depressive disorder, single episode, unspecified; I12.9 Hypertensive chronic kidney disease with stage 1 through stage 4 chronic kidney disease, or unspecified chronic kidney disease; I48.91 Unspecified atrial fibrillation; N40.0 Benign prostatic hyperplasia without lower urinary tract symptoms; N28.89 Other specified disorders of kidney and ureter; R31.0 Gross hematuria; Z79.84 Long term (current) use of oral hypoglycemic drugs; Z96.653 Presence of artificial knee joint, bilateral; Z90.2 Acquired absence of lung [part of]; R06.02 Shortness of breath; Z79.01 Long term (current) use of anticoagulants
CPT/HCPCS: 36415; 36600; 71045; 71275; 74176; 74420; 76775; 80048; 80053; 81001; 81050; 82550; 82570; 82805; 82948; 83036; 83520; 83605; 83735; 83880; 83883; 84155; 84156; 84165; 84166; 84300; 84484; 84540; 85018; 85025; 85027; 85610; 85730; 85999; 86036; 86038; 86039; 86160; 86225; 87040; 87086; 88305; 93005; 93306; 94640; 96361; 96374; 96375; 99285; A9270; C1758; C1769; J0696; J1650; J1815; J1938; J2270; J2704; J2919; J3010; J7030; J7120; Q9966; Q9967

== ENCOUNTER 2024-09-20 13:43 | Outpatient (CLI) | payer MEDICARE, BC, SELFPAY ==
--- OUTSIDE RECORDS SUMMARY | 2024-09-20 13:50 | XMS_ITS | Clinical Summary ---
Author Organization [facility] Address [address] [place] [address] Phone Care Team Providers Care Seo Assistant Name Role Phone Unavailable Primary Care Provider [...] Comments Blood Pressure 134/70 05/18/2018 12:01 AM GENERAL DUTY NURSE Pulse 72 05/18/2018 12:01 AM GENERAL DUTY NURSE Temperature 35.7 C (96.3 F) 05/18/2018 12:01 AM GENERAL DUTY NURSE Respiratory Rate - - Oxygen Saturation - - Inhaled Oxygen Concentration - - Weight 96.6 kg (213 lb) 05/18/2018 12:01 AM GENERAL DUTY NURSE Height 177.8 cm (5' 10) 05/18/2018 12:01 AM GENERAL DUTY NURSE Body Mass Index 30.56 05/18/2018 12:01 AM GENERAL DUTY NURSE Plan of Treatment Health Maintenance Due Date Last Done Comments Pneumococcal PPSV23/PCV13 65 + Years / Low and Medium Risk (1 of 4 - PCV) 02/17/1998 Influenza Vaccine (Season Ended) 2024
--- OUTSIDE RECORDS SUMMARY | 2024-09-20 13:50 | XMS_ITS | Referral Summary ---
Author Organization [facility] [place] [address] [facility] [address] Address [address] [place] [address] Care Team Providers Care Security Operations Engineer Name Role Phone Leonardo Gomez MD Primary Care Provider [phone] Avery Montejo MD Unavailable [phone] Encounters Date Type Department Care Team Description 09/08/2024 Orders Only [facility] Cardiology [address] [place] [address] Sravanthi Deras MD from Last 3 Months Allergies No known active allergies Social History Tobacco Use Types Packs/Day Years Used Date Smoking Tobacco: Never Assessed Personal Safety Answer Date Recorded Getting School Help Needed Not on file 05/02 Sex and Gender Information Value Date Recorded Sex Assigned at Not on file Legal Sex Male 2:54 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 Gender Identity Not on file Sexual Orientation Not on file Plan of Treatment Not on file Procedures Procedure Name Priority Date/Time Associated Diagnosis Comments CARDIOLOGY DOCUMENT SCAN Routine 09/03/2024 3:29 PM CDT CARDIOLOGY DOCUMENT SCAN Routine 09/02/2024 3:08 PM CDT from Last 3 Months Results * Cardiology Document Scan (09/03/2024 3:29 PM CDT) Anatomical Region Laterality Modality Other Sravanthi Deras MD CV CARDIAC SERVICES PROCEDU RES Final Result * Cardiology Document Scan (09/02/2024 3:08 PM CDT) Anatomical Region Laterality Modality Other Sravanthi Deras MD CV CARDIAC SERVICES PROCEDU RES Final Result from Last 3 Months Insurance MEDICARE [facility] Address: [address] [place] [address] MEDICARE Care Teams Security Operations Engineer Relationship Specialty Start Date End Date Leonardo Gomez MD [address] [place] [id number] PCP - General Family Medicine 04/17/22 Avery Montejo MD [id number] [facility] [address] [place] [address] Surgeon Cardiothoracic Surgery 04/29/22
--- OUTSIDE RECORDS SUMMARY | 2024-09-20 13:50 | XMS_ITS | Clinical Summary ---
Author Organization [facility] [place] [address] [facility] [address] Address [address] [place] [address] Care Team Providers Care Atomic Spectroscopist Name Role Phone Leonardo Gomez MD Primary Care Provider [phone] Avery Montejo MD Unavailable [phone] Allergies No known active allergies Encounters Date Type Department Care Team Description 09/08/2024 Orders Only [facility] Cardiology [address] [place] [address] Sravanthi Deras MD from Last 3 Months Social History Tobacco Use Types Packs/Day Years Used Date Smoking Tobacco: Never Assessed Personal Safety Answer Date Recorded Getting School Help Needed Not on file 05/02 Sex and Gender Information Value Date Recorded Sex Assigned at Not on file Legal Sex Male 2:54 PM SUBSTITUTE NURSE Gender Identity Not on file Sexual Orientation [...] exists Influenza Vaccine (Season Ended) 2024 01/20/20 22 Procedures Procedure Name Priority Date/Time Associated Diagnosis Comments CARDIOLOGY DOCUMENT SCAN Routine 09/03/2024 3:29 PM CDT CARDIOLOGY DOCUMENT SCAN Routine 09/02/2024 3:08 PM CDT from Last 3 Months Results * Cardiology Document Scan (09/03/2024 3:29 PM CDT) Anatomical Region Laterality Modality Other us Sravanthi Deras MD CV CARDIAC SERVICES PROCEDU RES Final Result * Cardiology Document Scan (09/02/2024 3:08 PM CDT) Anatomical Region Laterality Modality Other Sravanthi Deras MD CV CARDIAC SERVICES PROCEDU RES Final Result from Last 3 Months Insurance MEDICARE [facility] MEDICARE Care Teams Atomic Spectroscopist Relationship Specialty Start Date End Date Leonardo Gomez MD [address] [place] [id number] PCP - General Family Medicine 04/17/22 Avery Montejo MD [address] [facility] [address] [place] [address] Surgeon Cardiothoracic Surgery 04/29/22
--- OUTSIDE RECORDS SUMMARY | 2024-09-20 13:50 | XMS_ITS | Encounter Summary ---
Author Organization [facility] Address [address] [place] [address] Care Team Providers Care Grader Marker Name Role Phone Leonardo Gomez MD Primary Care Provider [phone] Encounter Details Date Type Department Care Team (Late st Contact Info) Description 05/28/2022 Lab Requisition [facility] General Laboratory Services [address] [facility] [address] [facility] [place] [phone] [place] [address] [facility] [address] [place] [address] Social History Tobacco Use Types Packs/Day Years Used Date Smoking Tobacco: Every Day Cigarettes Smokeless Tobacco: Never Alcohol Use Standard Drinks/Week Comments Not Currently 0 (1 standard drink = 0.6 oz pur e alcohol) Sex and Gender Information Value Date Recorded Sex Assigned at Not on file Legal Sex Male 1:55 PM FABRICATION SPECIALIST Gender Identity Not on file Sexual Orientation Not on file COVID-19 Exposure Response Date Recorded In the last 10 days, have yo u been in contact with someone who was confirmed or suspected to have Coronavirus/COVID-19? No / Unsure 05/28/2022 10:36 AM FABRICATION SPECIALIST documented as of this encounter Plan of Treatment Upcoming Encounters Date Type Department Care Team (Late st Contact Info) Description 09/20/2024 2:30 PM CDT Office Visit [facility] Oncology and Hematology - [place] [address] [place] [address] Anibal Ha MD [address] [facility] [address] [place] [address] documented as of this encounter Procedures Procedure Name Priority Date/Time Associated Diagnosis Comments SOURCE NEEDLESTICK PANEL Stat 05/28/2022 7:40 PM FABRICATION SPECIALIST EXPOSURE PANEL COMPLETION Stat 05/28/2022 7:40 PM FABRICATION SPECIALIST HIV DETECTION W/REFLX CONFIRMATION Stat 05/28/2022 7:40 PM FABRICATION SPECIALIST HEPATITIS C RNA PCR, QUANTITATIVE Stat 05/28/2022 7:40 PM FABRICATION SPECIALIST HEPATITIS B SURFACE ANTIGEN Stat 05/28/2022 7:40 PM FABRICATION SPECIALIST documented in this encounter Results * EXPOSURE PANEL COMPLETION (05/28/2022 7:40 PM FABRICATION SPECIALIST) Pathologist [facility] EXPOSURE PANEL RECEIVED Yes 05/28/2022 10:00 PM FABRICATION SPECIALIST [facility] Blood Collection / Unknown 05/28/2022 7:40 PM FABRICATION SPECIALIST 05/28/2022 8:07 PM FABRICATION SPECIALIST Ricardo Grier MD CHEMISTRY ORDERABLES Final R esult [facility] Values of n [facility] CLIA# [id number] [address] [facility] [address] * HEPATITIS B SURFACE ANTIGEN (05/28/2022 7:40 PM FABRICATION SPECIALIST) Pathologist [facility] HEPATITIS B SURFACE AG NON-REACT SHAHBAZ Non-react shahbaz 05/29/2022 12:35 AM FABRICATION SPECIALIST [facility] Values of n [facility] Comment:A non-reactive test result does not exclude the possibility of exposure to or infection with hepatitis B. Blood Collection / Unknown 05/28/2022 7:40 PM FABRICATION SPECIALIST 05/28/2022 8:07 PM FABRICATION SPECIALIST Ricardo Grier MD CHEMISTRY ORDERABLES Final R esult [facility] Values of n [facility]# [id number] [address] [place] [address] * HEPATITIS C RNA PCR, QUANTITATIVE (05/28/2022 7:40 PM FABRICATION SPECIALIST) Pathologist [facility] HCV RNA, QUANT REAL TIME PCR <15 NOT DETECTED NOT DETECTED IU/mL 06/01/2022 9:16 PM FABRICATION SPECIALIST [facility] HCV RNA QUANT PCR COPIES IU/ML <1.18 NOT DETECTED NOT DETECTED Log IU/mL 06/01/2022 9:16 PM FABRICATION SPECIALIST [facility] Comment: This test was performed using Real-Time Polymerase Chain Reaction. Reportable Range: 15 IU/mL to 100,000,000 IU/mL (1.18 Log IU/mL to 8.00 Log IU/mL). The analytical performance characteristics of this assay have been determined by [employer]. The modifications have not been cleared or approved by the FDA. This assay has been validated pursuant to the CLIA regulations and is used for clinical purposes. For more information on this test, go to: http://education.[employer]/faq/BBQ41i3 (This link is being provided for informational/ educational purposes only.) Blood Collection / Unknown 05/28/2022 7:40 PM FABRICATION SPECIALIST 05/28/2022 8:07 PM FABRICATION SPECIALIST Narrative [facility] - 06/01/2022 9:16 PM FABRICATION SPECIALIST Performing Organization Information: Site ID: [place] Name: [facility] Address: [address] [facility] [place] [address] Director: Daphine Westbrook MD Ricardo Grier MD CHEMISTRY ORDERABLES Final R esult [facility] [phone] * HIV DETECTION W/REFLX CONFIRMATION (05/28/2022 7:40 PM FABRICATION SPECIALIST) Pathologist [facility] HIV-1 AND 2 ABS AND HIV-1 AG Non-reacti ve Non-reacti ve 05/28/2022 9:08 PM FABRICATION SPECIALIST [facility] Blood Collection / Unknown 05/28/2022 7:40 PM FABRICATION SPECIALIST 05/28/2022 8:07 PM FABRICATION SPECIALIST Narrative [facility] - 05/28/2022 9:08 PM FABRICATION SPECIALIST Initial HIV testing was performed by [employer] on the Wayne Guy e602 module. Values obtained with different assay methods cannot be used interchangeably. Non- Reactive results does not rule out HIV infection. If acute HIV-1 infection is suspected, submit plasma specimen for HIV-1 RNA quantification test (HIVQU). Ricardo Grier MD CHEMISTRY ORDERABLES Final R esult [facility] CLIA# [id number] [address] [place] [address] documented in this encounter Visit Diagnoses Not on filedocumented in this encounter Care Teams Grader Marker Relationship Specialty Start Date End Date Leonardo Gomez MD [address] [place] [phone] PCP - General Family Practice 04/15/22 documented as of this encounter
--- OUTSIDE RECORDS SUMMARY | 2024-09-20 13:50 | XMS_ITS ---
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
--- OUTSIDE RECORDS SUMMARY | 2024-09-20 13:50 | XMS_ITS | Clinical Summary ---
Author Organization [facility] Yamilet corrales [facility] Address [address] [place] [address] Care Team Providers Care Talent Advisor Name Role Phone Leonardo Gomez MD Primary Care Provider [phone] Allergies No known active allergies Medications losartan [...] Encounters Date Type Department Care Team Description 09/14/2024 External Device Data [facility] Provider, Abstract 09/13/2024 External Device Data [facility] Provider, Abstract 09/12/2024 External Device Data [facility] Provider, Abstract 07/12/2024 External Device Data [facility] Provider, [...] on file Legal Sex Male 1:55 PM ENTERPRISE ARCHITECT Gender Identity Not on file Sexual Orientation Not on file Last Filed Vital Signs Vital Sign Reading Time Taken Comments Blood Pressure 117/64 05/16/2024 3:08 PM ENTERPRISE ARCHITECT Pulse 63 05/16/2024 3:08 PM ENTERPRISE ARCHITECT Temperature 35.8 C (96.4 F) 05/16/2024 3:08 PM ENTERPRISE ARCHITECT Respiratory Rate 22 05/16/2024 3:08 PM ENTERPRISE ARCHITECT Oxygen Saturation 94% 05/16/2024 3:08 PM ENTERPRISE ARCHITECT Inhaled Oxygen Concentration - - Weight 89.8 kg (198 lb) 05/16/2024 3:08 PM ENTERPRISE ARCHITECT Height 175.3 cm (5' 9) 05/28/2022 9:47 AM ENTERPRISE ARCHITECT Body Mass Index 29.24 05/28/2022 9:47 AM ENTERPRISE ARCHITECT Plan of Treatment Upcoming Encounters Date Type Department Care Team (Late st Contact Info) Description 09/20/2024 2:30 PM CDT Office Visit [facility] Oncology and Hematology - [place] [address] [place] [address] Anibal Ha MD [address] [facility] [address] [place] [address] Health Maintenance Due Date Last [...] history exists Medical Devices Implanted Type Area Assistant Track Coach Device Identifier Shelf Expiration Date Model / Serial / Lot Sealant Progel Pleural 4ml [id number] - [id number] Implanted:Qty: 1 on 05/28/2022 by Avery Montejo MD at [facility] Tissue Right: Lung BARD DAVOL [id number] 07/20/2023 [id number] / / [id number] Procedures Procedure Name Priority Date/Time Associated Diagnosis Comments HEMOGLOBIN A1C Routine 04/15/2022 1:45 PM ENTERPRISE ARCHITECT Malignant neoplasm of upper lobe, right bronchus or lung (CMS/HCC) from Last 3 Months or Most Recently Relevant to Health Maintenance Results * (ABNORMAL) HEMOGLOBIN A1C (04/15/2022 1:45 PM ENTERPRISE ARCHITECT) HEMOGLOBIN A1C 7.9(H) <5.7 % 04/15/2022 2:59 PM ENTERPRISE ARCHITECT [facility] EST. AVG GLUCOSE, A1C 180 mg/dL 04/15/2022 2:59 PM ENTERPRISE ARCHITECT [facility] Blood Venipuncture / Unknown 04/15/2022 1:45 PM ENTERPRISE ARCHITECT 04/15/2022 2:24 PM ENTERPRISE ARCHITECT Narrative [facility] - 04/15/2022 2:59 PM ENTERPRISE ARCHITECT HGB A1C INTERPRETATION NORMAL: <5.7% PRE-DIABETES: 5.7 - 6.4% DIABETES: 6.5% OR GREATER Liang NAYLOR CHEMISTRY ORDERABLES Final Resul t [facility]# [id number] [address] [place] [address] from Last 3 Months or Most Recently Relevant to Health Maintenance Insurance MEDICARE PART A AND B [facility] [employer] ACCESS CHOICE [facility] BLUE ACCESS CHOICE MEDICARE PART A AND B Advance Directives For more information, please contact: [phone] Documents on File Type Date Recorded Patient Level Designer Expl anation Advance Directive POA 05/28/2022 9:45 PM Ad hui Directive POA * Full Code (Latest Code Status on File) Date Activated Date Inactivated Comments 05/28/2022 10:21 PM 06/06/2022 6:26 PM * Full Code Date Activated Date Inactivated Comments 05/28/2022 10:14 AM 05/28/2022 10:21 PM Care Teams Talent Advisor Relationship Specialty Start Date End Date Leonardo Gomez MD [address] [place] [phone] PCP - General Family Practice 04/15/22
--- OUTSIDE RECORDS SUMMARY | 2024-09-20 13:50 | XMS_ITS ---
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
[2024-09-20 14:06] LABS: Basophils Percent Auto 0.5 % (0.2-1.2); Eosinophils Absolute Auto 0.4 K/mm3 (0-0.3); Eosinophils Percent Auto 5.2 % (0-4.4); Hematocrit 43.5 % (42.0-52.0); Hemoglobin 14.4 g/dL (14.0-18.0); Immature Granulocyte Absolute 0.03 K/mm3 (0.00-0.031); Immature Granulocyte Percent A 0.4 % (0-0.5); Lymphocytes Absolute Auto 2.13 K/mm3 (0.9-3.2); Lymphocytes Percent Auto 29.1 % (18.3-44.2); Mean Corpuscular HGB Conc 33.1 g/dl (32-36); Mean Corpuscular Hemoglobin 32.1 pg (26-34); Mean Corpuscular Volume 96.9 fl (80-100); Mean Platelet Volume 11.2 fl (7.4-10.4); Monocytes Absolute Auto 0.7 K/mm3 (0.1-0.6); Monocytes Percent Auto 9.4 % (2.6-8.5); Neutrophils Absolute Auto 4.1 K/mm3 (1.3-6.7); Neutrophils Percent Auto 55.4 % (45.5-73.1); Platelet Count Result 269 k/mm3 (150-375); Red Blood Count 4.49 M/mm3 (4.6-6.20); Red Cell Distribution Width 13.4 % (11.5-14.5); White Blood Count 7.3 K/mm3 (4.5-10.0)
[2024-09-20 14:10] LABS: Blood Urea Nitrogen 22 mg/dL (8-26); Carbon Dioxide 24 mmol/L (22-30); Chloride 102 mmol/L (98-109); Estimated Glomerular Filt Rate 33; Glucose 268 mg/dL (70-105); Ionized Calcium (POC) 1.12 mmol/L (1.11-1.31); Potassium 3.8 mmol/L (3.5-4.9); Sodium 141 mmol/L (138-146)
[2024-09-20 16:33] LABS: Alanine Aminotransferase 21 U/L (6-50); Albumin Level 3.9 g/dL (3.5-5.1); Alkaline Phosphatase 135 U/L (38-126); Anion Gap 11 mmol/L (4-12); Aspartate Amino Transferase 34 U/L (17-59); Bilirubin,Total 0.7 mg/dL (0.2-1.3); Blood Urea Nitrogen 23 mg/dL (9-20); Calcium 9.1 mg/dL (8.4-10.2); Carbon Dioxide 25 mmol/L (22-30); Chloride 104 mmol/L (98-107); Estimated Glomerular Filt Rate 34; Glucose 270 mg/dL (65-110); Potassium 3.8 mmol/L (3.4-5.0); Sodium 140 mmol/L (137-145)
== END 2024-09-20 13:44 | disposition home or self-care (01) ==
PROVIDERS: PCP Family Medicine; Visit Provider Internal Medicine Hematology & Oncology
DX: C34.11 Malignant neoplasm of upper lobe, right bronchus or lung (principal)
CPT/HCPCS: 36415; 80047; 80053; 85025

== ENCOUNTER 2024-11-24 14:57 | Inpatient (IN) | payer MEDICARE, BC, SELFPAY ==
[2024-11-24] VITALS (16 sets, daily range): BP systolic 137–214; BP diastolic 92–125; PULSE 66–93; RESP 6–23; TEMP 36.1–36.6; O2SAT 96–100; BMI 27.0
--- NOTE | ~2024-11-24 | XR_ITS ---
EXAMINATION: XR chest 1V portable Exam Date/Time: 11/24/2024 16:15 CDT HISTORY: cough, HX LUNG CANCER, UPPER RIGHT PARTIAL LOBE REMOVED Comparison: 08/31/2024. RESULT: Lines, tubes, and devices: None. Lungs and pleura: Left lung clear. Volume loss, scarring and pleural thickening in the right hemitho rax. Unchanged peripheral scar/atelectasis. Unchanged area of rounded atelectasis in the right lower lung. Right costophrenic angle blunting. Cardiomediastinal silhouette: Stable. Other: No acute osseous or upper abdominal finding. IMPRESSION: Post surgical changes in the right hemithorax with atelectasis/scarring and small right pleural effus ion versus chronic pleural scarring. Otherwise no acute cardiopulmonary process. Reviewed, dictated and finalized at location K. IMPRESSION: Post surgical changes in the right hemithorax with atelectasis/scarring and sma ll right pleural effusion versus chronic pleural scarring. Otherwise no acute c ardiopulmonary process.
--- NOTE | ~2024-11-24 | CT_ITS ---
EXAMINATION: CT brain wo con DATE: 11/24/2024 15:34 INDICATION: Ground level fall . TECHNIQUE: Computed tomography (CT) of the head was performed without intravenous contrast. The mA wa s adjusted according to patient size. Iterative reconstruction technique was employed. The dose-lengt h product was 756.67 mGy-cm. COMPARISON: 06/14/2022. FINDINGS: No acute intracranial hemorrhage or extra-axial fluid collection. No hydrocephalus, mass, or herniation. No acute ischemic infarct. Unremarkable dural venous sinus attenuation. No acute osseous abnormality. Left mastoid fluid, partial opacification of the right maxillary sinus, with surrounding sclerosis, b ilateral maxillary mucosal thickening, prior bilateral antral window procedures, the remaining aerate d spaces are clear. Moderate atrophy and chronic white matter change. Atherosclerotic intracranial calcification. Focal o ld right basal ganglia and right thalamic lacunar infarcts. IMPRESSION: No acute intracranial process. CT findings that may represent chronic right maxillary sinusitis in the appropriate clinical context. Reviewed, dictated and finalized at location K. IMPRESSION: No acute intracranial process. CT findings that may represent chronic right maxillary sinusitis in the appropr iate clinical context.
--- OUTSIDE RECORDS SUMMARY | 2024-11-24 15:21 | XMS_ITS | Clinical Summary ---
Author Organization [facility] Yamilet corrales Sandeeppk Address [address] [place] [address] Care Team Providers Care Equipment Installer Name Role Phone Leonardo Gomez MD Primary Care Provider [phone] Allergies No known active allergies Medications losartan [...] 1 Tablet by mouth daily. 3 Active dilTIAZem (CARDIZEM CD, CARTIA XT) 180 mg Controlled Delivery 24 hour capsule Take 1 Capsule by mouth daily. 5 Active Active Problems Problem Noted Date Diagnosed Date Malignant neoplasm of upper lobe, right bronchus or lung 04/06/2022 Cough with hemoptysis 04/06/2022 Encounters Date Type Department Care Team Description 11/08/2024 External Device Data [facility] ABSTRACTION Provider, Abstract 11/07/2024 External Device Data [facility]STRA[facility] Provider, Abstract 10/10/2024 External Device Data [facility]STRA[facility] Provider, Abstract 09/21/2024 Orders Only [facility] Oncology and Hematology [facility] [address] [place] [address] Anibal Ha MD 09/20/2024 2:30 PM CDT Office Visit [facility] Oncology and Hematology [facility] [address] [place] [address] Anibal Ha MD Malignant neoplasm of upper lobe of right lung (CMS/HCC) (Primary Dx); Bilateral kidney masses 09/20/2024 Orders Only [facility] Oncology [facility] [address] [place] [address] Anibal Ha MD 09/14/2024 External Device Data [facility]STRACTION Provider, [...] Date Smoking Tobacco: Every Day Cigarettes 1 66.4 Started: 05/28/1959; Last attempted to quit: 05/28/2022 Smokeless Tobacco: Never Tobacco Cessation:Ready to Q uit: Not Asked; Counseling Given: Not Answered Alcohol Use Standard Drinks/Week Comments Not Currently 0 (1 standard drink = 0.6 oz pur e alcohol) Sex and Gender Information Value Date Recorded Sex Assigned at Not on file Legal Sex Male 1:55 PM SUPERVISOR BORDER DEPARTMENT Gender Identity Not on file Sexual Orientation Not on file Last Filed Vital Signs Vital Sign Reading Time Taken Comments Blood Pressure 108/73 09/20/2024 2:27 PM CDT Pulse 79 09/20/2024 2:18 PM CDT Temperature 36 C (96.8 F) 09/20/2024 2:18 PM CDT Respiratory Rate 15 09/20/2024 2:18 PM CDT Oxygen Saturation 97% 09/20/2024 2:18 PM CDT Inhaled Oxygen Concentration - - Weight 88.5 kg (195 lb) 09/20/2024 2:18 PM CDT Height 175.3 cm (5' 9) 05/28/2022 9:47 AM SUPERVISOR BORDER DEPARTMENT Body Mass Index 28.8 05/28/2022 9:47 AM SUPERVISOR BORDER DEPARTMENT Plan of Treatment Upcoming Encounters Date Type Department Care Team (Late st Contact Info) Description 12/19/2024 2:45 PM CDT Office Visit [facility] Oncology and Hematology - [place] [address] [facility] [address] [place] [address] Anibal Ha MD [address] [facility] [address] [place] [address] Health Maintenance Due Date Last [...] 1-dose 75+ series) 02/17/2023 INFLUENZA VACCINE (#1) 2024 DIABETES HBA1C Q 6 MONTHS 02/08/20252024, 02/10/2024, 08/09/2023, Additional history exists Medical Devices Implanted Type Area Piano Sounding Board Matcher Device Identifier Shelf Expiration Date Model / Serial / Lot Sealant Progel Pleural 4ml [id number] - [id number] Implanted:Qty: 1 on 05/28/2022 by Avery Montejo MD at [facility] Tissue Right: Lung BARD CHAMORRO [id number] 07/20/2023 [id number] / / [id number] Procedures Procedure Name Priority Date/Time Associated Diagnosis Comments CBC WITH DIFFERENTIAL Routine 09/20/2024 4:23 PM CDT BASIC METABOLIC PANEL Routine 09/20/2024 4:22 PM CDT COMPREHENSIVE METABOLIC PANEL Routine 09/20/2024 2:04 PM CDT HEMOGLOBIN A1C Routine 04/15/2022 1:45 PM SUPERVISOR BORDER DEPARTMENT Malignant neoplasm of upper lobe, right bronchus or lung (CMS/HCC) from Last 3 Months or Most Recently Relevant to Health Maintenance Results * CBC WITH DIFFERENTIAL (09/20/2024 4:23 PM CDT) Blood Anibal Ha MD HEMATOLOGY ORDERABLES Final Res ult * BASIC METABOLIC PANEL (09/20/2024 4:22 PM CDT) Blood Anibal Ha MD CHEMISTRY ORDERABLES Final Resu lt * COMPREHENSIVE METABOLIC PANEL (09/20/2024 2:04 PM CDT) Blood Anibal Ha MD CHEMISTRY ORDERABLES Final Resu lt * (ABNORMAL) HEMOGLOBIN A1C (04/15/2022 1:45 PM SUPERVISOR BORDER DEPARTMENT) HEMOGLOBIN A1C 7.9(H) <5.7 % 04/15/2022 2:59 PM SUPERVISOR BORDER DEPARTMENT [facility] EST. AVG GLUCOSE, A1C 180 mg/dL 04/15/2022 2:59 PM SUPERVISOR BORDER DEPARTMENT [facility] Blood Venipuncture / Unknown 04/15/2022 1:45 PM SUPERVISOR BORDER DEPARTMENT 04/15/2022 2:24 PM SUPERVISOR BORDER DEPARTMENT Narrative [facility] - 04/15/2022 2:59 PM SUPERVISOR BORDER DEPARTMENT HGB A1C INTERPRETATION NORMAL: <5.7% PRE-DIABETES: 5.7 - 6.4% DIABETES: 6.5% OR GREATER Liang NAYLOR CHEMISTRY ORDERABLES Final Resul t [facility] Vook [facility] CLIA# [id number] [address] [place] [address] from Last 3 Months or Most Recently Relevant to Health Maintenance Insurance [facility] [employer] CHOICE [facility] [employer] CHOICE MEDICARE PART A AND B Advance Directives For more information, please contact: [phone] Documents on File Type Date Recorded Patient Pcas Expl anation Advance Directive POA 05/28/2022 9:45 PM Ad hui Directive POA * Full Code (Latest Code Status on File) Date Activated Date Inactivated Comments 05/28/2022 10:21 PM 06/06/2022 6:26 PM * Full Code Date Activated Date Inactivated Comments 05/28/2022 10:14 AM 05/28/2022 10:21 PM Care Teams Equipment Installer Relationship Specialty Start Date End Date Leonardo Gomez MD [address] [place] [phone] PCP - General Family Practice 04/15/22
--- OUTSIDE RECORDS SUMMARY | 2024-11-24 15:21 | XMS_ITS | Referral Summary ---
Author Organization [place] [address] Address [address] [facility] [address] [place] [address] Care Team Providers Care Client Relationship Executive Name Role Phone Leonardo Gomez MD Primary Care Provider [phone] Avery Montejo MD Unavailable [phone] Encounters Date Type Department Care Team Description 09/25/2024 2:30 PM CDT Office Visit [facility] Medical [facility] Cardiology [address] [place] [address] [address] [place] [phone] Yudith Wright NP Paroxysmal atrial fibrillation (HCC) (Primary Dx); Abdominal aortic aneurysm (AAA) without rupture, unspecified part; Encounter for anticoagulation discussion and counseling; Hospital discharge follow-up 09/08/2024 Orders Only [facility] Medical [facility] Cardiology [address] [place] [address] [address] [place] [phone] Sravanthi Deras MD 09/02/2024 Orders Only [facility] Health Information Management [address] [place] [address] Scanning, Provider 08/31/2024 Orders Only [facility] Health Information Management [address] [place] [address] Scanning, Provider from Last 3 Months Allergies No known active allergies Medications Eliquis 5 mg tablet Take 1 tablet (5 mg total) by mouth every 12 (twelve) hours Active atorvastatin (LIPITOR) 40 mg tablet Take 1 tablet (40 mg total) by mouth daily Active dapagliflozin propanediol (Farxiga) 5 mg tablet Take 1 tablet (5 mg total) by mouth daily 3 Active escitalopram (LEXAPRO) 10 mg tablet Take 1 tablet (10 mg total) by mouth daily 5 Active glimepiride (AMARYL) 1 mg tablet TAKE 1 TABLET BY MOUTH EVERY MORNING ADMINISTER WITH BREAKFAST Active losartan (COZAAR) 25 mg tablet Take 1 tablet (25 mg total) by mouth daily Active albuterol 2.5 mg /3 mL (0.083 %) nebulizer solution 2.5 mg EVERY 6 HOURS (route: inhalation) 3 Active dilTIAZem CD 180 mg 24 hr capsule Take 1 capsule (180 mg total) by mouth daily 5 Active pioglitazone (ACTOS) 30 mg tablet Take 1 tablet (30 mg total) by mouth daily Active tamsulosin (FLOMAX) 0.4 mg extended release capsule Take by mouth daily Active albuterol HFA (ProAir HFA) 90 mcg/actuation inhaler Inhale 7 Active Active Problems No known active problems Social History Tobacco Use Types Packs/Day Years Used Date Smoking Tobacco: Every Day Cigarettes Tobacco Cessation:Ready to Q uit: Not Asked; Counseling Given: Not Answered Sex and Gender Information Value Date Recorded Sex Assigned at Not on file Legal Sex Male 2:54 PM SPRAY II PAINTER Gender Identity Not on file Sexual Orientation Not on file Last Filed Vital Signs Vital Sign Reading Time Taken Comments Blood Pressure 110/60 09/25/2024 2:48 PM CDT Pulse 83 09/25/2024 2:48 PM CDT Temperature - - Respiratory Rate - - Oxygen Saturation 96% 09/25/2024 2:48 PM CDT Inhaled Oxygen Concentration - - Weight 87.1 kg (192 lb) 09/25/2024 2:48 PM CDT Height 175.3 cm (5' 9) 09/25/2024 2:48 PM CDT Body Mass Index 28.35 09/25/2024 2:48 PM CDT Plan of Treatment Not on file Procedures Procedure Name Priority Date/Time Associated Diagnosis Comments SCAN - LABS 09/06/2024 CARDIOLOGY DOCUMENT SCAN Routine 09/03/2024 3:29 PM CDT CARDIOLOGY DOCUMENT SCAN Routine 09/02/2024 3:08 PM CDT SCAN - RADIOLOGY/IMAGING 09/02/2024 SCAN - RADIOLOGY/IMAGING 08/31/2024 from Last 3 Months Results * SCAN - LABS (09/06/2024) us Provider Scanning Final Result * Cardiology Document Scan (09/03/2024 3:29 PM CDT) Anatomical Region Laterality Modality Other us Sravanthi Deras MD [facility] PROCEDU RES Final Result * Cardiology Document Scan (09/02/2024 3:08 PM CDT) Anatomical Region Laterality Modality Other us Sravanthi Deras MD [facility] CARDIAC SERVICES PROCEDU RES Final Result * SCAN - RADIOLOGY/IMAGING (09/02/2024) Anatomical Region Laterality Modality Other us Provider Scanning Final Result * SCAN - RADIOLOGY/IMAGING (08/31/2024) Anatomical Region Laterality Modality Other us Provider Scanning Edited Result - Final from Last 3 Months Insurance MEDICARE [facility] MEDICARE [employer] Care Teams Client Relationship Executive Relationship Specialty Start Date End Date Leonardo Gomez MD [address] [place] [address] PCP - General Family Medicine 04/17/22 Avery Montejo MD [address] [place] [address] Surgeon Cardiothoracic Surgery 04/29/22
--- OUTSIDE RECORDS SUMMARY | 2024-11-24 15:21 | XMS_ITS | Clinical Summary ---
Author Organization [facility] De[facility] fuentes Address [address] [place] [address] Phone Care Team Providers Care Rope Cutter Name Role Phone Unavailable Primary Care Provider [...] Comments Blood Pressure 134/70 05/18/2018 12:01 AM PROSTHETICS TECHNICIAN Pulse 72 05/18/2018 12:01 AM PROSTHETICS TECHNICIAN Temperature 35.7 C (96.3 F) 05/18/2018 12:01 AM PROSTHETICS TECHNICIAN Respiratory Rate - - Oxygen Saturation - - Inhaled Oxygen Concentration - - Weight 96.6 kg (213 lb) 05/18/2018 12:01 AM PROSTHETICS TECHNICIAN Height 177.8 cm (5' 10) 05/18/2018 12:01 AM PROSTHETICS TECHNICIAN Body Mass Index 30.56 05/18/2018 12:01 AM PROSTHETICS TECHNICIAN Plan of Treatment Health Maintenance Due Date Last Done Comments Pneumococcal PPSV23/PCV13 65 + Years / Low and Medium Risk (1 of 2 - PCV) 02/17/1998 Influenza Vaccine (#1) 2024
--- OUTSIDE RECORDS SUMMARY | 2024-11-24 15:21 | XMS_ITS ---
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
--- OUTSIDE RECORDS SUMMARY | 2024-11-24 15:21 | XMS_ITS | Encounter Summary ---
Author Organization [facility] Healthcare Address [address] [place] [address] Care Team Providers Care Washateria Attendant Name Role Phone Leonardo Gomez MD Primary Care Provider [phone] Avery Montejo MD Unavailable [phone] Encounter Details Date Type Department Care Team (Late st Contact Info) Description 08/31/2024 Orders Only [facility] Health Information Management [address] [place] [address] Scanning, Provider Social History Tobacco Use Types Packs/Day Years Used Date Smoking Tobacco: Never Assessed Sex and Gender Information Value Date Recorded Sex Assigned at Not on file Legal Sex Male 2:54 PM FIRE FIGHTER Gender Identity Not on file Sexual Orientation Not on file documented as of this encounter Plan of Treatment Not on file documented as of this encounter Procedures Procedure Name Priority Date/Time Associated Diagnosis Comments SCAN - RADIOLOGY/IMAGING 08/31/2024 documented in this encounter Results * SCAN - RADIOLOGY/IMAGING (08/31/2024) Anatomical Region Laterality Modality Other us Provider Scanning Edited Result - Final documented in this encounter Visit Diagnoses Not on filedocumented in this encounter Care Teams Washateria Attendant Relationship Specialty Start Date End Date Leonardo Gomez MD [address] [place] [address] PCP - General Family Medicine 04/17/22 Avery Montejo MD [address] [place] [address] Surgeon Cardiothoracic Surgery 04/29/22 documented as of this encounter
--- OUTSIDE RECORDS SUMMARY | 2024-11-24 15:21 | XMS_ITS | Continuity of Care Document ---
Author Organization [facility] Address [address] [place] [address] [address] [place] [address] Phone Care Team Providers Care Debt Counselor Name Role Phone Rosario Ramos Unavailable Unavailable Procedures Procedure Date Special Reports Or Forms Advance Directives Directive Yes / No Effective Date File Name No Information Encounters Encounter Description Practice Location Reason(s) For Visit Diagnoses Date Provider Providers Copied on Encounter [facility], [address], [place], [place], [id number], [place] tel:[phone] [facility] No Information 0 Rachel Ponce. [address] , [address], [place], [address], [place]. tel:[phone] Family History Family Member Type Diagnosis Age [...]
--- OUTSIDE RECORDS SUMMARY | 2024-11-24 15:21 | XMS_ITS ---
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
--- OUTSIDE RECORDS SUMMARY | 2024-11-24 15:21 | XMS_ITS | Clinical Summary ---
Author Organization [facility] [address] Address [address] [place] [address] Care Team Providers Care Block Trader Name Role Phone Leonardo Gomez MD Primary Care Provider [phone] Avery Montejo MD Unavailable [phone] Allergies No known active allergies Medications Eliquis 5 mg tablet Take 1 tablet (5 mg total) by mouth every 12 (twelve) hours 5 Active atorvastatin (LIPITOR) 40 mg tablet Take [...] Active Active Problems No known active problems Encounters Date Type Department Care Team Description 09/25/2024 2:30 PM CDT Office Visit [facility] Medical [facility] Cardiology [address] [facility] [address] [place] [phone] Yudith Wright NP Paroxysmal atrial fibrillation (HCC) (Primary Dx); Abdominal aortic aneurysm (AAA) without rupture, unspecified part; Encounter for anticoagulation discussion and counseling; Hospital discharge follow-up 09/08/2024 Orders Only [facility] Cardiology [address] [facility] [address] [place] [phone] Sravanthi Deras MD 09/02/2024 Orders Only [facility] Health Information Management [address] [place] [address] Scanning, Provider 08/31/2024 Orders Only [facility] Health Information Management [address] [place] [address] Scanning, Provider from Last 3 Months Social History Tobacco Use Types Packs/Day Years Used Date Smoking Tobacco: Every Day Cigarettes Tobacco Cessation:Ready to Q uit: Not Asked; Counseling Given: Not Answered Sex and Gender Information Value Date Recorded Sex Assigned at Not on file 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 Gender Identity Not on file Sexual Orientation Not on file Obstetrics History Last Filed Vital Signs Vital Sign Reading [...] 09/25/2024 2:48 PM CDT Plan of Treatment Health Maintenance Due Date Last Done Comments Depression Screening 1950 Fall Risk Assessment 1950 Hepatitis C Screening 1950 DTaP/Tdap/Td Vaccine (1 - Tdap) 02/17/1959 Hepatitis B Screening 02/17/1966 Zoster Vaccine (1 of 2) 02/17/1998 Well Visit 65+ 02/17/2013 Pneumococcal vaccine 65+ (2 of 2 - PPSV23) 10/11/2015 08/16/2015 Covid-19 Vaccine (2023-2 5 season) 2023 01/19/2022, 08/09/2021, 01/31/2021, Additional history exists Influenza Vaccine (#1) 2024 01/19/2022 Procedures Procedure Name Priority Date/Time Associated Diagnosis [...] Final from Last 3 Months Insurance MEDICARE BLUE TRADITIONAL OOS MEDICARE BLUE TRADITIONAL OOS Care Teams Block Trader Relationship Specialty Start Date End Date Leonardo Gomez MD [address] [place] [address] PCP - General Family Medicine 04/17/22 Avery Montejo MD [address] [facility] [address] [facility] [address] [place] [address] Surgeon Cardiothoracic Surgery 04/29/22
--- OUTSIDE RECORDS SUMMARY | 2024-11-24 15:21 | XMS_ITS | Encounter Summary ---
Author Organization [facility] Healthcare Address [address] [place] [address] Care Team Providers Care Plant Engineering Manager Name Role Phone Leonardo Gomez MD Primary Care Provider [phone] Avery Montejo MD Unavailable [phone] Encounter Details Date Type Department Care Team (Late st Contact Info) Description 09/02/2024 Orders Only [facility] Information Management [address] [place] [address] Scanning, Provider Social History Tobacco Use Types Packs/Day Years Used Date Smoking Tobacco: Never Assessed Sex and Gender Information Value Date Recorded Sex Assigned at Not on file 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 Gender Identity Not on file Sexual Orientation Not on file documented as of this encounter Plan of Treatment Not on file documented as of this encounter Procedures Procedure Name Priority Date/Time Associated Diagnosis Comments SCAN - RADIOLOGY/IMAGING 09/02/2024 documented in this encounter Results * SCAN - RADIOLOGY/IMAGING (09/02/2024) Anatomical Region Laterality Modality Other us Provider Scanning Final Result documented in this encounter Visit Diagnoses Not on filedocumented in this encounter Care Teams Plant Engineering Manager Relationship Specialty Start Date End Date Leonardo Gomez MD [address] [place] [address] PCP - General Family Medicine 04/17/22 Avery Montejo MD [address] [facility] [address] [place] [address] Surgeon Cardiothoracic Surgery 04/29/22 documented as of this encounter
--- OUTSIDE RECORDS SUMMARY | 2024-11-24 15:21 | XMS_ITS | Encounter Summary ---
Author Organization [facility] Address [address] [place] [address] Care Team Providers Care Senior Manager Mmcoe Name Role Phone Leonardo Gomez MD Primary Care Provider [phone] Encounter Details Date Type Department Care Team (Late st Contact Info) Description 05/28/2022 Lab Requisition [facility] General Laboratory Services [address] [facility] [address] [place] [phone] [place] [address] [facility] [address] [place] [address] Social History Tobacco Use Types Packs/Day Years Used Date Smoking Tobacco: Every Day Cigarettes Smokeless Tobacco: Never Alcohol Use Standard Drinks/Week Comments Not Currently 0 (1 standard drink = 0.6 oz pur e alcohol) Sex and Gender Information Value Date Recorded Sex Assigned at Not on file Legal Sex Male 1:55 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 No / Unsure 05/28/2022 10:36 AM APPAREL MACHINERY INSTRUCTOR documented as of this encounter Plan of Treatment Upcoming Encounters Date Type Department Care Team (Late st Contact Info) Description 12/19/2024 2:45 PM CDT Office Visit [facility] Oncology and Hematology - [place] [address] [place] [address] Anibal Ha MD [address] [facility] [address] [place] [address] documented as of this encounter Procedures Procedure Name Priority Date/Time Associated Diagnosis Comments SOURCE NEEDLESTICK PANEL Stat 05/28/2022 7:40 PM APPAREL MACHINERY INSTRUCTOR EXPOSURE PANEL COMPLETION Stat 05/28/2022 7:40 PM APPAREL MACHINERY INSTRUCTOR HIV DETECTION W/REFLX CONFIRMATION Stat 05/28/2022 7:40 PM APPAREL MACHINERY INSTRUCTOR HEPATITIS C RNA PCR, QUANTITATIVE Stat 05/28/2022 7:40 PM APPAREL MACHINERY INSTRUCTOR HEPATITIS B SURFACE ANTIGEN Stat 05/28/2022 7:40 PM APPAREL MACHINERY INSTRUCTOR documented in this encounter Results * EXPOSURE PANEL COMPLETION (05/28/2022 7:40 PM APPAREL MACHINERY INSTRUCTOR) Pathologist [facility] EXPOSURE PANEL RECEIVED Yes 05/28/2022 10:00 PM APPAREL MACHINERY INSTRUCTOR [facility] Blood Collection / Unknown 05/28/2022 7:40 PM APPAREL MACHINERY INSTRUCTOR 05/28/2022 8:07 PM APPAREL MACHINERY INSTRUCTOR Ricardo Grier MD CHEMISTRY ORDERABLES Final R esult [facility] [employer] [facility] CLIA# [id number] [address] [facility] [place] [address] * HEPATITIS B SURFACE ANTIGEN (05/28/2022 7:40 PM APPAREL MACHINERY INSTRUCTOR) Pathologist [facility] HEPATITIS B SURFACE AG NON-REACT SHAHBAZ Non-react shahbaz 05/29/2022 12:35 AM APPAREL MACHINERY INSTRUCTOR [facility] [employer] [facility] Comment:A non-reactive test result does not exclude the possibility of exposure to or infection with hepatitis B. Blood Collection / Unknown 05/28/2022 7:40 PM APPAREL MACHINERY INSTRUCTOR 05/28/2022 8:07 PM APPAREL MACHINERY INSTRUCTOR Ricardo Grier MD CHEMISTRY ORDERABLES Final R esult [facility] [employer] [facility]# [id number] [address] [place] [address] * HEPATITIS C RNA PCR, QUANTITATIVE (05/28/2022 7:40 PM APPAREL MACHINERY INSTRUCTOR) Pathologist [facility] HCV RNA, QUANT REAL TIME PCR <15 NOT DETECTED NOT DETECTED IU/mL 06/01/2022 9:16 PM APPAREL MACHINERY INSTRUCTOR [facility] HCV RNA QUANT PCR COPIES IU/ML <1.18 NOT DETECTED NOT DETECTED Log IU/mL 06/01/2022 9:16 PM APPAREL MACHINERY INSTRUCTOR [facility] Comment: This test was performed using Real-Time Polymerase Chain Reaction. Reportable Range: 15 IU/mL to 100,000,000 IU/mL (1.18 Log IU/mL to 8.00 Log IU/mL). The analytical performance characteristics of this assay have been determined by [employer]. The modifications have not been cleared or approved by the FDA. This assay has been validated pursuant to the CLIA regulations and is used for clinical purposes. For more information on this test, go to: http://education.[employer]/faq/XGC88n7 (This link is being provided for informational/ educational purposes only.) Blood Collection / Unknown 05/28/2022 7:40 PM APPAREL MACHINERY INSTRUCTOR 05/28/2022 8:07 PM APPAREL MACHINERY INSTRUCTOR Narrative [facility] - 06/01/2022 9:16 PM APPAREL MACHINERY INSTRUCTOR Performing Organization Information: Site ID: [place] Name: [facility] Address: [address] [facility] [place] [address] Director: Daphnie Westbrook MD Ricardo Grier MD CHEMISTRY ORDERABLES Final R esult [facility] [phone] * HIV DETECTION W/REFLX CONFIRMATION (05/28/2022 7:40 PM APPAREL MACHINERY INSTRUCTOR) Pathologist [facility] HIV-1 AND 2 ABS AND HIV-1 AG Non-reacti ve Non-reacti ve 05/28/2022 9:08 PM APPAREL MACHINERY INSTRUCTOR [facility] Blood Collection / Unknown 05/28/2022 7:40 PM APPAREL MACHINERY INSTRUCTOR 05/28/2022 8:07 PM APPAREL MACHINERY INSTRUCTOR Narrative [facility] - 05/28/2022 9:08 PM APPAREL MACHINERY INSTRUCTOR Initial HIV testing was performed by [employer] on the Wayne [employer] e602 module. Values obtained with different assay methods cannot be used interchangeably. Non- Reactive results does not rule out HIV infection. If acute HIV-1 infection is suspected, submit plasma specimen for HIV-1 RNA quantification test (HIVQU). Ricardo Grier MD CHEMISTRY ORDERABLES Final R esult [facility] CLIA# [id number] [address] [place] [address] documented in this encounter Visit Diagnoses Not on filedocumented in this encounter Care Teams Senior Manager Mmcoe Relationship Specialty Start Date End Date Leonardo Gomez MD [address] [place] [phone] PCP - General Family Practice 04/15/22 documented as of this encounter
[2024-11-24 15:33] LABS: Hematocrit 44.1 % (42.0-52.0); Hemoglobin 14.8 g/dL (14.0-18.0); Immature Granulocyte Percent A 0.6 % (0-0.5); Lymphocytes Absolute Auto 0.88 K/mm3 (0.9-3.2); Mean Corpuscular HGB Conc 33.6 g/dl (32-36); Mean Corpuscular Hemoglobin 31.4 pg (26-34); Mean Corpuscular Volume 93.6 fl (80-100); Nucleated Red Blood Cells Absolute Auto 0.000 K/mm3 (0.0-0.012); Nucleated Red Blood Cells Perc 0.0 % (0.0-0.2); Platelet Count Result 206 k/mm3 (150-375); Red Blood Count 4.71 M/mm3 (4.6-6.20); White Blood Count 10.9 K/mm3 (4.5-10.0)
[2024-11-24 15:54] LABS: Alanine Aminotransferase 36 U/L (6-50); Albumin Level 3.5 g/dL (3.5-5.1); Alkaline Phosphatase 139 U/L (38-126); Anion Gap 10 mmol/L (4-12); Aspartate Amino Transferase 27 U/L (17-59); Bilirubin,Total 0.6 mg/dL (0.2-1.3); Blood Urea Nitrogen 47 mg/dL (9-20); Calcium 9.0 mg/dL (8.4-10.2); Carbon Dioxide 24 mmol/L (22-30); Chloride 93 mmol/L (98-107); Estimated CRCL calculation 32 ml/min; Estimated Glomerular Filt Rate 36; Glucose 821 mg/dL (65-110); Potassium 4.8 mmol/L (3.4-5.0); Sodium 127 mmol/L (137-145); Total Protein 6.3 g/dL (6.3-8.2)
--- NOTE | 2024-11-24 16:13 | ED_ITS ---
HPI - Recheck/Abnormal Lab/Rx General Chief Complaint: Recheck/Abnormal Lab/Rx Stated Complaint: GLF, high blood sugar Time Seen by Provider: 11/24/24 15:04 History of Present Illness HPI narrative: 74-year-old male with a history of hypertension, chronic kidney disease, BPH, history of lung cancer status post resection, type 2 diabetes on oral regimen. Recently started a course of methylprednisolone for a cough that he was prescribed. Patient presents today with abnormal blood sugar readings reading high on his home glucometer. He also has been feeling weak and tired lately. Endorses falling frequently. No significant head trauma or loss of consciousness but he does have a history of AFib on anticoagulation. Denies any trouble breathing or chest pain, no nausea, vomiting. He states he is very thirsty and having frequent urination. States no matter how much he drinks he still feels thirsty. No history of diabetic ketoacidosis or HHS prior. States he has had previously elevated blood sugars but they have been under control at home until recently. Related Data Home Medications ?Medication ?Instructions ?Recorded ?Confirmed ?Last Taken ?Type escitalopram oxalate 10 mg tablet 10 mg PO DAILY 10/18/24 11/24/24 11/24/24 History acetaminophen 500 mg capsule 1,000 mg PO Q6H PRN pain 11/24/24 11/24/24 Unknown History fluticasone propionate 50 1 spray intranasal DAILY PRN 11/24/24 11/24/24 Unknown History mcg/actuation nasal allergies spray,suspension (24 Hour Allergy Relief) Allergies Allergy/AdvReac Type Severity Reaction Status Date / Time No Known Allergies Allergy Verified 10/30/24 10:46 Review of Systems 2 Review of Systems: As reviewed above in HPI [facility] Past Medical History Medical History History of tobacco abuse COPD (chronic obstructive pulmonary disease) Atrial fibrillation with rapid ventricular response Paroxysmal atrial fibrillation Stage 4 chronic kidney disease Bladder malignancy Gross hematuria Pneumonia Shortness of breath Stage 3b chronic kidney disease Simple chronic bronchitis Cigarette nicotine dependence with nicotine-induced disorder Major depressive disorder Cigarette nicotine dependence in remission Microalbuminuria Personal history of malignant neoplasm of lung Type 2 diabetes mellitus with diabetic chronic kidney disease Hypertensive chronic kidney disease Diverticulosis Kidney stones Hyperlipidemia Benign prostatic hyperplasia Surgical History Surgical History History of lobectomy of lung 05/2022 History of bilateral knee replacement (2008) History of cholecystectomy History of inguinal hernia repair History of vasectomy History of hemorrhoidectomy (1996) History of colonoscopy with polypectomy History of tonsillectomy (1953) Family History Family History Father Acute myocardial infarction Sibling Lung cancer Social History Social History Social History: Surrogate medical decision maker: Trupti Acosta, sibling. Code status: Full code. Smoking packs per day: 1 Smoking cigarettes per day: 20.0 Years smoked: 62 Smoking pack-years: 62.00 Smoking status: Current every day smoker Tobacco type: cigarettes Second hand tobacco smoke exposure: No Additional smoking assessment comments: Had quit at the time of his lung cancer diagnosis, but now back to smoking Alcohol intake: former Substance use: never Substance use type: does not use Do You Feel Safe in your Home?: Yes Lack of Transportation: No Lack of Food: Never True Current Housing: I Have Housing Concerned About Future Housing: No Difficulty Paying Gas/Electric Bills: No Difficulty Paying for Meds: No Currently Unemployed: No Education: Trade/Vocational Certificate Difficulty w/ Childcare or Family Care: No Living arrangements: alone Occupation/Education: retired Gender identity (if verbalized by the patient): Male Sexual Orientation (if Verbalized by the Patient): Straight or Heterosexual Spiritual care concerns: No Exam 2 Narrative: GENERAL: [Well-appearing, well-nourished, and in no acute distress.] HEAD: [Normocephalic, atraumatic.] EYES: [PERRLA and EOMI.] ENT: Nares clear, no rhinorrhea or epistaxis. Mucous membranes dry. NECK: Supple. CHEST: [Clear to auscultation. No respiratory distress.] HEART: [Regular rate and rhythm]. No murmur heard. [Normal peripheral pulses.] ABDOMEN: [Soft, nondistended], [nontender], [No rigidity or guarding] EXTREMITIES: Normal range of motion. [No edema.] SKIN: Warm, dry, no rash. NEURO: [No focal deficits]. Alert and oriented [x3.] PSYCH: [Normal mood and affect.] Course Vital Signs Vital signs: Vital Signs Temperature 36.6 C 11/24/24 15:00 Pulse Rate 82 11/24/24 15:00 Respiratory Rate 20 11/24/24 15:00 Blood Pressure 191/111 H 11/24/24 15:00 Pulse Oximetry 99 11/24/24 15:00 Oxygen Delivery Room Air 11/24/24 15:00 Temperature 36.6 C 11/24/24 15:00 Pulse Rate 72 11/24/24 18:51 Respiratory Rate 16 11/24/24 18:00 Blood Pressure 191/104 H 11/24/24 18:51 Pulse Oximetry 98 11/24/24 18:00 Oxygen Delivery Room Air 11/24/24 15:00 MDM - Recheck/Abnormal Lab/Rx MDM Narrative Medical decision making narrative: 74-year-old male with a history of hypertension, chronic kidney disease, BPH, history of lung cancer status post resection, type 2 diabetes on oral regimen. Recently started a course of methylprednisolone for a cough that he was prescribed. Patient presents today with abnormal blood sugar readings reading high on his home glucometer. He also has been feeling weak and tired lately. Endorses falling frequently. No significant head trauma or loss of consciousness but he does have a history of AFib on anticoagulation. Denies any trouble breathing or chest pain, no nausea, vomiting. He states he is very thirsty and having frequent urination. States no matter how much he drinks he still feels thirsty. No history of diabetic ketoacidosis or HHS prior. States he has had previously elevated blood sugars but they have been under control at home until recently. Patient is overall well-appearing not any acute distress. He does appear dry with dry mucous membranes and requesting water frequently throughout the encounter. Combined with his polyuria, polydipsia and signs of dehydration likely is elevated blood sugars of the source. No clinical signs or symptoms of DKA versus HHS. He is not insulin-dependent diabetic according to him. Never been on insulin previously. Laboratory studies were obtained including CBC, CMP. Given his frequent falls a CT of the head was obtained. Urinalysis and chest x-ray ordered. He was given fluid hydration and oral intake without any signs of nausea vomiting. Patient's laboratory studies showed no significant leukocytosis or anemia. Normal platelet count. Electrolytes show some pseudo hyponatremia which corrects towards normal when accounting for his hyperglycemia. Potassium of 4.8, BUN of 47 creatinine 1.83 about his baseline. Normal LFTs. Glucose 821 Urinalysis shows glucose but no signs of ketones or active infection. No anion gap or acidosis. Patient started on insulin infusion given his largely elevated glucose. No signs of HHS or DKA. He was given a bolus dose as well as total 3 L of hydration here followed by maintenance infusion ordered. Discussed the case with the ICU Dr. Fox who recommended q.4 hours BMPs for a electrolyte monitoring and accepted the patient to the ICU for insulin drip. Discussed the case with the hospitalist who accepted the patient as well. Patient made aware of the plan and agreeable for admission. Medical Records Attestation: I reviewed the patient's medical records. Lab Data Attestation: I reviewed the patient's lab results. 11/24/24 15:28 11/24/24 20:13 Labs: Lab Results 11/24/24 11/24/24 Range/Units 15:27 15:28 WBC 10.9 H (4.5-10.0) K/mm3 RBC 4.71 (4.6-6.20) M/mm3 Hgb 14.8 (14.0-18.0) g/dL Hct 44.1 (42.0-52.0) % MCV 93.6 (80-100) fl MCH 31.4 (26-34) pg MCHC 33.6 (32-36) g/dl RDW 12.4 (11.5-14.5) % Plt Count 206 (150-375) k/mm3 MPV 11.4 H (7.4-10.4) fl Immature Gran % (Auto) 0.6 H (0-0.5) % Neut % (Auto) 85.5 H (45.5-73.1) % Lymph % (Auto) 8.1 L (18.3-44.2) % [place] % (Auto) 5.6 (2.6-8.5) % Eos % (Auto) 0.0 (0-4.4) % Baso % (Auto) 0.2 (0.2-1.2) % Lymph # (Auto) 0.88 L (0.9-3.2) K/mm3 [place] # (Auto) 0.6 (0.1-0.6) K/mm3 Eos # (Auto) 0.0 (0-0.3) K/mm3 Baso # (Auto) 0.0 (0.0-0.1) K/mm3 Abs Immat Gran (auto) 0.07 H (0.00-0.031) K/mm3 Absolute Neuts (auto) 9.3 H (1.3-6.7) K/mm3 Absolute Nucleated RBC 0.000 (0.0-0.012) K/mm3 Nucleated RBC % 0.0 (0.0-0.2) % Sodium 127 L (137-145) mmol/L Potassium 4.8 (3.4-5.0) mmol/L Chloride 93 L (98-107) mmol/L Carbon Dioxide 24 (22-30) mmol/L Anion Gap 10 (4-12) mmol/L BUN 47 H D (9-20) mg/dL Creatinine 1.83 H (0.7-1.3) mg/dL Estim Creat Clear Calc 32 ml/min Estimated GFR 36 L (59 - ) Glucose 821 H* (65-110) mg/dL Hemoglobin A1c 9.4 H (<5.7) % Calcium 9.0 (8.4-10.2) mg/dL Phosphorus 3.5 (2.5-4.5) mg/dL Magnesium 2.2 (1.6-2.3) mg/dL Total Bilirubin 0.6 (0.2-1.3) mg/dL AST 27 (17-59) U/L ALT 36 (6-50) U/L Alkaline Phosphatase 139 H (38-126) U/L Total Protein 6.3 (6.3-8.2) g/dL Albumin 3.5 (3.5-5.1) g/dL Imaging Data Attestation: I personally reviewed and interpreted this imaging study as follows: My impression: Impressions Head CT 11/24/24 15:39 IMPRESSION: No acute intracranial process. CT findings that may represent chronic right maxillary sinusitis in the appropriate clinical context. Chest X-Ray 11/24/24 16:26 IMPRESSION: Post surgical changes in the right hemithorax with atelectasis/scarring and small right pleural effusion versus chronic pleural scarring. Otherwise no acute cardiopulmonary process. Critical Care Time Critical Care Time Critical Care Time: Yes Total Critical Care Time: 35 Discharge Plan Discharge Clinical Impression: Severe hyperglycemia due to diabetes mellitus Hypertensive chronic kidney disease Qualifiers: Chronic kidney disease stage: stage 3 (moderate) Chronic kidney disease stage 3 subtype: stage 3b (GFR 30-44) Qualified Code(s): I12.9 - Hypertensive chronic kidney disease with stage 1 through stage 4 chronic kidney disease, or unspecified chronic kidney disease Type 2 diabetes mellitus with diabetic chronic kidney disease Qualifiers: Diabetes mellitus terminal operator insulin use: without correction use Chronic kidney disease stage: stage 3 (moderate) Chronic kidney disease stage 3 subtype: stage 3b (GFR 30-44) Qualified Code(s): E11.22 - Type 2 diabetes mellitus with diabetic chronic kidney disease Patient Disposition: Still a Patient Condition: Improved
--- NOTE | 2024-11-24 16:34 | PC.NURSE ---
called lab to add on Hgb A1C, Phos, Mg. per EDP [place], 1557 and 1600 BMP do not need to be drawn. redraw at 2000.
[2024-11-24] MEDS: SODIUM CHLORIDE 0.9% IV 1,000 ML 999 ML IV CONT ×3 (16:43→16:44)
[2024-11-24] MEDS: INSULIN HUMAN REGULAR (*BKC) 100 UNITS/ML IV PUSH (16:44)
[2024-11-24 16:46] LABS: Hemoglobin A1C 9.4 % (<5.7)
[2024-11-24] MEDS: INSULIN HUMAN REGULAR (*BKC) 100 UNITS in SODIUM CHLORIDE 0.9% IV 99 ML 8.5 UNITS IV CONT (16:56)
--- NOTE | 2024-11-24 17:21 | PM.IMHP ---
H&P: HPI History of Present Illness Date/Time: 11/24/24 17:21 Chief Complaint: Hyperglycemia Narrative: 74 y/o M with PMH of diabetes on a oral regimen, COPD, paroxysmal atrial fibrillation, CKD, seen hyperlipidemia, and BPH presents here with hyperglycemia. The patient presents here from home via EMS for further evaluation of hyperglycemia. The patient was noted to have an elevated glucose level by his home health RN sent him in today. He reports he has recently been started on a methylprednisolone course for a cough and since initiation he has had elevated glucose levels on his home glucometer. Patient does not check his glucose at home. He endorses associated generalized weakness, fatigue, polydipsia, and polyuria. He additionally reports frequent falls with last occurrence on last night and the night prior. He denies head strike or loss of consciousness. Does report he scraped his RUE but denies any further injury. He is currently on anticoagulation secondary to paroxysmal atrial fibrillation. He denies chest pain, shortness of breath, nausea, vomiting, diarrhea, or abdominal pain. Initial VS at presentation: 97.9? F, HR 82, R 20, 191/111, and 99% on RA. ED workup showed: WBC 10.9, no anemia, sodium 127 (corrected for hyperglycemia, 144), anion gap 10, creatinine 1.83 and GFR 36 (2.0 and GFR 33 on 09/20/2024), glucose 821, A1c 9.4. Head CT showed no acute intracranial process and possible findings of chronic right maxillary sinusitis. CXR showed postsurgical changes in the right hemithorax with atelectasis/scarring and a small right pleural effusion versus chronic pleural scarring. Review of Systems Review of Systems: All systems reviewed & are unremarkable except as noted in HPI and below [facility] Past Medical History Medical History History of tobacco abuse COPD (chronic obstructive pulmonary disease) Atrial fibrillation with rapid ventricular response Paroxysmal atrial fibrillation Stage 4 chronic kidney disease Bladder malignancy Gross hematuria Pneumonia Shortness of breath Stage 3b chronic kidney disease Simple chronic bronchitis Cigarette nicotine dependence with nicotine-induced disorder Major depressive disorder Cigarette nicotine dependence in remission Microalbuminuria Personal history of malignant neoplasm of lung Type 2 diabetes mellitus with diabetic chronic kidney disease Hypertensive chronic kidney disease Diverticulosis Kidney stones Hyperlipidemia Benign prostatic hyperplasia Surgical History Surgical History History of lobectomy of lung 05/2022 History of bilateral knee replacement (2008) History of cholecystectomy History of inguinal hernia repair History of vasectomy History of hemorrhoidectomy (1996) History of colonoscopy with polypectomy History of tonsillectomy (1953) Family History Family History Father Acute myocardial infarction Sibling Lung cancer Social History Social History Social History: Surrogate medical decision maker: Trupti Acosta, sibling. Code status: Full code. Smoking packs per day: 1 Smoking cigarettes per day: 20.0 Years smoked: 62 Smoking pack-years: 62.00 Smoking status: Current every day smoker Tobacco type: cigarettes Second hand tobacco smoke exposure: No Additional smoking assessment comments: Had quit at the time of his lung cancer diagnosis, but now back to smoking Alcohol intake: former Substance use: never Substance use type: does not use Do You Feel Safe in your Home?: Yes Lack of Transportation: No Lack of Food: Never True Current Housing: I Have Housing Concerned About Future Housing: No Difficulty Paying Gas/Electric Bills: No Difficulty Paying for Meds: No Currently Unemployed: No Education: Trade/Vocational Certificate Difficulty w/ Childcare or Family Care: No Living arrangements: alone Occupation/Education: retired Gender identity (if verbalized by the patient): Male Sexual Orientation (if Verbalized by the Patient): Straight or Heterosexual Spiritual care concerns: No Meds Home Medications and Allergies Home Medications ?Medication ?Instructions ?Recorded ?Confirmed ?Type albuterol sulfate 90 mcg/actuation 1 inh inhalation Q4H PRN shortness 05/01/24 11/24/24 Rx aerosol inhaler of breath or wheezing #8.5 grams glimepiride 1 mg tablet See Rx Instructions .Route 07/16/24 11/24/24 Rx .COMPLEX #90 tabs losartan 25 mg tablet 25 mg PO DAILY #90 tabs 08/01/24 11/24/24 Rx atorvastatin 40 mg tablet See Rx Instructions .Route 09/05/24 11/24/24 Rx .COMPLEX #90 tabs apixaban 5 mg tablet (Eliquis) 5 mg PO Q12HR #180 tabs 09/15/24 11/24/24 Rx diltiazem HCl 180 mg 180 mg PO DAILY #90 caps 09/15/24 11/24/24 Rx capsule,extended release 24 hr (Cartia XT) escitalopram oxalate 10 mg tablet 10 mg PO DAILY 10/18/24 11/24/24 History fluticasone fur. 100 mcg-umeclid 1 inh inhalation Q24H 1 month #60 10/19/24 11/24/24 Rx 62.5 mcg-vilant 25 mcg ea inhalat.powder (Trelegy Ellipta) fluticasone fur. 100 mcg-umeclid 100-62.5-25 mcg Blister With 10/19/24 11/24/24 Sample 62.5 mcg-vilant 25 mcg Device#1 Samples inhalat.powder (Trelegy Ellipta) prednisone 10 mg tablet 10 mg PO DAILY #30 tabs 11/10/24 11/24/24 Rx FreeStyle [place] Lite #1 ea 11/17/24 11/24/24 Rx (blood-glucose meter) FreeStyle Lite Strips (blood sugar #100 ea 11/17/24 11/24/24 Rx diagnostic) lancets 28 gauge (FreeStyle #100 ea 11/17/24 11/24/24 Rx Lancets) acetaminophen 500 mg capsule 1,000 mg PO Q6H PRN pain 11/24/24 11/24/24 History fluticasone propionate 50 1 spray intranasal DAILY PRN 11/24/24 11/24/24 History mcg/actuation nasal allergies spray,suspension (24 Hour Allergy Relief) Allergies Allergy/AdvReac Type Severity Reaction Status Date / Time No Known Allergies Allergy Verified 10/30/24 10:46 Vital Signs Vital Signs - 24 hr 11/24/24 15:00 11/24/24 15:00 11/24/24 16:00 Temperature 97.9 F Pulse Rate 82 79 Respiratory Rate 20 16 6 L Blood Pressure 191/111 H 190/102 H Pulse Oximetry 99 96 Oxygen Delivery Room Air 11/24/24 17:01 Temperature Pulse Rate 81 Respiratory Rate 20 Blood Pressure 214/105 H Pulse Oximetry 100 Oxygen Delivery Exam Const: General: comfortable and no acute distress Other: , male, elderly, chronically ill-appearing HENMT: Face/Nose/Sinus: Normal nares present Mouth: Yes moist mucous membranes Eyes: General: appearance normal, both eyes and all related structures Sclera: sclerae normal Pupils: Equal, round and reactive pupils present EOM: EOMs intact bilaterally Resp: Effort & Inspection: normal respiratory effort Other: faint expiratory wheeze, mild dry cough. No associated tachypnea or conversational dyspnea Cardio: Rate: regular rate Rhythm: regular rhythm Other: S1-S2 present without murmur, rub, ectopy GI: Other: Abdomen rounded but nondistended, soft, normoactive bowel sounds in all quadrants. No tenderness on exam. Skin: General skin exam: normal color and no rashes or lesions noted Wounds: no wounds Neuro: Speech: normal speech Motor exam (neuro): 5/5 motor strength present throughout Sensory Exam: normal sensation Other: A&O x4 Extrem: General: normal to inspection Psych: Mental Status: mental status grossly normal Affect: normal affect Other: Good insight and judgment, pleasant H&P: Results Labs Labs: Short CBC 11/24/24 Range/Units 15:28 WBC 10.9 H (4.5-10.0) K/mm3 Hgb 14.8 (14.0-18.0) g/dL Hct 44.1 (42.0-52.0) % Plt Count 206 (150-375) k/mm3 BMP 11/24/24 15:28 Sodium 127 L Potassium 4.8 Chloride 93 L Carbon Dioxide 24 BUN 47 H D Creatinine 1.83 H Glucose 821 H* Calcium 9.0 Liver Function 11/24/24 Range/Units 15:28 Total Bilirubin 0.6 (0.2-1.3) mg/dL AST 27 (17-59) U/L ALT 36 (6-50) U/L Alkaline Phosphatase 139 H (38-126) U/L Albumin 3.5 (3.5-5.1) g/dL Assessment and Plan Assessment and plan (1) Type 2 diabetes mellitus with diabetic chronic kidney disease: Qualifiers: Chronic kidney disease stage: stage 3 (moderate) Chronic kidney disease stage 3 subtype: stage 3b (GFR 30-44) 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 Hyperglycemia attributed to steroid course (treatment for cough). Will discontinue steroid as the patient no longer has a cough. A1c 9.4%. No anion gap or ketones in patient's UA. No concern for DKA at this time. Patient started on an insulin gtt due to significance of elevation in glucose, most recent POC glucose is 384. Will discontinue patient's insulin gtt once the patient's glucose is less than 250 and patient placement back on his home medication (glimepiride) and moderate sliding scale (based off BMI). Check BMP q.4 hours in interim. Diabetes currently managed by his PCP, Jason FAIRCHILD. - hypoglycemia protocol - POC blood glucose ACHS - A1C 9.4% on 11/24 - hospital educator consulted - dietitian consulted (2) Stage 3b chronic kidney disease: Code(s): N18.32 - Chronic kidney disease, stage 3b Status: Chronic Assessment and Plan: - creatinine 1.83, BUN 47, GFR 36 upon admission - baseline creatinine: 1.9 - 2.2 - trend renal function - trend electrolytes, correct as needed (3) Paroxysmal atrial fibrillation: Code(s): I48.0 - Paroxysmal atrial fibrillation Status: Chronic Assessment and Plan: - continue home medications: Diltiazem, Eliquis (4) Benign hypertension with chronic kidney disease: Code(s): I12.9 - Hypertensive chronic kidney disease with stage 1 through stage 4 chronic kidney disease, or unspecified chronic kidney disease Status: Chronic Assessment and Plan: - chronic, currently 191/104 - continue home medications: Losartan - monitor (5) COPD (chronic obstructive pulmonary disease): Qualifiers: COPD type: unspecified COPD Qualified Code(s): J44.9 - Chronic obstructive pulmonary disease, unspecified Code(s): J44.9 - Chronic obstructive pulmonary disease, unspecified Status: Chronic Assessment and Plan: - reporting cough for years. Expiratory wheezing on exam, will order demario DuoNebs and continue prednisone course. - continue home medications Plan Diet: NPO GI Prophylaxis: n/a DVT Prophylaxis: SCDs IV fluids: 3L bolus -> NS 150 mL/hour Lines/Tubes: Peripheral IV Code Status: Full code Quality VTE Prophylaxis VTE prophylaxis: mechanical ordered Hospitalist [facility] Advance Care Plan I have confirmed that the patient's Advanced Care Plan is present, code status is documented, or surrogate decision maker is listed in patient medical record.: Yes Medication Reconciliation I have utilized all available resources to obtain, update and review the patients current medications (includes all prescriptions, OTC, herbals, cannabis, and nutritional supplements).: Yes
[2024-11-24 17:33] LABS: Magnesium 2.2 mg/dL (1.6-2.3)
[2024-11-24 17:51] LABS: Add Urine Microscopic? YES; Appearance Urine Clear (Clear); Glucose Urine UA 3+ mg/dL (Negative); Leukocyte Esterase Ur Negative LEU/UL (Negative); Nitrate Urine Negative (Negative); Non Pathogenic Casts 0-2; Specific Grav Ur 1.026 (1.001-1.035)
--- NOTE | 2024-11-24 18:28 | PC.NURSE ---
This patient, Dennis Acosta, was admitted to Intensive Care Unit-2. Patient/family oriented to hospital policies and general routines including ID bracelet, bed and alarms, visiting hours, pain management, procedures, bathroom and other care routines, personal items, smoking policy, room service/diet, and visiting hours. Information on how to activate the Rapid Response Team has been discussed. Patient/Family are encouraged to report perceived risks to care and to ask questions if they do not understand what they are told or what they should do.
[2024-11-24] MEDS: SODIUM CHLORIDE 0.9% IV 1,000 ML 150 ML IV CONT (18:53)
[2024-11-24 19:00] LABS: MRSA (PCR) DETECTED (NOT DETECTE)
[2024-11-24] MEDS: CALCIUM CARBONATE (TUMS) 500 MG (200 MG ELEMENTAL) PO (20:29)
[2024-11-24 20:49] LABS: Anion Gap 7 mmol/L (4-12); Blood Urea Nitrogen 42 mg/dL (9-20); Calcium 8.5 mg/dL (8.4-10.2); Carbon Dioxide 22 mmol/L (22-30); Chloride 107 mmol/L (98-107); Estimated CRCL calculation 38 ml/min; Estimated Glomerular Filt Rate 44; Glucose 206 mg/dL (65-110); Potassium 3.6 mmol/L (3.4-5.0); Sodium 136 mmol/L (137-145)
[2024-11-24] MEDS: NICOTINE (*PBKC) 14 MG PATCH 1 PATCH TRANSDERM (22:07)
[2024-11-24] MEDS: MUPIROCIN 2% OINT 22 GM TUBE 1 APPLIC EACH NARE (22:07)
[2024-11-24] MEDS: APIXABAN 5 MG TABLET PO (22:08)
[2024-11-25] VITALS (17 sets, daily range): BP systolic 156–193; BP diastolic 82–127; PULSE 61–82; RESP 17–26; TEMP 36.2–37; O2SAT 96–99
[2024-11-25 00:57] LABS: Anion Gap 4 mmol/L (4-12); Blood Urea Nitrogen 39 mg/dL (9-20); Calcium 8.4 mg/dL (8.4-10.2); Carbon Dioxide 24 mmol/L (22-30); Chloride 107 mmol/L (98-107); Estimated CRCL calculation 38 ml/min; Estimated Glomerular Filt Rate 45; Glucose 246 mg/dL (65-110); Potassium 3.7 mmol/L (3.4-5.0); Sodium 135 mmol/L (137-145)
[2024-11-25] MEDS: IPRATROPIUM 0.5 MG/ALBUTEROL SULFATE 2.5 MG AMPUL.NEB 3 ML INHALATION (02:45)
[2024-11-25 04:20] LABS: Hematocrit 41.1 % (42.0-52.0); Hemoglobin 13.9 g/dL (14.0-18.0); Immature Granulocyte Percent A 0.8 % (0-0.5); Lymphocytes Absolute Auto 1.66 K/mm3 (0.9-3.2); Mean Corpuscular HGB Conc 33.8 g/dl (32-36); Mean Corpuscular Hemoglobin 31.7 pg (26-34); Mean Corpuscular Volume 93.6 fl (80-100); Nucleated Red Blood Cells Absolute Auto 0.000 K/mm3 (0.0-0.012); Nucleated Red Blood Cells Perc 0.0 % (0.0-0.2); Platelet Count Result 186 k/mm3 (150-375); Red Blood Count 4.39 M/mm3 (4.6-6.20); White Blood Count 10.1 K/mm3 (4.5-10.0)
[2024-11-25 04:37] LABS: Alanine Aminotransferase 20 U/L (6-50); Albumin Level 3.0 g/dL (3.5-5.1); Alkaline Phosphatase 120 U/L (38-126); Anion Gap 1 mmol/L (4-12); Aspartate Amino Transferase 25 U/L (17-59); Bilirubin,Total 0.8 mg/dL (0.2-1.3); Blood Urea Nitrogen 37 mg/dL (9-20); Calcium 8.5 mg/dL (8.4-10.2); Carbon Dioxide 23 mmol/L (22-30); Chloride 106 mmol/L (98-107); Estimated CRCL calculation 40 ml/min; Estimated Glomerular Filt Rate 47; Glucose 253 mg/dL (65-110); Magnesium 2.1 mg/dL (1.6-2.3); Potassium 4.0 mmol/L (3.4-5.0); Sodium 130 mmol/L (137-145); Total Protein 5.6 g/dL (6.3-8.2)
[2024-11-25] MEDS: LOSARTAN POTASSIUM 25 MG TABLET PO (06:36)
[2024-11-25 08:17] LABS: Anion Gap 6 mmol/L (4-12); Blood Urea Nitrogen 36 mg/dL (9-20); Calcium 8.7 mg/dL (8.4-10.2); Carbon Dioxide 24 mmol/L (22-30); Chloride 106 mmol/L (98-107); Estimated CRCL calculation 37 ml/min; Estimated Glomerular Filt Rate 43; Glucose 242 mg/dL (65-110); Potassium 3.7 mmol/L (3.4-5.0); Sodium 136 mmol/L (137-145)
[2024-11-25] MEDS: FLUTICASONE/UMECLIDIN/VILANTER 100-62.5-25 MCG ELLIPTA 1 PUFF INHALATION (08:24)
[2024-11-25] MEDS: LACTATED RINGERS 1,000 ML 75 ML IV CONT (08:29)
--- NOTE | 2024-11-25 08:30 | WPDCNINT ---
Assessment and Plan Assessment and plan (1) Severe hyperglycemia due to diabetes mellitus: Code(s): E11.65 - Type 2 diabetes mellitus with hyperglycemia Status: Acute Assessment and Plan: Uncontrolled diabetes likely worsened by steroids Patient was started on insulin infusion and IV fluids. Insulin infusion has been weaned off. Continue glimepiride Add Lantus Continue sliding scale Discontinue prednisone (2) Paroxysmal atrial fibrillation: Code(s): I48.0 - Paroxysmal atrial fibrillation Status: Chronic Assessment and Plan: Currently in sinus rhythm Continue Eliquis, Cardizem CD (3) Hyperlipidemia: Qualifiers: Hyperlipidemia type: mixed hyperlipidemia Qualified Code(s): E78.2 - Mixed hyperlipidemia Code(s): E78.5 - Hyperlipidemia, unspecified Status: Acute Assessment and Plan: Continue statin (4) Stage 3b chronic kidney disease: Code(s): N18.32 - Chronic kidney disease, stage 3b Status: Chronic Assessment and Plan: Creatinine appears to be close to baseline. Monitor urine output electrolytes and creatinine (5) Falls: Code(s): R29.6 - Repeated falls Status: Acute Assessment and Plan: Consult PT OT (6) COPD (chronic obstructive pulmonary disease): Qualifiers: COPD type: unspecified COPD Qualified Code(s): J44.9 - Chronic obstructive pulmonary disease, unspecified Code(s): J44.9 - Chronic obstructive pulmonary disease, unspecified Status: Chronic Assessment and Plan: Not in exacerbation. No wheezing on exam. Discontinue prednisone. Continue bronchodilators p.r.n. 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 Patient presented to ER by EMS for further evaluation of hyperglycemia. The patient was noted to have an elevated glucose level by his home health RN sent him in today. He reports he has recently been started on a prednisone course for a cough and since initiation he has had elevated glucose levels on his home glucometer. Patient does not check his glucose at home by himself. He states that he has been feeling weak. Twice he had lost his balance and fell. Although he states that both times he was not using his walker. He denies any loss of consciousness or trauma to head. He did admit to having polydipsia, and polyuria. He states that he scraped his RUE but denies any further injury. He is currently on anticoagulation secondary to paroxysmal atrial fibrillation. He denies any other complaints and denies chest pain, shortness of breath, nausea, vomiting, diarrhea, or abdominal pain. All other systems were reviewed and were negative Vital signs in the ER 97.9? F, HR 82, R 20, 191/111, and 99% on RA.. Workup in the ER showed WBC 10.9, no anemia, sodium 127 (corrected for hyperglycemia, 144), anion gap 10, creatinine 1.83 and GFR 36 (2.0 and GFR 33 on 09/20/2024), glucose 821, A1c 9.4. Head CT showed no acute intracranial process and possible findings of chronic right maxillary sinusitis. CXR showed postsurgical changes in the right hemithorax with atelectasis/scarring and a small right pleural effusion versus chronic pleural scarring Patient was started on insulin infusion and IV fluids and admitted to ICU. Overnight his blood sugars improved and he was transitioned off insulin to subcutaneous insulin. This morning he states he feels fine and denies any specific new complaints. Review of Systems Review of Systems: All systems reviewed & are unremarkable except as noted in HPI and below (HPI) [facility] Past Medical History Medical History History of tobacco abuse COPD (chronic obstructive pulmonary disease) Atrial fibrillation with rapid ventricular response Paroxysmal atrial fibrillation Stage 4 chronic kidney disease Bladder malignancy Gross hematuria Pneumonia Shortness of breath Stage 3b chronic kidney disease Simple chronic bronchitis Cigarette nicotine dependence with nicotine-induced disorder Major depressive disorder Cigarette nicotine dependence in remission Microalbuminuria Personal history of malignant neoplasm of lung Type 2 diabetes mellitus with diabetic chronic kidney disease Hypertensive chronic kidney disease Diverticulosis Kidney stones Hyperlipidemia Benign prostatic hyperplasia Surgical History Surgical History History of lobectomy of lung 05/2022 History of bilateral knee replacement (2008) History of cholecystectomy History of inguinal hernia repair History of vasectomy History of hemorrhoidectomy (1996) History of colonoscopy with polypectomy History of tonsillectomy (1953) Family History Family History Father Acute myocardial infarction Sibling Lung cancer Social History Social History Social History: Surrogate medical decision maker: Trupti Acosta, sibling. Code status: Full code. Smoking packs per day: 1 Smoking cigarettes per day: 20.0 Years smoked: 62 Smoking pack-years: 62.00 Smoking status: Current every day smoker Tobacco type: cigarettes Second hand tobacco smoke exposure: No Additional smoking assessment comments: Had quit at the time of his lung cancer diagnosis, but now back to smoking Alcohol intake: former Substance use: never Substance use type: does not use Do You Feel Safe in your Home?: Yes Lack of Transportation: No Lack of Food: Never True Current Housing: I Have Housing Concerned About Future Housing: No Difficulty Paying Gas/Electric Bills: No Difficulty Paying for Meds: No Currently Unemployed: No Education: Trade/Vocational Certificate Difficulty w/ Childcare or Family Care: No Living arrangements: alone Occupation/Education: retired Gender identity (if verbalized by the patient): Male Sexual Orientation (if Verbalized by the Patient): Straight or Heterosexual Spiritual care concerns: No Meds Home Medications and Allergies Home Medications ?Medication ?Instructions ?Recorded ?Confirmed ?Type albuterol sulfate 90 mcg/actuation 1 inh inhalation Q4H PRN shortness 05/01/24 11/24/24 Rx aerosol inhaler of breath or wheezing #8.5 grams glimepiride 1 mg tablet See Rx Instructions .Route 07/16/24 11/24/24 Rx .COMPLEX #90 tabs losartan 25 mg tablet 25 mg PO DAILY #90 tabs 08/01/24 11/24/24 Rx atorvastatin 40 mg tablet See Rx Instructions .Route 09/05/24 11/24/24 Rx .COMPLEX #90 tabs apixaban 5 mg tablet (Eliquis) 5 mg PO Q12HR #180 tabs 09/15/24 11/24/24 Rx diltiazem HCl 180 mg 180 mg PO DAILY #90 caps 09/15/24 11/24/24 Rx capsule,extended release 24 hr (Cartia XT) escitalopram oxalate 10 mg tablet 10 mg PO DAILY 10/18/24 11/24/24 History fluticasone fur. 100 mcg-umeclid 1 inh inhalation Q24H 1 month #60 10/19/24 11/24/24 Rx 62.5 mcg-vilant 25 mcg ea inhalat.powder (Trelegy Ellipta) fluticasone fur. 100 mcg-umeclid 100-62.5-25 mcg Blister With 10/19/24 11/24/24 Sample 62.5 mcg-vilant 25 mcg Device#1 Samples inhalat.powder (Trelegy Ellipta) prednisone 10 mg tablet 10 mg PO DAILY #30 tabs 11/10/24 11/24/24 Rx FreeStyle [place] Lite #1 ea 11/17/24 11/24/24 Rx (blood-glucose meter) FreeStyle Lite Strips (blood sugar #100 ea 11/17/24 11/24/24 Rx diagnostic) lancets 28 gauge (FreeStyle #100 ea 11/17/24 11/24/24 Rx Lancets) acetaminophen 500 mg capsule 1,000 mg PO Q6H PRN pain 11/24/24 11/24/24 History fluticasone propionate 50 1 spray intranasal DAILY PRN 11/24/24 11/24/24 History mcg/actuation nasal allergies spray,suspension (24 Hour Allergy Relief) Allergies Allergy/AdvReac Type Severity Reaction Status Date / Time No Known Allergies Allergy Verified 10/30/24 10:46 Vital Signs Vital Signs - 24 hr 11/24/24 15:00 11/24/24 15:00 11/24/24 16:00 Temperature 36.6 C Pulse Rate 82 79 Respiratory Rate 20 16 6 L Blood Pressure 191/111 H 190/102 H Pulse Oximetry 99 96 Oxygen Delivery Room Air 11/24/24 17:01 11/24/24 17:02 11/24/24 17:15 Temperature Pulse Rate 81 80 82 Respiratory Rate 20 17 23 H Blood Pressure 214/105 H Pulse Oximetry 100 100 99 Oxygen Delivery 11/24/24 17:32 11/24/24 18:00 11/24/24 18:51 Temperature Pulse Rate 83 77 72 Respiratory Rate 21 H 16 Blood Pressure 182/120 H 180/111 H 191/104 H Pulse Oximetry 98 98 Oxygen Delivery 11/24/24 19:31 11/24/24 19:46 11/24/24 20:00 Temperature Pulse Rate 75 76 Respiratory Rate 20 18 Blood Pressure 175/125 H 146/117 H Pulse Oximetry 99 100 Oxygen Delivery Room Air 11/24/24 20:00 11/24/24 20:01 11/24/24 20:16 Temperature 36.1 C L Pulse Rate 66 71 68 Respiratory Rate 20 20 Blood Pressure 162/98 H 137/96 H Pulse Oximetry 99 99 Oxygen Delivery 11/24/24 20:31 11/24/24 20:46 11/24/24 22:00 Temperature Pulse Rate 78 85 72 Respiratory Rate 17 23 H 20 Blood Pressure 167/92 H 138/94 H 162/98 H Pulse Oximetry 100 99 98 Oxygen Delivery 11/24/24 22:00 11/25/24 00:00 11/25/24 00:00 Temperature 37.0 C Pulse Rate 93 78 Respiratory Rate 18 Blood Pressure 156/100 H Pulse Oximetry 97 Oxygen Delivery Room Air 11/25/24 00:00 11/25/24 02:00 11/25/24 02:00 Temperature Pulse Rate 78 70 70 Respiratory Rate 18 Blood Pressure 157/127 H Pulse Oximetry 97 Oxygen Delivery 11/25/24 02:45 11/25/24 02:51 11/25/24 02:53 Temperature Pulse Rate 77 69 Respiratory Rate 17 20 Blood Pressure Pulse Oximetry 96 Oxygen Delivery Room Air 11/25/24 04:00 11/25/24 04:00 11/25/24 04:00 Temperature 36.3 C L Pulse Rate 73 73 Respiratory Rate 21 H Blood Pressure 159/93 H Pulse Oximetry 98 Oxygen Delivery Room Air 11/25/24 06:00 11/25/24 06:00 Temperature Pulse Rate 72 72 Respiratory Rate 22 H Blood Pressure 172/101 H Pulse Oximetry 96 Oxygen Delivery Exam Narrative: General: Pt is alert awake and in NAD Lungs/Chest: Trachea central Clear BS B/L, No crackles or wheezing. Cardiac: RRR. Normal S1 S2. No murmurs Circulation: Pedal pulses are intact and symmetrical. Abdomen: Normal bowel sounds.. Soft. NT. ND. Extremities: No clubbing, cyanosis or edema. Warm : Gutierrez in place Neurologic: Follows commands. Moves all 4 extremities PERRL Skin: No Rash Results Labs 11/25/24 04:14 11/25/24 08:02 Labs: Impressions Head CT 11/24/24 15:39 IMPRESSION: No acute intracranial process. CT findings that may represent chronic right maxillary sinusitis in the appropriate clinical context. Chest X-Ray 11/24/24 16:26 IMPRESSION: Post surgical changes in the right hemithorax with atelectasis/scarring and small right pleural effusion versus chronic pleural scarring. Otherwise no acute cardiopulmonary process. Short CBC 11/24/24 11/25/24 Range/Units 15:28 04:14 WBC 10.9 H 10.1 H (4.5-10.0) K/mm3 Hgb 14.8 13.9 L (14.0-18.0) g/dL Hct 44.1 41.1 L (42.0-52.0) % Plt Count 206 186 (150-375) k/mm3 BMP 11/24/24 11/24/24 11/25/24 15:28 20:13 00:37 Sodium 127 L 136 L 135 L Potassium 4.8 3.6 3.7 Chloride 93 L 107 107 Carbon Dioxide 24 22 24 BUN 47 H D 42 H 39 H Creatinine 1.83 H 1.53 H 1.52 H Glucose 821 H* 206 H 246 H Calcium 9.0 8.5 8.4 11/25/24 11/25/24 04:14 08:02 Sodium 130 L 136 L Potassium 4.0 3.7 Chloride 106 106 Carbon Dioxide 23 24 BUN 37 H 36 H Creatinine 1.47 H 1.58 H Glucose 253 H 242 H Calcium 8.5 8.7 Liver Function 11/24/24 11/25/24 Range/Units 15:28 04:14 Total Bilirubin 0.6 0.8 (0.2-1.3) mg/dL AST 27 25 (17-59) U/L ALT 36 20 (6-50) U/L Alkaline Phosphatase 139 H 120 (38-126) U/L Albumin 3.5 3.0 L (3.5-5.1) g/dL Urine 11/24/24 Range/Units 17:27 Urine Color Yellow (Yellow) Urine Appearance Clear (Clear) Urine pH 5.5 (5.0-9.0) Ur Specific [place] 1.026 (1.001-1.035) Urine Protein 1+ H (Negative) mg/dL Urine Glucose (UA) 3+ H (Negative) mg/dL Quality VTE Prophylaxis VTE prophylaxis: pharmacologic ordered Hospitalist MIPS Advance Care Plan I have confirmed that the patient's Advanced Care Plan is present, code status is documented, or surrogate decision maker is listed in patient medical record.: Yes Medication Reconciliation I have utilized all available resources to obtain, update and review the patients current medications (includes all prescriptions, OTC, herbals, cannabis, and nutritional supplements).: Yes
[2024-11-25] MEDS: INSULIN ASPART (*BKC) 100 UNITS/ML SUB-Q ×5 (08:31→20:36)
[2024-11-25] MEDS: ATORVASTATIN 40 MG TABLET PO (08:32)
[2024-11-25] MEDS: ESCITALOPRAM OXALATE 10 MG TABLET PO (08:32)
[2024-11-25] MEDS: APIXABAN 5 MG TABLET PO ×2 (08:32→20:29)
[2024-11-25] MEDS: MUPIROCIN 2% OINT 22 GM TUBE 1 APPLIC EACH NARE ×2 (08:33→20:29)
[2024-11-25] MEDS: NICOTINE (*PBKC) 14 MG PATCH 1 PATCH TRANSDERM (08:33)
[2024-11-25] MEDS: GLIMEPIRIDE 1 MG TABLET PO (08:33)
[2024-11-25] MEDS: dilTIAZem HCL CD 180 MG CAP.24HR PO (08:33)
[2024-11-25] MEDS: INSULIN GLARGINE (*BKC) 100 UNITS/ML 10 UNITS SUB-Q (08:39)
--- NOTE | 2024-11-25 09:22 | P.PNIM_ITS ---
Progress Note: A&P Assessment and Plan (1) Type 2 diabetes mellitus with diabetic chronic kidney disease: Qualifiers: Chronic kidney disease stage: stage 3 (moderate) Chronic kidney disease stage 3 subtype: stage 3b (GFR 30-44) Diabetes mellitus superintendent container terminal insulin use: without jail use Qualified Code(s): E11.22 - Type 2 diabetes mellitus with diabetic chronic kidney disease; N18.32 - Chronic kidney disease, stage 3b Code(s): E11.22 - Type 2 diabetes mellitus with diabetic chronic kidney disease Status: Acute (2) Severe hyperglycemia due to diabetes mellitus: Code(s): E11.65 - Type 2 diabetes mellitus with hyperglycemia Status: Acute Plan (1) Severe hyperglycemia due to diabetes mellitus: Code(s): E11.65 - Type 2 diabetes mellitus with hyperglycemia Status: Acute Assessment and Plan: Insulin infusion has been weaned off. Continue glimepiride Start Lantus 10 units daily, lispro 4 units a.c. Continue sliding scale (2) Paroxysmal atrial fibrillation: Code(s): I48.0 - Paroxysmal atrial fibrillation Status: Chronic Assessment and Plan: Currently in sinus rhythm Continue EliIsabel quevedo CD Hyperlipidemia: Qualifiers: Hyperlipidemia type: mixed hyperlipidemia Qualified Code(s): E78.2 - Mixed hyperlipidemia Code(s): E78.5 - Hyperlipidemia, unspecified Status: Acute Assessment and Plan: Continue statin Dehydration Stage 3b chronic kidney disease: Code(s): N18.32 - Chronic kidney disease, stage 3b Status: Chronic Assessment and Plan: Upon arrival in the ED, BUN 47 creatinine 1.52 Creatinine 1.58, BUN 36, Likely resulting from uncontrolled diabetes Continue normal saline IV Monitor urine output electrolytes and creatinine Increased lateral Ringer from 75 to 100 mL/hour (5) Falls: Code(s): R29.6 - Repeated falls Status: Acute Assessment and Plan: Consult PT OT COPD (chronic obstructive pulmonary disease): Qualifiers: COPD type: unspecified COPD Qualified Code(s): J44.9 - Chronic obstructive pulmonary disease, unspecified Code(s): J44.9 - Chronic obstructive pulmonary disease, unspecified Status: Chronic Assessment and Plan: No exacerbation Discontinue prednisone. Continue bronchodilators p.r.n. Benign hypertension with chronic kidney disease: Code(s): I12.9 - Hypertensive chronic kidney disease with stage 1 through stage 4 chronic kidney disease, or unspecified chronic kidney disease Status: Chronic Assessment and Plan: Continue Cardizem CD and losartan Discharge patient tomorrow if glucose is controlled well Subjective Date/time seen: 11/25/24 09:22 Interval history: Glucose is trending down, not controlled in target range yet Patient is afebrile, no O2 desaturation room air Patient is afebrile, blood pressure stable, no O2 desaturation on room air Patient feels tired, patient denies chest pain abdomen pain nausea vomiting diarrhea Exam Narrative: General: Pt is alert awake and in NAD Lungs/Chest: Trachea central Clear BS B/L, No crackles or wheezing. Cardiac: RRR. Normal S1 S2. No murmurs Circulation: Pedal pulses are intact and symmetrical. Abdomen: Normal bowel sounds.. Soft. NT. ND. Extremities: No clubbing, cyanosis or edema. Warm : Gutierrez in place Neurologic: Follows commands. Moves all 4 extremities PERRL Skin: No Rash Objective Data Vital Signs Vital Signs: Vital Signs - 24 hr 11/24/24 15:00 11/24/24 15:00 11/24/24 16:00 Temperature 97.9 F Pulse Rate 82 79 Respiratory Rate 20 16 6 L Blood Pressure 191/111 H 190/102 H Pulse Oximetry 99 96 Oxygen Delivery Room Air 11/24/24 17:01 11/24/24 17:02 11/24/24 17:15 Temperature Pulse Rate 81 80 82 Respiratory Rate 20 17 23 H Blood Pressure 214/105 H Pulse Oximetry 100 100 99 Oxygen Delivery 11/24/24 17:32 11/24/24 18:00 11/24/24 18:51 Temperature Pulse Rate 83 77 72 Respiratory Rate 21 H 16 Blood Pressure 182/120 H 180/111 H 191/104 H Pulse Oximetry 98 98 Oxygen Delivery 11/24/24 19:31 11/24/24 19:46 11/24/24 20:00 Temperature Pulse Rate 75 76 Respiratory Rate 20 18 Blood Pressure 175/125 H 146/117 H Pulse Oximetry 99 100 Oxygen Delivery Room Air 11/24/24 20:00 11/24/24 20:01 11/24/24 20:16 Temperature 96.9 F L Pulse Rate 66 71 68 Respiratory Rate 20 20 Blood Pressure 162/98 H 137/96 H Pulse Oximetry 99 99 Oxygen Delivery 11/24/24 20:31 11/24/24 20:46 11/24/24 22:00 Temperature Pulse Rate 78 85 72 Respiratory Rate 17 23 H 20 Blood Pressure 167/92 H 138/94 H 162/98 H Pulse Oximetry 100 99 98 Oxygen Delivery 11/24/24 22:00 11/25/24 00:00 11/25/24 00:00 Temperature 98.6 F Pulse Rate 93 78 Respiratory Rate 18 Blood Pressure 156/100 H Pulse Oximetry 97 Oxygen Delivery Room Air 11/25/24 00:00 11/25/24 02:00 11/25/24 02:00 Temperature Pulse Rate 78 70 70 Respiratory Rate 18 Blood Pressure 157/127 H Pulse Oximetry 97 Oxygen Delivery 11/25/24 02:45 11/25/24 02:51 11/25/24 02:53 Temperature Pulse Rate 77 69 Respiratory Rate 17 20 Blood Pressure Pulse Oximetry 96 Oxygen Delivery Room Air 11/25/24 04:00 11/25/24 04:00 11/25/24 04:00 Temperature 97.4 F L Pulse Rate 73 73 Respiratory Rate 21 H Blood Pressure 159/93 H Pulse Oximetry 98 Oxygen Delivery Room Air 11/25/24 06:00 11/25/24 06:00 11/25/24 08:27 Temperature Pulse Rate 72 72 Respiratory Rate 22 H Blood Pressure 172/101 H Pulse Oximetry 96 97 Oxygen Delivery Room Air Intake/Output Intake/Output: Intake & Output 11/22/24 11/23/24 11/24/24 11/25/24 23:59 23:59 23:59 23:59 Intake Total 3035.5 Output Total 175 1100 Balance 2860.5 -1100 Meds/Results Medications: Active Medications Generic Name Dose Route Start Last Admin Trade Name Freq PRN Reason Stop Dose Admin Acetaminophen 650 mg 11/24/24 17:20 Acetaminophen 325 Mg Tablet PO Q4H PRN Mild Pain (1-3) or Fever Albuterol/Ipratropium 3 ml 11/25/24 07:38 Ipratropium 0.5 Mg/Albuterol Sulfate 2.5 Mg Ampul.Neb 3 Ml INHALATION Q6HRT PRN Wheezing Apixaban 5 mg 11/24/24 21:15 11/25/24 08:32 Apixaban 5 Mg Tablet PO 5 mg Q12HR PRAVIN Administration Atorvastatin Calcium 40 mg 11/25/24 09:00 11/25/24 08:32 Atorvastatin 40 Mg Tablet PO 40 mg DAILY PRAVIN Administration Calcium Carbonate 200 mg 11/24/24 19:47 11/24/24 20:29 Calcium Carbonate (Tums) 500 Mg (200 Mg Elemental) PO 200 mg Q6H PRN Administration Indigestion Dextrose 12.5 gm 11/24/24 15:57 Dextrose 50% 25 Gm/50 Ml Syringe IV PUSH PRN PRN Hypoglycemia Protocol Dextrose 12.5 gm 11/24/24 21:04 Dextrose 50% 25 Gm/50 Ml Syringe IV PUSH PRN PRN Hypoglycemia Protocol Diltiazem HCl 180 mg 11/25/24 09:00 11/25/24 08:33 Diltiazem Hcl Cd 180 Mg Cap.24hr PO 180 mg DAILY PRAVIN Administration Escitalopram Oxalate 10 mg 11/25/24 09:00 11/25/24 08:32 Escitalopram Oxalate 10 Mg Tablet PO 10 mg DAILY PRAVIN Administration Fluticasone Propionate 1 spray 11/24/24 21:03 Fluticasone Propionate 0.05% Na Spr 16 Gm Btl (*Bkc) NASAL DAILY PRN allergies Fluticasone/Umeclidinium/Vilanterol 1 puff 11/25/24 08:00 11/25/24 08:24 Fluticasone/Umeclidin/Vilanter 100-62.5-25 Mcg Ellipta INHALATION 1 puff DAILYRT PRAVIN Administration Glimepiride 1 mg 11/25/24 09:00 11/25/24 08:33 Glimepiride 1 Mg Tablet PO 1 mg DAILY PRAVIN Administration Glucagon 1 mg 11/24/24 15:57 Glucagon For Inj 1 Mg Vial IM PRN PRN Hypoglycemia Protocol Glucagon 1 mg 11/24/24 21:04 Glucagon For Inj 1 Mg Vial IM PRN PRN Hypoglycemia Protocol Glucose 15 gm 11/24/24 15:57 Glucose Oral Gel 15 Gm Of Glucse In 37.5 Gm Tube PO PRN PRN Hypoglycemia Protocol Glucose 15 gm 11/24/24 21:04 Glucose Oral Gel 15 Gm Of Glucse In 37.5 Gm Tube PO PRN PRN Hypoglycemia Protocol Hydralazine HCl 20 mg 11/25/24 07:43 Hydralazine Hcl 20 Mg/Ml Vial IV PUSH Q4H PRN SBP more than 160 Dextrose 1,000 mls @ 100 mls/hr 11/24/24 21:04 Dextrose 5% 1,000 Ml IVPB PRN PRN Hypoglycemia Protocol Lactated Ringer's 1,000 mls @ 75 mls/hr 11/25/24 07:40 11/25/24 08:29 Lr - Lactated Ringers Iv IV CONT 11/26/24 07:39 75 mls/hr .[id number] PRAVIN Administration Insulin Aspart 3 - 6 units 11/25/24 08:00 11/25/24 08:31 Insulin Aspart (*Bkc) 100 Units/Ml SUB-Q 3 units TIDWM PRAVIN Administration Protocol Insulin Aspart 1 - 3 units 11/24/24 21:15 11/24/24 22:08 Insulin Aspart (*Bkc) 100 Units/Ml SUB-Q Not Given HS PRAVIN Protocol Insulin Glargine 10 units 11/25/24 07:45 11/25/24 09:20 Insulin Glargine (*Bkc) 100 Units/Ml SUB-Q Not Given QAM PRAVIN Labetalol HCl 20 mg 11/25/24 07:43 Labetalol Hcl Inj 100 Mg/20 Ml Vial IV PUSH Q4H PRN SBP > 160 and HR> 60 -1st choice Losartan Potassium 25 mg 11/25/24 09:00 11/25/24 06:36 Losartan Potassium 25 Mg Tablet PO 25 mg DAILY PRAVIN Administration Mupirocin 1 applic 11/24/24 21:00 11/25/24 08:33 Mupirocin 2% Oint 22 Gm Tube EACH NARE 11/29/24 09:01 1 applic Q12HR PRAVIN Administration Nicotine 1 patch 11/24/24 20:40 11/25/24 08:33 Nicotine (*Pbkc) 14 Mg Patch TRANSDERM 1 patch DAILY PRAVIN Administration Ondansetron HCl 4 mg 11/24/24 17:20 Ondansetron Inj 4 Mg/2 Ml Vial IV PUSH Q4H PRN Nausea Radiology Results: ITS Impressions Head CT 11/24/24 15:39 IMPRESSION: No acute intracranial process. CT findings that may represent chronic right maxillary sinusitis in the appropriate clinical context. Chest X-Ray 11/24/24 16:26 IMPRESSION: Post surgical changes in the right hemithorax with atelectasis/scarring and small right pleural effusion versus chronic pleural scarring. Otherwise no acute cardiopulmonary process. Labs Labs: Laboratory Results - last 24 hr 11/24/24 11/24/24 11/24/24 15:27 15:28 17:25 WBC 10.9 H RBC 4.71 Hgb 14.8 Hct 44.1 MCV 93.6 MCH 31.4 MCHC 33.6 RDW 12.4 Plt Count 206 MPV 11.4 H Immature Gran % (Auto) 0.6 H Neut % (Auto) 85.5 H Lymph % (Auto) 8.1 L [place] % (Auto) 5.6 Eos % (Auto) 0.0 Baso % (Auto) 0.2 Lymph # (Auto) 0.88 L [place] # (Auto) 0.6 Eos # (Auto) 0.0 Baso # (Auto) 0.0 Abs Immat Gran (auto) 0.07 H Absolute Neuts (auto) 9.3 H Absolute Nucleated RBC 0.000 Nucleated RBC % 0.0 Sodium 127 L Potassium 4.8 Chloride 93 L Carbon Dioxide 24 Anion Gap 10 BUN 47 H D Creatinine 1.83 H Estim Creat Clear Calc 32 Estimated GFR 36 L Glucose 821 H* POC Capillary Glucose Hemoglobin A1c 9.4 H Calcium 9.0 Phosphorus 3.5 Magnesium 2.2 Total Bilirubin 0.6 AST 27 ALT 36 Alkaline Phosphatase 139 H Total Protein 6.3 Albumin 3.5 Urine Color Urine Appearance Urine pH Ur Specific [place] Urine Protein Urine Glucose (UA) Urine Ketones Ur Blood (Man) Urine Nitrate Urine Bilirubin Urine Urobilinogen Leukocyte Esterase Rfl Urine RBC Urine WBC Ur Squamous Epith Cells Urine Bacteria Urine Casts Nasal MRSA (PCR) Detected A* 11/24/24 11/24/24 11/24/24 17:27 18:00 19:00 WBC RBC Hgb Hct MCV MCH MCHC RDW Plt Count MPV Immature Gran % (Auto) Neut % (Auto) Lymph % (Auto) [place] % (Auto) Eos % (Auto) Baso % (Auto) Lymph # (Auto) [place] # (Auto) Eos # (Auto) Baso # (Auto) Abs Immat Gran (auto) Absolute Neuts (auto) Absolute Nucleated RBC Nucleated RBC % Sodium Potassium Chloride Carbon Dioxide Anion Gap BUN Creatinine Estim Creat Clear Calc Estimated GFR Glucose POC Capillary Glucose > 500 H* 384 H Hemoglobin A1c Calcium Phosphorus Magnesium Total Bilirubin AST ALT Alkaline Phosphatase Total Protein Albumin Urine Color Yellow Urine Appearance Clear Urine pH 5.5 Ur Specific [place] 1.026 Urine Protein 1+ H Urine Glucose (UA) 3+ H Urine Ketones Negative Ur Blood (Man) Negative Urine Nitrate Negative Urine Bilirubin Negative Urine Urobilinogen 0.2 Leukocyte Esterase Rfl Negative Urine RBC 0-2 Urine WBC 0-5 Ur Squamous Epith Cells None seen Urine Bacteria None seen Urine Casts 0-2 Nasal MRSA (PCR) 11/24/24 11/24/24 11/24/24 20:10 20:13 21:01 WBC RBC Hgb Hct MCV MCH MCHC RDW Plt Count MPV Immature Gran % (Auto) Neut % (Auto) Lymph % (Auto) [place] % (Auto) Eos % (Auto) Baso % (Auto) Lymph # (Auto) [place] # (Auto) Eos # (Auto) Baso # (Auto) Abs Immat Gran (auto) Absolute Neuts (auto) Absolute Nucleated RBC Nucleated RBC % Sodium 136 L Potassium 3.6 Chloride 107 Carbon Dioxide 22 Anion Gap 7 BUN 42 H Creatinine 1.53 H Estim Creat Clear Calc 38 Estimated GFR 44 L Glucose 206 H POC Capillary Glucose 184 H 111 H Hemoglobin A1c Calcium 8.5 Phosphorus Magnesium Total Bilirubin AST ALT Alkaline Phosphatase Total Protein Albumin Urine Color Urine Appearance Urine pH Ur Specific [place] Urine Protein Urine Glucose (UA) Urine Ketones Ur Blood (Man) Urine Nitrate Urine Bilirubin Urine Urobilinogen Leukocyte Esterase Rfl Urine RBC Urine WBC Ur Squamous Epith Cells Urine Bacteria Urine Casts Nasal MRSA (PCR) 11/24/24 11/25/24 11/25/24 22:06 00:37 00:50 WBC RBC Hgb Hct MCV MCH MCHC RDW Plt Count MPV Immature Gran % (Auto) Neut % (Auto) Lymph % (Auto) [place] % (Auto) Eos % (Auto) Baso % (Auto) Lymph # (Auto) [place] # (Auto) Eos # (Auto) Baso # (Auto) Abs Immat Gran (auto) Absolute Neuts (auto) Absolute Nucleated RBC Nucleated RBC % Sodium 135 L Potassium 3.7 Chloride 107 Carbon Dioxide 24 Anion Gap 4 BUN 39 H Creatinine 1.52 H Estim Creat Clear Calc 38 Estimated GFR 45 L Glucose 246 H POC Capillary Glucose 142 H 255 H Hemoglobin A1c Calcium 8.4 Phosphorus Magnesium Total Bilirubin AST ALT Alkaline Phosphatase Total Protein Albumin Urine Color Urine Appearance Urine pH Ur Specific [place] Urine Protein Urine Glucose (UA) Urine Ketones Ur Blood (Man) Urine Nitrate Urine Bilirubin Urine Urobilinogen Leukocyte Esterase Rfl Urine RBC Urine WBC Ur Squamous Epith Cells Urine Bacteria Urine Casts Nasal MRSA (PCR) 11/25/24 11/25/24 11/25/24 04:14 08:02 08:31 WBC 10.1 H RBC 4.39 L Hgb 13.9 L Hct 41.1 L MCV 93.6 MCH 31.7 MCHC 33.8 RDW 12.4 Plt Count 186 MPV 11.5 H Immature Gran % (Auto) 0.8 H Neut % (Auto) 74.2 H Lymph % (Auto) 16.5 L [place] % (Auto) 6.5 Eos % (Auto) 1.8 Baso % (Auto) 0.2 Lymph # (Auto) 1.66 [place] # (Auto) 0.7 H Eos # (Auto) 0.2 Baso # (Auto) 0.0 Abs Immat Gran (auto) 0.08 H Absolute Neuts (auto) 7.5 H Absolute Nucleated RBC 0.000 Nucleated RBC % 0.0 Sodium 130 L 136 L Potassium 4.0 3.7 Chloride 106 106 Carbon Dioxide 23 24 Anion Gap 1 L 6 BUN 37 H 36 H Creatinine 1.47 H 1.58 H Estim Creat Clear Calc 40 37 Estimated GFR 47 L 43 L Glucose 253 H 242 H POC Capillary Glucose 244 H Hemoglobin A1c Calcium 8.5 8.7 Phosphorus Magnesium 2.1 Total Bilirubin 0.8 AST 25 ALT 20 Alkaline Phosphatase 120 Total Protein 5.6 L Albumin 3.0 L Urine Color Urine Appearance Urine pH Ur Specific [place] Urine Protein Urine Glucose (UA) Urine Ketones Ur Blood (Man) Urine Nitrate Urine Bilirubin Urine Urobilinogen Leukocyte Esterase Rfl Urine RBC Urine WBC Ur Squamous Epith Cells Urine Bacteria Urine Casts Nasal MRSA (PCR)
--- NOTE | 2024-11-25 10:47 | PC.NURSE ---
Report given to ILDA Fowler on medical. patient to transfer to room 347 via bed and tele monitor applied. All personal belongings and chart sent with patient at the time of transfer.
[2024-11-25] MEDS: LACTATED RINGERS 1,000 ML 100 ML IV CONT (19:24)
[2024-11-26] VITALS (12 sets, daily range): BP systolic 130–187; BP diastolic 78–90; PULSE 59–73; RESP 16–20; TEMP 36.5–36.8; O2SAT 96–100
[2024-11-26] MEDS: ACETAMINOPHEN 325 MG TABLET 650 MG PO (01:35)
[2024-11-26 05:52] LABS: Hematocrit 41.9 % (42.0-52.0); Hemoglobin 14.2 g/dL (14.0-18.0); Mean Corpuscular HGB Conc 33.9 g/dl (32-36); Mean Corpuscular Hemoglobin 31.8 pg (26-34); Mean Corpuscular Volume 93.7 fl (80-100); Platelet Count Result 186 k/mm3 (150-375); Red Blood Count 4.47 M/mm3 (4.6-6.20); White Blood Count 9.0 K/mm3 (4.5-10.0)
[2024-11-26 06:13] LABS: Alanine Aminotransferase 25 U/L (6-50); Albumin Level 3.0 g/dL (3.5-5.1); Alkaline Phosphatase 116 U/L (38-126); Anion Gap 2 mmol/L (4-12); Aspartate Amino Transferase 24 U/L (17-59); Bilirubin,Total 0.8 mg/dL (0.2-1.3); Blood Urea Nitrogen 27 mg/dL (9-20); Calcium 8.5 mg/dL (8.4-10.2); Carbon Dioxide 26 mmol/L (22-30); Chloride 104 mmol/L (98-107); Estimated CRCL calculation 39 ml/min; Estimated Glomerular Filt Rate 46; Glucose 193 mg/dL (65-110); Magnesium 2.0 mg/dL (1.6-2.3); Potassium 3.5 mmol/L (3.4-5.0); Sodium 132 mmol/L (137-145); Total Protein 5.5 g/dL (6.3-8.2)
[2024-11-26] MEDS: FLUTICASONE/UMECLIDIN/VILANTER 100-62.5-25 MCG ELLIPTA 1 PUFF INHALATION (08:16)
[2024-11-26] MEDS: MUPIROCIN 2% OINT 22 GM TUBE 1 APPLIC EACH NARE ×2 (09:00→20:40)
[2024-11-26] MEDS: INSULIN ASPART (*BKC) 100 UNITS/ML SUB-Q ×5 (09:38→21:18)
[2024-11-26] MEDS: INSULIN GLARGINE (*BKC) 100 UNITS/ML 10 UNITS SUB-Q (09:40)
[2024-11-26] MEDS: APIXABAN 5 MG TABLET PO ×2 (09:46→20:38)
[2024-11-26] MEDS: NICOTINE (*PBKC) 14 MG PATCH 1 PATCH TRANSDERM (09:46)
[2024-11-26] MEDS: LOSARTAN POTASSIUM 25 MG TABLET PO (09:46)
[2024-11-26] MEDS: GLIMEPIRIDE 1 MG TABLET PO (09:46)
[2024-11-26] MEDS: dilTIAZem HCL CD 180 MG CAP.24HR PO (09:46)
[2024-11-26] MEDS: ESCITALOPRAM OXALATE 10 MG TABLET PO (09:46)
[2024-11-26] MEDS: ATORVASTATIN 40 MG TABLET PO (09:46)
--- NOTE | 2024-11-26 13:23 | PC.NURSE ---
RN waiting to give insulin until patient eats lunch. Patient is wanting to sleep at this time.
--- NOTE | 2024-11-26 13:32 | P.DS_ITS ---
DS: Admitting Diagnosis Discharge Date 11/26/2024 Admitting Diagnosis Hyperglycemia DS: Discharge Diagnosis Discharge Diagnosis (1) Severe hyperglycemia due to diabetes mellitus: Code(s): E11.65 - Type 2 diabetes mellitus with hyperglycemia Status: Acute DS: Summary Hospital Course Hospital Course: 74-year-old male with [id number] diabetes presents with hyperglycemia. Home health RN summoned EMS. Patient was given prednisone for cough recently. Prednisone stopped. Given insulin. Blood sugars much better control. Patient to be discharged to home to his usual state of living. He did not want additional insulin or change in medications. However, prednisone was discontinued. Reports he will be checking his sugars and if they are too high or too low he will report to home health or primary care immediately. Home health will be continued on discharge. Time Spent with Patient Time attestation: Total time spent providing and/or coordinating discharge services: Exam Const: General: comfortable and no acute distress Other: A&O x3 HENMT: Mouth: Yes moist mucous membranes Eyes: Pupils: Equal, round and reactive pupils present Neck: Neck: supple Resp: Effort & Inspection: normal respiratory effort Auscultation: clear to auscultation bilaterally Cardio: Rate: regular rate Rhythm: regular rhythm GI: Inspection: non-distended GI Palp: Yes Soft to palpation Neuro: Motor exam (neuro): 5/5 motor strength present throughout Extrem: General: no edema DS: Data Data Completed and Pending Labs on day of discharge: Labs from last 24 hours 11/26/24 11/26/24 11/26/24 12:10 08:27 05:37 WBC 9.0 RBC 4.47 L Hgb 14.2 Hct 41.9 L MCV 93.7 MCH 31.8 MCHC 33.9 RDW 12.8 Plt Count 186 MPV 11.4 H Sodium 132 L Potassium 3.5 Chloride 104 Carbon Dioxide 26 Anion Gap 2 L BUN 27 H Creatinine 1.49 H Estim Creat Clear Calc 39 Estimated GFR 46 L Glucose 193 H POC Capillary Glucose 295 H 221 H Calcium 8.5 Magnesium 2.0 Total Bilirubin 0.8 AST 24 ALT 25 Alkaline Phosphatase 116 Total Protein 5.5 L Albumin 3.0 L 11/25/24 11/25/24 20:33 17:22 WBC RBC Hgb Hct MCV MCH MCHC RDW Plt Count MPV Sodium Potassium Chloride Carbon Dioxide Anion Gap BUN Creatinine Estim Creat Clear Calc Estimated GFR Glucose POC Capillary Glucose 266 H 201 H Calcium Magnesium Total Bilirubin AST ALT Alkaline Phosphatase Total Protein Albumin Discharge Plan Discharge Attending physician on discharge: Sigrid Dee Consulting providers: Mu Fox Discharging Clinician: Sigrid Dee Patient Disposition: Home Activity: may shower Diet: as tolerated Discharge Instructions: Care Coordination: Patient to have [facility] resume services at discharge. Their phone number is [phone] if you have any questions; they will call you to coordinate. Patient Instructions: Antibiotic Form, Blood Thinners (GEN) Patient Language: Serbian Stand Alone Forms: General Discharge Information Follow-up/Referrals: Leonardo Gomez MD [Primary Care Provider] - Discharge Medications: Continued escitalopram oxalate 10 mg tablet 10 mg PO DAILY diltiazem HCl [Cartia XT] 180 mg capsule,extended release 24hr 180 mg PO DAILY Qty: 90 1RF Eliquis 5 mg tablet 5 mg PO Q12HR Qty: 180 0RF Trelegy Ellipta 100-62.5-25 mcg blister with device 1 inh inhalation Q24H 30 Days Qty: 60 5RF Rx Instructions: Rinse and spit after using. fluticasone propionate [24 Hour Allergy Relief] 50 mcg/actuation spray,suspension 1 spray intranasal DAILY PRN (Reason: allergies) Rx Instructions: administer into each nostril acetaminophen 500 mg capsule 1,000 mg PO Q6H PRN (Reason: pain) albuterol sulfate 90 mcg/actuation HFA aerosol inhaler 1 inh inhalation Q4H PRN (Reason: shortness of breath or wheezing) Qty: 8.5 0RF glimepiride 1 mg tablet See Rx Instructions .ROUTE .COMPLEX Qty: 90 1RF Dose Instruction: TAKE 1 TABLET BY MOUTH EVERY MORNING ADMINISTER WITH BREAKFAST Rx Instructions: TAKE 1 TABLET BY MOUTH EVERY MORNING ADMINISTER WITH BREAKFAST losartan 25 mg tablet 25 mg PO DAILY Qty: 90 1RF atorvastatin 40 mg tablet See Rx Instructions .ROUTE .COMPLEX Qty: 90 1RF Dose Instruction: TAKE 1 TABLET BY MOUTH DAILY Rx Instructions: TAKE 1 TABLET BY MOUTH DAILY (DME) blood-glucose meter [FreeStyle [place] Lite] Kit See Rx Instructions .Route Qty: 1 0RF Rx Instructions: Use to check blood sugar once a day (DME) FreeStyle Lite Strips Strip See Rx Instructions .Route Qty: 100 0RF Rx Instructions: Use to check blood sugar once a day (DME) lancets [FreeStyle Lancets] 28 gauge misc See Rx Instructions .Route Qty: 100 0RF Rx Instructions: Use to check blood sugar once a day Discontinued fluticasone fur. 100 mcg-umeclid 62.5 mcg-vilant 25 mcg inhalat.powder 100-62.5-25 mcg blister with device 0RF prednisone 10 mg tablet 10 mg PO DAILY Qty: 30 0RF Rx Instructions: Take 4 a day for 3 days in the morning with food, decreased by 1 tablet every 3 days until completed. Date of admission: 11/24/24 17:20 Primary Care Provider: Leonardo Gomez Admitting Provider: Grace Smith Attending physician on admission: Grace Smith Condition: Improved Hospitalist MIPS Heart Failure (Exclusion) Patient has history of Heart Transplant or Left Ventricular Assistive Device?: No IF YES, STOP HERE Heart Failure (Qualifier) Patient has current or prior documentation of LVEF less than or equal to 40%, or mod/servere depressed LVSF?: No IF NO, STOP HERE
[2024-11-27 06:00] VITALS: BP 150/70; PULSE 71; RESP 18; TEMP 36.1; O2SAT 98
[2024-11-27 06:02] LABS: Hematocrit 43.2 % (42.0-52.0); Hemoglobin 14.7 g/dL (14.0-18.0); Mean Corpuscular HGB Conc 34.0 g/dl (32-36); Mean Corpuscular Hemoglobin 31.8 pg (26-34); Mean Corpuscular Volume 93.5 fl (80-100); Platelet Count Result 205 k/mm3 (150-375); Red Blood Count 4.62 M/mm3 (4.6-6.20); White Blood Count 10.0 K/mm3 (4.5-10.0)
[2024-11-27 06:27] LABS: Alanine Aminotransferase 26 U/L (6-50); Albumin Level 3.1 g/dL (3.5-5.1); Alkaline Phosphatase 117 U/L (38-126); Anion Gap 3 mmol/L (4-12); Aspartate Amino Transferase 25 U/L (17-59); Bilirubin,Total 0.9 mg/dL (0.2-1.3); Blood Urea Nitrogen 23 mg/dL (9-20); Calcium 8.6 mg/dL (8.4-10.2); Carbon Dioxide 26 mmol/L (22-30); Chloride 105 mmol/L (98-107); Estimated CRCL calculation 37 ml/min; Estimated Glomerular Filt Rate 43; Glucose 93 mg/dL (65-110); Magnesium 2.1 mg/dL (1.6-2.3); Potassium 2.9 mmol/L (3.4-5.0); Sodium 134 mmol/L (137-145); Total Protein 5.7 g/dL (6.3-8.2)
[2024-11-27 08:28] VITALS: PULSE 86; RESP 18
[2024-11-27] MEDS: FLUTICASONE/UMECLIDIN/VILANTER 100-62.5-25 MCG ELLIPTA 1 PUFF INHALATION (08:28)
[2024-11-27 08:30] VITALS: PULSE 86; RESP 18; O2SAT 96
[2024-11-27] MEDS: INSULIN ASPART (*BKC) 100 UNITS/ML SUB-Q ×4 (09:15→12:02)
[2024-11-27] MEDS: INSULIN GLARGINE (*BKC) 100 UNITS/ML 10 UNITS SUB-Q (09:21)
[2024-11-27] MEDS: LOSARTAN POTASSIUM 25 MG TABLET PO (09:24)
[2024-11-27] MEDS: APIXABAN 5 MG TABLET PO (09:24)
[2024-11-27] MEDS: ATORVASTATIN 40 MG TABLET PO (09:24)
[2024-11-27] MEDS: GLIMEPIRIDE 1 MG TABLET PO (09:25)
[2024-11-27] MEDS: NICOTINE (*PBKC) 14 MG PATCH 1 PATCH TRANSDERM (09:25)
[2024-11-27] MEDS: MUPIROCIN 2% OINT 22 GM TUBE 1 APPLIC EACH NARE (09:25)
[2024-11-27] MEDS: dilTIAZem HCL CD 180 MG CAP.24HR PO (09:25)
[2024-11-27] MEDS: ESCITALOPRAM OXALATE 10 MG TABLET PO (09:25)
[2024-11-27] MEDS: POTASSIUM CHLORIDE 20 MEQ PACKET (FOR LIQUID) 40 MEQ PO (09:28)
[2024-11-27 10:36] LABS: Add Urine Microscopic? YES; Appearance Urine Clear (Clear); Glucose Urine UA 2+ mg/dL (Negative); Leukocyte Esterase Ur 1+ LEU/UL (Negative); Need Manual Microscopic Reviewed; Nitrate Urine Negative (Negative); Specific Grav Ur 1.018 (1.001-1.035)
[2024-11-27 14:00] VITALS: BP 127/70; PULSE 68; RESP 18; TEMP 36.2; O2SAT 98
--- NOTE | 2024-11-27 16:29 | P.CONUR_ITS ---
Assessment and Plan Assessment and plan (1) Urinary retention: Code(s): R33.9 - Retention of urine, unspecified Status: Acute (2) Benign prostatic hyperplasia: Code(s): N40.0 - Benign prostatic hyperplasia without lower urinary tract symptoms Status: Acute (3) Stage 3b chronic kidney disease: Code(s): N18.32 - Chronic kidney disease, stage 3b Status: Chronic Plan - Urinary retention secondary to untreated benign prostatic hyperplasia, likely exacerbated by recent steroid administration. - History of non-invasive low-grade papillary urothelial carcinoma, status post transurethral resection of bladder tumor in August 2024, requires outpatient surveillance. - Poorly controlled type 2 diabetes mellitus. Plan: - Will initiate tamsulosin 0.4mg at bedtime, please continue on discharge. - Urologically cleared for discharge home with the indwelling Gutierrez catheter in place. - Nursing staff to provide Gutierrez care teaching and a leg bag prior to discharge. - Plan to follow up in the urology clinic next week for a trial of void. He was instructed that the catheter must be removed in a clinical setting to ensure he can urinate independently and avoid an emergency department visit (he inquired about removing catheter at home) - Will need to schedule a follow-up appointment with Dr. Farmer' office for ongoing management of BPH and surveillance for bladder cancer, likely with routine cystoscopies. He was provided with the clinic information and understands he will likely see an SHERYL for the void trial. Urology Consult Note HPI Date Seen: 11/27/24 Requesting Physician: Grace Smith MD Primary Care Provider: Leonardo Gomez MD Consult Narrative Reason for consult: Urinary retention Narrative: Dennis Acosta is a pleasant 74-year-old male for whom urology was consulted for evaluation of urinary retention. An indwelling Gutierrez catheter was placed on 11/26/2024 with an initial output of 800 mL. The retention is likely multifactorial, exacerbated by recent oral steroid use in the setting of untreated benign prostatic hyperplasia. A cystoscopy and bladder biopsy were performed in August 2024, which revealed non-invasive low-grade papillary urothelial carcinoma and moderately enlarged prostate with lateral lobe hyperplasia. He has a significant past medical history including type 2 diabetes with an A1c of 9.4% on 11/24/2024, COPD, paroxysmal atrial fibrillation, and stage 3b chronic kidney disease. He is not currently on any medication for his prostate. He did not follow up in clinic after his August 2024 hospital discharge. -PERTINENT LABS: 11/27/2024 - WBC 10, Hgb 14.7, Cr 1.57 11/24/2024 - A1c 9.4% 11/24/2024 - Glucose 821, Sodium 127, Cr 1.83 -PERTINENT IMAGIN09/02/2024 CT Abdomen/Pelvis without contrast - Enlarged prostate measuring 5.5 x 5.3 cm. Soft tissue density in the bladder (2.7 x 3.4 cm) suggestive of clot or mass. Review of Systems 2 Constitutional: Constitutional: Reports weakness Eyes: Eyes: Reports no additional eye complaints ENT: Reports Normal hearing present Cardiovascular: Cardiovascular: Denies chest pain Respiratory: Respiratory: Denies dyspnea Gastrointestinal: Gastrointestinal: Reports no additional gastrointestinal complaints Genitourinary: Genitourinary: Reports as per HPI Musculoskeletal: Musculoskeletal: Reports no additional musculoskeletal complaints Psychiatric: Psychiatric: Reports no additional psychiatric complaints [facility] Past Medical History Medical History History of tobacco abuse COPD (chronic obstructive pulmonary disease) Atrial fibrillation with rapid ventricular response Paroxysmal atrial fibrillation Stage 4 chronic kidney disease Bladder malignancy Gross hematuria Pneumonia Shortness of breath Stage 3b chronic kidney disease Simple chronic bronchitis Cigarette nicotine dependence with nicotine-induced disorder Major depressive disorder Cigarette nicotine dependence in remission Microalbuminuria Personal history of malignant neoplasm of lung Type 2 diabetes mellitus with diabetic chronic kidney disease Hypertensive chronic kidney disease Diverticulosis Kidney stones Hyperlipidemia Benign prostatic hyperplasia Surgical History Surgical History History of lobectomy of lung 05/2022 History of bilateral knee replacement (2008) History of cholecystectomy History of inguinal hernia repair History of vasectomy History of hemorrhoidectomy (1996) History of colonoscopy with polypectomy History of tonsillectomy (1953) Family History Family History Father Acute myocardial infarction Sibling Lung cancer Social History Social History Social History: Surrogate medical decision maker: Trupti Acosta, sibling. Code status: Full code. Smoking packs per day: 1 Smoking cigarettes per day: 20.0 Years smoked: 62 Smoking pack-years: 62.00 Smoking status: Current every day smoker Tobacco type: cigarettes Second hand tobacco smoke exposure: No Additional smoking assessment comments: Had quit at the time of his lung cancer diagnosis, but now back to smoking Alcohol intake: former Substance use: never Substance use type: does not use Do You Feel Safe in your Home?: Yes Lack of Transportation: No Lack of Food: Never True Current Housing: I Have Housing Concerned About Future Housing: No Difficulty Paying Gas/Electric Bills: No Difficulty Paying for Meds: No Currently Unemployed: No Education: Trade/Vocational Certificate Difficulty w/ Childcare or Family Care: No Living arrangements: alone Occupation/Education: retired Gender identity (if verbalized by the patient): Male Sexual Orientation (if Verbalized by the Patient): Straight or Heterosexual Spiritual care concerns: No Meds Home Medications and Allergies Home Medications ?Medication ?Instructions ?Recorded ?Confirmed ?Type albuterol sulfate 90 mcg/actuation 1 inh inhalation Q4H PRN shortness 05/01/24 11/24/24 Rx aerosol inhaler of breath or wheezing #8.5 grams glimepiride 1 mg tablet See Rx Instructions .Route 07/16/24 11/24/24 Rx .COMPLEX #90 tabs losartan 25 mg tablet 25 mg PO DAILY #90 tabs 08/01/24 11/24/24 Rx atorvastatin 40 mg tablet See Rx Instructions .Route 09/05/24 11/24/24 Rx .COMPLEX #90 tabs apixaban 5 mg tablet (Eliquis) 5 mg PO Q12HR #180 tabs 09/15/24 11/24/24 Rx diltiazem HCl 180 mg 180 mg PO DAILY #90 caps 09/15/24 11/24/24 Rx capsule,extended release 24 hr (Cartia XT) escitalopram oxalate 10 mg tablet 10 mg PO DAILY 10/18/24 11/24/24 History fluticasone fur. 100 mcg-umeclid 1 inh inhalation Q24H 1 month #60 10/19/24 11/24/24 Rx 62.5 mcg-vilant 25 mcg ea inhalat.powder (Trelegy Ellipta) fluticasone fur. 100 mcg-umeclid 100-62.5-25 mcg Blister With 10/19/24 11/24/24 Sample 62.5 mcg-vilant 25 mcg Device#1 Samples inhalat.powder (Trelegy Ellipta) prednisone 10 mg tablet 10 mg PO DAILY #30 tabs 11/10/24 11/24/24 Rx FreeStyle [place] Lite #1 ea 11/17/24 11/24/24 Rx (blood-glucose meter) FreeStyle Lite Strips (blood sugar #100 ea 11/17/24 11/24/24 Rx diagnostic) lancets 28 gauge (FreeStyle #100 ea 11/17/24 11/24/24 Rx Lancets) acetaminophen 500 mg capsule 1,000 mg PO Q6H PRN pain 11/24/24 11/24/24 History fluticasone propionate 50 1 spray intranasal DAILY PRN 11/24/24 11/24/24 History mcg/actuation nasal allergies spray,suspension (24 Hour Allergy Relief) tamsulosin 0.4 mg capsule 0.4 mg PO HS #30 caps 11/27/24 Rx Allergies Allergy/AdvReac Type Severity Reaction Status Date / Time No Known Allergies Allergy Verified 10/30/24 10:46 Vital Signs Vital Signs - 24 hr 11/26/24 21:46 11/26/24 22:00 11/27/24 06:00 Temperature 98.2 F 96.9 F L Pulse Rate 66 71 Respiratory Rate 18 18 Blood Pressure 140/90 150/70 H Pulse Oximetry 97 97 98 Oxygen Delivery Room Air Fraction of Inspired Oxygen 11/27/24 08:28 11/27/24 08:30 11/27/24 09:15 Temperature Pulse Rate 86 86 Respiratory Rate 18 18 Blood Pressure Pulse Oximetry 96 Oxygen Delivery Room Air Room Air Fraction of Inspired Oxygen 21 11/27/24 14:00 Temperature 97.1 F L Pulse Rate 68 Respiratory Rate 18 Blood Pressure 127/70 Pulse Oximetry 98 Oxygen Delivery Fraction of Inspired Oxygen Exam 2 Const: General: comfortable and no acute distress HENMT: Face/Nose/Sinus: Normal nares present Resp: Effort & Inspection: normal respiratory effort GI: Inspection: non-distended : Male General Exam: Yes normal external exam Urinary Catheter: Urinary Catheter: patent and draining and urine clear Skin: General skin exam: normal color Neuro: Speech: normal speech Psych: Speech and movement: Normal speech and movement present Affect: n ormal affect Results Labs 11/27/24 05:49 11/27/24 05:49 Labs: Short CBC 11/27/24 Range/Units 05:49 WBC 10.0 (4.5-10.0) K/mm3 Hgb 14.7 (14.0-18.0) g/dL Hct 43.2 (42.0-52.0) % Plt Count 205 (150-375) k/mm3 BMP 11/27/24 05:49 Sodium 134 L Potassium 2.9 L Chloride 105 Carbon Dioxide 26 BUN 23 H Creatinine 1.57 H Glucose 93 Calcium 8.6 Liver Function 11/27/24 Range/Units 05:49 Total Bilirubin 0.9 (0.2-1.3) mg/dL AST 25 (17-59) U/L ALT 26 (6-50) U/L Alkaline Phosphatase 117 (38-126) U/L Albumin 3.1 L (3.5-5.1) g/dL Urine 11/27/24 Range/Units 10:16 Urine Color Yellow (Yellow) Urine Appearance Clear (Clear) Urine pH 5.5 (5.0-9.0) Ur Specific [place] 1.018 (1.001-1.035) Urine Protein 3+ H (Negative) mg/dL Urine Glucose (UA) 2+ H (Negative) mg/dL
--- NOTE | 2024-11-27 16:54 | P.DS_ITS ---
DS: Admitting Diagnosis Discharge Date 11/26/2024 Admitting Diagnosis Hyperglycemia DS: Discharge Diagnosis Discharge Diagnosis (1) Severe hyperglycemia due to diabetes mellitus: Code(s): E11.65 - Type 2 diabetes mellitus with hyperglycemia Status: Acute DS: Summary Hospital Course Hospital Course: 74-year-old male with pph-kvbctem-mpjjrezly diabetes presents with hyperglycemia. Home health RN summoned EMS. Patient was given prednisone for cough recently. Prednisone stopped. Given insulin. Blood sugars much better control. Patient to be discharged to home to his usual state of living. He did not want additional insulin or change in medications. However, prednisone was discontinued. Reports he will be checking his sugars and if they are too high or too low he will report to home health or primary care immediately. Home health will be continued on discharge. He also had bladder pressure and unable to urinate, Gutierrez placed for urinary retention. Urology consulted. Tamsulosin started. He has been given clinic information to follow with Urology. Time Spent with Patient Time attestation: Total time spent providing and/or coordinating discharge services: Time spent: Greater than 30 minutes Exam Const: General: comfortable and no acute distress Other: A&O x3 HENMT: Mouth: Yes moist mucous membranes Eyes: Pupils: Equal, round and reactive pupils present Neck: Neck: supple Resp: Effort & Inspection: normal respiratory effort Auscultation: clear to auscultation bilaterally Cardio: Rate: regular rate Rhythm: regular rhythm GI: Inspection: non-distended GI Palp: Yes Soft to palpation Neuro: Motor exam (neuro): 5/5 motor strength present throughout Extrem: General: no edema DS: Data Data Completed and Pending Labs on day of discharge: Labs from last 24 hours 11/27/24 11/27/24 11/27/24 11:52 10:16 07:58 WBC RBC Hgb Hct MCV MCH MCHC RDW Plt Count MPV Sodium Potassium Chloride Carbon Dioxide Anion Gap BUN Creatinine Estim Creat Clear Calc Estimated GFR Glucose POC Capillary Glucose 271 H 204 H Calcium Magnesium Total Bilirubin AST ALT Alkaline Phosphatase Total Protein Albumin Urine Color Yellow Urine Appearance Clear Urine pH 5.5 Ur Specific [place] 1.018 Urine Protein 3+ H Urine Glucose (UA) 2+ H Urine Ketones Trace H Ur Blood (Man) 2+ H Urine Nitrate Negative Urine Bilirubin Negative Urine Urobilinogen 1.0 Ur Leukocyte Esterase 1+ H Add Ur Microanalysis Reviewed Urine RBC 51-100 H Urine WBC 51-100 Ur Squamous Epith Cells None seen Urine Bacteria None seen Urine Casts 6-10 Hyaline Casts 3-4 H Urine Mucus Present 11/27/24 11/27/24 11/26/24 06:07 05:49 21:14 WBC 10.0 RBC 4.62 Hgb 14.7 Hct 43.2 MCV 93.5 MCH 31.8 MCHC 34.0 RDW 13.0 Plt Count 205 MPV 11.1 H Sodium 134 L Potassium 2.9 L Chloride 105 Carbon Dioxide 26 Anion Gap 3 L BUN 23 H Creatinine 1.57 H Estim Creat Clear Calc 37 Estimated GFR 43 L Glucose 93 POC Capillary Glucose 104 230 H Calcium 8.6 Magnesium 2.1 Total Bilirubin 0.9 AST 25 ALT 26 Alkaline Phosphatase 117 Total Protein 5.7 L Albumin 3.1 L Urine Color Urine Appearance Urine pH Ur Specific [place] Urine Protein Urine Glucose (UA) Urine Ketones Ur Blood (Man) Urine Nitrate Urine Bilirubin Urine Urobilinogen Ur Leukocyte Esterase Add Ur Microanalysis Urine RBC Urine WBC Ur Squamous Epith Cells Urine Bacteria Urine Casts Hyaline Casts Urine Mucus 11/26/24 17:04 WBC RBC Hgb Hct MCV MCH MCHC RDW Plt Count MPV Sodium Potassium Chloride Carbon Dioxide Anion Gap BUN Creatinine Estim Creat Clear Calc Estimated GFR Glucose POC Capillary Glucose 218 H Calcium Magnesium Total Bilirubin AST ALT Alkaline Phosphatase Total Protein Albumin Urine Color Urine Appearance Urine pH Ur Specific [place] Urine Protein Urine Glucose (UA) Urine Ketones Ur Blood (Man) Urine Nitrate Urine Bilirubin Urine Urobilinogen Ur Leukocyte Esterase Add Ur Microanalysis Urine RBC Urine WBC Ur Squamous Epith Cells Urine Bacteria Urine Casts Hyaline Casts Urine Mucus Discharge Plan Discharge Attending physician on discharge: Sigrid Dee Consulting providers: Mu Fox; Gucci Hollins Discharging Clinician: Sigrid Dee Patient Disposition: Home with Home Health Service Activity: august shower Diet: as tolerated Discharge Instructions: Care Coordination: Patient to have [facility] resume services at discharge. Their phone number is [phone] if you have any questions; they will call you to coordinate. Patient Instructions: Antibiotic Form, Basic Carbohydrate Counting (DC), Blood Thinners (GEN) Patient Language: Citizen Of [place] Stand Alone Forms: General Discharge Information Follow-up/Referrals: Leonardo Gomez MD [Primary Care Provider] - Casey Faremr MD [Physician] - Call for Appointment Discharge Medications: New tamsulosin 0.4 mg Capsule 0.4 mg PO HS Qty: 30 0RF Continued escitalopram oxalate 10 mg tablet 10 mg PO DAILY diltiazem HCl [Cartia XT] 180 mg capsule,extended release 24hr 180 mg PO DAILY Qty: 90 1RF Eliquis 5 mg tablet 5 mg PO Q12HR Qty: 180 0RF Trelegy Ellipta 100-62.5-25 mcg blister with device 1 inh inhalation Q24H 30 Days Qty: 60 5RF Rx Instructions: Rinse and spit after using. fluticasone propionate [24 Hour Allergy Relief] 50 mcg/actuation spray,suspension 1 spray intranasal DAILY PRN (Reason: allergies) Rx Instructions: administer into each nostril acetaminophen 500 mg capsule 1,000 mg PO Q6H PRN (Reason: pain) albuterol sulfate 90 mcg/actuation HFA aerosol inhaler 1 inh inhalation Q4H PRN (Reason: shortness of breath or wheezing) Qty: 8.5 0RF glimepiride 1 mg tablet See Rx Instructions .ROUTE .COMPLEX Qty: 90 1RF Dose Instruction: TAKE 1 TABLET BY MOUTH EVERY MORNING ADMINISTER WITH BREAKFAST Rx Instructions: TAKE 1 TABLET BY MOUTH EVERY MORNING ADMINISTER WITH BREAKFAST losartan 25 mg tablet 25 mg PO DAILY Qty: 90 1RF atorvastatin 40 mg tablet See Rx Instructions .ROUTE .COMPLEX Qty: 90 1RF Dose Instruction: TAKE 1 TABLET BY MOUTH DAILY Rx Instructions: TAKE 1 TABLET BY MOUTH DAILY (DME) blood-glucose meter [FreeStyle [place] Lite] Kit See Rx Instructions .Route Qty: 1 0RF Rx Instructions: Use to check blood sugar once a day (DME) FreeStyle Lite Strips Strip See Rx Instructions .Route Qty: 100 0RF Rx Instructions: Use to check blood sugar once a day (DME) lancets [FreeStyle Lancets] 28 gauge misc See Rx Instructions .Route Qty: 100 0RF Rx Instructions: Use to check blood sugar once a day Discontinued fluticasone fur. 100 mcg-umeclid 62.5 mcg-vilant 25 mcg inhalat.powder 100-62.5-25 mcg blister with device 0RF prednisone 10 mg tablet 10 mg PO DAILY Qty: 30 0RF Rx Instructions: Take 4 a day for 3 days in the morning with food, decreased by 1 tablet every 3 days until completed. Date of admission: 11/24/24 17:20 Primary Care Provider: Leonardo Gomez Admitting Provider: Grace Smith Attending physician on admission: Grace Smith Condition: Improved Hospitalist MIPS Heart Failure (Exclusion) Patient has history of Heart Transplant or Left Ventricular Assistive Device?: No IF YES, STOP HERE Heart Failure (Qualifier) Patient has current or prior documentation of LVEF less than or equal to 40%, or mod/servere depressed LVSF?: No IF NO, STOP HERE
== END 2024-11-27 17:20 | disposition home health service (06) | DRG 639 ==
LOC: ANHED 15:16 → ANHICU 17:50 → ANH3MED 11-25 10:50
PROVIDERS: Internal Medicine; Student in an Organized Health Care Education/Training Program; Admitting Provider Hospitalist; Emergency Provider Student in an Organized Health Care Education/Training Program; PCP Family Medicine; Visit Provider General Practice
DX: E11.65 Type 2 diabetes mellitus with hyperglycemia (principal); E11.22 Type 2 diabetes mellitus with diabetic chronic kidney disease; N18.32 Chronic kidney disease, stage 3b; R33.9 Retention of urine, unspecified; I48.0 Paroxysmal atrial fibrillation; I12.9 Hypertensive chronic kidney disease with stage 1 through stage 4 chronic kidney disease, or unspecified chronic kidney disease; J44.9 Chronic obstructive pulmonary disease, unspecified; E78.5 Hyperlipidemia, unspecified; N40.0 Benign prostatic hyperplasia without lower urinary tract symptoms; K57.90 Diverticulosis of intestine, part unspecified, without perforation or abscess without bleeding; F32.9 Major depressive disorder, single episode, unspecified; F17.210 Nicotine dependence, cigarettes, uncomplicated; Z96.653 Presence of artificial knee joint, bilateral; R29.6 Repeated falls; Z85.118 Personal history of other malignant neoplasm of bronchus and lung; Z85.51 Personal history of malignant neoplasm of bladder; Z90.49 Acquired absence of other specified parts of digestive tract
CPT/HCPCS: 36415; 70450; 71045; 80048; 80053; 81001; 82948; 83036; 83735; 84100; 85025; 85027; 87641; 94640; 96361; 96374; 96375; 97161; 97165; 99285; A9270; J1815; J7030; J7120

== ENCOUNTER 2024-12-06 01:55 | Inpatient (IN) | payer MEDICARE, BC, SELFPAY ==
[2024-12-06] VITALS (20 sets, daily range): BP systolic 137–184; BP diastolic 55–110; PULSE 65–115; RESP 16–23; TEMP 36.1–38.2; O2SAT 94–98; BMI 30.9
--- NOTE | ~2024-12-06 | XR_ITS ---
XR chest 1V portable 12/06/2024 03:00 Indication: Fever. History of right lung malignancy. Procedure: AP portable chest Comparison: Comparison to multiple prior studies sequentially, with oldest reviewed study dated 06/14. Findings: Status post partial right pneumonectomy. Chronic right pleural effusion. Chronic infiltrate s of the right lung, most likely atelectasis/scarring. No acute airspace consolidation. Impression: 1: Stable chest with changes of right partial pneumonectomy with chronic right effusion and underlyin g atelectasis/scarring. Reviewed, dictated and finalized at location A. Impression: 1: Stable chest with changes of right partial pneumonectomy with chronic right effusion and underlying atelectasis/scarring.
--- NOTE | ~2024-12-06 | CT_ITS ---
EXAMINATION: CT chest abdomen pelvis wo con DATE: 12/06/2024 10:21 INDICATION: Leukocytosis TECHNIQUE: Computed tomography (CT) of the chest, abdomen, and pelvis was performed without intraveno us contrast. Automated exposure control and iterative reconstruction technique were employed. The dos e-length product was 1073.98 mGy-cm. COMPARISON: CT studies dated 09/02/2024 and 09/17 FINDINGS: CHEST CT: Again seen is volume loss in the right hemithorax with rightward shift of the normal sized heart and mediastinum. Postoperative change of prior right upper lobectomy with pre-B cell suture lines. Stable appearance of a band of pleural parenchymal scarring extending along the lateral aspect of the right middle lobe. Unchanged small chronic likely exudative right pleural effusion with diffuse smooth ple ural thickening. Also unchanged is a 5.6 x 3.9 cm region of peripheral round atelectasis with associa sandy architectural distortion volume loss in the posterior right lower lobe. There are some compensato ry hyperexpansion of the left lung. Unchanged small calcified pleural plaque versus osteochondroma at the junction of the left upper lobe and anterior left fourth rib. No interval change in a few small scattered patchy groundglass opacities in the left upper lobe and lingula or of a single small focus in the right middle lobe. No new lung disease. Heart size is normal. Atherosclerotic coronary artery calcifications. No pericardial effusion. Thoracic aorta is normal in caliber. No pathologically enlar ged thoracic lymphadenopathy. Mild thoracic spondylosis. ABDOMEN/PELVIS CT: Cholecystectomy clips in the gallbladder fossa. Liver, spleen, pancreas and bilateral adrenal glands are normal. No change in a couple low-attenuation bilateral renal cysts the largest on the left measu ring 1.7 cm. There are also a couple unchanged lesions at both kidneys of higher attenuation than the adjacent renal parenchyma, the largest at the lower pole the left kidney measuring 2.3 cm and with c orresponding photopenic defect associated with the lesion on head CT dated 04/09/2022 which be most c onsistent with a proteinaceous/hemorrhagic cyst. Fusiform infrarenal abdominal aortic aneurysm measur ing up to 4.5 x 4.2 cm orthogonal to the axis of flow on the coronal and sagittal images respectively . Gutierrez catheter within the decompressed bladder. Prostatomegaly measuring 6.0 x 5.5 cm. There are fe w diverticula along the cecum and ascending colon without adjacent from trace stranding to suggest di verticulitis. No bowel obstruction. Normal appendix. No free intraperitoneal gas or fluid. No patholo gically enlarged abdominal or pelvic lymphadenopathy. Severe lower lumbar spondylosis. IMPRESSION: 1. No acute cardiopulmonary disease or acute intra-abdominal/pelvic process. 2. Mild emphysema and changes of prior right upper lobectomy with stable appearance of a chronic smal l likely right pleural effusion and pleural parenchymal scarring in the right lung including large re gion of round atelectasis in the right lower lobe. 2. No interval change in a few nonspecific small scattered patchy ground glass opacities in both lung s predominantly left upper lobe and lingula likely sequela of chronic infection. 3. 4.5 x 4.2 cm fusiform infrarenal abdominal aortic aneurysm. 4. Prostatomegaly. Reviewed, dictated and finalized at location A. IMPRESSION: 1. No acute cardiopulmonary disease or acute intra-abdominal/pelvic process. 2. Mild emphysema and changes of prior right upper lobectomy with stable appear ance of a chronic small likely right pleural effusion and pleural parenchymal s carring in the right lung including large region of round atelectasis in the ri ght lower lobe. 2. No interval change in a few nonspecific small scattered patchy ground glass opacities in both lungs predominantly left upper lobe and lingula likely sequel a of chronic infection. 3. 4.5 x 4.2 cm fusiform infrarenal abdominal aortic aneurysm. 4. Prostatomegaly.
--- NOTE | 2024-12-06 01:57 | ECG_ITS ---
Test Date: 2024-12-06 02:09:33 Measurements Intervals [place] Rate: 109 P: 47 MO: 182 QRS: 50 QRSD: 91 T: 68 QT: 337 QTc: 455 Interpretive Statements SINUS TACHYCARDIA BORDERLINE ST-T WAVE ABNORMALITY- DIFFUSE LEADS ABNORMAL ECG Compared to ECG 08/31/2024 19:25:25 Atrial fibrillation no longer present Electronically Signed On 12-06-2024 06:18:43 CDT by Vaughn Westfall D.O.
[2024-12-06 02:16] LABS: Hematocrit 44.6 % (42.0-52.0); Hemoglobin 15.3 g/dL (14.0-18.0); Immature Granulocyte Percent A 0.8 % (0-0.5); Lymphocytes Absolute Auto 1.43 K/mm3 (0.9-3.2); Mean Corpuscular HGB Conc 34.3 g/dl (32-36); Mean Corpuscular Hemoglobin 31.8 pg (26-34); Mean Corpuscular Volume 92.7 fl (80-100); Nucleated Red Blood Cells Absolute Auto 0.000 K/mm3 (0.0-0.012); Nucleated Red Blood Cells Perc 0.0 % (0.0-0.2); Platelet Count Result 197 k/mm3 (150-375); Red Blood Count 4.81 M/mm3 (4.6-6.20); White Blood Count 18.0 K/mm3 (4.5-10.0)
[2024-12-06 02:23] LABS: Add Urine Microscopic? YES; Appearance Urine Turbid (Clear); Budding Yeast Urine Present /hpf; Glucose Urine UA 3+ mg/dL (Negative); Leukocyte Esterase Ur 2+ LEU/UL (Negative); Need Manual Microscopic Reviewed; Nitrate Urine Negative (Negative); Specific Grav Ur 1.025 (1.001-1.035)
[2024-12-06 02:31] LABS: Alanine Aminotransferase 21 U/L (6-50); Albumin Level 3.8 g/dL (3.5-5.1); Alkaline Phosphatase 153 U/L (38-126); Anion Gap 10 mmol/L (4-12); Aspartate Amino Transferase 18 U/L (17-59); Bilirubin,Total 1.1 mg/dL (0.2-1.3); Blood Urea Nitrogen 29 mg/dL (9-20); Calcium 9.0 mg/dL (8.4-10.2); Carbon Dioxide 25 mmol/L (22-30); Chloride 98 mmol/L (98-107); Estimated CRCL calculation 28 ml/min; Estimated Glomerular Filt Rate 31; Glucose 461 mg/dL (65-110); Potassium 4.1 mmol/L (3.4-5.0); Sodium 133 mmol/L (137-145); Total Protein 7.1 g/dL (6.3-8.2)
[2024-12-06] MEDS: LACTATED RINGERS 1,000 ML 999 ML IV CONT ×2 (02:49)
--- NOTE | 2024-12-06 02:50 | ED.WEAKNESS ---
HPI - Weakness General Chief complaint: Weakness Stated complaint: GENERALIZED WEAKNESS, FEVER, TACHYCARDIC Time Seen by Provider: 12/06/24 01:58 History of Present Illness HPI Narrative: 74-year-old male with a past medical history including lung cancer status post resection, uncontrolled diabetes, hypertension, chronic kidney disease. Patient presents to the emergency department today with generalized malaise and weakness. He was discharged from the hospital several days ago after an inpatient stay requiring ICU admission for uncontrolled blood sugars requiring insulin infusion. Patient declined being discharged on insulin and after improvement in the hospital was sent home with an indwelling Gutierrez catheter secondary to a urinary retention episode. Patient's family noted that he was very weak and lethargic today and overall patient does appear ill. He is awake answering questions appropriately but states he just does not feel well. Endorses fevers but no other specific symptoms. No traumatic injuries. No abdominal pain, back pain. Urinary Gutierrez catheter in place and was scheduled to be removed in office today with urologist Dr. Farmer. Related Data Home Medications ?Medication ?Instructions ?Recorded ?Confirmed ?Last Taken ?Type escitalopram oxalate 10 mg tablet 10 mg PO DAILY 10/18/24 11/24/24 11/24/24 History acetaminophen 500 mg capsule 1,000 mg PO Q6H PRN pain 11/24/24 11/24/24 Unknown History fluticasone propionate 50 1 spray intranasal DAILY PRN 11/24/24 11/24/24 Unknown History mcg/actuation nasal allergies spray,suspension (24 Hour Allergy Relief) Allergies Allergy/AdvReac Type Severity Reaction Status Date / Time No Known Allergies Allergy Verified 10/30/24 10:46 Review of Systems Review of Systems: As reviewed above in HPI [facility] Past Medical History Medical History History of tobacco abuse COPD (chronic obstructive pulmonary disease) Atrial fibrillation with rapid ventricular response Paroxysmal atrial fibrillation Stage 4 chronic kidney disease Bladder malignancy Gross hematuria Pneumonia Shortness of breath Stage 3b chronic kidney disease Simple chronic bronchitis Cigarette nicotine dependence with nicotine-induced disorder Major depressive disorder Cigarette nicotine dependence in remission Microalbuminuria Personal history of malignant neoplasm of lung Type 2 diabetes mellitus with diabetic chronic kidney disease Hypertensive chronic kidney disease Diverticulosis Kidney stones Hyperlipidemia Benign prostatic hyperplasia Surgical History Surgical History History of lobectomy of lung 05/2022 History of bilateral knee replacement (2008) History of cholecystectomy History of inguinal hernia repair History of vasectomy History of hemorrhoidectomy (1996) History of colonoscopy with polypectomy History of tonsillectomy (1953) Family History Family History Father Acute myocardial infarction Sibling Lung cancer Social History Social History Social History: Surrogate medical decision maker: Trupti Acosta, sibling. Code status: Full code. Smoking packs per day: 1 Smoking cigarettes per day: 20.0 Years smoked: 62 Smoking pack-years: 62.00 Smoking status: Current every day smoker Tobacco type: cigarettes Second hand tobacco smoke exposure: No Additional smoking assessment comments: Had quit at the time of his lung cancer diagnosis, but now back to smoking Alcohol intake: never Substance use: never Substance use type: does not use Do You Feel Safe in your Home?: Yes Lack of Transportation: No Lack of Food: Never True Current Housing: I Have Housing Concerned About Future Housing: No Difficulty Paying Gas/Electric Bills: No Difficulty Paying for Meds: No Currently Unemployed: No Education: Trade/Vocational Certificate Difficulty w/ Childcare or Family Care: No Living arrangements: alone Occupation/Education: retired Gender identity (if verbalized by the patient): Male Sexual Orientation (if Verbalized by the Patient): Straight or Heterosexual Spiritual care concerns: No Exam Narrative: GENERAL: Ill-appearing, warm to the touch, awake and answering questions appropriately HEAD: [Normocephalic, atraumatic.] EYES: [PERRLA and EOMI.] ENT: Nares clear, no rhinorrhea or epistaxis. Mucous membranes dry. NECK: Supple. CHEST: [Clear to auscultation. No respiratory distress.] HEART: [Regular rate and rhythm]. No murmur heard. [Normal peripheral pulses.] ABDOMEN: [Soft, nondistended], no tenderness during palpation of the abdomen or flanks, [No rigidity or guarding] indwelling Gutierrez catheter with cloudy appearing urine EXTREMITIES: Normal range of motion. [No edema.] SKIN: Warm, dry, no rash. NEURO: [No focal deficits]. Alert and oriented [x3.] PSYCH: [Normal mood and affect.] Course Vital Signs Vital signs: Vital Signs Temperature 36.9 C 12/06/24 01:58 Pulse Rate 115 H 12/06/24 01:58 Respiratory Rate 23 H 12/06/24 01:58 Blood Pressure 168/110 H 12/06/24 01:58 Pulse Oximetry 97 12/06/24 01:58 Oxygen Delivery Room Air 12/06/24 01:58 Temperature 36.9 C 12/06/24 06:06 Pulse Rate 95 12/06/24 06:27 Respiratory Rate 18 12/06/24 06:06 Blood Pressure 184/87 H 12/06/24 06:06 Pulse Oximetry 97 12/06/24 06:06 Oxygen Delivery Room Air 12/06/24 01:58 MDM - Weakness MDM Narrative Medical decision making narrative: 74-year-old male with a past medical history including lung cancer status post resection, uncontrolled diabetes, hypertension, chronic kidney disease. Patient presents to the emergency department today with generalized malaise and weakness. He was discharged from the hospital several days ago after an inpatient stay requiring ICU admission for uncontrolled blood sugars requiring insulin infusion. Patient declined being discharged on insulin and after improvement in the hospital was sent home with an indwelling Gutierrez catheter secondary to a urinary retention episode. Patient's family noted that he was very weak and lethargic today and overall patient does appear ill. He is awake answering questions appropriately but states he just does not feel well. Endorses fevers but no other specific symptoms. No traumatic injuries. No abdominal pain, back pain. Urinary Gutierrez catheter in place and was scheduled to be removed in office today with urologist Dr. Farmer. Patient appears ill, febrile at 38.2? rectally, tachycardic and dehydrated in appearance. Mild tachypneic. Blood pressure within normal limits. Gutierrez catheter draining cloudy urine. Gutierrez catheter was exchanged and a fresh urinalysis sample sent. Patient is awake and answering questions appropriately with a soft nontender nondistended abdomen with clear breath sounds. Suspect urinary tract infection as source but other potential causes such as sepsis from bacteremia or pneumonia or possible. Patient was given 30 cc/kg bolus of LR, Tylenol for fever, started on antibiotics including Rocephin for UTI after urinalysis shows florid UTI with some yeast to which he was given Diflucan as well. Adding on vancomycin for broad coverage until full workup reveals source. Blood cultures and lactic acid sent. Patient appear septic, tachycardic, tachypneic, [place] [id number]. Source being urinary tract infection. X-ray without any signs and pneumonia. Stable from prior pneumonectomy. Patient has any acute kidney injury on chronic kidney disease, source of his urine infection likely uncontrolled diabetes and indwelling Gutierrez catheter from recent discharge. Discussed the case with the hospitalist who accepted the patient to the IMU at this time for sepsis and UTI with acute kidney injury. Medical Records Attestation: I reviewed the patient's medical records. Lab Data Attestation: I reviewed the patient's lab results. 12/06/24 02:07 12/06/24 02:07 Labs: Lab Results 12/06/24 12/06/24 Range/Units 02:07 02:19 WBC 18.0 H (4.5-10.0) K/mm3 RBC 4.81 (4.6-6.20) M/mm3 Hgb 15.3 (14.0-18.0) g/dL Hct 44.6 (42.0-52.0) % MCV 92.7 (80-100) fl MCH 31.8 (26-34) pg MCHC 34.3 (32-36) g/dl RDW 12.5 (11.5-14.5) % Plt Count 197 (150-375) k/mm3 MPV 11.4 H (7.4-10.4) fl Immature Gran % (Auto) 0.8 H (0-0.5) % Neut % (Auto) 82.5 H (45.5-73.1) % Lymph % (Auto) 8.0 L (18.3-44.2) % [place] % (Auto) 7.7 (2.6-8.5) % Eos % (Auto) 0.7 (0-4.4) % Baso % (Auto) 0.3 (0.2-1.2) % Lymph # (Auto) 1.43 (0.9-3.2) K/mm3 [place] # (Auto) 1.4 H (0.1-0.6) K/mm3 Eos # (Auto) 0.1 (0-0.3) K/mm3 Baso # (Auto) 0.1 (0.0-0.1) K/mm3 Abs Immat Gran (auto) 0.15 H (0.00-0.031) K/mm3 Absolute Neuts (auto) 14.8 H (1.3-6.7) K/mm3 Absolute Nucleated RBC 0.000 (0.0-0.012) K/mm3 Nucleated RBC % 0.0 (0.0-0.2) % Sodium 133 L (137-145) mmol/L Potassium 4.1 (3.4-5.0) mmol/L Chloride 98 (98-107) mmol/L Carbon Dioxide 25 (22-30) mmol/L Anion Gap 10 (4-12) mmol/L BUN 29 H (9-20) mg/dL Creatinine 2.10 H (0.7-1.3) mg/dL Estim Creat Clear Calc 28 ml/min Estimated GFR 31 L (59 - ) Glucose 461 H (65-110) mg/dL POC Capillary Glucose 466 H (65-105) mg/dl Lactic Acid 2.0 (0.7-2.0) mmol/L Calcium 9.0 (8.4-10.2) mg/dL Total Bilirubin 1.1 (0.2-1.3) mg/dL AST 18 (17-59) U/L ALT 21 (6-50) U/L Alkaline Phosphatase 153 H (38-126) U/L Total Protein 7.1 (6.3-8.2) g/dL Albumin 3.8 (3.5-5.1) g/dL Urine Color Yellow (Yellow) Urine Appearance Turbid H (Clear) Urine pH 5.5 (5.0-9.0) Ur Specific [place] 1.025 (1.001-1.035) Urine Protein 2+ H (Negative) mg/dL Urine Glucose (UA) 3+ H (Negative) mg/dL Urine Ketones Negative (Negative) mg/dL Ur Blood (Man) 2+ H (Negative) Urine Nitrate Negative (Negative) Urine Bilirubin Negative (Negative) Urine Urobilinogen 0.2 (<2.0) mg/dL Add Ur Microanalysis Reviewed Leukocyte Esterase Rfl 2+ H (Negative) RUFINO/UL Urine RBC 51-100 H (0-2) /hpf Urine WBC >100 H (0-3) /hpf Ur Squamous Epith Cells Few (Few) /hpf Urine Bacteria 4+ /hpf Urine Casts 6-10 Hyaline Casts Present (None) /lpf Urine Yeast (Budding) Present H (None) /hpf Critical Care Time Critical Care Time Critical Care Time: Yes Total Critical Care Time: 35 Discharge Plan Discharge Clinical Impression: Sepsis, Catheter-associated urinary tract infection, Uncontrolled diabetes mellitus, Acute kidney injury superimposed on chronic kidney disease Patient Disposition: Still a Patient Condition: Stable Time of Disposition: 05:30
[2024-12-06] MEDS: FLUCONAZOLE 150 MG TABLET PO (03:00)
--- OUTSIDE RECORDS SUMMARY | 2024-12-06 03:06 | XMS_ITS | Clinical Summary ---
Author Organization [facility] [place] [address] Address [address] [place] [address] Care Team Providers Care Alpine Patroller Name Role Phone Leonardo Gomez MD Primary Care Provider [phone] Avery Montejo MD Unavailable [phone] Allergies No known active allergies Medications [...] Description 09/25/2024 2:30 PM CDT Office Visit [facility] Medical [facility] Cardiology [address] [place] [phone] Yudith Wright NP Paroxysmal atrial fibrillation (HCC) (Primary Dx); Abdominal aortic aneurysm (AAA) without rupture, unspecified part; Encounter for anticoagulation discussion and counseling; Hospital discharge follow-up 09/08/2024 Orders Only [facility] Cardiology [address] [place] [phone] Sravanthi Deras MD from Last 3 Months Social History Tobacco Use Types Packs/Day Years Used Date Smoking Tobacco: Every Day Cigarettes Tobacco Cessation:Ready to Q uit: Not Asked; Counseling Given: Not Answered Sex and Gender Information Value Date Recorded Sex Assigned at Not on file Legal Sex Male 2:54 PM 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 Address: [address] [place] [address] MEDICARE [place] [employer] Care Teams Alpine Patroller Relationship Specialty Start Date End Date Leonardo Gomez MD [address] [place] [id number] PCP - General Family Medicine 04/17/22 Avery Montejo MD [address] [facility] [address] [place] [address] Surgeon Cardiothoracic Surgery 04/29/22
--- OUTSIDE RECORDS SUMMARY | 2024-12-06 03:06 | XMS_ITS | Encounter Summary ---
Author Organization Address [address] [place] [address] Care Team Providers Care [employer] Law Clerk Name Role Phone Leonardo Gomez MD Primary Care Provider [phone] Encounter Details Date Type Department Care Team (Late st Contact Info) Description 05/28/2022 Lab Requisition [facility] General Laboratory Services [address] [facility] [address] [place] [phone] [place] [address] [facility] [address] [place] [address] Social History Tobacco Use Types Packs/Day Years Used Date Smoking Tobacco: Every Day Cigarettes Smokeless Tobacco: Never Alcohol Use Standard Drinks/Week Comments Not Currently 0 (1 standard drink = 0.6 oz pur e alcohol) Sex and Gender Information Value Date Recorded Sex Assigned at Not on file Legal Sex Male 1:55 PM VISUAL DESIGN LEAD Gender Identity Not on file Sexual Orientation Not on file COVID-19 Exposure Response Date Recorded In the last 10 days, have yo u been in contact with someone who was confirmed or suspected to have Coronavirus/COVID-19? No / Unsure 05/28/2022 10:36 AM VISUAL DESIGN LEAD documented as of this encounter Plan of Treatment Upcoming Encounters Date Type Department Care Team (Late st Contact Info) Description 12/19/2024 2:45 PM CDT Office Visit [facility] On[facility] and Hematology - [place] [address] [place] [address] Anibal Ha MD [address] [facility] [place] [address] documented as of this encounter Procedures Procedure Name Priority Date/Time Associated Diagnosis Comments SOURCE NEEDLESTICK PANEL Stat 05/28/2022 7:40 PM VISUAL DESIGN LEAD EXPOSURE PANEL COMPLETION Stat 05/28/2022 7:40 PM VISUAL DESIGN LEAD HIV DETECTION W/REFLX CONFIRMATION Stat 05/28/2022 7:40 PM VISUAL DESIGN LEAD HEPATITIS C RNA PCR, QUANTITATIVE Stat 05/28/2022 7:40 PM VISUAL DESIGN LEAD HEPATITIS B SURFACE ANTIGEN Stat 05/28/2022 7:40 PM VISUAL DESIGN LEAD documented in this encounter Results * EXPOSURE PANEL COMPLETION (05/28/2022 7:40 PM VISUAL DESIGN LEAD) Pathologist [facility] EXPOSURE PANEL RECEIVED Yes 05/28/2022 10:00 PM VISUAL DESIGN LEAD [facility] Blood Collection / Unknown 05/28/2022 7:40 PM VISUAL DESIGN LEAD 05/28/2022 8:07 PM VISUAL DESIGN LEAD Ricardo Grier MD CHEMISTRY ORDERABLES Final R esult [facility] [employer] [facility] CLIA# [id number] [address] [place] [address] * HEPATITIS B SURFACE ANTIGEN (05/28/2022 7:40 PM VISUAL DESIGN LEAD) Pathologist [facility] HEPATITIS B SURFACE AG NON-REACT SHAHBAZ Non-react shahbaz 05/29/2022 12:35 AM VISUAL DESIGN LEAD [facility] [employer] [facility] Comment:A non-reactive test result does not exclude the possibility of exposure to or infection with hepatitis B. Blood Collection / Unknown 05/28/2022 7:40 PM VISUAL DESIGN LEAD 05/28/2022 8:07 PM VISUAL DESIGN LEAD Ricardo Grier MD CHEMISTRY ORDERABLES Final R esult [facility] [employer] [facility]# [id number] [address] [place] [address] * HEPATITIS C RNA PCR, QUANTITATIVE (05/28/2022 7:40 PM VISUAL DESIGN LEAD) Pathologist [facility] HCV RNA, QUANT REAL TIME PCR <15 NOT DETECTED NOT DETECTED IU/mL 06/01/2022 9:16 PM VISUAL DESIGN LEAD [facility] HCV RNA QUANT PCR COPIES IU/ML <1.18 NOT DETECTED NOT DETECTED Log IU/mL 06/01/2022 9:16 PM VISUAL DESIGN LEAD [facility] Comment: This test was performed using Real-Time Polymerase Chain Reaction. Reportable Range: 15 IU/mL to 100,000,000 IU/mL (1.18 Log IU/mL to 8.00 Log IU/mL). The analytical performance characteristics of this assay have been determined by [facility]. The modifications have not been cleared or approved by the FDA. This assay has been validated pursuant to the CLIA regulations and is used for clinical purposes. For more information on this test, go to: http://education.[employer]/faq/KIO74s0 (This link is being provided for informational/ educational purposes only.) Blood Collection / Unknown 05/28/2022 7:40 PM VISUAL DESIGN LEAD 05/28/2022 8:07 PM VISUAL DESIGN LEAD Narrative [facility] - 06/01/2022 9:16 PM VISUAL DESIGN LEAD Performing Organization Information: Site ID: [place] [facility] Address: [address] [facility] [place] [address] Director: Daphnie Westbrook MD Ricardo Grier MD CHEMISTRY ORDERABLES Final R esult [facility] [phone] * HIV DETECTION W/REFLX CONFIRMATION (05/28/2022 7:40 PM VISUAL DESIGN LEAD) Pathologist [facility] HIV-1 AND 2 ABS AND HIV-1 AG Non-reacti ve Non-reacti ve 05/28/2022 9:08 PM VISUAL DESIGN LEAD [facility] Blood Collection / Unknown 05/28/2022 7:40 PM VISUAL DESIGN LEAD 05/28/2022 8:07 PM VISUAL DESIGN LEAD Narrative [facility] - 05/28/2022 9:08 PM VISUAL DESIGN LEAD Initial HIV testing was performed by [employer] on the Wayne Guy e602 module. Values obtained with different assay methods cannot be used interchangeably. Non- Reactive results does not rule out HIV infection. If acute HIV-1 infection is suspected, submit plasma specimen for HIV-1 RNA quantification test (HIVQU). Ricardo Grier MD CHEMISTRY ORDERABLES Final R esult [facility] CLIA# [id number] [address] [place] [address] documented in this encounter Visit Diagnoses Not on filedocumented in this encounter Care Teams [employer] Law Clerk Relationship Specialty Start Date End Date Leonardo Gomez MD [address] [place] [phone] PCP - General Family Practice 04/15/22 documented as of this encounter
--- OUTSIDE RECORDS SUMMARY | 2024-12-06 03:06 | XMS_ITS | Encounter Summary ---
Author Organization [facility] Healthcare Address [address] [place] [address] Care Team Providers Care Dynamometer Mechanic Name Role Phone Leonardo Gomez MD Primary Care Provider [phone] Avery Montejo MD Unavailable [phone] Encounter Details Date Type Department Care Team (Late st Contact Info) Description 08/31/2024 Orders Only [facility] [place] [address] [place] [id number] Scanning, Provider Social History Tobacco Use Types Packs/Day Years Used Date Smoking Tobacco: Never Assessed Sex and Gender Information Value Date Recorded Sex Assigned at Not on file Legal Sex Male 2:54 PM 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
--- OUTSIDE RECORDS SUMMARY | 2024-12-06 03:06 | XMS_ITS | Clinical Summary ---
Author Organization [facility] Yamilet corrales Sandeeppk Address [address] [place] [address] Care Team Providers Care Hog Feeder Name Role Phone Leonardo Gomez MD Primary Care Provider [phone] Allergies No known active allergies Medications losartan [...] STL ABSTRACTION Provider, Abstract 09/21/2024 Orders Only [facility] Oncology and H[facility]ology [facility] [address] [place] [address] Anibal Ha MD 09/20/2024 2:30 PM CDT Office Visit [facility] Oncology and H[facility]ology [facility] [address] [place] [address] Anibal Ha MD Malignant neoplasm of upper lobe of right lung (CMS/HCC) (Primary Dx); Bilateral kidney masses 09/20/2024 Orders Only [facility] On[facility] [address] [place] [address] Anibal Ha MD 09/14/2024 External Device Data [...] Date Smoking Tobacco: Every Day Cigarettes 1 66.5 Started: 05/28/1959; Last attempted to quit: 05/28/2022 Smokeless Tobacco: Never Tobacco Cessation:Ready to Q uit: Not Asked; Counseling Given: Not Answered Alcohol Use Standard Drinks/Week Comments Not Currently 0 (1 standard drink = 0.6 oz pur e alcohol) Sex and Gender Information Value Date Recorded Sex Assigned at Not on file Legal Sex Male 1:55 PM CHECK OUT CLERK Gender Identity Not on file Sexual Orientation [...] 175.3 cm (5' 9) 05/28/2022 9:47 AM CHECK OUT CLERK Body Mass Index 28.8 05/28/2022 9:47 AM CHECK OUT CLERK Plan of Treatment Upcoming Encounters Date Type Department Care Team (Late st Contact Info) Description 12/19/2024 2:45 PM CDT Office Visit [facility] Oncology and Hematology - [place] [address] [facility] [address] [place] [address] Anibal Ha MD [address] [facility] [address] [place] [address] Health Maintenance Due Date Last [...] history exists Medical Devices Implanted Type Area Narrative Writer Device Identifier Shelf Expiration Date Model / Serial / Lot Sealant Progel Pleural 4ml [id number] - [id number] Implanted:Qty: 1 on 05/28/2022 by Avery Montejo MD at [facility] Tissue Right: Lung BARD CHAMORRO [id number] 07/20/2023 [id number] / / [id number] Procedures Procedure Name Priority Date/Time Associated Diagnosis Comments CBC WITH DIFFERENTIAL Routine 09/20/2024 4:23 PM CDT BASIC METABOLIC PANEL Routine 09/20/2024 4:22 PM CDT COMPREHENSIVE METABOLIC PANEL Routine 09/20/2024 2:04 PM CDT HEMOGLOBIN A1C Routine 04/15/2022 1:45 PM CHECK OUT CLERK Malignant neoplasm of upper lobe, right bronchus [...] * (ABNORMAL) HEMOGLOBIN A1C (04/15/2022 1:45 PM CHECK OUT CLERK) HEMOGLOBIN A1C 7.9(H) <5.7 % 04/15/2022 2:59 PM CHECK OUT CLERK [facility] EST. AVG GLUCOSE, A1C 180 mg/dL 04/15/2022 2:59 PM CHECK OUT CLERK [facility] Blood Venipuncture / Unknown 04/15/2022 1:45 PM CHECK OUT CLERK 04/15/2022 2:24 PM CHECK OUT CLERK Narrative [facility] - 04/15/2022 2:59 PM CHECK OUT CLERK HGB A1C INTERPRETATION NORMAL: <5.7% PRE-DIABETES: 5.7 - 6.4% DIABETES: 6.5% OR GREATER Liang NAYLOR CHEMISTRY ORDERABLES Final Resul t [facility] Aprilage [facility] CLIA# [id number] [address] [place] [address] from Last 3 Months or Most Recently Relevant to Health Maintenance Insurance [facility] Source[employer]Style [facility] Source4Style CHOICE MEDICARE PART A AND B Advance Directives For more information, please contact: [phone] Documents on File Type Date Recorded Patient Database Security Expert Expl anation Advance Directive POA 05/28/2022 9:45 PM Ad hui Directive POA * Full Code (Latest Code Status on File) Date Activated Date Inactivated Comments 05/28/2022 10:21 PM 06/06/2022 6:26 PM * Full Code Date Activated Date Inactivated Comments 05/28/2022 10:14 AM 05/28/2022 10:21 PM Care Teams Hog Feeder Relationship Specialty Start Date End Date Leonardo Gomez MD [address] [place] [id number] PCP - General Family Practice 04/15/22
--- OUTSIDE RECORDS SUMMARY | 2024-12-06 03:06 | XMS_ITS | Clinical Summary ---
Author Organization [facility] Debra fuentes Address [address] [place] [address] Phone Care Team Providers Care Correctional Probation Officer Name Role Phone Unavailable Primary Care Provider [...] Comments Blood Pressure 134/70 05/18/2018 12:01 AM ADMINISTRATION PROFESSIONAL Pulse 72 05/18/2018 12:01 AM ADMINISTRATION PROFESSIONAL Temperature 35.7 C (96.3 F) 05/18/2018 12:01 AM ADMINISTRATION PROFESSIONAL Respiratory Rate - - Oxygen Saturation - - Inhaled Oxygen Concentration - - Weight 96.6 kg (213 lb) 05/18/2018 12:01 AM ADMINISTRATION PROFESSIONAL Height 177.8 cm (5' 10) 05/18/2018 12:01 AM ADMINISTRATION PROFESSIONAL Body Mass Index 30.56 05/18/2018 12:01 AM ADMINISTRATION PROFESSIONAL Plan of Treatment Health Maintenance Due Date Last Done Comments Pneumococcal PPSV23/PCV13 65 + Years / Low and Medium Risk (1 of 2 - PCV) 02/17/1998 Influenza Vaccine (#1) 2024
--- OUTSIDE RECORDS SUMMARY | 2024-12-06 03:06 | XMS_ITS | Continuity of Care Document ---
Author Organization Located within [facility] Address [address] [place] [address] [address] [place] [address] Phone Care Team Providers Care Supervisor Matrix Name Role Phone Rosario Ramos Unavailable Unavailable Procedures Procedure Date Special Reports Or Forms Advance Directives Directive Yes / No Effective Date File Name No Information Encounters Encounter Description Practice Location Reason(s) For Visit Diagnoses Date Provider Providers Copied on Encounter [facility], [address], [place], [place], [id number], [place] tel:[phone] [facility] No Information 0 Rachel Ponce. [address] , [address], [place], [address], [place]. tel:[phone] Family History Family Member Type Diagnosis Age [...]
--- OUTSIDE RECORDS SUMMARY | 2024-12-06 03:06 | XMS_ITS | Encounter Summary ---
Author Organization [facility] Address [address] [place] [address] Care Team Providers Care Customer Management Specialist Name Role Phone Leonardo Gomez MD Primary Care Provider [phone] Avery Montejo MD Unavailable [phone] Encounter Details Date Type Department Care Team (Late st Contact Info) Description 09/02/2024 Orders Only [facility] Health Information Management [address] [place] [address] Scanning, Provider Social History Tobacco Use Types Packs/Day Years Used Date Smoking Tobacco: Never Assessed Sex and Gender Information Value Date Recorded Sex Assigned at Not on file 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
--- OUTSIDE RECORDS SUMMARY | 2024-12-06 03:06 | XMS_ITS ---
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
--- OUTSIDE RECORDS SUMMARY | 2024-12-06 03:06 | XMS_ITS ---
Author Name Auto Generated, Auto Generated Organization [facility] Address [address] [place] [address] Phone [phone] Care Team Providers Care Payloader Operator Name Role Phone Oscar Birmingham Unavailable Shay Peres Unavailable Orestes Solomon Unavailable [phone] Functional Status No Results Mental Status No [...] 2 Times Daily Indication: Nasal Decongestion One [place] to BIlateral Nostrils Twice Daily WedJun 08 [...]
[2024-12-06] MEDS: cefTRIAXone 1 GM in SODIUM CHLORIDE 0.9% IV 50 ML 100 ML IVPB (03:25)
[2024-12-06] MEDS: ACETAMINOPHEN 500 MG TABLET 1000 MG PO (03:48)
[2024-12-06] MEDS: VANCOMYCIN 1,250 MG/NS 250 ML 1,250 MG/250 ML BAG 166.67 MG IVPB (03:48)
[2024-12-06] MEDS: LACTATED RINGERS 500 ML 999 ML IV CONT (03:48)
[2024-12-06] MEDS: LACTATED RINGERS 1,000 ML 125 ML IV CONT ×3 (04:34→23:04)
--- NOTE | 2024-12-06 06:06 | ADMGEN ---
This patient, Dennis Acosta, was admitted to IMU Room 205-02. Patient/family oriented to hospital policies and general routines including ID bracelet, bed and alarms, visiting hours, pain management, procedures, bathroom and other care routines, personal items, smoking policy, room service/diet, and visiting hours. Information on how to activate the Rapid Response Team has been discussed. Patient/Family are encouraged to report perceived risks to care and to ask questions if they do not understand what they are told or what they should do.
--- NOTE | 2024-12-06 07:37 | PM.IMHP ---
H&P: HPI History of Present Illness Date/Time: 12/06/24 07:37 Chief Complaint: Weakness, fever, tachycardia Narrative: 74-year-old male with a past medical history including lung cancer status post resection, uncontrolled diabetes, hypertension, chronic kidney disease present to the ER due to weakness and generalized malaise. Patient was recently admitted in the hospital on 11/24/2024 due to hyperglycemia requiring insulin infusion. As per patient he reports he was not discharged on insulin and and sent home with indwelling Gutierrez catheter secondary to urinary retention. Pertinent ED labs: WBC 18,HgB 15.3,HCT 44.6,,PLT 197,Na 133,K4.1,AG 10, Cr 2.10,GFR 31,,Glucose 461,AST 18,ALT 21, ALP 153 UA: Blood 2+,Glucose 3+, Nitrate neg,LE 2+,RBC 51-100, WBC>100,Yeast Patient is admitted in the setting of Hyperglycemia and UTI. Patient was supposed to go to urology office today for removal of Gutierrez catheter. Urology consulted on further recommend. Patient is started on cefepime and vancomycin broad-spectrum. Patient started on moderate sliding scale for hyperglycemia. Patient HbA1c 9.4. Patient weakness and general malaise possibly contributed by hyperglycemia and infection. Ordered CT chest/abdomen/pelvis. Patient labs has been need repeated including lactic acid and beta hydroxybutyrate. His home medication SGLT 2 has been held since cause euglycemic DKA. Review of Systems Review of Systems: As reviewed above in HPI [facility] Past Medical History Medical History History of tobacco abuse COPD (chronic obstructive pulmonary disease) Atrial fibrillation with rapid ventricular response Paroxysmal atrial fibrillation Stage 4 chronic kidney disease Bladder malignancy Gross hematuria Pneumonia Shortness of breath Stage 3b chronic kidney disease Simple chronic bronchitis Cigarette nicotine dependence with nicotine-induced disorder Major depressive disorder Cigarette nicotine dependence in remission Microalbuminuria Personal history of malignant neoplasm of lung Type 2 diabetes mellitus with diabetic chronic kidney disease Hypertensive chronic kidney disease Diverticulosis Kidney stones Hyperlipidemia Benign prostatic hyperplasia Surgical History Surgical History History of lobectomy of lung 05/2022 History of bilateral knee replacement (2008) History of cholecystectomy History of inguinal hernia repair History of vasectomy History of hemorrhoidectomy (1996) History of colonoscopy with polypectomy History of tonsillectomy (1953) Family History Family History Father Acute myocardial infarction Sibling Lung cancer Social History Social History Social History: Surrogate medical decision maker: Trupti Acosta, sibling. Code status: Full code. Smoking packs per day: 1 Smoking cigarettes per day: 20.0 Years smoked: 62 Smoking pack-years: 62.00 Smoking status: Current every day smoker Tobacco type: cigarettes Second hand tobacco smoke exposure: No Additional smoking assessment comments: Had quit at the time of his lung cancer diagnosis, but now back to smoking Alcohol intake: never Substance use: never Substance use type: does not use Do You Feel Safe in your Home?: Yes Lack of Transportation: No Lack of Food: Never True Current Housing: I Have Housing Concerned About Future Housing: No Difficulty Paying Gas/Electric Bills: No Difficulty Paying for Meds: No Currently Unemployed: No Education: Trade/Vocational Certificate Difficulty w/ Childcare or Family Care: No Living arrangements: alone Occupation/Education: retired Gender identity (if verbalized by the patient): Male Sexual Orientation (if Verbalized by the Patient): Straight or Heterosexual Spiritual care concerns: No Meds Home Medications and Allergies Home Medications ?Medication ?Instructions ?Recorded ?Confirmed ?Type albuterol sulfate 90 mcg/actuation 1 inh inhalation Q4H PRN shortness 05/01/24 12/06/24 Rx aerosol inhaler of breath or wheezing #8.5 grams atorvastatin 40 mg tablet See Rx Instructions .Route 09/05/24 12/06/24 Rx .COMPLEX #90 tabs diltiazem HCl 180 mg 180 mg PO DAILY #90 caps 09/15/24 12/06/24 Rx capsule,extended release 24 hr (Cartia XT) escitalopram oxalate 10 mg tablet 10 mg PO DAILY 10/18/24 12/06/24 History fluticasone fur. 100 mcg-umeclid 1 inh inhalation Q24H 1 month #60 10/19/24 12/06/24 Rx 62.5 mcg-vilant 25 mcg ea inhalat.powder (Trelegy Ellipta) FreeStyle [place] Lite #1 ea 11/17/24 12/06/24 Rx (blood-glucose meter) FreeStyle Lite Strips (blood sugar #100 ea 11/17/24 12/06/24 Rx diagnostic) lancets 28 gauge (FreeStyle #100 ea 11/17/24 12/06/24 Rx Lancets) acetaminophen 500 mg capsule 1,000 mg PO Q6H PRN pain 11/24/24 12/06/24 History fluticasone propionate 50 1 spray intranasal DAILY PRN 11/24/24 12/06/24 History mcg/actuation nasal allergies spray,suspension (24 Hour Allergy Relief) tamsulosin 0.4 mg capsule 0.4 mg PO HS #30 caps 11/27/24 12/06/24 Rx glimepiride 1 mg tablet See Rx Instructions .Route 11/28/24 12/06/24 Rx .COMPLEX #90 tabs apixaban 5 mg tablet (Eliquis) 5 mg PO Q12HR #180 tabs 12/04/24 12/06/24 Rx losartan 25 mg tablet 25 mg PO DAILY #90 tabs 12/04/24 12/06/24 Rx dapagliflozin propanediol 10 mg 10 mg PO DAILY 12/06/24 12/06/24 History tablet (Farxiga) pioglitazone 30 mg tablet 30 mg PO DAILY 12/06/24 12/06/24 History Allergies Allergy/AdvReac Type Severity Reaction Status Date / Time No Known Allergies Allergy Verified 10/30/24 10:46 Vital Signs Vital Signs - 24 hr 12/06/24 01:58 12/06/24 02:13 12/06/24 02:22 Temperature 98.5 F 100.7 F H Pulse Rate 115 H 115 H 112 H Respiratory Rate 23 H 23 H Blood Pressure 168/110 H 147/101 H Pulse Oximetry 97 97 Oxygen Delivery Room Air 12/06/24 06:06 12/06/24 06:27 12/06/24 06:46 Temperature 98.4 F Pulse Rate 97 95 Respiratory Rate 18 Blood Pressure 184/87 H Pulse Oximetry 97 Oxygen Delivery Room Air Exam Narrative: GENERAL: Ill-appearing, warm to the touch, awake and answering questions appropriately HEAD: [Normocephalic, atraumatic.] EYES: [PERRLA and EOMI.] ENT: Nares clear, no rhinorrhea or epistaxis. Mucous membranes dry. NECK: Supple. CHEST: [Clear to auscultation. No respiratory distress.] HEART: [Regular rate and rhythm]. No murmur heard. [Normal peripheral pulses.] ABDOMEN: [Soft, nondistended], no tenderness during palpation of the abdomen or flanks, [No rigidity or guarding] indwelling Gutierrez catheter with cloudy appearing urine EXTREMITIES: Normal range of motion. [No edema.] SKIN: Warm, dry, no rash. NEURO: [No focal deficits]. Alert and oriented [x3.] PSYCH: [Normal mood and affect.] H&P: Results Labs Labs: Short CBC 12/06/24 Range/Units 02:07 WBC 18.0 H (4.5-10.0) K/mm3 Hgb 15.3 (14.0-18.0) g/dL Hct 44.6 (42.0-52.0) % Plt Count 197 (150-375) k/mm3 BMP 12/06/24 02:07 Sodium 133 L Potassium 4.1 Chloride 98 Carbon Dioxide 25 BUN 29 H Creatinine 2.10 H Glucose 461 H Calcium 9.0 Liver Function 12/06/24 Range/Units 02:07 Total Bilirubin 1.1 (0.2-1.3) mg/dL AST 18 (17-59) U/L ALT 21 (6-50) U/L Alkaline Phosphatase 153 H (38-126) U/L Albumin 3.8 (3.5-5.1) g/dL Urine 12/06/24 Range/Units 02:07 Urine Color Yellow (Yellow) Urine Appearance Turbid H (Clear) Urine pH 5.5 (5.0-9.0) Ur Specific Noti 1.025 (1.001-1.035) Urine Protein 2+ H (Negative) mg/dL Urine Glucose (UA) 3+ H (Negative) mg/dL Assessment and Plan Assessment and plan (1) Severe hyperglycemia due to diabetes mellitus: Code(s): E11.65 - Type 2 diabetes mellitus with hyperglycemia Status: Acute Assessment and Plan: Hemoglobulin A1c 9.4 Moderate SSI initiated Adjust dose as needed Hypoglycemia protocol BG 311 this morning Will initiate Lantus 10U HS LR at 125 mL/hr K,PO4 and Mg replacement as needed Serial BMP q 4 hrs Hold Home med (2) UTI (urinary tract infection): Code(s): N39.0 - Urinary tract infection, site not specified Status: Acute Assessment and Plan: Reviewed UA Urine culture pending Started on cefepime and vancomycin Deescalate as per culture (3) Urinary retention: Code(s): R33.9 - Retention of urine, unspecified Status: Acute Assessment and Plan: Consulted Urology Continue tamsulosin (4) Personal history of malignant neoplasm of lung: Code(s): Z85.118 - Personal history of other malignant neoplasm of bronchus and lung Status: Acute Assessment and Plan: Outpatient managed (5) Paroxysmal atrial fibrillation: Code(s): I48.0 - Paroxysmal atrial fibrillation Status: Chronic Assessment and Plan: Continue Eliquis 5 mg p.o. b.i.d. (6) COPD (chronic obstructive pulmonary disease): Qualifiers: COPD type: unspecified COPD Qualified Code(s): J44.9 - Chronic obstructive pulmonary disease, unspecified Code(s): J44.9 - Chronic obstructive pulmonary disease, unspecified Status: Chronic Assessment and Plan: Continue DuoNeb (7) History of tobacco abuse: Code(s): Z87.891 - Personal history of nicotine dependence Status: Acute Assessment and Plan: Nicotine patch Hospitalist MIPS Advance Care Plan I have confirmed that the patient's Advanced Care Plan is present, code status is documented, or surrogate decision maker is listed in patient medical record.: Yes Medication Reconciliation I have utilized all available resources to obtain, update and review the patients current medications (includes all prescriptions, OTC, herbals, cannabis, and nutritional supplements).: Yes
[2024-12-06] MEDS: FLUTICASONE/UMECLIDIN/VILANTER 100-62.5-25 MCG ELLIPTA 1 PUFF INHALATION (08:52)
[2024-12-06 09:03] LABS: Hematocrit 39.3 % (42.0-52.0); Hemoglobin 13.5 g/dL (14.0-18.0); Mean Corpuscular HGB Conc 34.4 g/dl (32-36); Mean Corpuscular Hemoglobin 31.8 pg (26-34); Mean Corpuscular Volume 92.5 fl (80-100); Platelet Count Result 175 k/mm3 (150-375); Red Blood Count 4.25 M/mm3 (4.6-6.20); White Blood Count 14.2 K/mm3 (4.5-10.0)
[2024-12-06] MEDS: ONDANSETRON INJ 4 MG/2 ML VIAL IV PUSH (09:08)
[2024-12-06] MEDS: dilTIAZem HCL CD 180 MG CAP.24HR PO (09:08)
[2024-12-06] MEDS: APIXABAN 5 MG TABLET PO ×2 (09:08→20:13)
[2024-12-06] MEDS: ATORVASTATIN 40 MG TABLET PO (09:08)
[2024-12-06] MEDS: ESCITALOPRAM OXALATE 10 MG TABLET PO (09:08)
[2024-12-06] MEDS: CEFEPIME 1 GM in SODIUM CHLORIDE 0.9% IV 50 ML 100 ML IVPB ×2 (09:15→20:13)
--- NOTE | 2024-12-06 09:25 | P.CONUR_ITS ---
Assessment and Plan Assessment and plan (1) Cancer of overlapping sites of bladder: Code(s): C67.8 - Malignant neoplasm of overlapping sites of bladder Status: Acute (2) Benign prostatic hyperplasia: Code(s): N40.0 - Benign prostatic hyperplasia without lower urinary tract symptoms Status: Acute Plan * Recent TURBT for non muscle invasive urothelial carcinoma the bladder * Recent urinary retention presumably due to BPH * Will plan voiding trial in 2 days, once his urinary tract infection has been addressed with some antibiotics. * My office will rearrange follow-up office visit for surveillance cystoscopy sometime in the next 2-3 weeks Urology Consult Note HPI Date Seen: 12/06/24 Requesting Physician: Jose Wagner MD Primary Care Provider: Leonardo Gomez MD Consult Narrative Narrative: Dennis Acosta is a 74 year old male who is known to me from a couple recent admissions. In August 2024 he had hematuria and was found to have a small bladder tumor. He is status post TURBT showing low-grade non muscle invasive urothelial carcinoma. Several days following that intervention developed urinary retention. He has had an indwelling catheter and was started on tamsulosin. He was scheduled for office appointment today for a voiding trial but presents to the ED with probable urinary tract infection. His catheter was changed on admission without difficulty. Review of Systems 2 Review of Systems: All systems reviewed & are unremarkable except as noted in HPI and below PMFSH Past Medical History Medical History History of tobacco abuse COPD (chronic obstructive pulmonary disease) Atrial fibrillation with rapid ventricular response Paroxysmal atrial fibrillation Stage 4 chronic kidney disease Bladder malignancy Gross hematuria Pneumonia Shortness of breath Stage 3b chronic kidney disease Simple chronic bronchitis Cigarette nicotine dependence with nicotine-induced disorder Major depressive disorder Cigarette nicotine dependence in remission Microalbuminuria Personal history of malignant neoplasm of lung Type 2 diabetes mellitus with diabetic chronic kidney disease Hypertensive chronic kidney disease Diverticulosis Kidney stones Hyperlipidemia Benign prostatic hyperplasia Surgical History Surgical History History of lobectomy of lung 05/2022 History of bilateral knee replacement (2008) History of cholecystectomy History of inguinal hernia repair History of vasectomy History of hemorrhoidectomy (1996) History of colonoscopy with polypectomy History of tonsillectomy (1953) Family History Family History Father Acute myocardial infarction Sibling Lung cancer Social History Social History Social History: Surrogate medical decision maker: Trupti Acosta, sibling. Code status: Full code. Smoking packs per day: 1 Smoking cigarettes per day: 20.0 Years smoked: 62 Smoking pack-years: 62.00 Smoking status: Current every day smoker Tobacco type: cigarettes Second hand tobacco smoke exposure: No Additional smoking assessment comments: Had quit at the time of his lung cancer diagnosis, but now back to smoking Alcohol intake: never Substance use: never Substance use type: does not use Do You Feel Safe in your Home?: Yes Lack of Transportation: No Lack of Food: Never True Current Housing: I Have Housing Concerned About Future Housing: No Difficulty Paying Gas/Electric Bills: No Difficulty Paying for Meds: No Currently Unemployed: No Education: Trade/Vocational Certificate Difficulty w/ Childcare or Family Care: No Living arrangements: alone Occupation/Education: retired Gender identity (if verbalized by the patient): Male Sexual Orientation (if Verbalized by the Patient): Straight or Heterosexual Spiritual care concerns: No Meds Home Medications and Allergies Home Medications ?Medication ?Instructions ?Recorded ?Confirmed ?Type albuterol sulfate 90 mcg/actuation 1 inh inhalation Q4H PRN shortness 05/01/24 12/06/24 Rx aerosol inhaler of breath or wheezing #8.5 grams atorvastatin 40 mg tablet See Rx Instructions .Route 09/05/24 12/06/24 Rx .COMPLEX #90 tabs diltiazem HCl 180 mg 180 mg PO DAILY #90 caps 09/15/24 12/06/24 Rx capsule,extended release 24 hr (Cartia XT) escitalopram oxalate 10 mg tablet 10 mg PO DAILY 10/18/24 12/06/24 History fluticasone fur. 100 mcg-umeclid 1 inh inhalation Q24H 1 month #60 10/19/24 12/06/24 Rx 62.5 mcg-vilant 25 mcg ea inhalat.powder (Trelegy Ellipta) FreeStyle [place] Lite #1 ea 11/17/24 12/06/24 Rx (blood-glucose meter) FreeStyle Lite Strips (blood sugar #100 ea 11/17/24 12/06/24 Rx diagnostic) lancets 28 gauge (FreeStyle #100 ea 11/17/24 12/06/24 Rx Lancets) acetaminophen 500 mg capsule 1,000 mg PO Q6H PRN pain 11/24/24 12/06/24 History fluticasone propionate 50 1 spray intranasal DAILY PRN 11/24/24 12/06/24 History mcg/actuation nasal allergies spray,suspension (24 Hour Allergy Relief) tamsulosin 0.4 mg capsule 0.4 mg PO HS #30 caps 11/27/24 12/06/24 Rx glimepiride 1 mg tablet See Rx Instructions .Route 11/28/24 12/06/24 Rx .COMPLEX #90 tabs apixaban 5 mg tablet (Eliquis) 5 mg PO Q12HR #180 tabs 12/04/24 12/06/24 Rx losartan 25 mg tablet 25 mg PO DAILY #90 tabs 12/04/24 12/06/24 Rx dapagliflozin propanediol 10 mg 10 mg PO DAILY 12/06/24 12/06/24 History tablet (Farxiga) pioglitazone 30 mg tablet 30 mg PO DAILY 12/06/24 12/06/24 History Allergies Allergy/AdvReac Type Severity Reaction Status Date / Time No Known Allergies Allergy Verified 10/30/24 10:46 Vital Signs Vital Signs - 24 hr 12/06/24 01:58 12/06/24 02:13 12/06/24 02:22 Temperature 98.5 F 100.7 F H Pulse Rate 115 H 115 H 112 H Respiratory Rate 23 H 23 H Blood Pressure 168/110 H 147/101 H Pulse Oximetry 97 97 Oxygen Delivery Room Air 12/06/24 06:06 12/06/24 06:27 12/06/24 06:46 Temperature 98.4 F Pulse Rate 97 95 Respiratory Rate 18 Blood Pressure 184/87 H Pulse Oximetry 97 Oxygen Delivery Room Air 12/06/24 08:03 12/06/24 08:54 12/06/24 08:54 Temperature 97.0 F L Pulse Rate 92 97 96 Respiratory Rate 20 20 20 Blood Pressure 164/95 H Pulse Oximetry 98 96 Oxygen Delivery Room Air Exam 2 Const: General: no acute distress Resp: Effort & Inspection: normal respiratory effort GI: Inspection: non-distended GI Palp: No abdominal tenderness and No Guarding due to palpation present (GI) Auscultation: normal bowel sounds Urinary Catheter: Urinary Catheter: patent and draining and urine clear Results Labs 12/06/24 08:58 12/06/24 02:07 Labs: Short CBC 12/06/24 12/06/24 Range/Units 02:07 08:58 WBC 18.0 H 14.2 H (4.5-10.0) K/mm3 Hgb 15.3 13.5 L (14.0-18.0) g/dL Hct 44.6 39.3 L (42.0-52.0) % Plt Count 197 175 (150-375) k/mm3 BMP 12/06/24 02:07 Sodium 133 L Potassium 4.1 Chloride 98 Carbon Dioxide 25 BUN 29 H Creatinine 2.10 H Glucose 461 H Calcium 9.0 Liver Function 12/06/24 Range/Units 02:07 Total Bilirubin 1.1 (0.2-1.3) mg/dL AST 18 (17-59) U/L ALT 21 (6-50) U/L Alkaline Phosphatase 153 H (38-126) U/L Albumin 3.8 (3.5-5.1) g/dL Urine 12/06/24 Range/Units 02:07 Urine Color Yellow (Yellow) Urine Appearance Turbid H (Clear) Urine pH 5.5 (5.0-9.0) Ur Specific [place] 1.025 (1.001-1.035) Urine Protein 2+ H (Negative) mg/dL Urine Glucose (UA) 3+ H (Negative) mg/dL
[2024-12-06 09:26] LABS: Alanine Aminotransferase 21 U/L (6-50); Albumin Level 3.0 g/dL (3.5-5.1); Alkaline Phosphatase 122 U/L (38-126); Anion Gap 6 mmol/L (4-12); Aspartate Amino Transferase 22 U/L (17-59); Bilirubin,Total 0.7 mg/dL (0.2-1.3); Blood Urea Nitrogen 25 mg/dL (9-20); Calcium 8.5 mg/dL (8.4-10.2); Carbon Dioxide 25 mmol/L (22-30); Chloride 101 mmol/L (98-107); Estimated CRCL calculation 39 ml/min; Estimated Glomerular Filt Rate 39; Glucose 342 mg/dL (65-110); Potassium 3.5 mmol/L (3.4-5.0); Sodium 132 mmol/L (137-145); Total Protein 5.8 g/dL (6.3-8.2)
[2024-12-06 09:32] LABS: Beta-Hydroxybutyrate/Acetoacetate 0.16 mmol/L (0.02-0.27)
[2024-12-06] MEDS: INSULIN ASPART (*BKC) 100 UNITS/ML SUB-Q ×3 (09:37→17:08)
[2024-12-06 09:59] LABS: Hemoglobin A1C 9.9 % (<5.7)
[2024-12-06 16:56] LABS: MRSA (PCR) NOT DETECTED (NOT DETECTE)
[2024-12-06] MEDS: TAMSULOSIN HCL 0.4 MG CAPSULE PO (20:13)
[2024-12-06] MEDS: INSULIN GLARGINE (*BKC) 100 UNITS/ML 10 UNITS SUB-Q (20:26)
[2024-12-07] VITALS (12 sets, daily range): BP systolic 118–163; BP diastolic 62–87; PULSE 62–83; RESP 16–20; TEMP 36.2–36.9; O2SAT 95–98
[2024-12-07 02:59] LABS: Hematocrit 37.2 % (42.0-52.0); Hemoglobin 12.7 g/dL (14.0-18.0); Mean Corpuscular HGB Conc 34.1 g/dl (32-36); Mean Corpuscular Hemoglobin 31.9 pg (26-34); Mean Corpuscular Volume 93.5 fl (80-100); Platelet Count Result 161 k/mm3 (150-375); Red Blood Count 3.98 M/mm3 (4.6-6.20); White Blood Count 8.5 K/mm3 (4.5-10.0)
[2024-12-07 03:13] LABS: Alanine Aminotransferase 14 U/L (6-50); Albumin Level 2.8 g/dL (3.5-5.1); Alkaline Phosphatase 99 U/L (38-126); Anion Gap 2 mmol/L (4-12); Aspartate Amino Transferase 20 U/L (17-59); Bilirubin,Total 0.6 mg/dL (0.2-1.3); Blood Urea Nitrogen 19 mg/dL (9-20); Calcium 8.6 mg/dL (8.4-10.2); Carbon Dioxide 30 mmol/L (22-30); Chloride 103 mmol/L (98-107); Estimated CRCL calculation 42 ml/min; Estimated Glomerular Filt Rate 43; Glucose 140 mg/dL (65-110); Potassium 3.8 mmol/L (3.4-5.0); Sodium 135 mmol/L (137-145); Total Protein 5.6 g/dL (6.3-8.2)
[2024-12-07] MEDS: LACTATED RINGERS 1,000 ML 125 ML IV CONT ×3 (05:21→21:44)
[2024-12-07] MEDS: VANCOMYCIN 1,500 MG/NS 500 ML 1,500 MG/500 ML BAG 250 MG IVPB (05:21)
--- NOTE | 2024-12-07 06:53 | WPDUROPN2 ---
Progress Note: A&P Assessment and Plan (1) Urinary retention: Code(s): R33.9 - Retention of urine, unspecified Status: Acute (2) Catheter-associated urinary tract infection: Code(s): T83.511A - Infection and inflammatory reaction due to indwelling urethral catheter, initial encounter; N39.0 - Urinary tract infection, site not specified Status: Acute Assessment and Plan: Leukocytosis much improved this morning. Await blood and urine cultures Voiding trial arranged for tomorrow morning Subjective Subjective Date/Time Seen: 12/07/24 06:53 Interval history: Comfortable, urine clear Review of Systems Review of Systems: All systems reviewed & are unremarkable except as noted in HPI and below Exam Const: General: no acute distress Resp: Effort & Inspection: normal respiratory effort GI: Inspection: non-distended GI Palp: No abdominal tenderness and No Guarding due to palpation present (GI) Auscultation: normal bowel sounds Objective Data Vital Signs Vital Signs: Vital Signs - 24 hr 12/06/24 08:00 12/06/24 08:03 12/06/24 08:54 Temperature 97.0 F L Pulse Rate 89 92 97 Respiratory Rate 20 20 Blood Pressure 164/95 H Pulse Oximetry 98 96 Oxygen Delivery Room Air 12/06/24 08:54 12/06/24 10:00 12/06/24 11:35 Temperature 98.2 F Pulse Rate 96 89 73 Respiratory Rate 20 20 Blood Pressure 155/55 H Pulse Oximetry 94 Oxygen Delivery 12/06/24 12:00 12/06/24 14:00 12/06/24 16:00 Temperature Pulse Rate 91 84 67 Respiratory Rate Blood Pressure Pulse Oximetry Oxygen Delivery 12/06/24 16:23 12/06/24 18:00 12/06/24 19:56 Temperature 98.5 F 98.2 F Pulse Rate 73 66 65 Respiratory Rate 20 16 Blood Pressure 165/68 H 144/60 H Pulse Oximetry 97 97 Oxygen Delivery 12/06/24 20:00 12/06/24 20:00 12/06/24 22:00 Temperature Pulse Rate 69 80 Respiratory Rate Blood Pressure Pulse Oximetry Oxygen Delivery Room Air 12/06/24 23:44 12/06/24 23:45 12/06/24 23:58 Temperature 97.7 F Pulse Rate 69 Respiratory Rate 16 Blood Pressure 137/62 Pulse Oximetry 98 98 Oxygen Delivery Room Air Room Air 12/07/24 00:00 12/07/24 02:00 12/07/24 03:31 Temperature Pulse Rate 72 67 Respiratory Rate Blood Pressure Pulse Oximetry Oxygen Delivery Room Air 12/07/24 04:00 12/07/24 04:00 12/07/24 06:00 Temperature 98.2 F Pulse Rate 74 83 72 Respiratory Rate 16 Blood Pressure 146/67 H Pulse Oximetry 98 Oxygen Delivery Intake/Output Intake/Output: Intake & Output 12/04/24 12/05/24 12/06/24 12/07/24 23:59 23:59 23:59 23:59 Intake Total 5630 785.4 Output Total 1999 1425 Balance 3630 -109.6 Meds/Results Medications: Active Medications Generic Name Dose Route Start Last Admin Trade Name Freq PRN Reason Stop Dose Admin Acetaminophen 1,000 mg 12/06/24 07:51 Acetaminophen 500 Mg Tablet PO Q6H PRN pain Albuterol 1 puff 12/06/24 07:51 Albuterol Sulfate (*Sp) Aerosol 1 Puff INHALATION Q4HRT PRN shortness of breath or wheezing Apixaban 5 mg 12/06/24 09:00 12/06/24 20:13 Apixaban 5 Mg Tablet PO 5 mg Q12HR PRAVIN Administration Atorvastatin Calcium 40 mg 12/06/24 09:00 12/06/24 09:08 Atorvastatin 40 Mg Tablet PO 40 mg QAM PRAVIN Administration Dextrose 12.5 gm 12/06/24 08:35 Dextrose 50% 25 Gm/50 Ml Syringe IV PUSH PRN PRN Hypoglycemia Protocol Diltiazem HCl 180 mg 12/06/24 09:00 12/06/24 09:08 Diltiazem Hcl Cd 180 Mg Cap.24hr PO 180 mg DAILY PRAVIN Administration Escitalopram Oxalate 10 mg 12/06/24 09:00 12/06/24 09:08 Escitalopram Oxalate 10 Mg Tablet PO 10 mg DAILY PRAVIN Administration Fluconazole 100 mg 12/07/24 09:00 Fluconazole 100 Mg Tablet PO 12/19/24 09:01 QAM PRAVIN Fluticasone Propionate 1 spray 12/06/24 07:51 Fluticasone Propionate 0.05% Na Spr 16 Gm Btl (*Bkc) NASAL DAILY PRN allergies Fluticasone/Umeclidinium/Vilanterol 1 puff 12/06/24 08:00 12/06/24 08:52 Fluticasone/Umeclidin/Vilanter 100-62.5-25 Mcg Ellipta INHALATION 1 puff DAILYRT PRAVIN Administration Glucagon 1 mg 12/06/24 08:35 Glucagon For Inj 1 Mg Vial IM PRN PRN Hypoglycemia Protocol Glucose 15 gm 12/06/24 08:35 Glucose Oral Gel 15 Gm Of Glucse In 37.5 Gm Tube PO PRN PRN Hypoglycemia Protocol Lactated Ringer's 1,000 mls @ 125 mls/hr 12/06/24 04:00 12/07/24 05:21 Lr - Lactated Ringers Iv IV CONT 125 mls/hr .Q8H PRAVIN Administration Dextrose 1,000 mls @ 100 mls/hr 12/06/24 08:35 Dextrose 5% 1,000 Ml IVPB PRN PRN Hypoglycemia Protocol Cefepime HCl 1 gm/ Sodium 50 mls @ 100 mls/hr 12/06/24 09:00 12/06/24 20:13 Chloride IVPB 100 mls/hr Q12HR PRAVIN Administration Vancomycin HCl 1,500 mg in 500 mls @ 250 mls/hr 12/07/24 04:00 12/07/24 05:21 Vancomycin 1,500 Mg/Ns 500 Ml IVPB 250 mls/hr Q24H PRAVIN Administration Insulin Aspart 1 - 3 units 12/06/24 21:00 12/06/24 20:13 Insulin Aspart (*Bkc) 100 Units/Ml SUB-Q Not Given HS [facility] Protocol Insulin Aspart 3 - 6 units 12/06/24 08:00 12/06/24 17:08 Insulin Aspart (*Bkc) 100 Units/Ml SUB-Q 5 units TIDWM PRAVIN Administration Protocol Insulin Glargine 10 units 12/06/24 21:00 12/06/24 20:26 Insulin Glargine (*Bkc) 100 Units/Ml SUB-Q 10 units HS PRAVIN Administration Ondansetron HCl 4 mg 12/06/24 03:58 12/06/24 09:08 Ondansetron Inj 4 Mg/2 Ml Vial IV PUSH 4 mg Q4H PRN Administration Nausea Tamsulosin HCl 0.4 mg 12/06/24 21:00 12/06/24 20:13 Tamsulosin Hcl 0.4 Mg Capsule PO 0.4 mg HS PRAVIN Administration Radiology Results: ITS Impressions Chest X-Ray 12/06/24 06:18 Impression: 1: Stable chest with changes of right partial pneumonectomy with chronic right effusion and underlying atelectasis/scarring. Chest/Abdomen/Pelvis CT 12/06/24 10:48 IMPRESSION: 1. No acute cardiopulmonary disease or acute intra-abdominal/pelvic process. 2. Mild emphysema and changes of prior right upper lobectomy with stable appearance of a chronic small likely right pleural effusion and pleural parenchymal scarring in the right lung including large region of round atelectasis in the right lower lobe. 2. No interval change in a few nonspecific small scattered patchy ground glass opacities in both lungs predominantly left upper lobe and lingula likely sequela of chronic infection. 3. 4.5 x 4.2 cm fusiform infrarenal abdominal aortic aneurysm. 4. Prostatomegaly. Labs Labs: Laboratory Results - last 24 hr 12/06/24 12/06/24 12/06/24 02:07 07:18 08:58 WBC 14.2 H RBC 4.25 L Hgb 13.5 L Hct 39.3 L MCV 92.5 MCH 31.8 MCHC 34.4 RDW 12.6 Plt Count 175 MPV 11.1 H Sodium 132 L Potassium 3.5 Chloride 101 Carbon Dioxide 25 Anion Gap 6 BUN 25 H Creatinine 1.71 H Estim Creat Clear Calc 39 Estimated GFR 39 L Glucose 342 H POC Capillary Glucose 311 H Hemoglobin A1c 9.9 H Lactic Acid 2.6 H Calcium 8.5 Total Bilirubin 0.7 AST 22 ALT 21 Alkaline Phosphatase 122 Total Protein 5.8 L Albumin 3.0 L Beta-Hydroxybutyrate/Acetoacetate 0.16 Nasal MRSA (PCR) Random Vancomycin 12/06/24 12/06/24 12/06/24 11:01 11:11 15:42 WBC RBC Hgb Hct MCV MCH MCHC RDW Plt Count MPV Sodium Potassium Chloride Carbon Dioxide Anion Gap BUN Creatinine Estim Creat Clear Calc Estimated GFR Glucose POC Capillary Glucose 265 H Hemoglobin A1c Lactic Acid 1.3 Calcium Total Bilirubin AST ALT Alkaline Phosphatase Total Protein Albumin Beta-Hydroxybutyrate/Acetoacetate Nasal MRSA (PCR) Not detected Random Vancomycin 12/06/24 12/06/24 12/07/24 16:01 20:12 02:51 WBC RBC Hgb Hct MCV MCH MCHC RDW Plt Count MPV Sodium 135 L Potassium 3.8 Chloride 103 Carbon Dioxide 30 Anion Gap 2 L BUN 19 Creatinine 1.59 H Estim Creat Clear Calc 42 Estimated GFR 43 L Glucose 140 H POC Capillary Glucose 310 H 170 H Hemoglobin A1c Lactic Acid Calcium 8.6 Total Bilirubin 0.6 AST 20 ALT 14 Alkaline Phosphatase 99 Total Protein 5.6 L Albumin 2.8 L Beta-Hydroxybutyrate/Acetoacetate Nasal MRSA (PCR) Random Vancomycin 12/07/24 02:52 WBC 8.5 RBC 3.98 L Hgb 12.7 L Hct 37.2 L MCV 93.5 MCH 31.9 MCHC 34.1 RDW 12.3 Plt Count 161 MPV 11.2 H Sodium Potassium Chloride Carbon Dioxide Anion Gap BUN Creatinine Estim Creat Clear Calc Estimated GFR Glucose POC Capillary Glucose Hemoglobin A1c Lactic Acid Calcium Total Bilirubin AST ALT Alkaline Phosphatase Total Protein Albumin Beta-Hydroxybutyrate/Acetoacetate Nasal MRSA (PCR) Random Vancomycin 7.4 L
--- NOTE | 2024-12-07 07:47 | PCRCNOTE ---
Pt states, he has been told not to use Trelogy inhaler. Doesn't want to take it until verified by MD. Spoke with Nicole GONSALES and she will ask MD about this.
[2024-12-07] MEDS: CEFEPIME 1 GM in SODIUM CHLORIDE 0.9% IV 50 ML 100 ML IVPB ×2 (09:09→21:32)
[2024-12-07] MEDS: ATORVASTATIN 40 MG TABLET PO (09:09)
[2024-12-07] MEDS: FLUCONAZOLE 100 MG TABLET PO (09:09)
[2024-12-07] MEDS: APIXABAN 5 MG TABLET PO ×2 (09:09→21:32)
[2024-12-07] MEDS: dilTIAZem HCL CD 180 MG CAP.24HR PO (09:10)
[2024-12-07] MEDS: ESCITALOPRAM OXALATE 10 MG TABLET PO (09:10)
--- NOTE | 2024-12-07 09:43 | P.PNIM_ITS ---
Progress Note: A&P Assessment and Plan (1) Severe hyperglycemia due to diabetes mellitus: Code(s): E11.65 - Type 2 diabetes mellitus with hyperglycemia Status: Acute Assessment and Plan: Hemoglobulin A1c 9.4 Moderate SSI initiated Adjust dose as needed Hypoglycemia protocol BG 311 this morning Will initiate Lantus 10U HS LR at 125 mL/hr K,PO4 and Mg replacement as needed Serial BMP q 4 hrs Hold Home med (2) UTI (urinary tract infection): Code(s): N39.0 - Urinary tract infection, site not specified Status: Acute Assessment and Plan: Reviewed UA Urine culture pending Started on cefepime and discontinue vancomycin Deescalate as per culture (3) Urinary retention: Code(s): R33.9 - Retention of urine, unspecified Status: Acute Assessment and Plan: Consulted Urology Continue tamsulosin Recent TURBT for 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 My office will rearrange follow-up office visit for surveillance cystoscopy sometime in the next 2-3 weeks (4) Personal history of malignant neoplasm of lung: Code(s): Z85.118 - Personal history of other malignant neoplasm of bronchus and lung Status: Acute Assessment and Plan: Outpatient managed (5) Paroxysmal atrial fibrillation: Code(s): I48.0 - Paroxysmal atrial fibrillation Status: Chronic Assessment and Plan: Continue Eliquis 5 mg p.o. b.i.d. (6) COPD (chronic obstructive pulmonary disease): Qualifiers: COPD type: unspecified COPD Qualified Code(s): J44.9 - Chronic obstructive pulmonary disease, unspecified Code(s): J44.9 - Chronic obstructive pulmonary disease, unspecified Status: Chronic Assessment and Plan: Continue DuoNeb (7) History of tobacco abuse: Code(s): Z87.891 - Personal history of nicotine dependence Status: Acute Assessment and Plan: Nicotine patch Subjective Date/time seen: 12/07/24 09:43 Interval history: Pending blood culture and urine culture. Patient is currently doing well. No acute events reported. Discontinued vancomycin and continuing cefepime Review of Systems Review of Systems: As reviewed above in HPI Exam Narrative: GENERAL: Ill-appearing, warm to the touch, awake and answering questions appropriately HEAD: [Normocephalic, atraumatic.] EYES: [PERRLA and EOMI.] ENT: Nares clear, no rhinorrhea or epistaxis. Mucous membranes dry. NECK: Supple. CHEST: [Clear to auscultation. No respiratory distress.] HEART: [Regular rate and rhythm]. No murmur heard. [Normal peripheral pulses.] ABDOMEN: [Soft, nondistended], no tenderness during palpation of the abdomen or flanks, [No rigidity or guarding] indwelling Gutierrez catheter with cloudy appearing urine EXTREMITIES: Normal range of motion. [No edema.] SKIN: Warm, dry, no rash. NEURO: [No focal deficits]. Alert and oriented [x3.] PSYCH: [Normal mood and affect.] Objective Data Vital Signs Vital Signs: Vital Signs - 24 hr 12/06/24 10:00 12/06/24 11:35 12/06/24 12:00 Temperature 98.2 F Pulse Rate 89 73 91 Respiratory Rate 20 Blood Pressure 155/55 H Pulse Oximetry 94 Oxygen Delivery 12/06/24 14:00 12/06/24 16:00 12/06/24 16:23 Temperature 98.5 F Pulse Rate 84 67 73 Respiratory Rate 20 Blood Pressure 165/68 H Pulse Oximetry 97 Oxygen Delivery 12/06/24 18:00 12/06/24 19:56 12/06/24 20:00 Temperature 98.2 F Pulse Rate 66 65 Respiratory Rate 16 Blood Pressure 144/60 H Pulse Oximetry 97 Oxygen Delivery Room Air 12/06/24 20:00 12/06/24 22:00 12/06/24 23:44 Temperature 97.7 F Pulse Rate 69 80 69 Respiratory Rate 16 Blood Pressure 137/62 Pulse Oximetry 98 Oxygen Delivery 12/06/24 23:45 12/06/24 23:58 12/07/24 00:00 Temperature Pulse Rate 72 Respiratory Rate Blood Pressure Pulse Oximetry 98 Oxygen Delivery Room Air Room Air 12/07/24 02:00 12/07/24 03:31 12/07/24 04:00 Temperature 98.2 F Pulse Rate 67 74 Respiratory Rate 16 Blood Pressure 146/67 H Pulse Oximetry 98 Oxygen Delivery Room Air 12/07/24 04:00 12/07/24 06:00 12/07/24 07:47 Temperature 98.4 F Pulse Rate 83 72 82 Respiratory Rate 20 Blood Pressure 118/83 Pulse Oximetry 97 Oxygen Delivery Intake/Output Intake/Output: Intake & Output 12/04/24 12/05/24 12/06/24 12/07/24 23:59 23:59 23:59 23:59 Intake Total 5680 785.4 Output Total 1999 1425 Balance 3680 -199.6 Meds/Results Medications: Active Medications Generic Name Dose Route Start Last Admin Trade Name Freq PRN Reason Stop Dose Admin Acetaminophen 1,000 mg 12/06/24 07:51 Acetaminophen 500 Mg Tablet PO Q6H PRN pain Albuterol 1 puff 12/06/24 07:51 Albuterol Sulfate (*Sp) Aerosol 1 Puff INHALATION Q4HRT PRN shortness of breath or wheezing Apixaban 5 mg 12/06/24 09:00 12/07/24 09:09 Apixaban 5 Mg Tablet PO 5 mg Q12HR PRAVIN Administration Atorvastatin Calcium 40 mg 12/06/24 09:00 12/07/24 09:09 Atorvastatin 40 Mg Tablet PO 40 mg QAM PRAVIN Administration Dextrose 12.5 gm 12/06/24 08:35 Dextrose 50% 25 Gm/50 Ml Syringe IV PUSH PRN PRN Hypoglycemia Protocol Diltiazem HCl 180 mg 12/06/24 09:00 12/07/24 09:10 Diltiazem Hcl Cd 180 Mg Cap.24hr PO 180 mg DAILY PRAVIN Administration Escitalopram Oxalate 10 mg 12/06/24 09:00 12/07/24 09:10 Escitalopram Oxalate 10 Mg Tablet PO 10 mg DAILY PRAVIN Administration Fluconazole 100 mg 12/07/24 09:00 12/07/24 09:09 Fluconazole 100 Mg Tablet PO 12/19/24 09:01 100 mg QAM PRAVIN Administration Fluticasone Propionate 1 spray 12/06/24 07:51 Fluticasone Propionate 0.05% Na Spr 16 Gm Btl (*Bkc) NASAL DAILY PRN allergies Fluticasone/Umeclidinium/Vilanterol 1 puff 12/06/24 08:00 12/07/24 07:49 Fluticasone/Umeclidin/Vilanter 100-62.5-25 Mcg Ellipta INHALATION Not Given DAILYRT PRAVIN Glucagon 1 mg 12/06/24 08:35 Glucagon For Inj 1 Mg Vial IM PRN PRN Hypoglycemia Protocol Glucose 15 gm 12/06/24 08:35 Glucose Oral Gel 15 Gm Of Glucse In 37.5 Gm Tube PO PRN PRN Hypoglycemia Protocol Lactated Ringer's 1,000 mls @ 125 mls/hr 12/06/24 04:00 12/07/24 05:21 Lr - Lactated Ringers Iv IV CONT 125 mls/hr .Q8H PRAVIN Administration Dextrose 1,000 mls @ 100 mls/hr 12/06/24 08:35 Dextrose 5% 1,000 Ml IVPB PRN PRN Hypoglycemia Protocol Cefepime HCl 1 gm/ Sodium 50 mls @ 100 mls/hr 12/06/24 09:00 12/07/24 09:09 Chloride IVPB 100 mls/hr Q12HR PRAVIN Administration Vancomycin HCl 1,500 mg in 500 mls @ 250 mls/hr 12/07/24 04:00 12/07/24 05:21 Vancomycin 1,500 Mg/Ns 500 Ml IVPB 250 mls/hr Q24H PRAVIN Administration Insulin Aspart 1 - 3 units 12/06/24 21:00 12/06/24 20:13 Insulin Aspart (*Bkc) 100 Units/Ml SUB-Q Not Given HS [facility] Protocol Insulin Aspart 3 - 6 units 12/06/24 08:00 12/07/24 08:08 Insulin Aspart (*Bkc) 100 Units/Ml SUB-Q Not Given TIDWM [facility] Protocol Insulin Glargine 10 units 12/06/24 21:00 12/06/24 20:26 Insulin Glargine (*Bkc) 100 Units/Ml SUB-Q 10 units HS PRAVIN Administration Ondansetron HCl 4 mg 12/06/24 03:58 12/06/24 09:08 Ondansetron Inj 4 Mg/2 Ml Vial IV PUSH 4 mg Q4H PRN Administration Nausea Tamsulosin HCl 0.4 mg 12/06/24 21:00 12/06/24 20:13 Tamsulosin Hcl 0.4 Mg Capsule PO 0.4 mg HS PRAVIN Administration Radiology Results: ITS Impressions Chest X-Ray 12/06/24 06:18 Impression: 1: Stable chest with changes of right partial pneumonectomy with chronic right effusion and underlying atelectasis/scarring. Chest/Abdomen/Pelvis CT 12/06/24 10:48 IMPRESSION: 1. No acute cardiopulmonary disease or acute intra-abdominal/pelvic process. 2. Mild emphysema and changes of prior right upper lobectomy with stable appearance of a chronic small likely right pleural effusion and pleural parenchymal scarring in the right lung including large region of round atelectasis in the right lower lobe. 2. No interval change in a few nonspecific small scattered patchy ground glass opacities in both lungs predominantly left upper lobe and lingula likely sequela of chronic infection. 3. 4.5 x 4.2 cm fusiform infrarenal abdominal aortic aneurysm. 4. Prostatomegaly. Labs Labs: Laboratory Results - last 24 hr 12/06/24 12/06/24 12/06/24 02:07 11:01 11:11 WBC RBC Hgb Hct MCV MCH MCHC RDW Plt Count MPV Sodium Potassium Chloride Carbon Dioxide Anion Gap BUN Creatinine Estim Creat Clear Calc Estimated GFR Glucose POC Capillary Glucose 265 H Hemoglobin A1c 9.9 H Lactic Acid 1.3 Calcium Total Bilirubin AST ALT Alkaline Phosphatase Total Protein Albumin Nasal MRSA (PCR) Random Vancomycin 12/06/24 12/06/24 12/06/24 15:42 16:01 20:12 WBC RBC Hgb Hct MCV MCH MCHC RDW Plt Count MPV Sodium Potassium Chloride Carbon Dioxide Anion Gap BUN Creatinine Estim Creat Clear Calc Estimated GFR Glucose POC Capillary Glucose 310 H 170 H Hemoglobin A1c Lactic Acid Calcium Total Bilirubin AST ALT Alkaline Phosphatase Total Protein Albumin Nasal MRSA (PCR) Not detected Random Vancomycin 12/07/24 12/07/24 12/07/24 02:51 02:52 07:34 WBC 8.5 RBC 3.98 L Hgb 12.7 L Hct 37.2 L MCV 93.5 MCH 31.9 MCHC 34.1 RDW 12.3 Plt Count 161 MPV 11.2 H Sodium 135 L Potassium 3.8 Chloride 103 Carbon Dioxide 30 Anion Gap 2 L BUN 19 Creatinine 1.59 H Estim Creat Clear Calc 42 Estimated GFR 43 L Glucose 140 H POC Capillary Glucose 175 H Hemoglobin A1c Lactic Acid Calcium 8.6 Total Bilirubin 0.6 AST 20 ALT 14 Alkaline Phosphatase 99 Total Protein 5.6 L Albumin 2.8 L Nasal MRSA (PCR) Random Vancomycin 7.4 L Hospitalist MIPS Advance Care Plan I have confirmed that the patient's Advanced Care Plan is present, code status is documented, or surrogate decision maker is listed in patient medical record.: Yes Medication Reconciliation I have utilized all available resources to obtain, update and review the patients current medications (includes all prescriptions, OTC, herbals, cannabis, and nutritional supplements).: Yes
[2024-12-07] MEDS: INSULIN ASPART (*BKC) 100 UNITS/ML SUB-Q ×3 (12:30→21:32)
--- NOTE | 2024-12-07 17:55 | PC.NURSE ---
Pt transferred to room 322 at 1750. Report given to ILDA Ambrose.
[2024-12-07] MEDS: TAMSULOSIN HCL 0.4 MG CAPSULE PO (21:32)
[2024-12-07] MEDS: INSULIN GLARGINE (*BKC) 100 UNITS/ML 10 UNITS SUB-Q (21:33)
[2024-12-08] VITALS (10 sets, daily range): BP systolic 145–173; BP diastolic 87–91; PULSE 65–88; RESP 16–18; TEMP 36.2–36.3; O2SAT 95–96; BMI 28.4
[2024-12-08] MEDS: ACETAMINOPHEN 500 MG TABLET 1000 MG PO ×2 (04:03→21:46)
[2024-12-08 07:01] LABS: Hematocrit 40.5 % (42.0-52.0); Hemoglobin 13.3 g/dL (14.0-18.0); Mean Corpuscular HGB Conc 32.8 g/dl (32-36); Mean Corpuscular Hemoglobin 31.3 pg (26-34); Mean Corpuscular Volume 95.3 fl (80-100); Platelet Count Result 173 k/mm3 (150-375); Red Blood Count 4.25 M/mm3 (4.6-6.20); White Blood Count 5.8 K/mm3 (4.5-10.0)
[2024-12-08 07:36] LABS: Alanine Aminotransferase 16 U/L (6-50); Albumin Level 3.0 g/dL (3.5-5.1); Alkaline Phosphatase 103 U/L (38-126); Anion Gap 6 mmol/L (4-12); Aspartate Amino Transferase 21 U/L (17-59); Bilirubin,Total 0.6 mg/dL (0.2-1.3); Blood Urea Nitrogen 16 mg/dL (9-20); Calcium 8.6 mg/dL (8.4-10.2); Carbon Dioxide 27 mmol/L (22-30); Chloride 102 mmol/L (98-107); Estimated CRCL calculation 38 ml/min; Estimated Glomerular Filt Rate 44; Glucose 218 mg/dL (65-110); Potassium 3.7 mmol/L (3.4-5.0); Sodium 135 mmol/L (137-145); Total Protein 5.7 g/dL (6.3-8.2)
[2024-12-08] MEDS: ESCITALOPRAM OXALATE 10 MG TABLET PO (09:17)
[2024-12-08] MEDS: ATORVASTATIN 40 MG TABLET PO (09:17)
[2024-12-08] MEDS: CEFEPIME 1 GM in SODIUM CHLORIDE 0.9% IV 50 ML 100 ML IVPB (09:17)
[2024-12-08] MEDS: FLUCONAZOLE 100 MG TABLET PO (09:17)
[2024-12-08] MEDS: dilTIAZem HCL CD 180 MG CAP.24HR PO (09:17)
[2024-12-08] MEDS: APIXABAN 5 MG TABLET PO ×2 (09:17→21:42)
[2024-12-08] MEDS: INSULIN ASPART (*BKC) 100 UNITS/ML SUB-Q ×4 (09:19→21:43)
--- NOTE | 2024-12-08 13:28 | P.PNUR_ITS ---
Progress Note: A&P Assessment and Plan (1) Urinary retention: Code(s): R33.9 - Retention of urine, unspecified Status: Acute (2) Catheter-associated urinary tract infection: Code(s): T83.511A - Infection and inflammatory reaction due to indwelling urethral catheter, initial encounter; N39.0 - Urinary tract infection, site not specified Status: Acute Assessment and Plan: * WBC wnl. * urine culture resulted as gram negative bacilli. culture driven antibiotics per primary service. * Voiding trial started around 0900 this morning. no void yet. * if patient unable to void, becomes uncomfortable, or has elevated PVR then put ariza back in and he can follow up with Dr. Farmer in the office for further managment/voiding trial. Subjective Subjective Date/Time Seen: 12/08/24 13:28 Interval history: Pending blood culture and urine culture. Patient is currently doing well. VT started this morning around 9am. Review of Systems Review of Systems: All systems reviewed & are unremarkable except as noted in HPI and below Exam Const: General: no acute distress Resp: Effort & Inspection: normal respiratory effort GI: Inspection: non-distended Auscultation: normal bowel sounds Objective Data Vital Signs Vital Signs: Vital Signs - 24 hr 12/07/24 16:00 12/07/24 16:00 12/07/24 18:36 Temperature 98.5 F 97.2 F L Pulse Rate 62 63 73 Respiratory Rate 20 18 Blood Pressure 136/68 145/87 H Pulse Oximetry 97 95 Oxygen Delivery 12/07/24 21:36 12/08/24 00:00 12/08/24 04:00 Temperature 97.8 F Pulse Rate 66 68 72 Respiratory Rate 16 Blood Pressure 163/62 H Pulse Oximetry 97 Oxygen Delivery 12/08/24 05:00 12/08/24 08:35 Temperature Pulse Rate 70 Respiratory Rate Blood Pressure Pulse Oximetry 96 Oxygen Delivery Room Air Intake/Output Intake/Output: Intake & Output 12/05/24 12/06/24 12/07/24 12/08/24 23:59 23:59 23:59 23:59 Intake Total 5680 3546.2 740 Output Total 1999 1155 3200 Balance 3680 671.2 -2460 Meds/Results Medications: Active Medications Generic Name Dose Route Start Last Admin Trade Name Freq PRN Reason Stop Dose Admin Acetaminophen 1,000 mg 12/06/24 07:51 12/08/24 04:03 Acetaminophen 500 Mg Tablet PO 1,000 mg Q6H PRN Administration pain Albuterol 1 puff 12/06/24 07:51 Albuterol Sulfate (*Sp) Aerosol 1 Puff INHALATION Q4HRT PRN shortness of breath or wheezing Apixaban 5 mg 12/06/24 09:00 12/08/24 09:17 Apixaban 5 Mg Tablet PO 5 mg Q12HR PRAVIN Administration Atorvastatin Calcium 40 mg 12/06/24 09:00 12/08/24 09:17 Atorvastatin 40 Mg Tablet PO 40 mg QAM PRAVIN Administration Dextrose 12.5 gm 12/06/24 08:35 Dextrose 50% 25 Gm/50 Ml Syringe IV PUSH PRN PRN Hypoglycemia Protocol Diltiazem HCl 180 mg 12/06/24 09:00 12/08/24 09:17 Diltiazem Hcl Cd 180 Mg Cap.24hr PO 180 mg DAILY PRAVIN Administration Escitalopram Oxalate 10 mg 12/06/24 09:00 12/08/24 09:17 Escitalopram Oxalate 10 Mg Tablet PO 10 mg DAILY PRAVIN Administration Fluconazole 100 mg 12/07/24 09:00 12/08/24 09:17 Fluconazole 100 Mg Tablet PO 12/19/24 09:01 100 mg QAM PRAVIN Administration Fluticasone Propionate 1 spray 12/06/24 07:51 Fluticasone Propionate 0.05% Na Spr 16 Gm Btl (*Bkc) NASAL DAILY PRN allergies Fluticasone/Umeclidinium/Vilanterol 1 puff 12/06/24 08:00 12/08/24 08:43 Fluticasone/Umeclidin/Vilanter 100-62.5-25 Mcg Ellipta INHALATION Not Given DAILYRT PRAVIN Glucagon 1 mg 12/06/24 08:35 Glucagon For Inj 1 Mg Vial IM PRN PRN Hypoglycemia Protocol Glucose 15 gm 12/06/24 08:35 Glucose Oral Gel 15 Gm Of Glucse In 37.5 Gm Tube PO PRN PRN Hypoglycemia Protocol Lactated Ringer's 1,000 mls @ 125 mls/hr 12/06/24 04:00 12/07/24 21:44 Lr - Lactated Ringers Iv IV CONT 125 mls/hr .Q8H PRAVIN Administration Dextrose 1,000 mls @ 100 mls/hr 12/06/24 08:35 Dextrose 5% 1,000 Ml IVPB PRN PRN Hypoglycemia Protocol Insulin Aspart 1 - 3 units 12/06/24 21:00 12/07/24 21:32 Insulin Aspart (*Bkc) 100 Units/Ml SUB-Q 1 units HS PRAVIN Administration Protocol Insulin Aspart 3 - 6 units 12/06/24 08:00 12/08/24 12:04 Insulin Aspart (*Bkc) 100 Units/Ml SUB-Q 3 units TIDWM PRAVIN Administration Protocol Insulin Glargine 10 units 12/06/24 21:00 12/07/24 21:33 Insulin Glargine (*Bkc) 100 Units/Ml SUB-Q 10 units HS PRAVIN Administration Ondansetron HCl 4 mg 12/06/24 03:58 12/06/24 09:08 Ondansetron Inj 4 Mg/2 Ml Vial IV PUSH 4 mg Q4H PRN Administration Nausea Tamsulosin HCl 0.4 mg 12/06/24 21:00 12/07/24 21:32 Tamsulosin Hcl 0.4 Mg Capsule PO 0.4 mg HS PRAVIN Administration Radiology Results: ITS Impressions Chest X-Ray 12/06/24 06:18 Impression: 1: Stable chest with changes of right partial pneumonectomy with chronic right effusion and underlying atelectasis/scarring. Chest/Abdomen/Pelvis CT 12/06/24 10:48 IMPRESSION: 1. No acute cardiopulmonary disease or acute intra-abdominal/pelvic process. 2. Mild emphysema and changes of prior right upper lobectomy with stable appearance of a chronic small likely right pleural effusion and pleural parenchymal scarring in the right lung including large region of round atelectasis in the right lower lobe. 2. No interval change in a few nonspecific small scattered patchy ground glass opacities in both lungs predominantly left upper lobe and lingula likely sequela of chronic infection. 3. 4.5 x 4.2 cm fusiform infrarenal abdominal aortic aneurysm. 4. Prostatomegaly. Labs Labs: Laboratory Results - last 24 hr 12/07/24 12/07/24 12/08/24 15:39 19:12 06:24 WBC 5.8 RBC 4.25 L Hgb 13.3 L Hct 40.5 L MCV 95.3 MCH 31.3 MCHC 32.8 RDW 12.3 Plt Count 173 MPV 11.4 H Sodium 135 L Potassium 3.7 Chloride 102 Carbon Dioxide 27 Anion Gap 6 BUN 16 Creatinine 1.53 H Estim Creat Clear Calc 38 Estimated GFR 44 L Glucose 218 H POC Capillary Glucose 212 H 243 H Calcium 8.6 Total Bilirubin 0.6 AST 21 ALT 16 Alkaline Phosphatase 103 Total Protein 5.7 L Albumin 3.0 L 12/08/24 12/08/24 07:59 11:38 WBC RBC Hgb Hct MCV MCH MCHC RDW Plt Count MPV Sodium Potassium Chloride Carbon Dioxide Anion Gap BUN Creatinine Estim Creat Clear Calc Estimated GFR Glucose POC Capillary Glucose 204 H 231 H Calcium Total Bilirubin AST ALT Alkaline Phosphatase Total Protein Albumin
--- NOTE | 2024-12-08 15:52 | P.PNIM_ITS ---
Progress Note: A&P Assessment and Plan (1) Severe hyperglycemia due to diabetes mellitus: Code(s): E11.65 - Type 2 diabetes mellitus with hyperglycemia Status: Acute Assessment and Plan: Hemoglobulin A1c 9.4 Moderate SSI initiated Adjust dose as needed Hypoglycemia protocol BG 311 this morning Will initiate Lantus 10U HS LR at 125 mL/hr K,PO4 and Mg replacement as needed Serial BMP q 4 hrs Hold Home med (2) UTI (urinary tract infection): Code(s): N39.0 - Urinary tract infection, site not specified Status: Acute Assessment and Plan: Reviewed UA Urine culture pending Started on cefepime and discontinue vancomycin Deescalate as per culture (3) Urinary retention: Code(s): R33.9 - Retention of urine, unspecified Status: Acute Assessment and Plan: Consulted Urology Continue tamsulosin Recent TURBT for 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 My office will rearrange follow-up office visit for surveillance cystoscopy sometime in the next 2-3 weeks (4) Personal history of malignant neoplasm of lung: Code(s): Z85.118 - Personal history of other malignant neoplasm of bronchus and lung Status: Acute Assessment and Plan: Outpatient managed (5) Paroxysmal atrial fibrillation: Code(s): I48.0 - Paroxysmal atrial fibrillation Status: Chronic Assessment and Plan: Continue Eliquis 5 mg p.o. b.i.d. (6) COPD (chronic obstructive pulmonary disease): Qualifiers: COPD type: unspecified COPD Qualified Code(s): J44.9 - Chronic obstructive pulmonary disease, unspecified Code(s): J44.9 - Chronic obstructive pulmonary disease, unspecified Status: Chronic Assessment and Plan: Continue DuoNeb (7) History of tobacco abuse: Code(s): Z87.891 - Personal history of nicotine dependence Status: Acute Assessment and Plan: Nicotine patch Subjective Date/time seen: 12/08/24 15:52 Interval history: Pending urine culture sensitivity. Patient wants to go home. Possible discharge tomorrow. Monitor voiding Review of Systems Review of Systems: As reviewed above in HPI Exam Narrative: GENERAL: Ill-appearing, warm to the touch, awake and answering questions appropriately HEAD: [Normocephalic, atraumatic.] EYES: [PERRLA and EOMI.] ENT: Nares clear, no rhinorrhea or epistaxis. Mucous membranes dry. NECK: Supple. CHEST: [Clear to auscultation. No respiratory distress.] HEART: [Regular rate and rhythm]. No murmur heard. [Normal peripheral pulses.] ABDOMEN: [Soft, nondistended], no tenderness during palpation of the abdomen or flanks, [No rigidity or guarding] indwelling Gutierrez catheter with cloudy appearing urine EXTREMITIES: Normal range of motion. [No edema.] SKIN: Warm, dry, no rash. NEURO: [No focal deficits]. Alert and oriented [x3.] PSYCH: [Normal mood and affect.] Objective Data Vital Signs Vital Signs: Vital Signs - 24 hr 12/07/24 16:00 12/07/24 16:00 12/07/24 18:36 Temperature 98.5 F 97.2 F L Pulse Rate 62 63 73 Respiratory Rate 20 18 Blood Pressure 136/68 145/87 H Pulse Oximetry 97 95 Oxygen Delivery 12/07/24 21:36 12/08/24 00:00 12/08/24 04:00 Temperature 97.8 F Pulse Rate 66 68 72 Respiratory Rate 16 Blood Pressure 163/62 H Pulse Oximetry 97 Oxygen Delivery 12/08/24 05:00 12/08/24 08:00 12/08/24 08:35 Temperature 97.2 F L Pulse Rate 70 71 Respiratory Rate 18 Blood Pressure 145/87 H Pulse Oximetry 96 96 Oxygen Delivery Room Air Intake/Output Intake/Output: Intake & Output 12/05/24 12/06/24 12/07/24 12/08/24 23:59 23:59 23:59 23:59 Intake Total 5680 3546.2 730 Output Total 1999 2735 3200 Balance 3687 671.2 -6210 Meds/Results Medications: Active Medications Generic Name Dose Route Start Last Admin Trade Name Freq PRN Reason Stop Dose Admin Acetaminophen 1,000 mg 12/06/24 07:51 12/08/24 04:03 Acetaminophen 500 Mg Tablet PO 1,000 mg Q6H PRN Administration pain Albuterol 1 puff 12/06/24 07:51 Albuterol Sulfate (*Sp) Aerosol 1 Puff INHALATION Q4HRT PRN shortness of breath or wheezing Apixaban 5 mg 12/06/24 09:00 12/08/24 09:17 Apixaban 5 Mg Tablet PO 5 mg Q12HR PRAVIN Administration Atorvastatin Calcium 40 mg 12/06/24 09:00 12/08/24 09:17 Atorvastatin 40 Mg Tablet PO 40 mg QAM PRAVIN Administration Dextrose 12.5 gm 12/06/24 08:35 Dextrose 50% 25 Gm/50 Ml Syringe IV PUSH PRN PRN Hypoglycemia Protocol Diltiazem HCl 180 mg 12/06/24 09:00 12/08/24 09:17 Diltiazem Hcl Cd 180 Mg Cap.24hr PO 180 mg DAILY PRAVIN Administration Escitalopram Oxalate 10 mg 12/06/24 09:00 12/08/24 09:17 Escitalopram Oxalate 10 Mg Tablet PO 10 mg DAILY PRAVIN Administration Fluconazole 100 mg 12/07/24 09:00 12/08/24 09:17 Fluconazole 100 Mg Tablet PO 12/19/24 09:01 100 mg QAM PRAVIN Administration Fluticasone Propionate 1 spray 12/06/24 07:51 Fluticasone Propionate 0.05% Na Spr 16 Gm Btl (*Bkc) NASAL DAILY PRN allergies Fluticasone/Umeclidinium/Vilanterol 1 puff 12/06/24 08:00 12/08/24 08:43 Fluticasone/Umeclidin/Vilanter 100-62.5-25 Mcg Ellipta INHALATION Not Given DAILYRT PRAVIN Glucagon 1 mg 12/06/24 08:35 Glucagon For Inj 1 Mg Vial IM PRN PRN Hypoglycemia Protocol Glucose 15 gm 12/06/24 08:35 Glucose Oral Gel 15 Gm Of Glucse In 37.5 Gm Tube PO PRN PRN Hypoglycemia Protocol Lactated Ringer's 1,000 mls @ 125 mls/hr 12/06/24 04:00 12/07/24 21:44 Lr - Lactated Ringers Iv IV CONT 125 mls/hr .Q8H PRAVIN Administration Dextrose 1,000 mls @ 100 mls/hr 12/06/24 08:35 Dextrose 5% 1,000 Ml IVPB PRN PRN Hypoglycemia Protocol Insulin Aspart 1 - 3 units 12/06/24 21:00 12/07/24 21:32 Insulin Aspart (*Bkc) 100 Units/Ml SUB-Q 1 units HS PRAVIN Administration Protocol Insulin Aspart 3 - 6 units 12/06/24 08:00 12/08/24 12:04 Insulin Aspart (*Bkc) 100 Units/Ml SUB-Q 3 units TIDWM PRAVIN Administration Protocol Insulin Glargine 10 units 12/06/24 21:00 12/07/24 21:33 Insulin Glargine (*Bkc) 100 Units/Ml SUB-Q 10 units HS PRAVIN Administration Ondansetron HCl 4 mg 12/06/24 03:58 12/06/24 09:08 Ondansetron Inj 4 Mg/2 Ml Vial IV PUSH 4 mg Q4H PRN Administration Nausea Tamsulosin HCl 0.4 mg 12/06/24 21:00 12/07/24 21:32 Tamsulosin Hcl 0.4 Mg Capsule PO 0.4 mg HS PRAVIN Administration Radiology Results: ITS Impressions Chest X-Ray 12/06/24 06:18 Impression: 1: Stable chest with changes of right partial pneumonectomy with chronic right effusion and underlying atelectasis/scarring. Chest/Abdomen/Pelvis CT 12/06/24 10:48 IMPRESSION: 1. No acute cardiopulmonary disease or acute intra-abdominal/pelvic process. 2. Mild emphysema and changes of prior right upper lobectomy with stable appearance of a chronic small likely right pleural effusion and pleural parenchymal scarring in the right lung including large region of round atelectasis in the right lower lobe. 2. No interval change in a few nonspecific small scattered patchy ground glass opacities in both lungs predominantly left upper lobe and lingula likely sequela of chronic infection. 3. 4.5 x 4.2 cm fusiform infrarenal abdominal aortic aneurysm. 4. Prostatomegaly. Labs Labs: Laboratory Results - last 24 hr 12/07/24 12/08/24 12/08/24 19:12 06:24 07:59 WBC 5.8 RBC 4.25 L Hgb 13.3 L Hct 40.5 L MCV 95.3 MCH 31.3 MCHC 32.8 RDW 12.3 Plt Count 173 MPV 11.4 H Sodium 135 L Potassium 3.7 Chloride 102 Carbon Dioxide 27 Anion Gap 6 BUN 16 Creatinine 1.53 H Estim Creat Clear Calc 38 Estimated GFR 44 L Glucose 218 H POC Capillary Glucose 243 H 204 H Calcium 8.6 Total Bilirubin 0.6 AST 21 ALT 16 Alkaline Phosphatase 103 Total Protein 5.7 L Albumin 3.0 L 12/08/24 11:38 WBC RBC Hgb Hct MCV MCH MCHC RDW Plt Count MPV Sodium Potassium Chloride Carbon Dioxide Anion Gap BUN Creatinine Estim Creat Clear Calc Estimated GFR Glucose POC Capillary Glucose 231 H Calcium Total Bilirubin AST ALT Alkaline Phosphatase Total Protein Albumin Hospitalist MIPS Advance Care Plan I have confirmed that the patient's Advanced Care Plan is present, code status is documented, or surrogate decision maker is listed in patient medical record.: Yes Medication Reconciliation I have utilized all available resources to obtain, update and review the p atients current medications (includes all prescriptions, OTC, herbals, cannabis, and nutritional supplements).: Yes
[2024-12-08] MEDS: TAMSULOSIN HCL 0.4 MG CAPSULE PO (21:42)
[2024-12-08] MEDS: INSULIN GLARGINE (*BKC) 100 UNITS/ML 10 UNITS SUB-Q (21:43)
[2024-12-09] VITALS (11 sets, daily range): BP systolic 156–161; BP diastolic 93–95; PULSE 69–97; RESP 14–24; TEMP 36.1–36.5; O2SAT 94–97
[2024-12-09 05:52] LABS: Hematocrit 41.4 % (42.0-52.0); Hemoglobin 13.8 g/dL (14.0-18.0); Mean Corpuscular HGB Conc 33.3 g/dl (32-36); Mean Corpuscular Hemoglobin 31.4 pg (26-34); Mean Corpuscular Volume 94.3 fl (80-100); Platelet Count Result 187 k/mm3 (150-375); Red Blood Count 4.39 M/mm3 (4.6-6.20); White Blood Count 5.5 K/mm3 (4.5-10.0)
[2024-12-09 06:14] LABS: Alanine Aminotransferase 18 U/L (6-50); Albumin Level 3.2 g/dL (3.5-5.1); Alkaline Phosphatase 106 U/L (38-126); Anion Gap 4 mmol/L (4-12); Aspartate Amino Transferase 18 U/L (17-59); Bilirubin,Total 0.5 mg/dL (0.2-1.3); Blood Urea Nitrogen 16 mg/dL (9-20); Calcium 8.6 mg/dL (8.4-10.2); Carbon Dioxide 28 mmol/L (22-30); Chloride 103 mmol/L (98-107); Estimated CRCL calculation 35 ml/min; Estimated Glomerular Filt Rate 40; Glucose 233 mg/dL (65-110); Potassium 3.7 mmol/L (3.4-5.0); Sodium 135 mmol/L (137-145); Total Protein 6.2 g/dL (6.3-8.2)
[2024-12-09] MEDS: FLUCONAZOLE 100 MG TABLET PO (09:20)
[2024-12-09] MEDS: ATORVASTATIN 40 MG TABLET PO (09:20)
[2024-12-09] MEDS: APIXABAN 5 MG TABLET PO ×2 (09:20→21:25)
[2024-12-09] MEDS: INSULIN ASPART (*BKC) 100 UNITS/ML SUB-Q ×4 (09:20→21:23)
[2024-12-09] MEDS: ESCITALOPRAM OXALATE 10 MG TABLET PO (09:20)
[2024-12-09] MEDS: dilTIAZem HCL CD 180 MG CAP.24HR PO (09:20)
--- NOTE | 2024-12-09 17:26 | PM.IMPN ---
Progress Note: A&P Assessment and Plan (1) Severe hyperglycemia due to diabetes mellitus: Code(s): E11.65 - Type 2 diabetes mellitus with hyperglycemia Status: Acute Assessment and Plan: Hemoglobulin A1c 9.4 Moderate SSI initiated Adjust dose as needed Hypoglycemia protocol BG 311 this morning Will initiate Lantus 10U HS LR at 125 mL/hr K,PO4 and Mg replacement as needed Serial BMP q 4 hrs Hold Home med (2) UTI (urinary tract infection): Code(s): N39.0 - Urinary tract infection, site not specified Status: Acute Assessment and Plan: Reviewed UA Urine culture pending Started on cefepime and discontinue vancomycin Pending urine culture (3) Urinary retention: Code(s): R33.9 - Retention of urine, unspecified Status: Acute Assessment and Plan: Consulted Urology Continue tamsulosin Recent TURBT for 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 My office will rearrange follow-up office visit for surveillance cystoscopy sometime in the next 2-3 weeks (4) Personal history of malignant neoplasm of lung: Code(s): Z85.118 - Personal history of other malignant neoplasm of bronchus and lung Status: Acute Assessment and Plan: Outpatient managed (5) Paroxysmal atrial fibrillation: Code(s): I48.0 - Paroxysmal atrial fibrillation Status: Chronic Assessment and Plan: Continue Eliquis 5 mg p.o. b.i.d. (6) COPD (chronic obstructive pulmonary disease): Qualifiers: COPD type: unspecified COPD Qualified Code(s): J44.9 - Chronic obstructive pulmonary disease, unspecified Code(s): J44.9 - Chronic obstructive pulmonary disease, unspecified Status: Chronic Assessment and Plan: Continue DuoNeb (7) History of tobacco abuse: Code(s): Z87.891 - Personal history of nicotine dependence Status: Acute Assessment and Plan: Nicotine patch Subjective Date/time seen: 12/09/24 17:26 Interval history: No acute overnight. UC is pending.Discussed with daughter and son in law who agrees with plan and prefers to discharge once UC results Review of Systems Review of Systems: As reviewed above in HPI Exam Narrative: GENERAL: Ill-appearing, warm to the touch, awake and answering questions appropriately HEAD: [Normocephalic, atraumatic.] EYES: [PERRLA and EOMI.] ENT: Nares clear, no rhinorrhea or epistaxis. Mucous membranes dry. NECK: Supple. CHEST: [Clear to auscultation. No respiratory distress.] HEART: [Regular rate and rhythm]. No murmur heard. [Normal peripheral pulses.] ABDOMEN: [Soft, nondistended], no tenderness during palpation of the abdomen or flanks, [No rigidity or guarding] indwelling Gutierrez catheter with cloudy appearing urine EXTREMITIES: Normal range of motion. [No edema.] SKIN: Warm, dry, no rash. NEURO: [No focal deficits]. Alert and oriented [x3.] PSYCH: [Normal mood and affect.] Objective Data Vital Signs Vital Signs: Vital Signs - 24 hr 12/08/24 17:57 12/08/24 20:50 12/08/24 22:00 Temperature 97.4 F L Pulse Rate 74 68 88 Respiratory Rate 16 Blood Pressure 173/91 H Pulse Oximetry 95 Oxygen Delivery 12/09/24 00:00 12/09/24 04:00 12/09/24 06:00 Temperature 97.1 F L Pulse Rate 71 75 73 Respiratory Rate 14 Blood Pressure 157/95 H Pulse Oximetry 97 Oxygen Delivery 12/09/24 12:54 12/09/24 14:00 Temperature 97.7 F Pulse Rate 74 Respiratory Rate 16 Blood Pressure 161/95 H Pulse Oximetry 97 Oxygen Delivery Room Air Intake/Output Intake/Output: Intake & Output 12/06/24 12/07/24 12/08/24 12/09/24 23:59 23:59 23:59 23:59 Intake Total 5680 3546.2 1970 658 Output Total 1999 3375 4100 1750 Balance 3680 671.2 -2130 -1092 Meds/Results Medications: Active Medications Generic Name Dose Route Start Last Admin Trade Name Freq PRN Reason Stop Dose Admin Acetaminophen 1,000 mg 12/06/24 07:51 12/08/24 21:46 Acetaminophen 500 Mg Tablet PO 1,000 mg Q6H PRN Administration pain Albuterol 1 puff 12/06/24 07:51 Albuterol Sulfate (*Sp) Aerosol 1 Puff INHALATION Q4HRT PRN shortness of breath or wheezing Apixaban 5 mg 12/06/24 09:00 12/09/24 09:20 Apixaban 5 Mg Tablet PO 5 mg Q12HR PRAVIN Administration Atorvastatin Calcium 40 mg 12/06/24 09:00 12/09/24 09:20 Atorvastatin 40 Mg Tablet PO 40 mg QAM PRAVIN Administration Dextrose 12.5 gm 12/06/24 08:35 Dextrose 50% 25 Gm/50 Ml Syringe IV PUSH PRN PRN Hypoglycemia Protocol Diltiazem HCl 180 mg 12/06/24 09:00 12/09/24 09:20 Diltiazem Hcl Cd 180 Mg Cap.24hr PO 180 mg DAILY PRAVIN Administration Escitalopram Oxalate 10 mg 12/06/24 09:00 12/09/24 09:20 Escitalopram Oxalate 10 Mg Tablet PO 10 mg DAILY PRAVIN Administration Fluconazole 100 mg 12/07/24 09:00 12/09/24 09:20 Fluconazole 100 Mg Tablet PO 12/19/24 09:01 100 mg QAM PRAVIN Administration Fluticasone Propionate 1 spray 12/06/24 07:51 Fluticasone Propionate 0.05% Na Spr 16 Gm Btl (*Bkc) NASAL DAILY PRN allergies Fluticasone/Umeclidinium/Vilanterol 1 puff 12/06/24 08:00 12/09/24 08:30 Fluticasone/Umeclidin/Vilanter 100-62.5-25 Mcg Ellipta INHALATION Not Given DAILYRT PRAVIN Glucagon 1 mg 12/06/24 08:35 Glucagon For Inj 1 Mg Vial IM PRN PRN Hypoglycemia Protocol Glucose 15 gm 12/06/24 08:35 Glucose Oral Gel 15 Gm Of Glucse In 37.5 Gm Tube PO PRN PRN Hypoglycemia Protocol Dextrose 1,000 mls @ 100 mls/hr 12/06/24 08:35 Dextrose 5% 1,000 Ml IVPB PRN PRN Hypoglycemia Protocol Insulin Aspart 1 - 3 units 12/06/24 21:00 12/08/24 21:43 Insulin Aspart (*Bkc) 100 Units/Ml SUB-Q 1 units HS PRAVIN Administration Protocol Insulin Aspart 3 - 6 units 12/06/24 08:00 12/09/24 17:09 Insulin Aspart (*Bkc) 100 Units/Ml SUB-Q 3 units TIDWM [facility] Administration Protocol Insulin Glargine 10 units 12/06/24 21:00 12/08/24 21:43 Insulin Glargine (*Bkc) 100 Units/Ml SUB-Q 10 units HS PRAVIN Administration Ondansetron HCl 4 mg 12/06/24 03:58 12/06/24 09:08 Ondansetron Inj 4 Mg/2 Ml Vial IV PUSH 4 mg Q4H PRN Administration Nausea Tamsulosin HCl 0.4 mg 12/06/24 21:00 12/08/24 21:42 Tamsulosin Hcl 0.4 Mg Capsule PO 0.4 mg HS PRAVIN Administration Radiology Results: ITS Impressions Chest X-Ray 12/06/24 06:18 Impression: 1: Stable chest with changes of right partial pneumonectomy with chronic right effusion and underlying atelectasis/scarring. Chest/Abdomen/Pelvis CT 12/06/24 10:48 IMPRESSION: 1. No acute cardiopulmonary disease or acute intra-abdominal/pelvic process. 2. Mild emphysema and changes of prior right upper lobectomy with stable appearance of a chronic small likely right pleural effusion and pleural parenchymal scarring in the right lung including large region of round atelectasis in the right lower lobe. 2. No interval change in a few nonspecific small scattered patchy ground glass opacities in both lungs predominantly left upper lobe and lingula likely sequela of chronic infection. 3. 4.5 x 4.2 cm fusiform infrarenal abdominal aortic aneurysm. 4. Prostatomegaly. Labs Labs: Laboratory Results - last 24 hr 12/08/24 12/09/24 12/09/24 19:28 05:24 05:25 WBC 5.5 RBC 4.39 L Hgb 13.8 L Hct 41.4 L MCV 94.3 MCH 31.4 MCHC 33.3 RDW 12.3 Plt Count 187 MPV 10.8 H Sodium 135 L Potassium 3.7 Chloride 103 Carbon Dioxide 28 Anion Gap 4 BUN 16 Creatinine 1.66 H Estim Creat Clear Calc 35 Estimated GFR 40 L Glucose 233 H POC Capillary Glucose 253 H Calcium 8.6 Total Bilirubin 0.5 AST 18 ALT 18 Alkaline Phosphatase 106 Total Protein 6.2 L Albumin 3.2 L 12/09/24 12/09/24 12/09/24 07:54 11:54 16:56 WBC RBC Hgb Hct MCV MCH MCHC RDW Plt Count MPV Sodium Potassium Chloride Carbon Dioxide Anion Gap BUN Creatinine Estim Creat Clear Calc Estimated GFR Glucose POC Capillary Glucose 211 H 272 H 249 H Calcium Total Bilirubin AST ALT Alkaline Phosphatase Total Protein Albumin Hospitalist MIPS Advance Care Plan I have confirmed that the patient's Advanced Care Plan is present, code status is documented, or surrogate decision maker is listed in patient medical record.: Yes Medication Reconciliation I have utilized all available resources to obtain, update and review the patients current medications (includes all prescriptions, OTC, herbals, cannabis, and nutritional supplements).: Yes
[2024-12-09] MEDS: TAMSULOSIN HCL 0.4 MG CAPSULE PO (21:25)
[2024-12-09] MEDS: INSULIN GLARGINE (*BKC) 100 UNITS/ML 10 UNITS SUB-Q (21:25)
[2024-12-10] VITALS (9 sets, daily range): BP systolic 120–146; BP diastolic 82–97; PULSE 70–97; RESP 16–20; TEMP 36.3–37.1; O2SAT 93–99
[2024-12-10 06:34] LABS: Hematocrit 41.0 % (42.0-52.0); Hemoglobin 13.9 g/dL (14.0-18.0); Mean Corpuscular HGB Conc 33.9 g/dl (32-36); Mean Corpuscular Hemoglobin 31.7 pg (26-34); Mean Corpuscular Volume 93.6 fl (80-100); Platelet Count Result 194 k/mm3 (150-375); Red Blood Count 4.38 M/mm3 (4.6-6.20); White Blood Count 6.1 K/mm3 (4.5-10.0)
[2024-12-10 06:55] LABS: Alanine Aminotransferase 19 U/L (6-50); Albumin Level 3.4 g/dL (3.5-5.1); Alkaline Phosphatase 128 U/L (38-126); Anion Gap 5 mmol/L (4-12); Aspartate Amino Transferase 20 U/L (17-59); Bilirubin,Total 0.6 mg/dL (0.2-1.3); Blood Urea Nitrogen 20 mg/dL (9-20); Calcium 8.8 mg/dL (8.4-10.2); Carbon Dioxide 28 mmol/L (22-30); Chloride 102 mmol/L (98-107); Estimated CRCL calculation 34 ml/min; Estimated Glomerular Filt Rate 39; Glucose 243 mg/dL (65-110); Potassium 3.5 mmol/L (3.4-5.0); Sodium 135 mmol/L (137-145); Total Protein 6.4 g/dL (6.3-8.2)
[2024-12-10] MEDS: INSULIN ASPART (*BKC) 100 UNITS/ML SUB-Q ×3 (07:43→20:58)
[2024-12-10] MEDS: APIXABAN 5 MG TABLET PO ×2 (09:41→20:52)
[2024-12-10] MEDS: ESCITALOPRAM OXALATE 10 MG TABLET PO (09:41)
[2024-12-10] MEDS: ATORVASTATIN 40 MG TABLET PO (09:41)
[2024-12-10] MEDS: FLUCONAZOLE 100 MG TABLET PO (09:41)
[2024-12-10] MEDS: dilTIAZem HCL CD 180 MG CAP.24HR PO (09:41)
--- NOTE | 2024-12-10 15:38 | P.PNIM_ITS ---
Progress Note: A&P Assessment and Plan (1) Severe hyperglycemia due to diabetes mellitus: Code(s): E11.65 - Type 2 diabetes mellitus with hyperglycemia Status: Acute Assessment and Plan: Hemoglobulin A1c 9.4 Moderate SSI initiated Adjust dose as needed Hypoglycemia protocol BG 311 this morning Will initiate Lantus 10U HS LR at 125 mL/hr K,PO4 and Mg replacement as needed Serial BMP q 4 hrs Hold Home med (2) UTI (urinary tract infection): Code(s): N39.0 - Urinary tract infection, site not specified Status: Acute Assessment and Plan: Reviewed UA Urine culture pending Started on cefepime and discontinue vancomycin Pending urine culture (3) Urinary retention: Code(s): R33.9 - Retention of urine, unspecified Status: Acute Assessment and Plan: Consulted Urology Continue tamsulosin Recent TURBT for 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 My office will rearrange follow-up office visit for surveillance cystoscopy sometime in the next 2-3 weeks (4) Personal history of malignant neoplasm of lung: Code(s): Z85.118 - Personal history of other malignant neoplasm of bronchus and lung Status: Acute Assessment and Plan: Outpatient managed (5) Paroxysmal atrial fibrillation: Code(s): I48.0 - Paroxysmal atrial fibrillation Status: Chronic Assessment and Plan: Continue Eliquis 5 mg p.o. b.i.d. (6) COPD (chronic obstructive pulmonary disease): Qualifiers: COPD type: unspecified COPD Qualified Code(s): J44.9 - Chronic obstructive pulmonary disease, unspecified Code(s): J44.9 - Chronic obstructive pulmonary disease, unspecified Status: Chronic Assessment and Plan: Continue DuoNeb (7) History of tobacco abuse: Code(s): Z87.891 - Personal history of nicotine dependence Status: Acute Assessment and Plan: Nicotine patch Subjective Date/time seen: 12/10/24 15:38 Interval history: No acute events overnight. Pending urine culture and sensitivity. Review of Systems Review of Systems: As reviewed above in HPI Exam Narrative: GENERAL: Ill-appearing, warm to the touch, awake and answering questions appropriately HEAD: [Normocephalic, atraumatic.] EYES: [PERRLA and EOMI.] ENT: Nares clear, no rhinorrhea or epistaxis. Mucous membranes dry. NECK: Supple. CHEST: [Clear to auscultation. No respiratory distress.] HEART: [Regular rate and rhythm]. No murmur heard. [Normal peripheral pulses.] ABDOMEN: [Soft, nondistended], no tenderness during palpation of the abdomen or flanks, [No rigidity or guarding] indwelling Gutierrez catheter with cloudy appearing urine EXTREMITIES: Normal range of motion. [No edema.] SKIN: Warm, dry, no rash. NEURO: [No focal deficits]. Alert and oriented [x3.] PSYCH: [Normal mood and affect.] Objective Data Vital Signs Vital Signs: Vital Signs - 24 hr 12/09/24 16:02 12/09/24 20:05 12/09/24 21:25 Temperature Pulse Rate 72 74 Respiratory Rate Blood Pressure Pulse Oximetry 94 Oxygen Delivery Room Air 12/09/24 22:00 12/09/24 22:30 12/10/24 00:03 Temperature 96.9 F L Pulse Rate 69 76 Respiratory Rate 24 H Blood Pressure 156/93 H Pulse Oximetry 94 94 Oxygen Delivery Room Air 12/10/24 04:05 12/10/24 06:00 12/10/24 09:45 Temperature 98.7 F Pulse Rate 80 93 97 Respiratory Rate 20 Blood Pressure 120/82 Pulse Oximetry 93 Oxygen Delivery 12/10/24 14:00 Temperature 97.3 F L Pulse Rate 72 Respiratory Rate 16 Blood Pressure 146/94 H Pulse Oximetry 99 Oxygen Delivery Intake/Output Intake/Output: Intake & Output 12/07/24 12/08/24 12/09/24 12/10/24 23:59 23:59 23:59 23:59 Intake Total 3546.2 1970 658 512 Output Total 2875 4100 1750 200 Balance 671.2 2137 -1092 312 Meds/Results Medications: Active Medications Generic Name Dose Route Start Last Admin Trade Name Freq PRN Reason Stop Dose Admin Acetaminophen 1,000 mg 12/06/24 07:51 12/08/24 21:46 Acetaminophen 500 Mg Tablet PO 1,000 mg Q6H PRN Administration pain Albuterol 1 puff 12/06/24 07:51 Albuterol Sulfate (*Sp) Aerosol 1 Puff INHALATION Q4HRT PRN shortness of breath or wheezing Apixaban 5 mg 12/06/24 09:00 12/10/24 09:41 Apixaban 5 Mg Tablet PO 5 mg Q12HR PRAVIN Administration Atorvastatin Calcium 40 mg 12/06/24 09:00 12/10/24 09:41 Atorvastatin 40 Mg Tablet PO 40 mg QAM PRAVIN Administration Dextrose 12.5 gm 12/06/24 08:35 Dextrose 50% 25 Gm/50 Ml Syringe IV PUSH PRN PRN Hypoglycemia Protocol Diltiazem HCl 180 mg 12/06/24 09:00 12/10/24 09:41 Diltiazem Hcl Cd 180 Mg Cap.24hr PO 180 mg DAILY PRAVIN Administration Escitalopram Oxalate 10 mg 12/06/24 09:00 12/10/24 09:41 Escitalopram Oxalate 10 Mg Tablet PO 10 mg DAILY PRAVIN Administration Fluconazole 100 mg 12/07/24 09:00 12/10/24 09:41 Fluconazole 100 Mg Tablet PO 12/19/24 09:01 100 mg QAM PRAVIN Administration Fluticasone Propionate 1 spray 12/06/24 07:51 Fluticasone Propionate 0.05% Na Spr 16 Gm Btl (*Bkc) NASAL DAILY PRN allergies Fluticasone/Umeclidinium/Vilanterol 1 puff 12/06/24 08:00 12/10/24 08:41 Fluticasone/Umeclidin/Vilanter 100-62.5-25 Mcg Ellipta INHALATION Not Given DAILYRT PRAVIN Glucagon 1 mg 12/06/24 08:35 Glucagon For Inj 1 Mg Vial IM PRN PRN Hypoglycemia Protocol Glucose 15 gm 12/06/24 08:35 Glucose Oral Gel 15 Gm Of Glucse In 37.5 Gm Tube PO PRN PRN Hypoglycemia Protocol Dextrose 1,000 mls @ 100 mls/hr 12/06/24 08:35 Dextrose 5% 1,000 Ml IVPB PRN PRN Hypoglycemia Protocol Insulin Aspart 1 - 3 units 12/06/24 21:00 12/09/24 21:23 Insulin Aspart (*Bkc) 100 Units/Ml SUB-Q 2 units HS PRAVIN Administration Protocol Insulin Aspart 3 - 6 units 12/06/24 08:00 12/10/24 12:17 Insulin Aspart (*Bkc) 100 Units/Ml SUB-Q 5 units TIDWM PRAVIN Administration Protocol Insulin Glargine 10 units 12/06/24 21:00 12/09/24 21:25 Insulin Glargine (*Bkc) 100 Units/Ml SUB-Q 10 units HS [facility] Administration Ondansetron HCl 4 mg 12/06/24 03:58 12/06/24 09:08 Ondansetron Inj 4 Mg/2 Ml Vial IV PUSH 4 mg Q4H PRN Administration Nausea Tamsulosin HCl 0.4 mg 12/06/24 21:00 12/09/24 21:25 Tamsulosin Hcl 0.4 Mg Capsule PO 0.4 mg HS PRAVIN Administration Radiology Results: ITS Impressions Chest X-Ray 12/06/24 06:18 Impression: 1: Stable chest with changes of right partial pneumonectomy with chronic right effusion and underlying atelectasis/scarring. Chest/Abdomen/Pelvis CT 12/06/24 10:48 IMPRESSION: 1. No acute cardiopulmonary disease or acute intra-abdominal/pelvic process. 2. Mild emphysema and changes of prior right upper lobectomy with stable appearance of a chronic small likely right pleural effusion and pleural parenchymal scarring in the right lung including large region of round atelectasis in the right lower lobe. 2. No interval change in a few nonspecific small scattered patchy ground glass opacities in both lungs predominantly left upper lobe and lingula likely sequela of chronic infection. 3. 4.5 x 4.2 cm fusiform infrarenal abdominal aortic aneurysm. 4. Prostatomegaly. Labs Labs: Laboratory Results - last 24 hr 12/09/24 12/09/24 12/10/24 16:56 21:21 06:24 WBC 6.1 RBC 4.38 L Hgb 13.9 L Hct 41.0 L MCV 93.6 MCH 31.7 MCHC 33.9 RDW 12.3 Plt Count 194 MPV 10.9 H Sodium 135 L Potassium 3.5 Chloride 102 Carbon Dioxide 28 Anion Gap 5 BUN 20 Creatinine 1.71 H Estim Creat Clear Calc 34 Estimated GFR 39 L Glucose 243 H POC Capillary Glucose 249 H 348 H Calcium 8.8 Total Bilirubin 0.6 AST 20 ALT 19 Alkaline Phosphatase 128 H Total Protein 6.4 Albumin 3.4 L 12/10/24 12/10/24 07:37 11:58 WBC RBC Hgb Hct MCV MCH MCHC RDW Plt Count MPV Sodium Potassium Chloride Carbon Dioxide Anion Gap BUN Creatinine Estim Creat Clear Calc Estimated GFR Glucose POC Capillary Glucose 225 H 343 H Calcium Total Bilirubin AST ALT Alkaline Phosphatase Total Protein Albumin Hospitalist MIPS Advance Care Plan I have confirmed that the patient's Advanced Care Plan is present, code status is documented, or surrogate decision maker is listed in patient medical record.: Yes Medication Reconciliation I have utilized all available resources to obtain, update and review the patients current medications (includes all prescriptions, OTC, herbals, cannabis, and nutritional supplements).: Yes
[2024-12-10] MEDS: TAMSULOSIN HCL 0.4 MG CAPSULE PO (20:52)
[2024-12-10] MEDS: INSULIN GLARGINE (*BKC) 100 UNITS/ML 10 UNITS SUB-Q (20:55)
[2024-12-11 00:02] VITALS: PULSE 64
[2024-12-11 04:04] VITALS: PULSE 75
[2024-12-11 05:41] LABS: Hematocrit 43.3 % (42.0-52.0); Hemoglobin 14.7 g/dL (14.0-18.0); Mean Corpuscular HGB Conc 33.9 g/dl (32-36); Mean Corpuscular Hemoglobin 32.0 pg (26-34); Mean Corpuscular Volume 94.3 fl (80-100); Platelet Count Result 215 k/mm3 (150-375); Red Blood Count 4.59 M/mm3 (4.6-6.20); White Blood Count 5.9 K/mm3 (4.5-10.0)
[2024-12-11 06:00] VITALS: BP 163/96; PULSE 70; RESP 18; TEMP 36.2; O2SAT 99
[2024-12-11 06:06] LABS: Alanine Aminotransferase 27 U/L (6-50); Albumin Level 3.6 g/dL (3.5-5.1); Alkaline Phosphatase 128 U/L (38-126); Anion Gap 6 mmol/L (4-12); Aspartate Amino Transferase 31 U/L (17-59); Bilirubin,Total 0.6 mg/dL (0.2-1.3); Blood Urea Nitrogen 23 mg/dL (9-20); Calcium 9.2 mg/dL (8.4-10.2); Carbon Dioxide 30 mmol/L (22-30); Chloride 101 mmol/L (98-107); Estimated CRCL calculation 37 ml/min; Estimated Glomerular Filt Rate 43; Glucose 234 mg/dL (65-110); Potassium 4.2 mmol/L (3.4-5.0); Sodium 137 mmol/L (137-145); Total Protein 6.8 g/dL (6.3-8.2)
--- NOTE | 2024-12-11 07:53 | P.DS_ITS ---
DS: Admitting Diagnosis Discharge Date 12/11/2024 Admitting Diagnosis Weakness, fever, tachycardia DS: Discharge Diagnosis Discharge Diagnosis (1) Severe hyperglycemia due to diabetes mellitus: Code(s): E11.65 - Type 2 diabetes mellitus with hyperglycemia Status: Acute Assessment and Plan: Hemoglobulin A1c 9.4 Moderate SSI initiated Adjust dose as needed Hypoglycemia protocol BG 311 this morning Will initiate Lantus 10U HS LR at 125 mL/hr K,PO4 and Mg replacement as needed Serial BMP q 4 hrs Hold Home med (2) UTI (urinary tract infection): Code(s): N39.0 - Urinary tract infection, site not specified Status: Acute Assessment and Plan: Reviewed UA Urine culture pending Started on cefepime and discontinue vancomycin Pending urine culture (3) Urinary retention: Code(s): R33.9 - Retention of urine, unspecified Status: Acute Assessment and Plan: Consulted Urology Continue tamsulosin Recent TURBT for 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 My office will rearrange follow-up office visit for surveillance cystoscopy sometime in the next 2-3 weeks (4) Personal history of malignant neoplasm of lung: Code(s): Z85.118 - Personal history of other malignant neoplasm of bronchus and lung Status: Acute Assessment and Plan: Outpatient managed (5) Paroxysmal atrial fibrillation: Code(s): I48.0 - Paroxysmal atrial fibrillation Status: Chronic Assessment and Plan: Continue Eliquis 5 mg p.o. b.i.d. (6) COPD (chronic obstructive pulmonary disease): Qualifiers: COPD type: unspecified COPD Qualified Code(s): J44.9 - Chronic obstructive pulmonary disease, unspecified Code(s): J44.9 - Chronic obstructive pulmonary disease, unspecified Status: Chronic Assessment and Plan: Continue DuoNeb (7) History of tobacco abuse: Code(s): Z87.891 - Personal history of nicotine dependence Status: Acute Assessment and Plan: Nicotine patch Plan DS: Summary Hospital Course Hospital Course: 74-year-old male with a past medical history including lung cancer status post resection, uncontrolled diabetes, hypertension, chronic kidney disease present to the ER due to weakness and generalized malaise. Patient was recently admitted in the hospital on 11/24/2024 due to hyperglycemia requiring insulin infusion. As per patient he reports he was not discharged on insulin and and sent home with indwelling Gutierrez catheter secondary to urinary retention. Pertinent ED labs: WBC 18,HgB 15.3,HCT 44.6,,PLT 197,Na 133,K4.1,AG 10, Cr 2.10,GFR 31,,Glucose 461,AST 18,ALT 21, ALP 153 UA: Blood 2+,Glucose 3+, Nitrate neg,LE 2+,RBC 51-100, WBC>100,Yeast Patient is admitted in the setting of Hyperglycemia and UTI. Patient was supposed to go to urology office today for removal of Gutierrez catheter. Urology consulted on further recommend. Patient is started on cefepime and vancomycin broad-spectrum. Patient started on moderate sliding scale for hyperglycemia. Patient HbA1c 9.4. Patient weakness and general malaise possibly contributed by hyperglycemia and infection. Ordered CT chest/abdomen/pelvis. Patient labs has been need repeated including lactic acid and beta hydroxybutyrate. His home medication SGLT 2 has been held since cause euglycemic DKA. Urology evaluated * Recent TURBT for non muscle invasive urothelial carcinoma the bladder * Recent urinary retention presumably due to BPH * Will plan voiding trial in 2 days, once his urinary tract infection has been addressed with some antibiotics. * My office will rearrange follow-up office visit for surveillance cystoscopy sometime in the next 2-3 weeks I called my son-in-law and daughter to report that the change in the lab company is causing a delay in the final culture sensitivity report. One of our office employees will follow up on the culture results, and both son-in-law and daughter agree with the plan. Also, his daughter reports that at home, the patient doesn't want to take the initiative to walk, and next time, if he is hospitalized, they want him to be in a skilled nursing. On the day of discharge, the patient was seen and examined. Vital signs were stable. Physical exam were stable and labs were reviewed at length. Discharge instructions, medications, and follow-up appointments were discussed with the patient at length and all day questions were answered. ER warnings were given. Later in the afternoon patient urine culture sensitivity is back. Due to abdominal aortic aneurysm patient is not started on levofloxacin and also patient is resistant to augmentin. Patient will be started on Cefpodoxime 200mg PO BID x 7 days Time Spent with Patient Time attestation: Total time spent providing and/or coordinating discharge services: Exam Narrative: GENERAL: Ill-appearing, warm to the touch, awake and answering questions appropriately HEAD: [Normocephalic, atraumatic.] EYES: [PERRLA and EOMI.] ENT: Nares clear, no rhinorrhea or epistaxis. Mucous membranes dry. NECK: Supple. CHEST: [Clear to auscultation. No respiratory distress.] HEART: [Regular rate and rhythm]. No murmur heard. [Normal peripheral pulses.] ABDOMEN: [Soft, nondistended], no tenderness during palpation of the abdomen or flanks, [No rigidity or guarding] indwelling Gutierrez catheter with cloudy appearing urine EXTREMITIES: Normal range of motion. [No edema.] SKIN: Warm, dry, no rash. NEURO: [No focal deficits]. Alert and oriented [x3.] PSYCH: [Normal mood and affect.] DS: Data Data Completed and Pending Labs on day of discharge: Labs from last 24 hours 12/11/24 12/11/24 12/10/24 07:40 05:24 20:53 WBC 5.9 RBC 4.59 L Hgb 14.7 Hct 43.3 MCV 94.3 MCH 32.0 MCHC 33.9 RDW 12.4 Plt Count 215 MPV 11.0 H Sodium 137 Potassium 4.2 Chloride 101 Carbon Dioxide 30 Anion Gap 6 BUN 23 H Creatinine 1.58 H Estim Creat Clear Calc 37 Estimated GFR 43 L Glucose 234 H POC Capillary Glucose 305 H 294 H Calcium 9.2 Total Bilirubin 0.6 AST 31 ALT 27 Alkaline Phosphatase 128 H Total Protein 6.8 Albumin 3.6 12/10/24 12/10/24 16:51 11:58 WBC RBC Hgb Hct MCV MCH MCHC RDW Plt Count MPV Sodium Potassium Chloride Carbon Dioxide Anion Gap BUN Creatinine Estim Creat Clear Calc Estimated GFR Glucose POC Capillary Glucose 169 H 343 H Calcium Total Bilirubin AST ALT Alkaline Phosphatase Total Protein Albumin Preliminary micro results at discharge 12/06/24 03:20 Blood Culture - Preliminary Blood 12/06/24 03:20 Blood Culture - Preliminary Blood 12/06/24 02:07 - Preliminary Unspecified Urine Gram negative bacilli isolated Discharge Plan Discharge Attending physician on discharge: Jose Wagner Consulting providers: Casey Farmer Discharging Clinician: Jose Wagner Anticipated Discharge Date/Time: 12/11/24 09:30 Patient Disposition: Home with Home Health Service Activity: as tolerated Diet: heart healthy Discharge Instructions: Care Coordination: Patient to have [facility] resume services at discharge. Their phone number is [phone] if you have any questions; they will call you to coordinate. Patient started on Lantus 10 units in the night. Patient needs to closely follow-up with the primary care physician in regards to diabetic management. Patient needs to closely follow up with Urology. Patient needs to take antibiotic for 7 days In the event of fever or any other concerning symptom please visit near by ED Patient Instructions: Antibiotic Form, Apixaban (By mouth) Patient Language: Frisian Stand Alone Forms: General Discharge Information Follow-up/Referrals: Leonardo Gomez MD [Primary Care Provider] - (Patient HbA1c 9.9. Started on Lantus 10 units in the night. Patient needs diabetic medication reconciliation) Casey Farmer MD [Physician] - Discharge Medications: New (DME) blood-glucose meter [OneTouch Verio Flex meter] Misc Qty: 1 0RF Rx Instructions: May substitute to in-stock meter and/or covered by insurance. Use As Directed (DME) OneTouch Verio test strips Strip Qty: 1 0RF Rx Instructions: May substitute to in-stock and/or covered by insurance strips. Use As Directed (DME) pen needle, diabetic 32 gauge x 5/32 Needle Qty: 1 0RF Rx Instructions: As Directed (DME) lancets [OneTouch Delica Plus Lancet] 30 gauge misc Qty: 1 0RF Rx Instructions: May substitute to in-stock and/or covered by insurance lancets. Use As Directed (DME) insulin syringe,safety needle 0.5 mL 31 gauge x 5/16 Syringe Qty: 1 0RF Rx Instructions: As Directed insulin glargine [Lantus U-100 Insulin] 100 unit/mL Solution 10 unit subcut HS Qty: 10 0RF fluconazole 100 mg tablet 100 mg PO DAILY Qty: 10 0RF Rx Instructions: Patient needs to complete the course on 12/19 cefpodoxime 200 mg tablet 200 mg PO BID Qty: 14 0RF Rx Instructions: must administer with a meal/food Continued escitalopram oxalate 10 mg tablet 10 mg PO DAILY diltiazem HCl [Cartia XT] 180 mg capsule,extended release 24hr 180 mg PO DAILY Qty: 90 1RF Trelegy Ellipta 100-62.5-25 mcg blister with device 1 inh inhalation Q24H 30 Days Qty: 60 5RF Rx Instructions: Rinse and spit after using. pioglitazone 30 mg tablet 30 mg PO DAILY dapagliflozin propanediol [Farxiga] 10 mg tablet 10 mg PO DAILY fluticasone propionate [24 Hour Allergy Relief] 50 mcg/actuation spray,suspension 1 spray intranasal DAILY PRN (Reason: allergies) Rx Instructions: administer into each nostril acetaminophen 500 mg capsule 1,000 mg PO Q6H PRN (Reason: pain) tamsulosin 0.4 mg Capsule 0.4 mg PO HS Qty: 30 0RF albuterol sulfate 90 mcg/actuation HFA aerosol inhaler 1 inh inhalation Q4H PRN (Reason: shortness of breath or wheezing) Qty: 8.5 0RF atorvastatin 40 mg tablet See Rx Instructions .ROUTE .COMPLEX Qty: 90 1RF Dose Instruction: TAKE 1 TABLET BY MOUTH DAILY Rx Instructions: TAKE 1 TABLET BY MOUTH DAILY (DME) blood-glucose meter [FreeStyle [place] Lite] Kit See Rx Instructions .Route Qty: 1 0RF Rx Instructions: Use to check blood sugar once a day (DME) FreeStyle Lite Strips Strip See Rx Instructions .Route Qty: 100 0RF Rx Instructions: Use to check blood sugar once a day (DME) lancets [FreeStyle Lancets] 28 gauge misc See Rx Instructions .Route Qty: 100 0RF Rx Instructions: Use to check blood sugar once a day glimepiride 1 mg tablet See Rx Instructions .ROUTE .COMPLEX Qty: 90 1RF Dose Instruction: TAKE 1 TABLET BY MOUTH EVERY MORNING ADMINISTER WITH BREAKFAST Rx Instructions: TAKE 1 TABLET BY MOUTH EVERY MORNING ADMINISTER WITH BREAKFAST losartan 25 mg tablet 25 mg PO DAILY Qty: 90 1RF Eliquis 5 mg tablet 5 mg PO Q12HR Qty: 180 0RF Date of admission: 12/06/24 03:58 Primary Care Provider: Leonardo Gomez Admitting Provider: Jose Wagner Attending physician on admission: Jose Wagner Condition: Stable
[2024-12-11 08:00] VITALS: PULSE 92
[2024-12-11] MEDS: INSULIN ASPART (*BKC) 100 UNITS/ML SUB-Q ×2 (09:35→11:55)
[2024-12-11] MEDS: ATORVASTATIN 40 MG TABLET PO (09:36)
[2024-12-11] MEDS: FLUCONAZOLE 100 MG TABLET PO (09:36)
[2024-12-11] MEDS: ESCITALOPRAM OXALATE 10 MG TABLET PO (09:36)
[2024-12-11] MEDS: dilTIAZem HCL CD 180 MG CAP.24HR PO (09:36)
[2024-12-11] MEDS: APIXABAN 5 MG TABLET PO (09:36)
--- NOTE | 2024-12-11 11:31 | PCOTNOTE ---
Attempted OT evaluation. Dr. PRUETT in room. Doctor reports patient is discharging today and does not need occupational therapy evaluation at this time.
[2024-12-11 12:00] VITALS: PULSE 80
--- NOTE | 2024-12-11 14:20 | PCCDE ---
Diabetes Education f/up: Vivien GONSALES called earlier today and sts pt's daughter will be here between [phone] today and would like insulin teaching. Met with daughter Tran. Reviewed once daily long acting insulin; when to take, site selection/rotation, storage/expiration and sharp disposal. Demonstrated how to use insulin pen using training pen and fake injection site. Daughter confirms that pt has a BG meter. Encouraged to test at least FBS daily. (pt usually doesn't test) Reviewed causes, sx and tx of hypoglycemia. Pt has ADA book and Emb[employer] pen handout at bedside; reminded to take book home and in it is DM Specialist contact info to reach for questions prn.
--- NOTE | 2024-12-12 07:53 | PC.NURSE ---
Urine cx growing Enterbacter cloacae complex- dc on Cefpodoxime which is susceptible.
--- NOTE | 2024-12-22 14:54 | PCCDE ---
12/22/24: DM Educator kalyan follow up call completed. Patient saw HCP last week. Reports past 5 days home fasting #'s <140 with yesterday at 125. Declines OP DSMT/MNT at this time. has our information.
== END 2024-12-11 15:00 | disposition home health service (06) | DRG 699 ==
LOC: ANHED 03:04 → ANHIMU 05:08 → ANH3MEDSUR 12-07 17:45
PROVIDERS: Admitting Provider General Practice; Emergency Provider Student in an Organized Health Care Education/Training Program; PCP Family Medicine; Visit Provider General Practice
DX: T83.511A Infection and inflammatory reaction due to indwelling urethral catheter, initial encounter (principal); I48.20 Chronic atrial fibrillation, unspecified; N18.4 Chronic kidney disease, stage 4 (severe); N39.0 Urinary tract infection, site not specified; C67.9 Malignant neoplasm of bladder, unspecified; E11.65 Type 2 diabetes mellitus with hyperglycemia; E11.22 Type 2 diabetes mellitus with diabetic chronic kidney disease; J44.9 Chronic obstructive pulmonary disease, unspecified; K57.30 Diverticulosis of large intestine without perforation or abscess without bleeding; N40.1 Benign prostatic hyperplasia with lower urinary tract symptoms; R33.8 Other retention of urine; F32.9 Major depressive disorder, single episode, unspecified; F17.210 Nicotine dependence, cigarettes, uncomplicated; Z96.653 Presence of artificial knee joint, bilateral; Z85.118 Personal history of other malignant neoplasm of bronchus and lung; Z87.442 Personal history of urinary calculi; Z90.2 Acquired absence of lung [part of]; Z79.01 Long term (current) use of anticoagulants
CPT/HCPCS: 36415; 71045; 71250; 74176; 80053; 80202; 81001; 82010; 82948; 83036; 83605; 85025; 85027; 87040; 87086; 87641; 93005; 94640; 96365; 96367; 96375; 97116; 97161; 97530; 99285; A9270; J0692; J0696; J1815; J2405; J3373; J7120